=== PATIENT | female | born 1960 | race Two or more races ===

== ENCOUNTER 2019-12-30 13:03 | Outpatient (REF) | payer OTHER, SELFPAY | END 2019-12-30 13:04 | disposition home or self-care (01) | LOC: HO.LAB 13:03 | PROVIDERS: PCP Internal Medicine; Visit Provider Internal Medicine | DX: Z20.828 Contact with and (suspected) exposure to other viral communicable diseases (principal) | CPT/HCPCS: C9803; U0003 ==

== ENCOUNTER 2020-02-09 07:59 | Outpatient (REF) | payer OTHER, SELFPAY ==
[2020-02-09 08:24] LABS: Basophils Percent Auto 0.7 % (0-2); Eosinophils Absolute Auto 0.2 X10*3/uL (0.0-0.4); Eosinophils Percent Auto 2.6 % (0-4); Hematocrit 40.4 % (37-47); Hemoglobin 12.8 g/dl (12.0-16.0); Imm Gran Abs Auto 0.02 X10*3/uL (0.00-0.03); Imm Gran Pct Auto 0.3 % (0.0-0.4); Lymphocytes Absolute Auto 3.1 X10*3/uL (1.2-4.9); Lymphocytes Percent Auto 51.1 % (20-40); Mean Corpuscular HGB Conc 31.7 g/dl (31.0-35.0); Mean Corpuscular Volume 91.4 fL (80-98); Monocytes Absolute Auto 0.6 X10*3/uL (0.1-1.2); Monocytes Percent Auto 10.2 % (2-11); Neutrophils Absolute Auto 2.1 X10*3/uL (2.0-8.3); Neutrophils Percent Auto 35.1 % (45-73); Platelet Count 229 X10*3/uL (160-400); Red Blood Count 4.42 X10*6/uL (4.20-5.50); Red Cell Distribution Width 12.5 % (11.0-16.0); White Blood Count 6.1 X10*3/uL (4.8-10.8)
[2020-02-09 08:25] LABS: MANUAL DIFF FLAG NO
[2020-02-09 08:54] LABS: Alanine Aminotransferase 25 U/L (0-31); Albumin Level 4.1 g/dL (3.5-5.0); Alkaline Phosphatase 74 U/L (39-117); Anion Gap 10 (12-20); Aspartate Amino Transferase 25 U/L (5-31); Bilirubin Total 0.3 mg/dL (0.0-1.0); Blood Urea Nitrogen 12 mg/dL (9-16); Calcium 8.8 mg/dL (8.4-10.2); Carbon Dioxide 28 mmol/L (22-29); Chloride 107 mmol/L (96-108); Cholesterol 172 mg/dL; Estimated Glomerular Filt Rate > 60; Glucose Fasting 80 mg/dL (60-99); HDL Cholesterol 47 mg/dL; Iron 146 mcg/dL (30-160); LDL Cholesterol Calculated 85 mg/dl; Percent Iron Saturation 49 % (15-50); Potassium 4.6 mmol/l (3.3-5.1); Sodium 140 mmol/L (135-145); Total Iron Binding Capacity 301 mcg/dL (228-428); Total Protein 6.7 g/dL (6.5-8.0); Triglycerides 204 mg/dL; Unsaturated Iron Binding 155 ug/dL
[2020-02-09 09:17] LABS: Ferritin 70 ng/mL (10-250); TSH reflex Free T4 0.67 mIU/mL (0.32-4.0); Vitamin D 25-OH Total 25.6 ng/mL (>30)
[2020-02-09 10:09] LABS: Folate > 20.0 ng/mL (> or = 4.0); Vitamin B12 628 pg/mL (200-900)
[2020-02-10 13:47] LABS: Thyroglobulin Antibodies 13 IU/mL (< or = 1); Thyroid Peroxidase Antibodies 2 IU/mL (<9)
== END 2020-02-09 08:00 | disposition home or self-care (01) ==
LOC: HO.LAB 07:59
PROVIDERS: Visit Provider Internal Medicine
DX: E78.00 Pure hypercholesterolemia, unspecified (principal); D50.9 Iron deficiency anemia, unspecified; E03.9 Hypothyroidism, unspecified
CPT/HCPCS: 36415; 80053; 80061; 82306; 82607; 82728; 82746; 83540; 84443; 85025; 86376; 86800

== ENCOUNTER 2020-03-31 07:45 | Outpatient (REF) | payer OTHER, SELFPAY ==
--- NOTE | ~2020-03-31 | US_ITS ---
EXAMINATION: US LOWER EXTREMITY DUPLEX ARTERIAL EXAMINATION RIGHT LOWER EXTREMITY CLINICAL INFORMATION: Right leg pain. COMPARISON: None. TECHNIQUE: Real-time ultrasound and Doppler techniques (integrating B-mode 2D vascular images, Doppler spectral analysis and color flow Doppler imaging) were utilized to interrogate the right lower extremity arterial system. FINDINGS: There are some scattered calcified plaque seen within the right lower extremity arterial system. Within the right common femoral artery, there is a triphasic waveform with peak systolic velocity 123 cm/s. Within the profunda femoral artery, there is a triphasic waveform with peak systolic velocity of 119 cm/s. Within the proximal superficial femoral artery, there is a triphasic waveform with peak systolic velocity of 128 cm/s. Within the mid superficial femoral artery, there is a triphasic waveform with peak systolic velocity of 96 cm/s. Within the distal superficial femoral artery, there is a triphasic waveform with peak systolic velocity of 95 cm/s. Within the popliteal artery, there is a biphasic waveform with peak systolic velocity of 99 cm/s. Within the distal posterior tibial artery, there is a biphasic waveform with peak systolic velocity of 99 cm/s. Within the proximal peroneal artery, there is a triphasic waveform with peak systolic velocity of 46 cm/s. US/US arterial duplex LE RT IMPRESSION: No evidence of hemodynamically significant stenosis in the right lower extremity.
--- NOTE | 2020-03-31 08:33 | EMG_ITS ---
HISTORY OF PRESENT ILLNESS: This is a 59-year-old woman with bilateral upper extremity pain, numbness, and tingling. PHYSICAL EXAMINATION: On examination, she is alert and oriented with normal intellectual functions. Cranial nerves II through XII are normal. She has a well-healed scar of her previous right carpal tunnel release. Her left hand is currently worse than the right. Reflexes symmetrical. No Tinel or Phalen sign. IMPRESSION: Left carpal tunnel syndrome. Nerve conduction EMG studies: Mild carpal tunnel syndrome on the left. Normal EMG of the left C5 through T1 innervated muscles. MD NIKKI Funez/ELIEL / [id number]
== END 2020-03-31 07:46 | disposition home or self-care (01) ==
LOC: HO.US 07:45
PROVIDERS: PCP Internal Medicine; Visit Provider Internal Medicine
DX: M79.604 Pain in right leg (principal); R20.0 Anesthesia of skin
CPT/HCPCS: 93926; 95885; 95913

== ENCOUNTER 2020-05-21 10:00 | Outpatient (REF) | payer OTHER, SELFPAY ==
--- NOTE | ~2020-05-21 | MM_ITS ---
EXAMINATION: MM SCREENING DIGITAL BREAST TOMOSYNTHESIS, BILATERAL CLINICAL INFORMATION: Screening. Asymptomatic. Prior outside biopsy left breast (fibroadenoma, [facility]). The lifetime risk of breast cancer based on the Tyrer-Cuzick Model is 6%. COMPARISON: Mammography: 10/13/2019, 03/21/2018, 03/12/2017, 10/11/2016 TECHNIQUE: Digital breast tomosynthesis is performed in both the craniocaudal and mediolateral oblique views along with computer-aided detection (CAD). Synthesized 2D images are generated from the tomosynthesis. FINDINGS: The breasts are heterogeneously dense, which may obscure small masses (ACR BI-RADS breast composition Category c). Parenchymal pattern is similar to prior exams. There is no interval mass or architectural abnormality or developing density. Again, there is biopsy clip marker overlying known fibroadenoma mid upper outer left breast. There is a chronic circumscribed mass likely degenerating fibroadenoma posterior 3:00 position left breast with associated coarse calcifications. The axillary and skin contours are unremarkable. MM/MM tomosynthesis screening BI IMPRESSION: 1. No mammographic evidence of malignancy. 2. Chronic benign nodularity left breast similar to prior studies. ASSESSMENT: BI-RADS 2: Benign RECOMMENDATION: Routine annual mammography screening. This patient's information was entered into a reminder system with a target due date for their next mammogram.
== END 2020-05-21 10:01 | disposition home or self-care (01) ==
LOC: HO.MAMMO 10:00
PROVIDERS: Visit Provider Internal Medicine
DX: Z12.31 Encounter for screening mammogram for malignant neoplasm of breast (principal)
CPT/HCPCS: 77063; 77067

== ENCOUNTER 2020-06-23 16:20 | Outpatient (REF) | payer OTHER, SELFPAY ==
--- NOTE | ~2020-06-23 | MR_ITS ---
EXAMINATION: MR BREAST WITHOUT AND WITH CONTRAST, BILATERAL CLINICAL INFORMATION: Right breast pain. History of benign right breast biopsy. COMPARISON: No previous breast MRI. Mammogram 05/21/2020 TECHNIQUE: Imaging was performed with a dedicated breast coil. Prior to the administration of contrast, bilateral axial T1 and bilateral axial T2 weighted sequences were obtained. After the uneventful administration of?7 mL of Gadavist, dynamic contrast-enhanced VIBRANT series through the breasts in the axial plane were performed. Subtracted images were performed and reviewed. A delayed sagittal sequence through both breasts was acquired. Additionally, CAD post-processing, including maximum intensity projections, 3-D reconstructions and kinetic analysis, were performed an independent workstation and reviewed by the interpreting radiologist is a portion of this exam. FINDINGS: The patient's heterogeneously dense fibroglandular tissue demonstrates mild background enhancement. LEFT BREAST: Stable minimally enhancing mass in the 2:00 position of the left breast, middle depth. Additional nonenhancing fibroadenoma in the 4:00 position, posterior depth, measuring 1.1 cm. No suspicious masslike or non-masslike enhancement. No abnormal skin thickening or nipple retraction. No abnormal architectural distortion. Review of the T2 weighted images demonstrates no fibrocystic changes or dilated ducts. Review of kinetic images reveals no additional findings. RIGHT BREAST: No suspicious masslike or non-masslike enhancement. No abnormal skin thickening or nipple retraction. No abnormal architectural distortion. Review of the T2 weighted images demonstrates no fibrocystic changes or dilated ducts. Review of kinetic images reveals no additional findings. There is no suspicious internal mammary chain or axillary adenopathy. Limited views of the chest and abdomen are unremarkable. MR/MR breast BI wo/w con IMPRESSION: No MR specific evidence of malignancy. No MR findings to explain right breast pain. ASSESSMENT: LEFT BREAST: BI-RADS 1-Negative RIGHT BREAST: BI-RADS 1-Negative RECOMMENDATIONS: Clinical follow-up. Continued annual mammographic surveillance. Further breast MRI as risk factors dictate.
== END 2020-06-23 16:21 | disposition home or self-care (01) ==
LOC: HO.MRI 16:20
PROVIDERS: Visit Provider Internal Medicine
DX: R92.8 Other abnormal and inconclusive findings on diagnostic imaging of breast (principal)
CPT/HCPCS: 77049; A9585

== ENCOUNTER 2020-10-05 08:00 | Outpatient (RCR) | payer OTHER, SELFPAY | END 2020-11-11 09:00 | disposition home or self-care (01) | LOC: HO.OT 08:00 | PROVIDERS: PCP Internal Medicine; Visit Provider Nurse Practitioner Family | DX: R29.898 Other symptoms and signs involving the musculoskeletal system (principal) | CPT/HCPCS: 29125; 97035; 97110; 97166; 97760 ==

== ENCOUNTER 2021-02-08 12:33 | Outpatient (REF) | payer OTHER, SELFPAY ==
[2021-02-08 14:19] LABS: COVID-19 Test Positive (Negative)
== END 2021-02-08 12:34 | disposition home or self-care (01) ==
LOC: HO.LAB 12:33
PROVIDERS: Visit Provider Internal Medicine
DX: Z20.822 Contact with and (suspected) exposure to COVID-19 (principal)
CPT/HCPCS: 36415; 87635; C9803

== ENCOUNTER 2021-04-17 18:17 | Emergency (ER) | payer OTHER, SELFPAY ==
--- NOTE | ~2021-04-17 | XR_ITS ---
EXAMINATION: XR TIBIA AND FIBULA, RIGHT CLINICAL INFORMATION: Pain COMPARISON: None TECHNIQUE: AP and lateral views of the right tibia and fibula were obtained. FINDINGS: Bone alignment is normal. No fracture or dislocation is seen. There are small osteophytes at the patellofemoral and medial femoral tibial joints. The ankle joint is normal. There are small osteophytes at the quadriceps tendon and patellar tendon insertions. Soft tissues are otherwise unremarkable. XR/XR tibia fibula RT 2V IMPRESSION: Mild degenerative changes
--- NOTE | ~2021-04-17 | XR_ITS ---
EXAMINATION: XR FOOT, RIGHT CLINICAL INFORMATION: Pain COMPARISON: Previous x-ray April 2016 TECHNIQUE: AP, lateral, and oblique views of the right foot. FINDINGS: Bone alignment is normal. No fracture or dislocation is seen. Joint spaces are normal. There are large calcaneal spurs. Soft tissues are otherwise normal. XR/XR foot RT 2V IMPRESSION: Large calcaneal spurs.
[2021-04-17 18:42] VITALS: BP 148/82; PULSE 73; RESP 20; TEMP 36.7; O2SAT 97; BMI 27.8
[2021-04-17 19:08] LABS: MANUAL DIFF FLAG NO
[2021-04-17 19:12] LABS: Basophils Absolute Auto 0.1 X10*3/uL (0.0-0.2); Basophils Percent Auto 0.6 % (0-2); Eosinophils Absolute Auto 0.2 X10*3/uL (0.0-0.4); Eosinophils Percent Auto 2.1 % (0-4); Hematocrit 39.1 % (37.0-47.0); Hemoglobin 12.8 g/dl (12.0-16.0); Imm Gran Abs Auto 0.03 X10*3/uL (0.00-0.03); Imm Gran Pct Auto 0.4 % (0.0-0.4); Lymphocytes Absolute Auto 2.5 X10*3/uL (1.2-4.9); Lymphocytes Percent Auto 30.4 % (20-40); Mean Corpuscular HGB Conc 32.7 g/dl (31.0-35.0); Mean Corpuscular Hemoglobin 28.8 pg (27.0-33.0); Mean Corpuscular Volume 87.9 fL (80.0-98.0); Mean Platelet Volume 10.1 fL (9.4-12.3); Monocytes Absolute Auto 0.8 X10*3/uL (0.1-1.2); Monocytes Percent Auto 9.7 % (2-11); Neutrophils Absolute Auto 4.7 x10*3/uL (2.0-8.3); Neutrophils Percent Auto 56.8 % (45-73); Platelet Count 267 X10*3/uL (160-400); Red Blood Count 4.45 X10*6/uL (4.20-5.50); Red Cell Distribution Width 12.9 % (11.0-16.0); White Blood Count 8.3 X10*3/uL (4.8-10.8)
[2021-04-17 19:39] LABS: Anion Gap 11 (12-20); Blood Urea Nitrogen 12 mg/dL (9-16); Calcium 9.9 mg/dL (8.4-10.2); Carbon Dioxide 25 mmol/L (22-29); Chloride 109 mmol/L (96-108); Creatinine Clr Calc Pharmacy 67.2; Estimated Glomerular Filt Rate > 60; Glucose Random 81 mg/dL (60-115); Potassium 4.5 mmol/L (3.3-5.1); Sodium 140 mmol/L (135-145)
[2021-04-17] MEDS: Ibuprofen 600 MG TABLET PO (20:44)
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
[2021-04-17] MEDS: Diphth,Pertus(ACell),Tet Adult 0.5 ML SYRINGE IM (21:45)
[2021-04-17 21:52] VITALS: BP 119/66; PULSE 58; RESP 16; TEMP 36.1; O2SAT 97
[2021-04-17 21:59] LABS: D Dimer High Sensitivity 169 NG/ML
== END 2021-04-17 22:41 | disposition home or self-care (01) ==
PROVIDERS: Physician Assistant; Emergency Provider Internal Medicine; PCP Internal Medicine
DX: L03.115 Cellulitis of right lower limb (principal); M79.671 Pain in right foot; Z79.899 Other long term (current) drug therapy
CPT/HCPCS: 36415; 73590; 73620; 80048; 85025; 85379; 90471; 90715; 96372; 99284

== ENCOUNTER 2021-05-02 07:59 | Outpatient (RCR) | payer OTHER, SELFPAY | END 2021-06-03 16:03 | disposition home or self-care (01) | LOC: HO.WCC 07:59 | PROVIDERS: PCP Internal Medicine; Visit Provider Physician Assistant | DX: T25.221A Burn of second degree of right foot, initial encounter (principal); T31.0 Burns involving less than 10% of body surface; Z87.891 Personal history of nicotine dependence | CPT/HCPCS: 16020; 99212 ==

== ENCOUNTER 2021-05-17 07:54 | Outpatient (REF) | payer OTHER, SELFPAY ==
--- NOTE | ~2021-05-17 | XR_ITS ---
EXAMINATION: XR HAND, RIGHT XR HAND, LEFT CLINICAL INFORMATION: Bilateral hand pain. COMPARISON: None TECHNIQUE: 3 views of each hand and wrist. FINDINGS: Bone alignment is normal. No fracture or dislocation is seen. There are mild degenerative changes at the first LONG TERM joint, right greater than left. The joint spaces are otherwise normal. Soft tissues are normal. 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
--- NOTE | ~2021-05-17 | XR_ITS ---
EXAMINATION: XR HAND, RIGHT XR HAND, LEFT CLINICAL INFORMATION: Bilateral hand pain. COMPARISON: None TECHNIQUE: 3 views of each hand and wrist. FINDINGS: Bone alignment is normal. No fracture or dislocation is seen. There are mild degenerative changes at the first FDC joint, right greater than left. The joint spaces are otherwise normal. Soft tissues are normal. XR/XR hand LT 2V IMPRESSION: Mild osteoarthritis at the first FDC joints, right greater than left.
[2021-05-17 08:22] LABS: MANUAL DIFF FLAG NO
[2021-05-17 08:44] LABS: Basophils Absolute Auto 0.1 X10*3/uL (0.0-0.2); Eosinophils Absolute Auto 0.2 X10*3/uL (0.0-0.4); Eosinophils Percent Auto 4.5 % (0-4); Imm Gran Abs Auto 0.01 X10*3/uL (0.00-0.03); Imm Gran Pct Auto 0.2 % (0.0-0.4); Lymphocytes Absolute Auto 2.2 X10*3/uL (1.2-4.9); Lymphocytes Percent Auto 44.3 % (20-40); Mean Corpuscular HGB Conc 31.8 g/dl (31.0-35.0); Mean Corpuscular Hemoglobin 28.7 pg (27.0-33.0); Mean Corpuscular Volume 90.2 fL (80.0-98.0); Mean Platelet Volume 11.8 fL (9.4-12.3); Monocytes Absolute Auto 0.5 X10*3/uL (0.1-1.2); Monocytes Percent Auto 9.9 % (2-11); Neutrophils Percent Auto 40.1 % (45-73); Platelet Count 158 X10*3/uL (160-400); Red Blood Count 4.88 X10*6/uL (4.20-5.50); Red Cell Distribution Width 12.4 % (11.0-16.0); White Blood Count 5.1 X10*3/uL (4.8-10.8)
[2021-05-17 09:12] LABS: Alanine Aminotransferase 26 U/L (0-31); Albumin Level 4.4 g/dL (3.5-5.0); Alkaline Phosphatase 74 U/L (39-117); Anion Gap 13 (12-20); Aspartate Amino Transferase 22 U/L (5-31); Bilirubin Total 0.8 mg/dL (0.0-1.0); Blood Urea Nitrogen 11 mg/dL (9-16); Calcium 10.3 mg/dL (8.4-10.2); Carbon Dioxide 27 mmol/L (22-29); Chloride 107 mmol/L (96-108); Cholesterol 194 mg/dL; Estimated Glomerular Filt Rate > 60; Glucose Fasting 93 mg/dL (60-99); HDL Cholesterol 48 mg/dL; Iron 117 mcg/dL (30-160); LDL Cholesterol Calculated 119 mg/dl; Percent Iron Saturation 40 % (15-50); Potassium 4.1 mmol/L (3.3-5.1); Sodium 143 mmol/L (135-145); Total Iron Binding Capacity 293 mcg/dL (228-428); Total Protein 7.6 g/dL (6.5-8.0); Triglycerides 138 mg/dL; Unsaturated Iron Binding 176 ug/dL
[2021-05-17 09:42] LABS: Folate 19.8 ng/mL (> or = 4.0); Vitamin B12 544 pg/mL (200-900)
[2021-05-18 13:51] LABS: Calcium (PTHI) 9.7 mg/dL (8.6-10.4); PTHI 79 pg/mL (16-77)
[2021-05-19 11:46] LABS: Calcium, Ionized 5.1 mg/dL (4.8-5.6)
[2021-05-25 13:47] LABS: Vitamin D 25-OH, D2 <4 ng/mL; Vitamin D 25-OH, D3 36 ng/mL; Vitamin D 25-OH, Total 36 ng/mL (30-100)
== END 2021-05-17 07:55 | disposition home or self-care (01) ==
LOC: HO.XRAY 07:54
PROVIDERS: PCP Internal Medicine; Visit Provider Internal Medicine
DX: E78.5 Hyperlipidemia, unspecified (principal); E21.3 Hyperparathyroidism, unspecified; D64.9 Anemia, unspecified; E06.3 Autoimmune thyroiditis; R20.0 Anesthesia of skin; E55.9 Vitamin D deficiency, unspecified; R29.898 Other symptoms and signs involving the musculoskeletal system
CPT/HCPCS: 36415; 73120; 80053; 80061; 82306; 82330; 82607; 82746; 83540; 83970; 84443; 85025

== ENCOUNTER 2021-08-04 08:35 | Outpatient (REF) | payer OTHER, SELFPAY ==
[2021-08-04 08:52] LABS: MANUAL DIFF FLAG NO
[2021-08-04 09:42] LABS: Basophils Percent Auto 0.6 % (0-2); Eosinophils Absolute Auto 0.1 X10*3/uL (0.0-0.4); Eosinophils Percent Auto 2.1 % (0-4); Hematocrit 38.5 % (37.0-47.0); Hemoglobin 12.2 g/dl (12.0-16.0); Imm Gran Abs Auto 0.01 X10*3/uL (0.00-0.03); Imm Gran Pct Auto 0.2 % (0.0-0.4); Lymphocytes Absolute Auto 2.2 X10*3/uL (1.2-4.9); Lymphocytes Percent Auto 41.8 % (20-40); Mean Corpuscular HGB Conc 31.7 g/dl (31.0-35.0); Mean Corpuscular Hemoglobin 28.2 pg (27.0-33.0); Mean Corpuscular Volume 88.9 fL (80.0-98.0); Mean Platelet Volume 10.7 fL (9.4-12.3); Monocytes Absolute Auto 0.6 X10*3/uL (0.1-1.2); Monocytes Percent Auto 10.6 % (2-11); Neutrophils Absolute Auto 2.3 x10*3/uL (2.0-8.3); Neutrophils Percent Auto 44.7 % (45-73); Platelet Count 213 X10*3/uL (160-400); Red Blood Count 4.33 X10*6/uL (4.20-5.50); Red Cell Distribution Width 12.6 % (11.0-16.0); White Blood Count 5.2 X10*3/uL (4.8-10.8)
[2021-08-04 10:17] LABS: Alanine Aminotransferase 26 U/L (0-31); Albumin Level 4.1 g/dL (3.5-5.0); Alkaline Phosphatase 67 U/L (39-117); Anion Gap 11 (12-20); Aspartate Amino Transferase 26 U/L (5-31); Bilirubin Total 0.5 mg/dL (0.0-1.0); Blood Urea Nitrogen 16 mg/dL (9-16); Carbon Dioxide 25 mmol/L (22-29); Chloride 109 mmol/L (96-108); Cholesterol 144 mg/dL; Estimated Glomerular Filt Rate > 60; Glucose Fasting 90 mg/dL (60-99); HDL Cholesterol 44 mg/dL; Iron 94 mcg/dL (30-160); LDL Cholesterol Calculated 79 mg/dl; Percent Iron Saturation 36 % (15-50); Potassium 4.1 mmol/L (3.3-5.1); Sodium 141 mmol/L (135-145); Total Iron Binding Capacity 258 mcg/dL (228-428); Total Protein 6.8 g/dL (6.5-8.0); Triglycerides 109 mg/dL; Unsaturated Iron Binding 164 ug/dL
[2021-08-04 10:42] LABS: Thyroid Stimulating Hormone 1.16 uIU/mL (0.32-4.0); Vitamin D 25-OH Total 25.5 ng/mL (>30)
[2021-08-05 12:06] LABS: PTHI 97 pg/mL (16-77)
[2021-08-06 18:12] LABS: Calcium, Random Urine 6.1 mg/dL
[2021-08-10 12:16] LABS: Vitamin D 25-OH, D2 <4 ng/mL; Vitamin D 25-OH, D3 26 ng/mL; Vitamin D 25-OH, Total 26 ng/mL (30-100)
[2021-08-11 07:07] LABS: Calcium, Ionized 5.1 mg/dL (4.8-5.6)
== END 2021-08-04 08:36 | disposition home or self-care (01) ==
LOC: HO.LAB 08:35
PROVIDERS: PCP Internal Medicine; Visit Provider Internal Medicine
DX: E55.9 Vitamin D deficiency, unspecified (principal); D64.9 Anemia, unspecified; E06.3 Autoimmune thyroiditis; E78.5 Hyperlipidemia, unspecified; E21.3 Hyperparathyroidism, unspecified
CPT/HCPCS: 36415; 80053; 80061; 82306; 82310; 82330; 83540; 83970; 84443; 85025

== ENCOUNTER → 2021-11-01 11:00 | Outpatient (BNVA) | payer OTHER, SELFPAY | PROVIDERS: PCP Internal Medicine; Visit Provider Internal Medicine Endocrinology, Diabetes & Metabolism | DX: E55.9 Vitamin D deficiency, unspecified (principal) | CPT/HCPCS: 99202 ==

== ENCOUNTER 2021-11-24 11:55 | Outpatient (REF) | payer OTHER, SELFPAY ==
[2021-11-24 12:36] LABS: COVID-19 Test Negative (Negative)
== END 2021-11-24 11:56 | disposition home or self-care (01) ==
LOC: HO.LAB 11:55
PROVIDERS: Visit Provider Internal Medicine
DX: Z20.822 Contact with and (suspected) exposure to COVID-19 (principal)
CPT/HCPCS: 87635; C9803

== ENCOUNTER 2022-01-26 14:39 | Outpatient (REF) | payer OTHER, SELFPAY ==
[2022-01-26 15:12] LABS: COVID-19 Test Positive (Negative); IDNOW Serial# 16C4AD1C
== END 2022-01-26 14:40 | disposition home or self-care (01) ==
LOC: HO.LAB 14:39
PROVIDERS: Visit Provider Internal Medicine
DX: Z20.822 Contact with and (suspected) exposure to COVID-19 (principal)
CPT/HCPCS: 87635; C9803

== ENCOUNTER 2022-02-01 10:35 | Outpatient (REF) | payer OTHER, SELFPAY ==
[2022-02-01 11:01] LABS: COVID-19 Test Positive (Negative); IDNOW Serial# BCCEAD1C
== END 2022-02-01 10:36 | disposition home or self-care (01) ==
LOC: HO.LAB 10:35
PROVIDERS: Visit Provider Internal Medicine
DX: Z20.822 Contact with and (suspected) exposure to COVID-19 (principal)
CPT/HCPCS: 87635; C9803

== ENCOUNTER 2022-02-07 11:49 | Outpatient (REF) | payer OTHER, SELFPAY ==
[2022-02-07 12:22] LABS: COVID-19 Test Negative (Negative); IDNOW Serial# 16C4AD1C
== END 2022-02-07 11:50 | disposition home or self-care (01) ==
LOC: HO.LAB 11:49
PROVIDERS: Visit Provider Internal Medicine
DX: Z20.822 Contact with and (suspected) exposure to COVID-19 (principal)
CPT/HCPCS: 87635; C9803

== ENCOUNTER 2022-03-06 08:08 | Outpatient (REF) | payer OTHER, SELFPAY ==
[2022-03-06 09:28] LABS: Alanine Aminotransferase 35 U/L (0-31); Alkaline Phosphatase 79 U/L (39-117); Anion Gap 12 (12-20); Aspartate Amino Transferase 30 U/L (5-31); Bilirubin Total 0.7 mg/dL (0.0-1.0); Blood Urea Nitrogen 12 mg/dL (9-16); Calcium 9.4 mg/dL (8.4-10.2); Carbon Dioxide 28 mmol/L (22-29); Chloride 108 mmol/L (96-108); Cholesterol 245 mg/dL; Estimated Glomerular Filt Rate > 60; Glucose Fasting 93 mg/dL (60-99); HDL Cholesterol 41 mg/dL; LDL Cholesterol Calculated 166 mg/dl; Potassium 4.6 mmol/L (3.3-5.1); Sodium 143 mmol/L (135-145); Total Protein 6.9 g/dL (6.5-8.0); Triglycerides 193 mg/dL
[2022-03-06 09:43] LABS: Thyroid Stimulating Hormone 3.53 uIU/mL (0.32-4.0)
== END 2022-03-06 08:09 | disposition home or self-care (01) ==
LOC: HO.LAB 08:08
PROVIDERS: Absent Provider Internal Medicine Endocrinology, Diabetes & Metabolism; PCP Internal Medicine; Visit Provider Internal Medicine
DX: E06.3 Autoimmune thyroiditis (principal); E78.5 Hyperlipidemia, unspecified
CPT/HCPCS: 36415; 80053; 80061; 84443

== ENCOUNTER 2022-03-07 10:23 | Outpatient (REF) | payer OTHER, SELFPAY ==
[2022-03-07 13:22] LABS: Vitamin D 25-OH Total 20.9 ng/mL (>30)
[2022-03-08 11:38] LABS: Calcium (PTHI) 9.3 mg/dL (8.6-10.4); PTHI 88 pg/mL (16-77)
== END 2022-03-07 10:24 | disposition home or self-care (01) ==
LOC: HO.LAB 10:23
PROVIDERS: PCP Internal Medicine; Visit Provider Internal Medicine Endocrinology, Diabetes & Metabolism
DX: E55.9 Vitamin D deficiency, unspecified (principal)
CPT/HCPCS: 36415; 82040; 82306; 83970; 99212

== ENCOUNTER 2022-03-21 13:51 | Outpatient (REF) | payer OTHER, SELFPAY ==
--- NOTE | ~2022-03-21 | MM_ITS ---
EXAMINATION: MM DIAGNOSTIC DIGITAL BREAST TOMOSYNTHESIS, BILATERAL CLINICAL INFORMATION: Right breast upper outer quadrant pain for one month. Yearly screening left breast study. COMPARISON: Mammography: MR of 06/23/2020 and studies dating back to 11/09/2015. TECHNIQUE: Digital breast tomosynthesis is performed in both the craniocaudal and mediolateral oblique views along with computer-aided detection (CAD). Synthesized 2D images are generated from the tomosynthesis. Additional spot compression views anterior right breast performed in craniocaudal and mediolateral oblique projections. FINDINGS: The breasts are heterogeneously dense, which may obscure small masses (ACR BI-RADS breast composition Category c). There is a stable parenchymal pattern of the left breast with fibroadenomas and biopsy clip from previous biopsy. About the retroareolar aspect of the right breast there is a question of a faint density for which spot compression views were performed which effaced the density as it represented superimposition of fibroglandular tissue. Targeted ultrasound evaluation of the right breast in region of patient's pain and retroareolar area was then performed. No suspicious cystic or solid mass was identified. No region of abnormal distal sound shadowing was appreciated. Results are discussed with the patient at time of visit. MM/MM tomosynthesis diagnostic BI IMPRESSION: Stable appearance of the breast with no specific mammographic or ultrasound findings to suggest malignancy. ASSESSMENT: BI-RADS 2: Benign. RECOMMENDATION: Routine annual screening mammography. Clinical follow-up for patient's pain. This patient's information was entered into a reminder system with a target due date for their next mammogram.
== END 2022-03-21 13:52 | disposition home or self-care (01) ==
LOC: HO.MAMMO 13:51
PROVIDERS: PCP Internal Medicine; Visit Provider Internal Medicine
DX: N64.4 Mastodynia (principal)
CPT/HCPCS: 76642; 77062; 77066

== ENCOUNTER → 2022-03-29 07:35 | Outpatient (BNVA) | payer OTHER, SELFPAY | PROVIDERS: PCP Internal Medicine; Visit Provider Orthopaedic Surgery | DX: G56.02 Carpal tunnel syndrome, left upper limb (principal); R20.0 Anesthesia of skin; Z98.890 Other specified postprocedural states | CPT/HCPCS: 99202 ==

== ENCOUNTER 2022-04-27 08:01 | Day surgery (SDC) | payer OTHER, SELFPAY ==
[2022-04-27 08:23] VITALS: BP 135/76; PULSE 72; RESP 16; TEMP 36.2; O2SAT 96; BMI 27.4
--- NOTE | 2022-04-27 09:33 | MHC.SHP ---
Pre-Procedural Eval Section A Date of Service: 04/27/22 The patient is an INPATIENT: No Changes since office visit: No Cold of Flu in the past 2 weeks, No New Medical Problems, No Changes in Medication and No Patient answered all questions The History & Physical has been completed within 30 days and I have reviewed it.: Yes Section B Chief Complaint: Carpal tunnel syndrome, left upper limb Allergies: Allergies Allergy/AdvReac Type Severity Reaction Status Date / Time bee pollen [BEE STINGS] Allergy Severe SWELLING Verified 04/27/22 08:21 Penicillins [PENICILLINS] Allergy Severe HIVES, Verified 04/27/22 08:21 THROAT CLOSES amitriptyline [AMITRIPTYLINE] Allergy Intermediate Agitation Verified 04/27/22 08:21 oxycodone [From PERCOCET] AdvReac Intermediate DIZZINESS Verified 04/27/22 08:21 Plan I have reviewed the history and physical and performed a pertinent physical examination on my patient. No changes have occurred unless specified. Time Spent With Patient Time: Total time managing care of this patient today ____ minutes.
--- NOTE | 2022-04-27 09:33 | W.PM.OPN ---
Operative Note Operative Note Date of Service: 04/27/22 Narrative: Preop diagnosis: 1. Left Carpal tunnel syndrome Postop diagnosis: same Procedure: 1. left Carpal tunnel release Surgeon: Analisa Diego MD Anesthesia: local block using 1% lidocaine with epinephrine Findings: Thickened transverse carpal ligament. EBL: Less than 5 mL Specimens: None Complications: None Disposition: Brought to recovery room in stable condition Plan: Follow-up for 10-14 days for wound check and suture removal Indications: The patient is 61 years old, with left carpal tunnel syndrome that has been unresponsive to nonoperative management. The risks and benefits of operative treatment including but not limited to risk of damage to blood vessels, nerves, tendons, infection, persistent pain, persistent symptoms, or possible need for additional surgery were discussed with the patient and the patient wishes to proceed with surgery. Procedure: Once consent was obtained a local block was performed using a combination of 1% lidocaine with epinephrine. The patient was then brought back to the operating suite and placed on the operative table in supine position. The left upper extremity was prepped and draped in a standard surgical fashion. Once assured that we had a good block, a 2.0 cm longitudinal incision was made centered over the carpal tunnel. The incision was made through the skin to the subcutaneous tissues using a #15 blade. Dissection was made down to the level of the transverse carpal ligament with care being taken to protect the palmar cutaneous nerve. Once the transverse carpal ligament was clearly visualized, a longitudinal incision was made in the transverse carpal ligament 1st using a #15 blade, then using tenotomy scissors under direct visualization. Care was taken to look for and protect the motor branch of the median nerve when seen in this area. Once satisfied with our carpal tunnel release the wound was copiously irrigated with normal saline and hemostasis was obtained with a brief period of local pressure. The skin edges were reapproximated with some 5.0 nylon suture material and a sterile dressing was applied. The patient appears to have tolerated the procedure well and with no complications. All digits were well vascularized at the conclusion of the case.
== END 2022-04-27 09:58 | disposition home or self-care (01) ==
PROVIDERS: PCP Internal Medicine; Visit Provider Orthopaedic Surgery
PROC: (CPT 64721; principal; 2022-04-27 14:50)
DX: G56.02 Carpal tunnel syndrome, left upper limb (principal); R20.0 Anesthesia of skin; R20.2 Paresthesia of skin; R53.1 Weakness; E06.3 Autoimmune thyroiditis; E78.5 Hyperlipidemia, unspecified; D50.9 Iron deficiency anemia, unspecified; J45.909 Unspecified asthma, uncomplicated; H53.8 Other visual disturbances; R41.3 Other amnesia; Z88.0 Allergy status to penicillin; Z88.8 Allergy status to other drugs, medicaments and biological substances; Z98.84 Bariatric surgery status; Z98.890 Other specified postprocedural states
CPT/HCPCS: 64721; J0171

== ENCOUNTER → 2022-05-10 15:01 | Outpatient (BNVA) | payer OTHER, SELFPAY | PROVIDERS: PCP Internal Medicine; Visit Provider Orthopaedic Surgery | DX: G56.02 Carpal tunnel syndrome, left upper limb (principal); R20.0 Anesthesia of skin; Z98.890 Other specified postprocedural states | CPT/HCPCS: 99212 ==

== ENCOUNTER 2022-05-18 11:48 | Outpatient (REF) | payer OTHER, SELFPAY ==
--- NOTE | 2022-05-18 10:30 | EMG_ITS ---
Right median and ulnar motor and sensory studies were performed. Right radial sensory study was performed and paraspinal muscles were tested with a needle. IMPRESSION: Mild right median neuropathy across carpal tunnel affecting the sensory component. Her previous study, if done, was not available for comparison. MD SHANA Jasso/ELIEL / [id number]
== END 2022-05-18 11:49 | disposition home or self-care (01) ==
LOC: HO.NEURO 11:48
PROVIDERS: PCP Internal Medicine; Visit Provider Orthopaedic Surgery
DX: R20.0 Anesthesia of skin (principal); Z98.890 Other specified postprocedural states
CPT/HCPCS: 95886; 95909

== ENCOUNTER → 2022-05-30 09:09 | Outpatient (BNVA) | payer OTHER, SELFPAY | PROVIDERS: PCP Internal Medicine; Visit Provider Orthopaedic Surgery | DX: G56.02 Carpal tunnel syndrome, left upper limb (principal); G56.21 Lesion of ulnar nerve, right upper limb; R20.0 Anesthesia of skin; Z98.890 Other specified postprocedural states | CPT/HCPCS: 99212 ==

== ENCOUNTER 2022-06-13 08:53 | Outpatient (REF) | payer OTHER, SELFPAY ==
[2022-06-13 09:04] LABS: MANUAL DIFF FLAG NO
[2022-06-13 09:37] LABS: Basophils Absolute Auto 0.1 X10*3/uL (0.0-0.2); Basophils Percent Auto 0.9 % (0-2); Eosinophils Absolute Auto 0.1 X10*3/uL (0.0-0.4); Eosinophils Percent Auto 1.6 % (0-4); Hematocrit 38.2 % (37.0-47.0); Hemoglobin 12.4 g/dl (12.0-16.0); Imm Gran Abs Auto 0.01 X10*3/uL (0.00-0.03); Imm Gran Pct Auto 0.1 % (0.0-0.4); Lymphocytes Absolute Auto 2.8 X10*3/uL (1.2-4.9); Lymphocytes Percent Auto 39.7 % (20-40); Mean Corpuscular HGB Conc 32.5 g/dl (31.0-35.0); Mean Corpuscular Hemoglobin 28.8 pg (27.0-33.0); Mean Corpuscular Volume 88.8 fL (80.0-98.0); Mean Platelet Volume 10.4 fL (9.4-12.3); Monocytes Absolute Auto 0.9 X10*3/uL (0.1-1.2); Monocytes Percent Auto 12.1 % (2-11); Neutrophils Absolute Auto 3.2 x10*3/uL (2.0-8.3); Neutrophils Percent Auto 45.6 % (45-73); Platelet Count 262 X10*3/uL (160-400); Red Cell Distribution Width 12.5 % (11.0-16.0)
[2022-06-13 10:07] LABS: Alanine Aminotransferase 18 U/L (0-31); Albumin Level 3.9 g/dL (3.5-5.0); Alkaline Phosphatase 74 U/L (39-117); Anion Gap 14 (12-20); Aspartate Amino Transferase 19 U/L (5-31); Bilirubin Total 0.6 mg/dL (0.0-1.0); Blood Urea Nitrogen 9 mg/dL (9-16); Calcium 9.2 mg/dL (8.4-10.2); Carbon Dioxide 23 mmol/L (22-29); Chloride 110 mmol/L (96-108); Cholesterol 182 mg/dL; Estimated Glomerular Filt Rate > 60; Glucose Fasting 70 mg/dL (60-99); HDL Cholesterol 41 mg/dL; Iron 56 mcg/dL (30-160); LDL Cholesterol Calculated 115 mg/dl; Percent Iron Saturation 26 % (15-50); Potassium 4.1 mmol/L (3.3-5.1); Sodium 143 mmol/L (135-145); Total Iron Binding Capacity 215 mcg/dL (228-428); Total Protein 6.7 g/dL (6.5-8.0); Triglycerides 131 mg/dL; Unsaturated Iron Binding 159 ug/dL
[2022-06-13 10:24] LABS: Thyroid Stimulating Hormone 2.37 uIU/mL (0.32-4.0); Vitamin D 25-OH Total 25.8 ng/mL (>30)
[2022-06-14 16:13] LABS: Calcium (PTHI) 9.4 mg/dL (8.6-10.4); PTHI 86 pg/mL (16-77)
== END 2022-06-13 08:54 | disposition home or self-care (01) ==
LOC: HO.LAB 08:53
PROVIDERS: Internal Medicine Endocrinology, Diabetes & Metabolism; PCP Internal Medicine; Visit Provider Internal Medicine
DX: Z00.00 Encounter for general adult medical examination without abnormal findings (principal); E55.9 Vitamin D deficiency, unspecified; E06.3 Autoimmune thyroiditis; D64.9 Anemia, unspecified; E78.5 Hyperlipidemia, unspecified
CPT/HCPCS: 36415; 80053; 80061; 82306; 83540; 83970; 84443; 85025

== ENCOUNTER 2022-06-22 06:01 | Day surgery (SDC) | payer OTHER, SELFPAY ==
[2022-06-19 15:08] VITALS: BMI 27.4
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
[2022-06-22 06:15] VITALS: BP 114/71; PULSE 68; RESP 16; TEMP 36.3; O2SAT 100
--- NOTE | 2022-06-22 07:54 | MHC.SHP ---
Pre-Procedural Eval Section A Date of Service: 06/22/22 The patient is an INPATIENT: No Changes since office visit: No Cold of Flu in the past 2 weeks, No New Medical Problems, No Changes in Medication and No Patient answered all questions The History & Physical has been completed within 30 days and I have reviewed it.: Yes Section B Chief Complaint: Lesion of ulnar nerve, right upper limb Allergies: Allergies Allergy/AdvReac Type Severity Reaction Status Date / Time bee pollen [BEE STINGS] Allergy Severe SWELLING Verified 05/30/22 09:21 Penicillins [PENICILLINS] Allergy Severe HIVES, Verified 05/30/22 09:21 THROAT CLOSES amitriptyline [AMITRIPTYLINE] Allergy Intermediate Agitation Verified 05/30/22 09:21 oxycodone [From PERCOCET] AdvReac Intermediate DIZZINESS Verified 05/30/22 09:21 Plan I have reviewed the history and physical and performed a pertinent physical examination on my patient. No changes have occurred unless specified. Time Spent With Patient Time: Total time managing care of this patient today ____ minutes.
--- NOTE | 2022-06-22 07:54 | W.PM.OPN ---
Operative Note Operative Note Date of Service: 06/22/22 Narrative: Operative Note Narrative: Preop diagnosis: 1. Right Cubital tunnel syndrome Postop diagnosis: Same Procedure: 1. Right Cubital Tunnel Release Surgeon: Analisa Diego MD Anesthesia: General Anesthesia Findings: Thickening and fibrosis about the ulnar nerve at the cubital tunnel Implants: none Tourniquet time: 12 minutes EBL: 5.0 ml Specimen: none Drains: None Complications: None Disposition: Brought to the recovery room in stable condition Plan: Follow-up in 10-14 days for wound check, and suture removal Indications: The patient is 61 years old with right cubital tunnel . The risks and benefits of operative treatment, including but not limited to risk of damage to blood vessels, nerves, tendons, infection, recurrence, persistent pain or numbness, incomplete resolution of preoperative symptoms, or need for further surgery were discussed with the patient and they wished to proceed with surgery. Procedure: Once consent was obtained patient was brought back to the operating suite and placed in the operating table in a supine position. Perioperative antibiotics and anesthesia was administered by the anesthesia team. The limb was prepped and draped in a standard surgical fashion, and a sterile tourniquet applied to the proximal aspect of the right upper extremity. The limb was elevated exsanguinated with Esmarch bandage and the tourniquet inflated to 250 mm of mercury for a total tourniquet time of 12 minutes. A 6 cm gently curved but longitudinally oriented incision was made centered over the cubital tunnel of the right upper extremity. Incision was made through the skin to the subcutaneous tissues using a # 15 Blade. I then dissected down to the level of the medial epicondyle and the cubital tunnel using tenotomy scissors. Care was taken to protect the lateral antebrachial cutaneous nerve. The ulnar nerve was identified just posterior to the medial intermuscular septum. The ulnar nerve was released in a proximal to distal direction using tenotomy in iris scissors while directly visualizing and protecting the ulnar nerve. Thickening and fibrosis was appreciated about the ulnar nerve as it passed through the cubital tunnel. The ulnar nerve was assessed as I passed the elbow through full flexion and extension and was found to remain stable within its groove. At this point the tourniquet was deflated and hemostasis obtained with a brief period of local pressure and bipolar electrocautery. The wound was copiously irrigated with normal saline. The subcutaneous layer was closed with 4-0 Vicryl suture, and the skin edges were reapproximated with 5-0 nylon suture. The wound was infiltrated with some 0.25% plain Marcaine for postop pain control and sterile dressings were applied. The patient appears to have tolerated the procedure well and with no complications. All digits were well vascularized conclusion of the case.
[2022-06-22 08:53] VITALS: BP 118/65; PULSE 61; RESP 16; TEMP 36.4; O2SAT 95
[2022-06-22 08:58] VITALS: BP 112/62; PULSE 57; RESP 16; O2SAT 98
[2022-06-22 09:03] VITALS: BP 117/70; PULSE 59; RESP 16; O2SAT 97
[2022-06-22 09:08] VITALS: BP 109/79; PULSE 57; RESP 16; TEMP 36.9; O2SAT 98
[2022-06-22 09:26] VITALS: BP 114/76; PULSE 60; RESP 18; TEMP 36.6; O2SAT 97
== END 2022-06-22 10:00 | disposition home or self-care (01) ==
PROVIDERS: PCP Internal Medicine; Visit Provider Orthopaedic Surgery
PROC: (CPT 64718; principal; 2022-06-22 07:30)
DX: G56.21 Lesion of ulnar nerve, right upper limb (principal); Z88.0 Allergy status to penicillin; Z88.8 Allergy status to other drugs, medicaments and biological substances; R20.0 Anesthesia of skin; D50.9 Iron deficiency anemia, unspecified; J45.909 Unspecified asthma, uncomplicated; Z98.84 Bariatric surgery status; Z98.890 Other specified postprocedural states; Z79.1 Long term (current) use of non-steroidal anti-inflammatories (NSAID); Z79.51 Long term (current) use of inhaled steroids; Z79.899 Other long term (current) drug therapy
CPT/HCPCS: 64718; J0131; J1100; J1885; J2370; J2405; J2795

== ENCOUNTER → 2022-07-05 09:19 | Outpatient (BNVA) | payer OTHER, SELFPAY | PROVIDERS: PCP Internal Medicine; Visit Provider Physician Assistant | DX: Z48.811 Encounter for surgical aftercare following surgery on the nervous system (principal) | CPT/HCPCS: 99212 ==

== ENCOUNTER 2022-08-01 07:15 | Outpatient (REF) | payer OTHER, SELFPAY ==
[2022-08-01 08:26] LABS: Alanine Aminotransferase 26 U/L (0-31); Alkaline Phosphatase 67 U/L (39-117); Anion Gap 11 (12-20); Aspartate Amino Transferase 26 U/L (5-31); Bilirubin Total 0.9 mg/dL (0.0-1.0); Blood Urea Nitrogen 12 mg/dL (9-16); Calcium 9.9 mg/dL (8.4-10.2); Carbon Dioxide 26 mmol/L (22-29); Chloride 108 mmol/L (96-108); Cholesterol 186 mg/dL; Estimated Glomerular Filt Rate > 60; Glucose Fasting 96 mg/dL (60-99); HDL Cholesterol 49 mg/dL; LDL Cholesterol Calculated 103 mg/dl; Potassium 3.9 mmol/L (3.3-5.1); Sodium 141 mmol/L (135-145); Total Protein 7.2 g/dL (6.5-8.0); Triglycerides 170 mg/dL
[2022-08-01 08:43] LABS: Thyroid Stimulating Hormone 4.26 uIU/mL (0.32-4.0)
== END 2022-08-01 07:16 | disposition home or self-care (01) ==
LOC: HO.LAB 07:15
PROVIDERS: PCP Internal Medicine; Visit Provider Internal Medicine
DX: E78.5 Hyperlipidemia, unspecified (principal); M54.31 Sciatica, right side; E06.3 Autoimmune thyroiditis
CPT/HCPCS: 36415; 80053; 80061; 84443

== ENCOUNTER 2022-08-03 17:05 | Outpatient (REF) | payer OTHER, SELFPAY ==
--- NOTE | ~2022-08-03 | XR_ITS ---
EXAMINATION: XR LUMBOSACRAL SPINE CLINICAL INFORMATION: Low back pain COMPARISON: None available. TECHNIQUE: Three views of the lumbosacral spine. FINDINGS: Scattered surgical clips in the upper abdomen and pelvis. Facet arthritis in the lower lumbar spine. Mild multilevel lumbar spondylosis. Lumbar vertebral body heights are preserved. XR/XR lumbar spine 2-3V IMPRESSION: Facet arthritis in the lower lumbar spine. Mild multilevel lumbar spondylosis.
== END 2022-08-03 17:06 | disposition home or self-care (01) ==
LOC: HO.XRAY 17:05
PROVIDERS: PCP Internal Medicine; Visit Provider Internal Medicine
DX: M54.50 Low back pain, unspecified (principal)
CPT/HCPCS: 72100

== ENCOUNTER 2022-08-16 07:55 | Outpatient (REF) | payer OTHER, SELFPAY | END 2022-08-16 07:56 | disposition home or self-care (01) | LOC: HO.LAB 07:55 | PROVIDERS: Absent Provider Internal Medicine Endocrinology, Diabetes & Metabolism; PCP Internal Medicine; Visit Provider Orthopaedic Surgery | DX: G56.02 Carpal tunnel syndrome, left upper limb (principal); R20.0 Anesthesia of skin; G56.21 Lesion of ulnar nerve, right upper limb; Z98.890 Other specified postprocedural states; E55.9 Vitamin D deficiency, unspecified; E78.5 Hyperlipidemia, unspecified; E06.3 Autoimmune thyroiditis | CPT/HCPCS: 36415; 80061; 84443 ==

== ENCOUNTER 2022-08-21 08:00 | Outpatient (RCR) | payer OTHER, SELFPAY ==
--- NOTE | 2022-08-02 14:48 | MHC.OT.EP ---
[address] [phone] Occupational Therapy Plan of Care Patient Name: Isis Moreno Date of Evaluation: 08/01/22 Diagnosis: Right cubital tunnel and CTR Left CTR Pain Location: 4-9 bilateral carpal wrists . Achy , stabbing Pain Score: 6 Pain Scale Used: Numeric (0 - 10) Aggravating Factors: Daily activities and at rest Alleviating Factors: Assessment: Pt is a 61 yo female 5 wks s/p right cubital tunnel release and CTR . She had left CTR this past April. Today she presents with moderate to high left wrist pain , hypersensitivity , dec ROM and low strength . Right hand complaint of wrist pain and hand numbness affecting her ability to resume homemaking tasks and hand crafts. Pt will benefit from OT to address impairments in wrist pain, ROM, strength as well as education in protection techniques and compensation techniques for sensory and strength impairments. Frequency and Duration: The patient will be seen 2x wk x 6 wks Short Term Goals: Demo indep with HEP Demo indep with scar desensitization Demo awareness of skin protection tech for right hand protective sensation impairment Left wrist ext to 60 deg Left wrist flexion to 55 deg Left benefits clerk to > 10 lb Demo RUE gentle ROM and benefits clerk strengthening Mold Blower Goals: RUE AROM to WNL R benefits clerk to >25 lb Indep with right hand protection tech as needed Left wrist pain <5 at worst Left wrist ext to > 60 deg Left wrist flex to > 55 deg'' Treatment Plan: Therapeutic Exercise Therapeutic Activity Home Exercise Program Patient Education Desensitization/Sensory Re-ed ADL Training Ultrasound Electronically Signed By: Mami Guajardo OT CHT CLT Please Sign and return to therapist. Thank you once again for your referral.
== END 2022-11-15 10:58 | disposition home or self-care (01) ==
LOC: HO.OT 08:00
PROVIDERS: PCP Internal Medicine; Visit Provider Physician Assistant
DX: G56.02 Carpal tunnel syndrome, left upper limb (principal); G56.21 Lesion of ulnar nerve, right upper limb
CPT/HCPCS: 97110; 97166

== ENCOUNTER 2022-08-22 08:10 | Outpatient (REF) | payer OTHER, SELFPAY ==
[2022-08-22 11:23] LABS: Vitamin D 25-OH Total 36.8 ng/mL (>30)
[2022-08-24 04:38] LABS: Calcium (PTHI) 9.7 mg/dL (8.6-10.4); PTHI 93 pg/mL (16-77)
== END 2022-08-22 08:11 | disposition home or self-care (01) ==
LOC: HO.LAB 08:10
PROVIDERS: PCP Internal Medicine; Visit Provider Internal Medicine Endocrinology, Diabetes & Metabolism
DX: E55.9 Vitamin D deficiency, unspecified (principal)
CPT/HCPCS: 36415; 82306; 83970; 99212

== ENCOUNTER 2022-08-22 08:10 | Outpatient (AMB) | payer OTHER, SELFPAY ==
[2022-08-22 08:40] VITALS: BP 108/60; PULSE 56; O2SAT 98; BMI 26.8
--- NOTE | 2022-08-22 08:40 | MHC.OFFVIS ---
Intake Vital Signs 08/22/22 08:40 Height 5 ft 2 in Weight 146 lb 6.191 oz BMI 26.8 BP 108/60 Blood Pressure Location Lt brachial Position Sitting Pulse 56 Pulse Source Pulse Oximeter Pulse Oximetry (%) 98 Oxygen Delivery Method Room Air Intake Visit Reasons: F/up secondary hyperparathyroidism Intake Note: Pt presents to the office today for a follow-up secondary hyperparathyroidism. Audio Production Engineer Required: Yes Audio Production Engineer Language: Tellers Supervisor Name: Manolo [id number] Information Interpreted: non-clinical & clinical Accompanied by: Self / Same As Patient Allergies bee pollen [BEE STINGS] Allergy (Severe, Verified 08/22/22 08:42) SWELLING Penicillins [PENICILLINS] Allergy (Severe, Verified 08/22/22 08:42) HIVES, THROAT CLOSES amitriptyline [AMITRIPTYLINE] Allergy (Intermediate, Verified 08/22/22 08:42) Agitation oxycodone [From PERCOCET] Adverse Reaction (Intermediate, Verified 08/22/22 08:42) DIZZINESS Medication List - Last Reconciled 08/22/22 by Alan Quinones MD [adult diapers As directed] blood sugar diagnostic (FreeStyle Lite Strips) 1 strip miscellaneous TID 90 days cholecalciferol (vitamin D3) 125 mcg PO DAILY cyclobenzaprine 10 mg PO TID PRN 30 days epinephrine 0.3 mg (0.3 mL) IM DIRECTED PRN 1 day ergocalciferol (vitamin D2) 1,250 mcg PO 2XW fluticasone propionate 44 mcg/actuation (Flovent HFA) 1 puff inhalation BID 30 days gabapentin 300 mg PO Q8H 90 days ibuprofen 800 mg PO TID PRN lancets Use 1 lancet TID levothyroxine 88 mcg PO DAILY 90 days rosuvastatin 40 mg PO DAILY 90 days silver sulfadiazine 1% (Silvadene) 1 appl topical BID tramadol 50 mg PO BID PRN 7 days trazodone 50 mg PO BEDTIME 90 days Ventolin HFA 90 mcg/actuation (albuterol sulfate) 2 puffs inhalation Q6H PRN 30 days NS walker WITH SEAT AND WHEELS HPI HPI Comments History of Present Illness Details 61 YO F with PMHx bariatric surgery who is seen in consultation at the request of PCP for hyperparathyroidism for. Hx of bariatric surgery 4 yrs ago First noted to have high calcium of 10.3 on 05/17/2021 but subsequent calcium is normal . Currently using ? Calcium supplement ?mg . [place] 5000 [place] [address] IU of ergocalciferol twice a week Currently not using HCTZ. Kidney stones: No Osteoporosis: No History of Weiser use: No Biotin use: Takes Biotin according to pt Family history of high calcium or kidney stones: Renal imaging: [] DXA: Labs: Taking 5000-Iunits of vitamin-D 3 PFSH Medical History Abnormal mammogram Autoimmune thyroiditis Blurry vision Dyslipidemia Hand numbness Hyperparathyroidism Hypovitaminosis D Insomnia Iron deficiency anemia Memory loss Mild asthma Physical exam Right leg pain Right sided sciatica Weakness of both hands Surgical History H/O gastric bypass History of breast biopsy History of carpal tunnel release History of section History of cholecystectomy History of hysteroscopy History of mammogram Status post dilation and curettage Family History Father CAD (coronary artery disease) Hypertension Diabetes Cerebral aneurysm Mother CAD (coronary artery disease) Thyroid cancer Sister Primary cancer of uterus Ovarian cancer Maternal Uncle Bone cancer Family/Other FH: mental illness Social History Household Members: Spouse Housing: House Alcohol intake: never Patient Tobacco Use Status: Never used Tobacco e-Cigarette/Vaping Use: Never Used Second Hand Smoke Exposure: No service: No Current occupational status: disabled 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 She is currently being treated with 5000 IU of vitamin D3. Ergocalciferol was also increased to 50,000-units twice a week The plan is to recheck 25 hydroxy vitamin-D, PTH, calcium and adjust the vitamin-D supplementation accordingly Orders: Orders PTHI Today E55.9 - Vitamin D deficiency, unspecified Vitamin D 25-OH Total Today E55.9 - Vitamin D deficiency, unspecified Coding Level of Care Code Est Pt Level 3 (67678) Diagnoses Hypovitaminosis D E55.9
== END 2022-08-22 10:12 | disposition home or self-care (01) ==
LOC: HO.ENCR 08:10
PROVIDERS: PCP Internal Medicine; Visit Provider Internal Medicine Endocrinology, Diabetes & Metabolism
DX: E55.9 Vitamin D deficiency, unspecified (principal)
CPT/HCPCS: 99213

== ENCOUNTER 2022-08-24 08:30 | Emergency (ER) | payer OTHER, SELFPAY ==
--- NOTE | ~2022-08-24 | XR_ITS ---
EXAMINATION: THORACIC AND LUMBAR SPINE CLINICAL INFORMATION: Fall with back pain COMPARISON: August 03, 2022 lumbar spine study. TECHNIQUE: 3 views of the thoracic spine and 3 views of the lumbar spine. FINDINGS: Thoracic spine: No acute thoracic spine fracture is appreciated. Disc spaces are maintained. There is bony bridging seen in greater than 4 thoracic spine levels T7-T12 consistent with dish. Pedicles appear intact. No paraspinal line bulge is seen. Patient status post epigastric surgery. Lumbar spine: There are 5 nonrib-bearing lumbar vertebra. There is mild disc space narrowing L5-S1. Mild sclerosis is seen involving the L5-S1 facet joints bilaterally consistent with some degree of facet arthropathy. There is some sclerosis about the sacroiliac joints bilaterally. Pedicles intact. Status post previous abdominal surgery. XR/XR thoracic spine 3V IMPRESSION: Disc disease with facet arthropathy L5-S1. No acute fracture, spondylolisthesis, or spondylolysis appreciated.
--- NOTE | ~2022-08-24 | XR_ITS ---
EXAMINATION: THORACIC AND LUMBAR SPINE CLINICAL INFORMATION: Fall with back pain COMPARISON: August 03, 2022 lumbar spine study. TECHNIQUE: 3 views of the thoracic spine and 3 views of the lumbar spine. FINDINGS: Thoracic spine: No acute thoracic spine fracture is appreciated. Disc spaces are maintained. There is bony bridging seen in greater than 4 thoracic spine levels T7-T12 consistent with dish. Pedicles appear intact. No paraspinal line bulge is seen. Patient status post epigastric surgery. Lumbar spine: There are 5 nonrib-bearing lumbar vertebra. There is mild disc space narrowing L5-S1. Mild sclerosis is seen involving the L5-S1 facet joints bilaterally consistent with some degree of facet arthropathy. There is some sclerosis about the sacroiliac joints bilaterally. Pedicles intact. Status post previous abdominal surgery. XR/XR lumbar spine 2-3V IMPRESSION: Disc disease with facet arthropathy L5-S1. No acute fracture, spondylolisthesis, or spondylolysis appreciated.
[2022-08-24 09:04] VITALS: BP 138/84; PULSE 59; RESP 20; TEMP 36.4; O2SAT 100; BMI 26.6
--- NOTE | 2022-08-24 09:16 | ED.BACK ---
HPI - Back Pain/Injury General Chief Complaint: Back Pain/Injury Stated Complaint: back pain Time Seen by Provider: 08/24/22 09:16 Source: patient, RN notes reviewed and old records reviewed Mode of arrival: wheelchair History of Present Illness HPI Narrative: 61-year-old female with a past medical history of autoimmune thyroiditis, HLD, hyperparathyroid, anemia, asthma, sciatica, presenting to the ED complaining of left-sided low back pain radiating down bilateral LE x 2 days s/p mechanical trip and fall. States slipped and fell landing on buttock and then boxes fell on back 2 days ago, denies head trauma or LOC. Denies symptoms prior to fall. Has been taking Motrin without relief. Denies numbness, tingling, weakness, urinary incontinence/retention, fever, abdominal pain MD elicited complaint: back pain Related Data Previous Rx's Medication Instructions Recorded walker #1 ea 08/04/21 blood sugar diagnostic (FreeStyle 1 strip miscellaneous TID 90 days 03/11/22 Lite Strips) #300 strips lancets 28 gauge #100 ea 03/11/22 silver sulfadiazine 1 % topical 1 appl topical BID #50 grams 03/11/22 cream (Silvadene) cholecalciferol (vitamin D3) 125 125 mcg PO DAILY #30 caps 03/17/22 mcg (5,000 unit) capsule Ventolin HFA 90 mcg/actuation 2 puff inhalation Q6H PRN 07/13/22 aerosol inhaler (albuterol sulfate) shortness of breath or wheezing 30 days #8 grams cyclobenzaprine 10 mg tablet 10 mg PO TID PRN muscle spasm 30 07/13/22 days #90 tabs epinephrine 0.3 mg/0.3 mL 0.3 mg (0.3 mL) IM DIRECTED PRN 07/13/22 injection, auto-injector anaphylaxis 1 day #0.3 ea fluticasone propionate 44 1 puff inhalation BID 30 days 07/13/22 mcg/actuation HFA aerosol inhaler #10.6 grams (Flovent HFA) ibuprofen 800 mg tablet 800 mg PO TID PRN for pain #90 tabs 07/13/22 rosuvastatin 40 mg tablet 40 mg PO DAILY 90 days #90 tabs 07/13/22 trazodone 50 mg tablet 50 mg PO BEDTIME 90 days #90 tabs 07/13/22 levothyroxine 88 mcg tablet 88 mcg PO DAILY 90 days #90 tabs 08/01/22 adult diapers #120 ea 08/03/22 gabapentin 300 mg capsule 300 mg PO Q8H 90 days #270 caps 08/03/22 tramadol 50 mg tablet 50 mg PO BID PRN pain 7 days #14 08/03/22 tabs acetaminophen 500 mg tablet 500 mg PO Q6H PRN fever or pain 08/24/22 (Tylenol Extra Strength) #14 tabs cyclobenzaprine 5 mg tablet 5 mg PO Q8H PRN pain (scale score 08/24/22 7-10) 5 days #14 tabs ergocalciferol (vitamin D2) 1,250 1,250 mcg PO 3XW #30 caps 08/24/22 mcg (50,000 unit) capsule lidocaine 5 % topical patch 1 patch topical DAILY PRN pain #30 08/24/22 (Lidoderm) ea naproxen 500 mg tablet 500 mg PO BID PRN pain 10 days #20 08/24/22 tabs Allergies Allergy/AdvReac Type Severity Reaction Status Date / Time bee pollen [BEE STINGS] Allergy Severe SWELLING Verified 08/22/22 08:42 Penicillins [PENICILLINS] Allergy Severe HIVES, Verified 08/22/22 08:42 THROAT CLOSES amitriptyline [AMITRIPTYLINE] Allergy Intermediate Agitation Verified 08/22/22 08:42 oxycodone [From PERCOCET] AdvReac Intermediate DIZZINESS Verified 08/22/22 08:42 Review of Systems Review of Systems: Constitutional: No Fever, No Chills ENT/Mouth: No Ear Pain, No Nasal Congestion, No sore throat, No Rhinorrhea, No Swallowing Difficulty Cardiovascular: No Chest Pain, No SOB Respiratory: No Cough Gastrointestinal: No Nausea, No Vomiting, No Abdominal pain Genitourinary: No Dysuria, No Urinary Frequency, No Hematuria, No Urinary Incontinence/retention,No Flank Pain Musculoskeletal: + joint pain, No Myalgias, No Joint Swelling Skin: No Skin Lesions, No rash Neuro: No Weakness, No Numbness, No Paresthesias Yes all other systems are reviewed and are negative Constitutional: Constitutional: Reports as per HPI Neurologic: Denies Sensory deficit (Neuro) [facility] Past Medical History Attestation statement: The following information was validated with the patient. Source: old records reviewed Medical History Abnormal mammogram Autoimmune thyroiditis Blurry vision Dyslipidemia Hand numbness Hyperparathyroidism Hypovitaminosis D Insomnia Iron deficiency anemia Memory loss Mild asthma Physical exam Right leg pain Right sided sciatica Weakness of both hands Surgical History H/O gastric bypass History of breast biopsy History of carpal tunnel release History of section History of cholecystectomy History of hysteroscopy History of mammogram Status post dilation and curettage Family History Family History Father CAD (coronary artery disease) Hypertension Diabetes Cerebral aneurysm Mother CAD (coronary artery disease) Thyroid cancer Sister Primary cancer of uterus Ovarian cancer Maternal Uncle Bone cancer Family/Other FH: mental illness Social History Social History Household Members: Spouse Housing: House Alcohol intake: never Patient Tobacco Use Status: Never used Tobacco e-Cigarette/Vaping Use: Never Used Second Hand Smoke Exposure: No Advance Directives: No service: No Current occupational status: disabled 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 Cognitive needs: No Hearing needs: No Vision needs: Yes (glasses) Physical Exam Vital Signs: Vital Signs: Last Vital Signs Temp 97.5 F 08/24/22 09:04 Pulse 59 08/24/22 09:04 Resp 20 08/24/22 09:04 BP 138/84 08/24/22 09:04 Pulse Ox 100 08/24/22 09:04 O2 Del Method Room Air 08/24/22 09:04 BMI result Body Mass Index 26.6 Const: Other: Tearful General: cooperative, healthy appearing and no acute distress Orientation/consciousness: patient oriented x3 Limitations: no limitations HEENT: Head: Yes normal to inspection and Yes atraumatic Ears: hearing grossly normal bilaterally General nose exam: Normal external nose present Face and sinus: Yes normal facial exam Eyes: General: appearance normal, both eyes and all related structures EOM: EOMs intact bilaterally Neck: Neck: Yes normal visual inspection and Yes no meningeal signs Resp: Effort & Inspection: normal respiratory effort and no respiratory distress Cardio: Rate: regular rate Heart sounds: S1 normal heart sound present and S2 normal heart sound present Peripheral pulses: Peripheral pulses 2+ throughout GI: Inspection: Yes normal to inspection Palpation (GI): Soft to palpation, nontender, no guarding and not rigid : General: Yes no CVA tenderness Back/Spine/Pelvis: Other: No midline cervical/thoracic/lumbar spinous tenderness/step-off or deformity. + left-sided lower thoracic/upper lumbar paraspinal tenderness to palpation reproducing subjective complaint. No erythema/ecchymosis or rash Back: no CVA tenderness Skin: Rashes: no rashes Wounds: no wounds Neuro: Other: Strength intact throughout. No saddle anesthesia. Sensation intact to light touch. Neurovascular intact distally. Ambulating with assistance/guarded gait General: patient oriented x3, tone normal and no meningeal signs Motor exam (neuro): 5/5 motor strength present throughout Sensory Exam: No Sensory deficit (Neuro) Extrem: General: Yes normal to inspection Course Course Course Narrative: -1104--on re-evaluation patient is sleeping comfortably, reports symptomatic improvement, ambulated to bathroom with daughter -1114--XR lumbar spine 2-3V/XR thoracic spine 3V IMPRESSION: Disc disease with facet arthropathy L5-S1. No acute fracture, spondylolisthesis, or spondylolysis appreciated Results discussed with patient including worrisome signs and symptoms and strict return precautions, and when to return to the emergency department. They verbalized understanding and feel safe for discharge at this time. Medications Administered Discontinued Medications Generic Name Dose Route Start Last Admin Trade Name Freq PRN Reason Stop Dose Admin Cyclobenzaprine HCl 10 mg 08/24/22 09:27 08/24/22 09:54 Cyclobenzaprine Hcl 10 Mg Tablet PO 08/24/22 09:28 10 mg ONCE ONE Administration Ketorolac Tromethamine 30 mg 08/24/22 09:27 08/24/22 09:56 Ketorolac Tromethamine 30 Mg/Ml Vial IM 08/24/22 09:28 30 mg ONCE ONE Administration Medical Decision Making Medical Decision Making MDM Narrative: 61-year-old female with a past medical history of autoimmune thyroiditis, HLD, hyperparathyroid, anemia, asthma, sciatica, presenting to the ED complaining of left-sided low back pain radiating down bilateral LE x 2 days s/p mechanical trip and fall. On exam vital signs stable, NAD, nontoxic appearing, physical exam as noted above, patient tearful, no midline spinous tenderness or or red flag symptoms. Ambulating with antalgic gait/assistants, no saddle anesthesia. Concern for MSK pain/strain vs contusion vs possible fracture. Low suspicion for cauda equina/cord compression, epidural abscess, or dissection or renal stone/pyelo plan: X-rays, pain control, re-evaluate Please refer to course for remaining clinical decision making, interpretation of labs/imaging results, and discussions with consultants and/or family members. Differential Diagnosis Differential Diagnoses: The differential diagnosis associated with the presentation includes As above Independent Interpretation I performed an independent interpretation of an: Plain X-Ray Radiology Impression Discussion of test interpretation with radiology: I have reviewed the radiologist's reading. External Record Review External record reviewed: Inpatient record, Office record, Outpatient record, Prior outpatient labs, Prior outpatient radiology, Primary care record and Outside ED record Tests considered The following testing was considered but not selected: As above Prescription Management I considered prescription management with: Pain Medication Discharge Plan Discharge Clinical Impression: Back pain Patient Disposition: Home, Self-Care Instructions: Back Pain (ED) Additional Instructions: Your x-ray shows some degenerative changes, no fractures Your pain is likely musculoskeletal Flexeril is a muscle relaxer, take at night as it makes you drowsy, do not drive, drink alcohol, or operate machinery while taking it Naproxen as an anti-inflammatory / pain medication, take with food Lidoderm patches are numbing patches, apply to painful area In addition take Tylenol at home If symptoms persist or worsen, pain becomes unbearable, you developed urinary retention or incontinence, or weakness return to the ED Matute radiograf?a muestra algunos cambios degenerativos, sin fracturas. Es probable que matute dolor sea musculoesquel?zulma Flexeril es un relajante muscular, t?long por la noche ya que te adormece, no conduzcas, bebas alcohol ni operes maquinaria mientras lo lisa. Naproxeno eddie medicamento antiinflamatorio/analg?sico, t?castellon con alimentos Los parches de Lidoderm son parches anest?sicos, se aplican en el ?marleny dolorida Adem?s concepcion Tylenol en casa Si los s?ntomas persisten o empeoran, el dolor se vuelve insoportable, desarroll? retenci?n urinaria o incontinencia, o debilidad, regrese al servicio de urgencias. Prescriptions: New acetaminophen [Tylenol Extra Strength] 500 mg tablet 500 mg PO Q6H PRN (Reason: fever or pain) Qty: 14 0RF lidocaine [Lidoderm] 5 % adhesive patch,medicated 1 patch topical DAILY MDD remove after 12 hours PRN (Reason: pain) Qty: 30 0RF Rx Instructions: leave on most painful area for up to 12 hrs naproxen 500 mg tablet 500 mg PO BID PRN (Reason: pain) 10 Days Qty: 20 0RF cyclobenzaprine 5 mg tablet 5 mg PO Q8H PRN (Reason: pain (scale score 7-10)) 5 Days Qty: 14 0RF No Action FreeStyle Lite Strips Strip 1 strip miscellaneous TID 90 Days Qty: 300 3RF (DME) lancets 28 gauge misc See Rx Instructions topical TID Qty: 100 10RF Rx Instructions: Use 1 lancet TID silver sulfadiazine [Silvadene] 1 % cream 1 appl topical BID Qty: 50 0RF Rx Instructions: apply a 1.5 mm thickness cholecalciferol (vitamin D3) 125 mcg (5,000 unit) capsule 125 mcg PO DAILY Qty: 30 6RF levothyroxine 88 mcg tablet 88 mcg PO DAILY 90 Days Qty: 90 0RF ergocalciferol (vitamin D2) 1,250 mcg (50,000 unit) capsule 1,250 mcg PO 3XW Qty: 30 5RF (DME) walker Misc See Rx Instructions .Route Qty: 1 0RF Rx Instructions: WITH SEAT AND WHEELS cyclobenzaprine 10 mg tablet 10 mg PO TID PRN (Reason: muscle spasm) 30 Days Qty: 90 3RF epinephrine 0.3 mg/0.3 mL auto-injector 0.3 mg IM DIRECTED PRN (Reason: anaphylaxis) 1 Days Qty: 0.3 1RF Flovent HFA 44 mcg/actuation HFA aerosol inhaler 1 puff inhalation BID 30 Days Qty: 10.6 6RF Rx Instructions: administer with spacer ibuprofen 800 mg tablet 800 mg PO TID PRN (Reason: for pain) Qty: 90 2RF rosuvastatin 40 mg tablet 40 mg PO DAILY 90 Days Qty: 90 0RF trazodone 50 mg tablet 50 mg PO BEDTIME 90 Days Qty: 90 3RF albuterol sulfate [Ventolin HFA] 90 mcg/actuation HFA aerosol inhaler 2 puff inhalation Q6H PRN (Reason: shortness of breath or wheezing) 30 Days Qty: 8 2RF gabapentin 300 mg capsule 300 mg PO Q8H 90 Days Qty: 270 0RF tramadol 50 mg tablet 50 mg PO BID PRN (Reason: pain) 7 Days Qty: 14 0RF (DME) adult diapers small See Rx Instructions .Route .MEDSUPPLY Qty: 120 6RF Rx Instructions: As directed Referrals: Deborah Sanabria MD [Primary Care Provider] - 3 days Interventions: ED Discharge Assessment Last Done: 08/24/22 11:32 Discharge Date/Time: 08/24/22 11:33 Print Language: Anguill[place]
[2022-08-24] MEDS: Cyclobenzaprine HCl 10 MG TABLET PO (09:54)
[2022-08-24] MEDS: Ketorolac Tromethamine 30 MG/ML VIAL IM (09:56)
== END 2022-08-24 11:33 | disposition home or self-care (01) ==
PROVIDERS: Emergency Provider Emergency Medicine Emergency Medical Services; PCP Internal Medicine
DX: M54.50 Low back pain, unspecified (principal); M54.6 Pain in thoracic spine; Z79.899 Other long term (current) drug therapy
CPT/HCPCS: 72072; 72100; 96372; 99284; J1885

== ENCOUNTER 2022-11-09 12:35 | Outpatient (AMB) | payer OTHER, SELFPAY ==
[2022-11-09 12:43] VITALS: BP 116/70; BMI 25.8
--- NOTE | 2022-11-09 12:43 | A.OFFPC_ITS ---
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 Required: No Accompanied by: Self / Same As Patient Allergies bee pollen [BEE STINGS] Allergy (Severe, Verified 11/09/22 12:44) SWELLING Penicillins [PENICILLINS] Allergy (Severe, Verified 11/09/22 12:44) HIVES, THROAT CLOSES amitriptyline [AMITRIPTYLINE] Allergy (Intermediate, Verified 11/09/22 12:44) Agitation oxycodone [From PERCOCET] Adverse Reaction (Intermediate, Verified 11/09/22 12:44) DIZZINESS Medication List - Last Reconciled 11/09/22 by Deborah Hernandez MD acetaminophen (Tylenol Extra Strength) 500 mg PO Q6H PRN [adult diapers pull-ups As directed] back brace As directed blood sugar diagnostic (FreeStyle Lite Strips) 1 strip miscellaneous TID 90 days cholecalciferol (vitamin D3) 125 mcg PO DAILY cyclobenzaprine 5 mg PO Q8H PRN 5 days cyclobenzaprine 10 mg PO TID PRN 30 days epinephrine 0.3 mg (0.3 mL) IM DIRECTED PRN 1 day ergocalciferol (vitamin D2) 1,250 mcg PO 3XW fluticasone propionate 44 mcg/actuation (Flovent HFA) 1 puff inhalation BID 30 days gabapentin 300 mg PO Q8H 90 days ibuprofen 800 mg PO TID PRN lancets Use 1 lancet TID levothyroxine 88 mcg PO DAILY 90 days lidocaine 5% (Lidoderm) 1 patch topical DAILY PRN MDD remove after 12 hours naproxen 500 mg PO BID PRN 10 days rosuvastatin 40 mg PO DAILY 90 days silver sulfadiazine 1% (Silvadene) 1 appl topical BID tramadol 50 mg PO BID PRN 7 days trazodone 50 mg PO BEDTIME 90 days Ventolin HFA 90 mcg/actuation (albuterol sulfate) 2 puffs inhalation Q6H PRN 30 days NS walker WITH SEAT AND WHEELS Tobacco use date assessed: 03/07/22 Dental Screening Dental Screen Date: 11/09/22 Did you have a dental visit in the last 12 months?: Yes Did you have a dental problem in the last 6 months where you did not have access to dental care?: No Was dental information given to patient?: Patient has dentist HPI HPI Comments History of Present Illness Details This is a 61-year-old female with autoimmune thyroiditis and dyslipidemia that complains of thoracic spine pain that started August 2022 after some boxes fell on her back. X-ray was done. I will refer her to physical therapy and pain management. Will give her 7 days of tramadol as needed for pain. She will benefit from having a back brace. She also has urge urinary incontinence and will benefit from having pull-up diapers as needed. Last TSH was normal. Cholesterol stable with statins. [facility] Medical History (Updated 11/09/22 @ 12:54 by Deborah Hernandez MD) Blurry vision Memory loss Physical exam Weakness of both hands Abnormal mammogram Right sided sciatica Right leg pain Hand numbness Hyperparathyroidism Iron deficiency anemia Mild asthma Insomnia Dyslipidemia Autoimmune thyroiditis Hypovitaminosis D Surgical History History of mammogram History of breast biopsy History of carpal tunnel release History of hysteroscopy H/O gastric bypass Status post dilation and curettage History of section History of cholecystectomy Family History Father CAD (coronary artery disease) Hypertension Diabetes Cerebral aneurysm Mother CAD (coronary artery disease) Thyroid cancer Sister Primary cancer of uterus Ovarian cancer Maternal Uncle Bone cancer Family/Other FH: mental illness Social History Household Members: Spouse Housing: House Alcohol intake: never Patient Tobacco Use Status: Never used Tobacco e-Cigarette/Vaping Use: Never Used Second Hand Smoke Exposure: No service: No Current occupational status: disabled 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 Alan Head, Evelin Saeed, Arias Small and colleagues, with an educational mahogany from [employer]. Review of Systems Const All systems reviewed & are unremarkable except as noted in HPI and below Eyes Reports no additional complaints, Denies change in vision and Denies other visual disturbances Card Denies chest pain at rest, Denies chest pain with activity, Denies edema, Denies irregular heart rhythm, Denies claudication, Denies dyspnea, Denies dyspnea on exertion, Denies orthopnea, Denies paroxysmal nocturnal dyspnea and Denies slow heart rate Resp Denies cough, Denies dyspnea and Denies dyspnea on exertion GI Denies abdominal pain, Denies change in bowel habits, Denies excessive flatus, Denies nausea and Denies vomiting Denies urinary incontinence, Denies urinary hesitancy and Denies urinary urgency Musc Denies abnormal gait, Reports back pain, Denies atrophy, Denies deformity and Denies limited range of motion Skin/Breast Denies bleeding lesions, Denies changing lesions and Denies rash Neuro Denies abnormal gait and Denies lack of coordination Physical exam (Primary Care) Vital Signs: Last Vital Signs BP 116/70 11/09/22 12:43 BMI result Body Mass Index 25.8 Tobacco/Smoking Status: Tobacco use Status Tobacco use date assessed 03/07/22 11/09/22 12:46 Patient Tobacco Use Status Never used Tobacco 11/09/22 12:46 e-Cigarette/Vaping Use Never Used 11/09/22 12:46 Thrive Assessment: Date of Thrive Assessment Date Thrive assessed 03/07/22 11/09/22 12:46 Eyes General: appearance normal, both eyes and all related structures Eyelids: Yes eyelids normal Conjunctivae: conjunctivae normal Neck Neck: Yes normal visual inspection and Yes supple Resp Effort & Inspection: normal respiratory effort Auscultation: clear to auscultation bilaterally Cardio Jugular venous distension: no JVD Rate: regular rate Rhythm: regular rhythm Heart sounds: S1 normal heart sound present and S2 normal heart sound present Back/Spine/Pelvis Thoracic/Lumbar Spine: thoracic spinal tenderness Extrem General: Yes full ROM Assessment and Plan Assessment & Plan (1) Thoracic spine pain: Code(s): M54.6 - Pain in thoracic spine Plan: Try tramadol for 7 days as needed. Start physical therapy. Referred to pain management. (2) Urge urinary incontinence: Code(s): N39.41 - Urge incontinence Plan: Use pull-up diapers as needed. Practice time bathroom visits. (3) Autoimmune thyroiditis: Code(s): E06.3 - Autoimmune thyroiditis Plan: Continue levothyroxine. (4) Dyslipidemia: Code(s): E78.5 - Hyperlipidemia, unspecified Plan: Continue statins. Orders: Orders PT Evaluation and Treatment Today M54.6 - Pain in thoracic spine Referrals Pain Management Referral M54.6 - Pain in thoracic spine Medications: Refilled [adult diapers pull-ups] As directed 120 ea 6RF N39.41 - Urge incontinence back brace As directed 1 ea 0RF M54.50 - Low back pain, unspecified, M54.6 - Pain in thoracic spine tramadol 50 mg PO BID 7 days PRN 14 tabs 0RF pain Coding Level of Care Code Est Pt Level 4 (25527) Diagnoses Thoracic spine pain M54.6 Urge urinary incontinence N39.41 Autoimmune thyroiditis E06.3 Dyslipidemia E78.5 Time Spent (min) 22
== END 2022-11-09 12:59 | disposition home or self-care (01) ==
PROVIDERS: PCP Internal Medicine; Visit Provider Internal Medicine
DX: M54.6 Pain in thoracic spine (principal); N39.41 Urge incontinence; E06.3 Autoimmune thyroiditis; E78.5 Hyperlipidemia, unspecified
CPT/HCPCS: 99214

== ENCOUNTER 2022-11-16 08:03 | Outpatient (AMB) | payer OTHER, SELFPAY ==
--- NOTE | 2022-11-16 08:13 | A.OFFVIS_ITS ---
Intake Vital Signs 11/16/22 08:30 Height 5 ft 4 in Weight 141 lb 6 oz BMI 24.3 BP 112/60 Blood Pressure Location Lt brachial Position Sitting Respiration 16 Pulse 62 Pulse Source Pulse Oximeter Pulse Oximetry (%) 97 Oxygen Delivery Method Room Air Intake Visit Reasons: thoracic pain/ Confirmed. Allergies bee pollen [BEE STINGS] Allergy (Severe, Verified 11/16/22 08:21) SWELLING Penicillins [PENICILLINS] Allergy (Severe, Verified 11/16/22 08:21) HIVES, THROAT CLOSES amitriptyline [AMITRIPTYLINE] Allergy (Intermediate, Verified 11/16/22 08:21) Agitation oxycodone [From PERCOCET] Adverse Reaction (Intermediate, Verified 11/16/22 08:21) DIZZINESS HPI HPI Comments History of Present Illness Details Visit today completed utilizing wire stockkeeper Faustina [id number]. Isis is a very pleasant 61 year old female who presents to the office today for evaluation and management of her middle and lower back pain. Patient reports she injured her back in August when some boxes fell on her. She reports pain across her back from thoracic area to her lumbar area. Pain is constant, rated today as 8/10, worse with movement, bending, standing, sitting and lying down. She reports the area is tender to palpation. She has pain into her thighs, but denies radiation down her legs to the feet. She was given lidocaine patches and muscle relaxers after the injury that helped a little but she ran out of those. She has been taking motrin three times daily with very little relief. She has also taken tylenol without relief. Patient was evaluated by pcp recently, order for PT and back brace placed but neither have been initiated as of this appointment. She was told the back brace has not arrived and PT has not called to schedule yet. Patient denies red flag symptoms including new loss of bowel, bladder or saddle anesthesia. In terms of muscle damage condition is described as aching, spasming, stabbing, sharp, shooting, throbbing and tingling. Patient reports the pain is negatively impacting her general activity, normal work, sleep and walking. [facility] Medical History Blurry vision Memory loss Physical exam Weakness of both hands Abnormal mammogram Right sided sciatica Right leg pain Hand numbness Hyperparathyroidism Iron deficiency anemia Mild asthma Insomnia Dyslipidemia Autoimmune thyroiditis Hypovitaminosis D Surgical History History of mammogram History of breast biopsy History of carpal tunnel release History of hysteroscopy H/O gastric bypass Status post dilation and curettage History of section History of cholecystectomy Family History Father CAD (coronary artery disease) Hypertension Diabetes Cerebral aneurysm Mother CAD (coronary artery disease) Thyroid cancer Sister Primary cancer of uterus Ovarian cancer Maternal Uncle Bone cancer Family/Other FH: mental illness Social History Household Members: Spouse Housing: House Alcohol intake: never Patient Tobacco Use Status: Never used Tobacco e-Cigarette/Vaping Use: Never Used Second Hand Smoke Exposure: No service: No Current occupational status: disabled 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 Answers questions appropriately. Fully engaged in examination. Skin: warm, dry, intact HEENT: Normocephalic. Hearing intact. Cardiac: External chest normal in appearance. Respiratory: No cough, audible wheezing or stridor. Abdomen: without gross distension. MS: No obvious swelling or deformities. Able to transition from sit to stand unassisted. Ambulates with bilaterally normal heel strike and toe off Tenderness to palpation over thoracic and lumbar paraspinal muscles ROM limited secondary to pain Neurological: Oriented to person, place, time and situation. Thought process intact. No gait abnormalities appreciated. Psychiatric: Appropriate mood and affect. Good judgment and insight. Results Reviewed Results Reviewed: 08/24/22 FINDINGS: Thoracic spine: No acute thoracic spine fracture is appreciated. Disc spaces are maintained. There is bony bridging seen in greater than 4 thoracic spine levels T7-T12 consistent with dish. Pedicles appear intact. No paraspinal line bulge is seen. Patient status post epigastric surgery. Lumbar spine: There are 5 nonrib-bearing lumbar vertebra. There is mild disc space narrowing L5-S1. Mild sclerosis is seen involving the L5-S1 facet joints bilaterally consistent with some degree of facet arthropathy. There is some sclerosis about the sacroiliac joints bilaterally. Pedicles intact. Status post previous abdominal surgery. XR/XR lumbar spine 2-3V IMPRESSION: Disc disease with facet arthropathy L5-S1. No acute fracture, spondylolisthesis, or spondylolysis appreciated. Assessment & Plan Assessment & Plan (1) Strain of lumbar paraspinal muscle: Code(s): S39.012A - Strain of muscle, fascia and tendon of lower back, initial encounter (2) Sprain thoracic region: Code(s): S23.9XXA - Sprain of unspecified parts of thorax, initial encounter (3) Lumbar facet arthropathy: Code(s): M47.816 - Spondylosis without myelopathy or radiculopathy, lumbar region Plan Isis is a very pleasant 61 year old female who presented to the office today for evaluation and management of her thoracic and lumbar back pain. Order for urgent PT eval and treat placed as patient has yet to be contacted to schedule. C/W ibuprofen as needed for pain Tizanidine 2mg po BID as needed. patient advised on potential side effects, take at bedtime. May cause drowsiness. Lidocaine 5% patches refilled today. On for 12 hours, off for 12 hours. Patient advised to call pharmacy and check on the status of the back brace. She will call the office if current supply store is not able to get one very soon and we can send to a different location. Discussed options for treatment including diagnostic interventional testing, epidural steroid injections, peripheral nerve stimulation with Sprint, RFA and more permanent neuromodulation. Patient will follow up after 6-8 sessions of PT, if no improvement we can further discuss interventional treatment. All questions and concerns have been answered and patient agrees with the plan. Follow up after PT, sooner if needed. Orders: Orders PT Evaluation and Treatment Today S23.9XXA - Sprain of unspecified parts of thorax, initial encounter, S39.012A - Strain of muscle, fascia and tendon of lower back, initial encounter Medications: New tizanidine Make cause drowsiness, do not take with alcohol or other INVESTIGATION DIVISION [employer] depressants. 2 mg PO BID PRN 20 tabs 0RF muscle spasticity Refilled lidocaine 5% (Lidoderm) leave on most painful area for up to 12 hrs 1 patch topical DAILY PRN 30 ea 3RF pain MDD remove after 12 hours Discontinued cyclobenzaprine Discontinued Reason: Patient Completed Course 5 mg PO Q8H 5 days PRN 14 tabs 0RF pain (scale score 7-10) cyclobenzaprine Discontinued Reason: Patient Completed Course 10 mg PO TID 30 days PRN 90 tabs 3RF muscle spasm Coding Level of Care Code New Pt Level 4 (96524) Diagnoses Strain of lumbar paraspinal muscle S39.012A Sprain thoracic region S23.9XXA Lumbar facet arthropathy M47.816
[2022-11-16 08:30] VITALS: BP 112/60; PULSE 62; RESP 16; O2SAT 97; BMI 24.3
== END 2022-11-16 08:49 | disposition home or self-care (01) ==
PROVIDERS: PCP Internal Medicine; Visit Provider Registered Nurse Emergency
DX: S39.012A Strain of muscle, fascia and tendon of lower back, initial encounter (principal); S23.9XXA Sprain of unspecified parts of thorax, initial encounter; M47.816 Spondylosis without myelopathy or radiculopathy, lumbar region
CPT/HCPCS: 99204

== ENCOUNTER → 2022-11-16 08:03 | Outpatient (BNVA) | payer OTHER, SELFPAY | PROVIDERS: PCP Internal Medicine; Visit Provider Registered Nurse Emergency ==

== ENCOUNTER 2023-03-12 08:54 | Outpatient (REF) | payer OTHER, SELFPAY ==
[2023-03-12 10:35] LABS: Free T4 (Free Thyroxine) 0.94 ng/dL (0.71-1.85); Thyroid Stimulating Hormone 0.46 uIU/mL (0.32-4.0)
== END 2023-03-12 08:55 | disposition home or self-care (01) ==
LOC: HO.LAB 08:54
PROVIDERS: PCP Internal Medicine; Visit Provider Internal Medicine Endocrinology, Diabetes & Metabolism
DX: E21.3 Hyperparathyroidism, unspecified (principal); E06.3 Autoimmune thyroiditis
CPT/HCPCS: 36415; 82306; 84439; 84443

== ENCOUNTER 2023-03-14 07:50 | Outpatient (AMB) | payer OTHER, SELFPAY ==
--- NOTE | 2023-03-14 08:02 | A.OFFPC_ITS ---
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 Accompanied by: Self / Same As Patient Allergies bee pollen [BEE STINGS] Allergy (Severe, Verified 03/14/23 08:38) SWELLING Penicillins [PENICILLINS] Allergy (Severe, Verified 03/14/23 08:38) HIVES, THROAT CLOSES amitriptyline [AMITRIPTYLINE] Allergy (Intermediate, Verified 03/14/23 08:38) Agitation oxycodone [From PERCOCET] Adverse Reaction (Intermediate, Verified 03/14/23 08:38) DIZZINESS Medication List - Last Reconciled 03/14/23 by Deborah Hernandez MD acetaminophen (Tylenol Extra Strength) 500 mg PO Q6H PRN [adult diapers pull-ups As directed] back brace As directed blood sugar diagnostic (FreeStyle Lite Strips) 1 strip miscellaneous TID 90 days cholecalciferol (vitamin D3) 125 mcg PO DAILY epinephrine 0.3 mg (0.3 mL) IM DIRECTED PRN 1 day ergocalciferol (vitamin D2) 1,250 mcg PO 3XW fluticasone propionate 44 mcg/actuation (Flovent HFA) 1 puff inhalation BID 30 days gabapentin 300 mg PO Q8H 90 days ibuprofen 800 mg PO TID PRN lancets Use 1 lancet TID levothyroxine 88 mcg PO DAILY 90 days lidocaine 5% (Lidoderm) 1 patch topical DAILY PRN MDD remove after 12 hours naproxen 500 mg PO BID PRN 10 days rosuvastatin 40 mg PO DAILY 90 days silver sulfadiazine 1% (Silvadene) 1 appl topical BID tizanidine 2 mg PO BID PRN tramadol 50 mg PO BID PRN 7 days trazodone 50 mg PO BEDTIME 90 days Ventolin HFA 90 mcg/actuation (albuterol sulfate) 2 puffs inhalation Q6H PRN 30 days NS walker WITH SEAT AND WHEELS Tobacco use date assessed: 03/14/23 Dental Screening Dental Screen Date: 03/14/23 Did you have a dental visit in the last 12 months?: Yes Did you have a dental problem in the last 6 months where you did not have access to dental care?: No Was dental information given to patient?: Patient has dentist HPI HPI Comments History of Present Illness Details This is a 62-year-old female that comes for her physical exam. Last mammogram was March 2022 and was normal. Last colonoscopy was 2016 and was normal. Last Pap smear was 2017 and she will call for an appointment with OBGYN. No chest pain or shortness of breath. REPLACED BY [facility] Medical History Blurry vision Memory loss Physical exam Weakness of both hands Abnormal mammogram Right sided sciatica Right leg pain Hand numbness Hyperparathyroidism Iron deficiency anemia Mild asthma Insomnia Dyslipidemia Autoimmune thyroiditis Hypovitaminosis D Surgical History History of mammogram History of breast biopsy History of carpal tunnel release History of hysteroscopy H/O gastric bypass Status post dilation and curettage History of section History of cholecystectomy Family History Father CAD (coronary artery disease) Hypertension Diabetes Cerebral aneurysm Mother CAD (coronary artery disease) Thyroid cancer Sister Primary cancer of uterus Ovarian cancer Maternal Uncle Bone cancer Family/Other FH: mental illness Social History Household Members: Spouse Housing: House Alcohol intake: never Patient Tobacco Use Status: Never used Tobacco e-Cigarette/Vaping Use: Never Used Second Hand Smoke Exposure: No service: No Current occupational status: disabled 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 1. Little interest or pleasure in doing things: not at all 2. Feeling down, depressed, or hopeless: not at all 3. Trouble falling or staying asleep, or sleeping too much: not at all 4. Feeling tired or having little energy: not at all 5. Poor appetite or overeating: not at all 6. Feeling bad about yourself - or that you are a failure or have let yourself or your family down: not at all 7. Trouble concentrating on things, such as reading the newspaper or watching television: not at all 8. Moving or speaking so slowly that other people could have noticed. Or the opposite - being so fidgety or restless that you have been moving around a lot more than usual: not at all 9. Thoughts that you would be better off or of hurting yourself in some way: not at all Total score: 0 Depression Screening Interpretation: Negative Depression Screening Done: Yes 42976 - PHQ-9 Billing: Yes Source: Developed by Drs. Alan Head, Evelin Saeed, Arias Small and colleagues, with an educational mahogany from [employer]. Thrive Questionnaire Date Thrive assessed: 03/14/23 I am a: Patient What is your living situation today?: I have a steady place to live Within the past 12 months, did the food you bought not last and you didn't have the money to get more?: Never true Within the past 12 months, did you worry whether your food would run out before you got money to buy more?: Never true Do you have trouble paying for medicines?: No Do you have trouble getting transportation to medical appointments?: No Do you have trouble paying your heating and electricity bill?: No Do you have trouble taking care of your child, family member or friend?: No Do you have trouble with day-to-day activities such as bathing, preparing meals, shopping, managing finances, etc.?: No Are you currently unemployed and looking for a job?: No Are you interested in more education?: No Please select the resources that you would like help with: None Currently or been in a relationship where the following occur: no concerns reported THRIVE Score: 0 AUDIT C Alcohol Use Questionnaire (AUDIT-C) 1. How often do you have a drink containing alcohol?: Never Total Score: 0 NATA-7 AMB Questionnaire NATA-7 Date NATA - 7 assessed: 03/14/23 Feeling nervous, anxious, or on edge: 0 = Not at all Not being able to stop or control worryin = Not at all Worrying too much about different things: 0 = Not at all Trouble relaxin = Not at all Being so restless that it is hard to sit still: 0 = Not at all Becoming easily annoyed or irritable: 0 = Not at all Feeling afraid as if something awful might happen: 0 = Not at all Total NATA-7 score (0-4 normal; 5-9 mild; 10-14 moderate; 15-21 severe): 0 Source: Developed by Drs. Alan Head, Evelin Saeed, Arias Small and colleagues, with an educational mahogany from [employer]. NATA-7 Assessment Billing NATA-7 Assessment Tool: NATA-7 Assessment 75134 Review of Systems Const All systems reviewed & are unremarkable except as noted in HPI and below Eyes Reports no additional complaints, Denies change in vision and Denies other visual disturbances Card Denies chest pain at rest, Denies chest pain with activity, Denies edema, Denies irregular heart rhythm, Denies claudication, Denies dyspnea, Denies dyspnea on exertion, Denies orthopnea, Denies paroxysmal nocturnal dyspnea and Denies slow heart rate Resp Denies cough, Denies dyspnea and Denies dyspnea on exertion GI Denies abdominal pain, Denies change in bowel habits, Denies excessive flatus, Denies nausea and Denies vomiting Denies urinary incontinence, Denies urinary hesitancy and Denies urinary urgency Musc Denies abnormal gait, Denies atrophy, Denies deformity and Denies limited range of motion Skin/Breast Denies bleeding lesions, Denies changing lesions and Denies rash Neuro Denies abnormal gait, Denies behavioral changes, Denies confusion and Denies lack of coordination Psych Denies behavioral changes and Denies confusion Physical exam (Primary Care) Vital Signs: Last Vital Signs BP 110/80 03/14/23 08:04 BMI result Body Mass Index 25.4 Tobacco/Smoking Status: Tobacco use Status Tobacco use date assessed 03/14/23 03/14/23 08:08 Patient Tobacco Use Status Never used Tobacco 03/14/23 08:08 e-Cigarette/Vaping Use Never Used 03/14/23 08:08 PHQ-9: PHQ-9 Score PHQ-9: Total score 0 03/14/23 08:57 Depression Screening Interpretation: Negative Thrive Assessment: Date of Thrive Assessment Date Thrive assessed 03/14/23 03/14/23 08:08 Currently or been in a relationship where the following occur: no concerns reported Const General: No confusion Orientation/consciousness: patient oriented x3 and No confusion HENMT Head: Yes normal to inspection, Yes normocephalic and Yes atraumatic Ears: external ears normal Eyes General: appearance normal, both eyes and all related structures Eyelids: Yes eyelids normal Conjunctivae: conjunctivae normal Neck Neck: Yes normal visual inspection and Yes supple Resp Effort & Inspection: normal respiratory effort Auscultation: clear to auscultation bilaterally Cardio Jugular venous distension: no JVD Rate: regular rate Rhythm: regular rhythm Heart sounds: S1 normal heart sound present and S2 normal heart sound present GI Inspection: Yes normal to inspection Palpation (GI): Soft to palpation and nontender Auscultation: normal bowel sounds Skin General skin exam: no rashes or lesions noted Neuro General: patient oriented x3, no focal motor deficits and No confusion Extrem General: Yes full ROM Psych Appearance: grossly normal Office Procedures Flu Questionnaire Does the patient have a severe egg allergy?: No Does the patient have severe life threatening allergies?: No Does the patient have a fever or illness today?: No Has the patient ever had Guillain-Rogers Syndrome?: No Has the patient ever had any past reaction to a flu shot?: No Immunizations flu vacc [id number] 6mos up(PF) 60 mcg(15 mcgx4)/0.5 mL IM syringe Performing Provider: Deborah Hernandez MD Performing Location: [facility] Administered by: JAY Morales on 03/14/23 08:57 Dose Route Admin Location Dispensed Lot Number Expiration Date NDC D[employer]ified Cro[employer] Supervisor 0.5 mL IM Left Deltoid 0.5 mL [id number] 08/12/23 17267-072-13 [employer] [facility] [facility] VIS Given Date VIS Provided VIS Publication Date 03/14/23 Single Vaccine 20 Eligibility Eligibility Date Funding Source Not [facility] Eligible 03/14/23 Private Assessment and Plan Assessment & Plan (1) Physical exam: Code(s): Z00.00 - Encounter for general adult medical examination without abnormal findings Plan: Repeat in a year. Orders: Orders Influenza [id number] Immunization Today Z23 - Encounter for immunization XR DEXA axial skeleton Today N95.9 - Unspecified menopausal and perimenopausal disorder Comprehensive [place]. Panel Fast Today Z00.00 - Encounter for general adult medical examination without abnormal findings Parathyroid Hormone Intact Today E21.3 - Hyperparathyroidism, unspecified Lipid Panel Today E78.5 - Hyperlipidemia, unspecified Coding Level of Care Code Est Pt Prev Care 40-64y(12375) Diagnoses Physical exam Z00.00 Additional Codes NATA-7 Assessment Billing - NATA-7 Assessment Tool: NATA-7 Assessment 48918 ([id number]) Time Spent (min) 33
[2023-03-14 08:04] VITALS: BP 110/80; BMI 25.4
== END 2023-03-14 08:52 | disposition home or self-care (01) ==
PROVIDERS: Visit Provider Internal Medicine
DX: Z00.00 Encounter for general adult medical examination without abnormal findings (principal); Z23 Encounter for immunization
CPT/HCPCS: 90471; 90686; 99396

== ENCOUNTER 2023-03-21 08:41 | Outpatient (AMB) | payer OTHER, SELFPAY ==
--- NOTE | 2023-03-21 08:46 | MHC.OFFVIS ---
Intake Vital Signs 03/21/23 08:47 Height 5 ft 2 in Weight 139 lb 15.896 oz BMI 25.6 BP 128/76 Blood Pressure Location Lt brachial Position Sitting Pulse 89 Pulse Source Pulse Oximeter Intake Visit Reasons: vitamin D defiency/secondary hyperparathyroidism Intake Note: Patient present today for Vitamin D deficiency and secondary Hyperparathyroidism follow up visit. 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 Required: Yes 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 Language: Workflow Developer Name: [facility] staff Information Interpreted: non-clinical & clinical Accompanied by: Self / Same As Patient Allergies bee pollen [BEE STINGS] Allergy (Severe, Verified 03/21/23 08:54) SWELLING Penicillins [PENICILLINS] Allergy (Severe, Verified 03/21/23 08:54) HIVES, THROAT CLOSES amitriptyline [AMITRIPTYLINE] Allergy (Intermediate, Verified 03/21/23 08:54) Agitation oxycodone [From PERCOCET] Adverse Reaction (Intermediate, Verified 03/21/23 08:54) DIZZINESS Medication List - Last Reconciled 03/21/23 by Alan Quinones MD acetaminophen (Tylenol Extra Strength) 500 mg PO Q6H PRN [adult diapers pull-ups As directed] back brace As directed blood sugar diagnostic (FreeStyle Lite Strips) 1 strip miscellaneous TID 90 days cholecalciferol (vitamin D3) 125 mcg PO DAILY epinephrine 0.3 mg (0.3 mL) IM DIRECTED PRN 1 day ergocalciferol (vitamin D2) 1,250 mcg PO 3XW fluticasone propionate 44 mcg/actuation (Flovent HFA) 1 puff inhalation BID 30 days gabapentin 300 mg PO Q8H 90 days ibuprofen 800 mg PO TID PRN lancets Use 1 lancet TID levothyroxine 88 mcg PO DAILY 90 days lidocaine 5% (Lidoderm) 1 patch topical DAILY PRN MDD remove after 12 hours naproxen 500 mg PO BID PRN 10 days rosuvastatin 40 mg PO DAILY 90 days silver sulfadiazine 1% (Silvadene) 1 appl topical BID tizanidine 2 mg PO BID PRN tramadol 50 mg PO BID PRN 7 days Ventolin HFA 90 mcg/actuation (albuterol sulfate) 2 puffs inhalation Q6H PRN 30 days NS walker WITH SEAT AND WHEELS HPI HPI Comments History of Present Illness Details 62 YO F with PMHx bariatric surgery who is seen in consultation at the request of PCP for hyperparathyroidism for. Hx of bariatric surgery 4 yrs ago First noted to have high calcium of 10.3 on 05/17/2021 but subsequent calcium is normal . Currently using ? Calcium supplement ?mg . [place]akes 5000 [place] [address] IU of ergocalciferol twice a week Currently not using HCTZ. Kidney stones: No Osteoporosis: No History of Plum use: No Biotin use: Takes Biotin according to pt Family history of high calcium or kidney stones: Renal imaging: [] DXA: Labs: Taking 5000-Iunits of vitamin-D 3 [facility] Medical History Blurry vision Memory loss Physical exam Weakness of both hands Abnormal mammogram Right sided sciatica Right leg pain Hand numbness Hyperparathyroidism Iron deficiency anemia Mild asthma Insomnia Dyslipidemia Autoimmune thyroiditis Hypovitaminosis D Surgical History History of mammogram History of breast biopsy History of carpal tunnel release History of hysteroscopy H/O gastric bypass Status post dilation and curettage History of section History of cholecystectomy Family History Father CAD (coronary artery disease) Hypertension Diabetes Cerebral aneurysm Mother CAD (coronary artery disease) Thyroid cancer Sister Primary cancer of uterus Ovarian cancer Maternal Uncle Bone cancer Family/Other FH: mental illness Social History Household Members: Spouse Housing: House Alcohol intake: never Patient Tobacco Use Status: Never used Tobacco e-Cigarette/Vaping Use: Never Used Second Hand Smoke Exposure: No service: No Current occupational status: disabled 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 She is currently being treated with 5000 IU of vitamin D3. Ergocalciferol was also increased to 50,000-units twice a week. She is now vitamin-D replete The plan is to recheck , PTH, calcium when that is available. If repeat PTH and calcium returned normal, patient can follow up with primary care provider follow-up with endocrinology as needed Coding Level of Care Code Est Pt Level 3 (55480) Diagnoses Hypovitaminosis D E55.9
[2023-03-21 08:47] VITALS: BP 128/76; PULSE 89; BMI 25.6
== END 2023-03-21 09:04 | disposition home or self-care (01) ==
PROVIDERS: PCP Internal Medicine; Visit Provider Internal Medicine Endocrinology, Diabetes & Metabolism
DX: E55.9 Vitamin D deficiency, unspecified (principal)
CPT/HCPCS: 99213

== ENCOUNTER 2023-03-21 08:41 | Outpatient (REF) | payer OTHER, SELFPAY ==
[2023-03-21 10:26] LABS: Parathyroid Hormone Intact 115.5 pg/mL (8.7-77.1)
[2023-03-21 10:45] LABS: Vitamin D 25-OH Total 43.4 ng/mL (>30)
== END 2023-03-21 08:42 | disposition home or self-care (01) ==
LOC: HO.LAB 08:41
PROVIDERS: PCP Internal Medicine; Visit Provider Internal Medicine Endocrinology, Diabetes & Metabolism
DX: E55.9 Vitamin D deficiency, unspecified (principal); E78.5 Hyperlipidemia, unspecified; E21.3 Hyperparathyroidism, unspecified
CPT/HCPCS: 36415; 82306; 83970; 99212

== ENCOUNTER 2023-04-07 09:05 | Outpatient (REF) | payer OTHER, SELFPAY ==
--- NOTE | ~2023-04-07 | MM_ITS ---
EXAMINATION: MM SCREENING DIGITAL BREAST TOMOSYNTHESIS, BILATERAL CLINICAL INFORMATION: Screening. Asymptomatic. COMPARISON: Mammography: This study is compared with prior exams dating back to 2018. TECHNIQUE: Digital breast tomosynthesis is performed in both the craniocaudal and mediolateral oblique views along with computer-aided detection (CAD). Synthesized 2D images are generated from the tomosynthesis. FINDINGS: There are scattered areas of fibroglandular density (ACR BI-RADS breast composition Category b). In the lateral aspect of the right breast, at a middle depth, there is an asymmetry which warrants additional mammographic and targeted sonographic evaluation. In the left breast, there are no suspicious masses, suspicious calcifications, or areas of architectural distortion. There is a tissue marker in a left upper outer quadrant mass. The mass occurs at a middle depth. This indicates site of prior benign percutaneous biopsy. 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 This is a benign entity. MM/MM tomosynthesis screening BI IMPRESSION: Asymmetry of the right breast warrants additional mammographic and targeted sonographic imaging. Rolled CC views should be added to the diagnostic imaging protocol in this case. Benign findings left breast. ASSESSMENT: BI-RADS BI-RADS 0 - Incomplete: Needs additional Imaging. RECOMMENDATION: 1. Additional views of the right breast 2. Targeted ultrasound if warranted after review of the additional views. 3. Radiology department staff will contact the patient for additional imaging. Additional Imaging required This examination should not preclude the clinical evaluation of a suspicious palpable abnormality. This patient's information was entered into a reminder system with a target due date for their next mammogram.
== END 2023-04-07 09:06 | disposition home or self-care (01) ==
LOC: HO.MAMMO 09:05
PROVIDERS: PCP Internal Medicine; Visit Provider Internal Medicine
DX: Z12.31 Encounter for screening mammogram for malignant neoplasm of breast (principal)
CPT/HCPCS: 77063; 77067

== ENCOUNTER → 2023-04-07 10:15 | Outpatient (BNV) | payer OTHER, SELFPAY | PROVIDERS: PCP Internal Medicine; Visit Provider Radiology Diagnostic Radiology | DX: Z12.31 Encounter for screening mammogram for malignant neoplasm of breast (principal) | CPT/HCPCS: 77063; 77067 ==

== ENCOUNTER 2023-05-04 13:04 | Outpatient (REF) | payer OTHER, SELFPAY ==
--- NOTE | ~2023-05-04 | MM_ITS ---
EXAMINATION: MM DIAGNOSTIC DIGITAL BREAST TOMOSYNTHESIS, RIGHT CLINICAL INFORMATION: Diagnostic follow-up for possible focus of architectural distortion lateral right breast mid depth seen on CC projection. No correlate on MLO. No history of surgery to the right breast. Patient has history of biopsy left breast. (Fibroadenoma, [facility]) COMPARISON: Mammography: 04/07/2023, 03/21/2022, 05/21/2020, 10/13/2019, 03/21/2018. MR breast bilateral 06/23/2020. TECHNIQUE: Digital breast tomosynthesis is performed. 2D images are generated from the tomosynthesis. The following views are obtained: Full-field right rolled medial 3-D cc view, full-field right CC rolled lateral view, full-field right mediolateral view, and 3-D spot compression right CC view. FINDINGS: The breasts are heterogeneously dense, which may obscure small masses (ACR BI-RADS breast composition Category c). With additional views the one view focus of architectural distortion in the lateral mid breast on the CC projection completely effaces on spot compression view, rolled views, and has no correlate on the ML view. This finding is consistent with superimposition artifact of overlapping normal tissues. There are no suspicious masses, suspicious grouped calcifications, or areas of architectural distortion in the right breast. The parenchymal pattern is stable from prior exams. MM/MM tomosynthesis added views R IMPRESSION: No persistent findings suspicious for malignancy. Recommend patient return to routine annual screening. ASSESSMENT: BI-RADS BI-RADS 1 - Negative RECOMMENDATION: 1 year F/U Results were provided to the patient at time of visit by the technologist. This patient's information was entered into a reminder system with a target due date for their next mammogram.
== END 2023-05-04 13:05 | disposition home or self-care (01) ==
LOC: HO.MAMMO 13:04
PROVIDERS: PCP Internal Medicine; Visit Provider Internal Medicine
DX: N64.89 Other specified disorders of breast (principal)
CPT/HCPCS: 77061; 77065

== ENCOUNTER → 2023-05-04 14:00 | Outpatient (BNV) | payer OTHER, SELFPAY | PROVIDERS: PCP Internal Medicine; Visit Provider Radiology Diagnostic Radiology | DX: R92.8 Other abnormal and inconclusive findings on diagnostic imaging of breast (principal) | CPT/HCPCS: 77061; 77065 ==

== ENCOUNTER 2023-06-19 14:37 | Outpatient (AMB) | payer OTHER, SELFPAY ==
--- NOTE | 2023-06-19 15:12 | MHC.PC.OV ---
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 Required: No Accompanied by: Self / Same As Patient Allergies bee pollen [BEE STINGS] Allergy (Severe, Verified 06/19/23 15:37) SWELLING Penicillins [PENICILLINS] Allergy (Severe, Verified 06/19/23 15:37) HIVES, THROAT CLOSES amitriptyline [AMITRIPTYLINE] Allergy (Intermediate, Verified 06/19/23 15:37) Agitation oxycodone [From PERCOCET] Adverse Reaction (Intermediate, Verified 06/19/23 15:37) DIZZINESS Medication List - Last Reconciled 06/19/23 by Deborah Hernandez MD acetaminophen (Tylenol Extra Strength) 500 mg PO Q6H PRN [adult diapers pull-ups As directed] back brace As directed blood sugar diagnostic (FreeStyle Lite Strips) 1 strip miscellaneous TID 90 days cholecalciferol (vitamin D3) 125 mcg PO DAILY epinephrine 0.3 mg (0.3 mL) IM DIRECTED PRN 1 day ergocalciferol (vitamin D2) 1,250 mcg PO 3XW fluticasone furoate 50 mcg/actuation (Arnuity Ellipta) 1 inh inhalation DAILY 30 days fluticasone propionate 44 mcg/actuation (Flovent HFA) 1 puff inhalation BID 30 days gabapentin 300 mg PO Q8H 90 days ibuprofen 800 mg PO TID PRN lancets Use 1 lancet TID levothyroxine 88 mcg PO DAILY 90 days lidocaine 5% (Lidoderm) 1 patch topical DAILY PRN MDD remove after 12 hours rosuvastatin 40 mg PO DAILY 90 days silver sulfadiazine 1% (Silvadene) 1 appl topical BID tramadol 50 mg PO BID PRN 7 days Ventolin HFA 90 mcg/actuation (albuterol sulfate) 2 puffs inhalation Q6H PRN 30 days NS walker WITH SEAT AND WHEELS Tobacco use date assessed: 03/14/23 Dental Screening Dental Screen Date: 03/14/23 HPI HPI Comments History of Present Illness Details This is a 62-year-old female with hypothyroidism, dyslipidemia, hyperparathyroidism and insomnia that complains of low back pain radiating to both legs aggravated by standing and lying down. She follows with pain management and as per patient has not received any local injections. TSH, lipid panel and parathyroid levels as well as vitamin-D levels will be reordered. She was taking trazodone for insomnia with no significant relief and I will change it to amitriptyline. No fever, bowel or bladder incontinence. [facility] Medical History (Updated 06/19/23 @ 15:46 by Deborah Hernandez MD) Blurry vision Memory loss Physical exam Weakness of both hands Abnormal mammogram Right sided sciatica Right leg pain Hand numbness Hyperparathyroidism Iron deficiency anemia Mild asthma Insomnia Dyslipidemia Autoimmune thyroiditis Hypovitaminosis D Surgical History History of mammogram History of breast biopsy History of carpal tunnel release History of hysteroscopy H/O gastric bypass Status post dilation and curettage History of section History of cholecystectomy Family History Father CAD (coronary artery disease) Hypertension Diabetes Cerebral aneurysm Mother CAD (coronary artery disease) Thyroid cancer Sister Primary cancer of uterus Ovarian cancer Maternal Uncle Bone cancer Family/Other FH: mental illness Social History Household Members: Spouse Housing: House Alcohol intake: never Patient Tobacco Use Status: Never used Tobacco e-Cigarette/Vaping Use: Never Used Second Hand Smoke Exposure: No service: No Current occupational status: disabled 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 Alan Head, Evelin Saeed, Arias Small and colleagues, with an educational mahogany from [employer]. Review of Systems Const All systems reviewed & are unremarkable except as noted in HPI and below Eyes Reports no additional complaints, Denies change in vision and Denies other visual disturbances Card Denies chest pain at rest, Denies chest pain with activity, Denies edema, Denies irregular heart rhythm, Denies claudication, Denies dyspnea, Denies dyspnea on exertion, Denies orthopnea, Denies paroxysmal nocturnal dyspnea and Denies slow heart rate Resp Denies cough, Denies dyspnea and Denies dyspnea on exertion GI Denies abdominal pain, Denies change in bowel habits, Denies excessive flatus, Denies nausea and Denies vomiting Denies urinary incontinence, Denies urinary hesitancy and Denies urinary urgency Musc Reports back pain Physical exam (Primary Care) Vital Signs: Last Vital Signs BP 122/78 06/19/23 15:13 BMI result Body Mass Index 24.1 Tobacco/Smoking Status: Tobacco use Status Tobacco use date assessed 03/14/23 06/19/23 15:21 Patient Tobacco Use Status Never used Tobacco 06/19/23 15:21 e-Cigarette/Vaping Use Never Used 06/19/23 15:21 Thrive Assessment: Date of Thrive Assessment Date Thrive assessed 03/14/23 06/19/23 15:21 Resp Effort & Inspection: normal respiratory effort Auscultation: clear to auscultation bilaterally Cardio Jugular venous distension: no JVD Rate: regular rate Rhythm: regular rhythm Heart sounds: S1 normal heart sound present and S2 normal heart sound present Back/Spine/Pelvis Thoracic/Lumbar Spine: lumbar spinal tenderness and straight leg raise positive bilateral at 30 degrees Extrem General: Yes full ROM Assessment and Plan Assessment & Plan (1) Lumbar facet arthropathy: Code(s): M47.816 - Spondylosis without myelopathy or radiculopathy, lumbar region Plan: Referred to [facility]. Continue gabapentin. Use tramadol for severe pain. (2) Hyperparathyroidism: Code(s): E21.3 - Hyperparathyroidism, unspecified Plan: Repeat parathyroid. (3) Autoimmune thyroiditis: Code(s): E06.3 - Autoimmune thyroiditis Plan: Continue levothyroxine. Repeat TSH. (4) Dyslipidemia: Code(s): E78.5 - Hyperlipidemia, unspecified Plan: Continue statins. Repeat lipid panel. (5) Insomnia: Code(s): G47.00 - Insomnia, unspecified Plan: Discontinue trazodone. Start amitriptyline. Orders: Orders Vitamin D 25-OH Total Today E55.9 - Vitamin D deficiency, unspecified Vitamin B12 and Folate Today E53.8 - Deficiency of other specified B group vitamins IRON PROFILE Today D64.9 - Anemia, unspecified Parathyroid Hormone Intact Today E21.3 - Hyperparathyroidism, unspecified Calcium, Ionized Today E21.3 - Hyperparathyroidism, unspecified Lipid Panel Today E78.5 - Hyperlipidemia, unspecified Complete Blood Count Auto Diff Today D64.9 - Anemia, unspecified Comprehensive [place]. Panel Fast Today M79.604 - Pain in right leg Thyroid Stimulating Hormone Today E06.3 - Autoimmune thyroiditis Calcium, 24 Hr Ur Today E21.3 - Hyperparathyroidism, unspecified Referrals Pain Management Referral M47.816 - Spondylosis without myelopathy or radiculopathy, lumbar region Rheumatology Referral M25.50 - Pain in unspecified joint Medications: New amitriptyline 25 mg PO BEDTIME 90 days 90 tabs 0RF Refilled levothyroxine 88 mcg PO DAILY 90 days 90 tabs 0RF cholecalciferol (vitamin D3) 125 mcg PO DAILY 30 caps 6RF lidocaine 5% (Lidoderm) leave on most painful area for up to 12 hrs 1 patch topical DAILY PRN 30 ea 3RF pain MDD remove after 12 hours tramadol 50 mg PO BID 7 days PRN 14 tabs 0RF pain acetaminophen (Tylenol Extra Strength) 500 mg PO Q6H PRN 14 tabs 0RF fever or pain gabapentin 300 mg PO Q8H 90 days 270 caps 0RF ibuprofen 800 mg PO TID PRN 90 tabs 2RF for pain M54.31 - Sciatica, right side rosuvastatin 40 mg PO DAILY 90 days 90 tabs 0RF Ventolin HFA 90 mcg/actuation (albuterol sulfate) 2 puffs inhalation Q6H 30 days PRN 8 grams 2RF shortness of breath or wheezing NS Discontinued fluticasone propionate 44 mcg/actuation (Flovent HFA) administer with spacer Discontinued Reason: Order 1 puff inhalation BID 30 days 10.6 grams 6RF ergocalciferol (vitamin D2) Discontinued Reason: Patient Completed Course 1,250 mcg PO 3XW 30 caps 5RF Coding Level of Care Code Est Pt Level 4 (58309) Diagnoses Lumbar facet arthropathy M47.816 Hyperparathyroidism E21.3 Autoimmune thyroiditis E06.3 Dyslipidemia E78.5 Insomnia G47.00 Time Spent (min) 23
[2023-06-19 15:13] VITALS: BP 122/78; BMI 24.1
== END 2023-06-19 15:54 | disposition home or self-care (01) ==
PROVIDERS: PCP Internal Medicine; Visit Provider Internal Medicine
DX: M47.816 Spondylosis without myelopathy or radiculopathy, lumbar region (principal); E21.3 Hyperparathyroidism, unspecified; E06.3 Autoimmune thyroiditis; E78.5 Hyperlipidemia, unspecified; G47.00 Insomnia, unspecified
CPT/HCPCS: 99214

== ENCOUNTER 2023-07-04 07:43 | Outpatient (REF) | payer OTHER, SELFPAY ==
[2023-07-04 07:58] LABS: MANUAL DIFF FLAG NO
[2023-07-04 08:17] LABS: Basophils Absolute Auto 0.1 X10*3/uL (0.0-0.2); Eosinophils Absolute Auto 0.1 X10*3/uL (0.0-0.4); Eosinophils Percent Auto 2.7 % (0-4); Hematocrit 38.3 % (37.0-47.0); Hemoglobin 12.5 g/dl (12.0-16.0); Imm Gran Abs Auto 0.01 X10*3/uL (0.00-0.03); Imm Gran Pct Auto 0.2 % (0.0-0.4); Lymphocytes Absolute Auto 2.5 X10*3/uL (1.2-4.9); Lymphocytes Percent Auto 48.6 % (20-40); Mean Corpuscular HGB Conc 32.6 g/dl (31.0-35.0); Mean Corpuscular Hemoglobin 28.9 pg (27.0-33.0); Mean Corpuscular Volume 88.7 fL (80.0-98.0); Mean Platelet Volume 10.2 fL (9.4-12.3); Monocytes Absolute Auto 0.5 X10*3/uL (0.1-1.2); Monocytes Percent Auto 10.2 % (2-11); Neutrophils Absolute Auto 1.9 x10*3/uL (2.0-8.3); Neutrophils Percent Auto 37.3 % (45-73); Platelet Count 236 X10*3/uL (160-400); Red Blood Count 4.32 X10*6/uL (4.20-5.50); Red Cell Distribution Width 12.3 % (11.0-16.0); White Blood Count 5.1 X10*3/uL (4.8-10.8)
[2023-07-04 08:57] LABS: Alanine Aminotransferase 21 U/L (0-31); Albumin Level 3.9 g/dL (3.5-5.0); Alkaline Phosphatase 64 U/L (39-117); Anion Gap 12 (12-20); Aspartate Amino Transferase 26 U/L (5-31); Bilirubin Total 0.5 mg/dL (0.0-1.0); Blood Urea Nitrogen 15 mg/dL (9-16); Calcium 9.4 mg/dL (8.4-10.2); Carbon Dioxide 26 mmol/L (22-29); Chloride 108 mmol/L (96-108); Cholesterol 206 mg/dL (<200); Estimated Glomerular Filt Rate > 60; Glucose Fasting 92 mg/dL (60-99); HDL Cholesterol 48 mg/dL (>40); Iron 62 mcg/dL (30-160); LDL Cholesterol Calculated 138 mg/dL (<100); Percent Iron Saturation 29 % (15-50); Potassium 4.1 mmol/L (3.3-5.1); Sodium 142 mmol/L (135-145); Total Iron Binding Capacity 217 mcg/dL (228-428); Total Protein 6.7 g/dL (6.5-8.0); Triglycerides 101 mg/dL (<150); Unsaturated Iron Binding 155 ug/dL
[2023-07-04 08:58] LABS: Parathyroid Hormone Intact 87.8 pg/mL (8.7-77.1)
[2023-07-04 09:12] LABS: Thyroid Stimulating Hormone 2.41 uIU/mL (0.32-4.0); Vitamin D 25-OH Total 39.7 ng/mL (>30)
[2023-07-04 09:27] LABS: Folate 10.2 ng/mL (> or = 4.0); Vitamin B12 352 pg/mL (200-900)
[2023-07-06 11:58] LABS: Calcium, Ionized 5.1 mg/dL (4.7-5.5)
== END 2023-07-04 07:44 | disposition home or self-care (01) ==
LOC: HO.LAB 07:43
PROVIDERS: PCP Internal Medicine; Visit Provider Internal Medicine
DX: Z00.00 Encounter for general adult medical examination without abnormal findings (principal); E55.9 Vitamin D deficiency, unspecified; E53.8 Deficiency of other specified B group vitamins; D64.9 Anemia, unspecified; E21.3 Hyperparathyroidism, unspecified; E06.3 Autoimmune thyroiditis; E78.5 Hyperlipidemia, unspecified
CPT/HCPCS: 36415; 80053; 80061; 82306; 82330; 82607; 82746; 83540; 83970; 84443; 85025

== ENCOUNTER 2023-07-10 09:35 | Outpatient (REF) | payer OTHER, SELFPAY ==
[2023-07-11 19:43] LABS: Calcium, 24 Hr Urine 73 mg/24 h; Calcium/Creatinine Ratio 69 mg/g creat (30-275); Creatinine 24Hr Urine 1.05 g/24 h (0.50-2.15)
== END 2023-07-10 09:36 | disposition home or self-care (01) ==
LOC: HO.LNP 09:35
PROVIDERS: Visit Provider Internal Medicine
DX: E21.3 Hyperparathyroidism, unspecified (principal)
CPT/HCPCS: 82340

== ENCOUNTER 2023-07-17 07:44 | Outpatient (AMB) | payer OTHER, SELFPAY ==
[2023-07-17 08:11] VITALS: BP 104/68; PULSE 72; O2SAT 98; BMI 24.0
--- NOTE | 2023-07-17 08:11 | A.OFFPC_ITS ---
Vital Signs 07/17/23 08:11 Height 5 ft 2 in Weight 131 lb BMI 24.0 BP 104/68 Blood Pressure Location Lt brachial Position Sitting Pulse 72 Pulse Source Pulse Oximeter Pulse Oximetry (%) 98 Oxygen Delivery Method Room Air Intake Visit Reasons: 4m f/ u Nerve Specialist Required: No Accompanied by: Self / Same As Patient Allergies bee pollen [BEE STINGS] Allergy (Severe, Verified 07/17/23 08:26) SWELLING Penicillins [PENICILLINS] Allergy (Severe, Verified 07/17/23 08:26) HIVES, THROAT CLOSES amitriptyline [AMITRIPTYLINE] Allergy (Intermediate, Verified 07/17/23 08:26) Agitation oxycodone [From PERCOCET] Adverse Reaction (Intermediate, Verified 07/17/23 08:26) DIZZINESS Medication List - Last Reconciled 07/17/23 by Deborah Hernandez MD acetaminophen (Tylenol Extra Strength) 500 mg PO Q6H PRN [adult diapers pull-ups As directed] amitriptyline 25 mg PO BEDTIME 90 days back brace As directed blood sugar diagnostic (FreeStyle Lite Strips) 1 strip miscellaneous TID 90 days cholecalciferol (vitamin D3) 125 mcg PO DAILY epinephrine 0.3 mg (0.3 mL) IM DIRECTED PRN 1 day fluticasone furoate 50 mcg/actuation (Arnuity Ellipta) 1 inh inhalation DAILY 30 days gabapentin 300 mg PO Q8H 90 days ibuprofen 800 mg PO TID PRN lancets Use 1 lancet TID levothyroxine 88 mcg PO DAILY 90 days lidocaine 5% (Lidoderm) 1 patch topical DAILY PRN MDD remove after 12 hours rosuvastatin 40 mg PO DAILY 90 days silver sulfadiazine 1% (Silvadene) 1 appl topical BID tramadol 50 mg PO BID PRN 7 days Ventolin HFA 90 mcg/actuation (albuterol sulfate) 2 puffs inhalation Q6H PRN 30 days NS walker WITH SEAT AND WHEELS Tobacco use date assessed: 03/14/23 Dental Screening Dental Screen Date: 03/14/23 HPI HPI Comments History of Present Illness Details This is a 62-year-old female with hyperparathyroidism, insomnia, autoimmune thyroiditis, dyslipidemia and low vitamin-D that comes today for follow-up on conditions. Still has constant low back pain and has to walk with a walker. No fever, bowel or bladder incontinence. Sees Endocrinology for her hyperparathyroidism. Last vitamin-D levels has been normal and parathyroid is still mildly elevated but has improved. Will order DEXA scan. Insomnia is relieved by trazodone. She did use amitriptyline and did not resolve the insomnia. On levothyroxine for her thyroiditis and TSH will be monitor. On statins for elevated cholesterol and reports no side effects. No chest pain or shortness on breath. [facility] Medical History (Updated 07/17/23 @ 08:48 by Deborah Hernandez MD) Blurry vision Memory loss Physical exam Weakness of both hands Abnormal mammogram Right sided sciatica Right leg pain Hand numbness Hyperparathyroidism Iron deficiency anemia Mild asthma Insomnia Dyslipidemia Autoimmune thyroiditis Hypovitaminosis D Surgical History History of mammogram History of breast biopsy History of carpal tunnel release History of hysteroscopy H/O gastric bypass Status post dilation and curettage History of section History of cholecystectomy Family History Father CAD (coronary artery disease) Hypertension Diabetes Cerebral aneurysm Mother CAD (coronary artery disease) Thyroid cancer Sister Primary cancer of uterus Ovarian cancer Maternal Uncle Bone cancer Family/Other FH: mental illness Social History Household Members: Spouse Housing: House Alcohol intake: never Patient Tobacco Use Status: Never used Tobacco Tobacco use type: Cigarette e-Cigarette/Vaping Use: Never Used Second Hand Smoke Exposure: No service: No Current occupational status: disabled 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 1. Little interest or pleasure in doing things: not at all 2. Feeling down, depressed, or hopeless: not at all 3. Trouble falling or staying asleep, or sleeping too much: not at all 4. Feeling tired or having little energy: not at all 5. Poor appetite or overeating: not at all 6. Feeling bad about yourself - or that you are a failure or have let yourself or your family down: not at all 7. Trouble concentrating on things, such as reading the newspaper or watching television: not at all 8. Moving or speaking so slowly that other people could have noticed. Or the opposite - being so fidgety or restless that you have been moving around a lot more than usual: not at all 9. Thoughts that you would be better off or of hurting yourself in some way: not at all Total score: 0 Depression Screening Interpretation: Negative Depression Screening Done: Yes 41491 - PHQ-9 Billing: Yes Source: Developed by Drs. Alan Head, Evelin Saeed, Arias Small and colleagues, with an educational mahogany from [employer]. Thrive Questionnaire Date Thrive assessed: 03/14/23 AUDIT C Alcohol Use Questionnaire (AUDIT-C) 1. How often do you have a drink containing alcohol?: Never Total Score: 0 Score Reviewed/Action Taken: No NATA-7 AMB Questionnaire NATA-7 Date NATA - 7 assessed: 03/14/23 Source: Developed by Drs. Alan Head, Evelin Saeed, Arias Small and colleagues, with an educational mahogany from [employer]. Review of Systems Const All systems reviewed & are unremarkable except as noted in HPI and below Card Denies chest pain at rest, Denies chest pain with activity, Denies edema, Denies irregular heart rhythm, Denies claudication, Denies dyspnea, Denies dyspnea on exertion, Denies orthopnea, Denies paroxysmal nocturnal dyspnea and Denies slow heart rate Resp Denies cough, Denies dyspnea and Denies dyspnea on exertion Musc Reports back pain Physical exam (Primary Care) Vital Signs: Last Vital Signs Pulse 72 07/17/23 08:11 BP 104/68 07/17/23 08:11 Pulse Ox 98 07/17/23 08:11 Oxygen Delivery Method Room Air 07/17/23 08:11 BMI result Body Mass Index 24.0 Tobacco/Smoking Status: Tobacco use Status Tobacco use date assessed 03/14/23 07/17/23 08:16 Patient Tobacco Use Status Never used Tobacco 07/17/23 08:16 Tobacco use type Cigarette 07/17/23 08:16 e-Cigarette/Vaping Use Never Used 07/17/23 08:16 PHQ-9: PHQ-9 Score PHQ-9: Total score 0 07/17/23 08:29 Depression Screening Interpretation: Negative Thrive Assessment: Date of Thrive Assessment Date Thrive assessed 03/14/23 07/17/23 08:16 Const Limitations: ambulation with walker Resp Effort & Inspection: normal respiratory effort Auscultation: clear to auscultation bilaterally Cardio Jugular venous distension: no JVD Rate: regular rate Rhythm: regular rhythm Heart sounds: S1 normal heart sound present and S2 normal heart sound present Extrem General: Yes full ROM Assessment and Plan Assessment & Plan (1) Hyperparathyroidism: Code(s): E21.3 - Hyperparathyroidism, unspecified Plan: Follow-up with endocrinology. (2) Dyslipidemia: Code(s): E78.5 - Hyperlipidemia, unspecified Plan: Continue statins. Advised for low-cholesterol diet. (3) Autoimmune thyroiditis: Code(s): E06.3 - Autoimmune thyroiditis Plan: Continue levothyroxine. Monitor TSH. (4) Hypovitaminosis D: Code(s): E55.9 - Vitamin D deficiency, unspecified Plan: Continue vitamin-D supplements. (5) Insomnia: Code(s): G47.00 - Insomnia, unspecified Qualifiers: Insomnia type: primary Qualified Code(s): F51.01 - Primary insomnia Plan: Continue trazodone as needed. Medications: New trazodone 100 mg PO BEDTIME PRN 90 tabs 1RF sleep 90 days gabapentin 400 mg PO TID 90 caps 1RF 30 days Discontinued amitriptyline Discontinued Reason: Patient Completed Course 25 mg PO BEDTIME 90 days 90 tabs 0RF Coding Level of Care Code Est Pt Level 4 (88848) Complex EM visit Add On G2211 Diagnoses Hyperparathyroidism E21.3 Dyslipidemia E78.5 Autoimmune thyroiditis E06.3 Hypovitaminosis D E55.9 Primary insomnia F51.01 Insomnia type: primary Time Spent (min) 23
== END 2023-07-17 08:33 | disposition home or self-care (01) ==
PROVIDERS: PCP Internal Medicine; Visit Provider Internal Medicine
DX: E21.3 Hyperparathyroidism, unspecified (principal); E78.5 Hyperlipidemia, unspecified; E06.3 Autoimmune thyroiditis; E55.9 Vitamin D deficiency, unspecified; F51.01 Primary insomnia
CPT/HCPCS: 99214; G2211

== ENCOUNTER 2023-08-02 18:22 | Outpatient (REF) | payer OTHER, SELFPAY ==
--- NOTE | ~2023-08-02 | MR_ITS ---
EXAMINATION: MR LUMBAR SPINE WITHOUT CONTRAST CLINICAL INFORMATION: 62-year-old with worsening chronic low back pain and lower extremity paresthesias. COMPARISON: None available. TECHNIQUE: MRI of the lumbar spine was obtained using routine sequences without contrast. FINDINGS: CORONAL ALIGNMENT: Normal. SAGITTAL ALIGNMENT: Normal lumbosacral alignment. LUMBOSACRAL JUNCTION: Normal. There are 5 [id number] lumbar-type vertebral bodies. VERTEBRAL BODIES: Lumbar vertebral body heights are well-maintained. Note is made of a [id number], nonhealed superior endplate compression fracture deformity of T11 with slight anteropulsion of the superior endplate without significant retropulsion. Superimposed probable post traumatic Schmorl's node centrally. DISC SPACES AND ENDPLATES: The intervertebral disc space heights are relatively well-maintained. There are mild degrees of anterior marginal spondylosis at L3-L4 and L4-L5. There is loss of intradiscal T2-weighted signal at the L5-S1 level consistent with disc degenerative change without significant disc space height loss. Minor spondylosis at this level. SPINAL CANAL: No abnormal developmental findings. BONE MARROW: There is mild bone marrow edema along the compressed superior endplate of T11 consistent with an incompletely healed fracture. No other bone marrow edema is identified. No focally suspicious marrow replacing process is seen. There is somewhat heterogeneous signal intensity throughout the osseous structures in the background which is nonspecific and could be physiologic. A 1.6 cm benign vertebral hemangioma on the right side of the L2 vertebral body noted. CONUS MEDULLARIS: Terminates at L1-L2. Morphology and signal is normal. INTRADURAL NERVE ROOTS: Within normal limits. L5-S1: Shallow broad-based disc bulging with minimal indentation of the ventral thecal sac. Moderate right and mild left-sided facet joint arthropathy noted without significant canal stenosis. There is [id number] neural foraminal stenosis bilaterally without neural impingement. L4-L5: Minor annular bulging and a small right-sided foraminal disc protrusion without neural impingement. There is moderate facet joint arthropathy bilaterally with mild ligamentum flavum thickening without significant canal stenosis. Mild foraminal narrowing is noted bilaterally, right more than left. L3-L4: Bilateral foraminal/extraforaminal disc herniations are seen with moderate bilateral facet joint arthropathy and ligamentum flavum thickening without significant canal stenosis. Minor foraminal narrowing noted bilaterally without neural impingement. L2-L3: Normal annular contour. Moderate left-sided and mild right-sided facet joint arthropathy. No significant canal or foraminal stenosis. L1-L2: Normal annular contour. Mild facet joint arthropathy bilaterally. No canal or neural foraminal stenosis. PARAVERTEBRAL AND INCLUDED EXTRASPINAL SOFT TISSUES: The visualized paravertebral soft tissues and included retroperitoneal structures are unremarkable within the limitations of the exam. MR/MR lumbar spine wo con IMPRESSION: 1. [id number] nonhealed superior endplate compression fracture deformity of T11, as described above, with approximately 30-40% loss of height. No significant retropulsion and no cord impingement. 2. Mild disc bulging at L5-S1 with bilateral facet joint arthropathy and [id number] bilateral neural foraminal stenosis without neural impingement. 3. Minor annular bulging and small right-sided foraminal disc protrusion at L4-L5 with bilateral facet joint arthropathy and mild foraminal narrowing, right more than left without neural impingement. 4. Bilateral foraminal/extraforaminal disc herniations at L3-L4 with bilateral facet joint arthropathy and mild foraminal narrowing bilaterally without neural impingement. 5. Multilevel bilateral facet joint arthropathy as described above. No significant spinal canal stenosis.
== END 2023-08-02 18:23 | disposition home or self-care (01) ==
LOC: HO.MRI 18:22
PROVIDERS: PCP Internal Medicine; Visit Provider Nurse Practitioner Family
DX: M47.896 Other spondylosis, lumbar region (principal)
CPT/HCPCS: 72148

== ENCOUNTER 2023-08-07 08:52 | Outpatient (REF) | payer OTHER, SELFPAY ==
[2023-08-07 09:35] LABS: Total Volume 24 Hour Urine 1100 mL
[2023-08-07 09:51] LABS: Creatinine, 24Hr Urine 0.9 G/Day (1.0-2.0); Creatinine, mg/dL 85.05
[2023-08-09 20:43] LABS: Calcium, 24 Hr Urine 107 mg/24 h; Calcium/Creatinine Ratio 110 mg/g creat (30-275); Creatinine 24Hr Urine 0.97 g/24 h (0.50-2.15)
== END 2023-08-07 08:53 | disposition home or self-care (01) ==
LOC: HO.LNP 08:52
PROVIDERS: Visit Provider Internal Medicine Endocrinology, Diabetes & Metabolism
DX: E21.3 Hyperparathyroidism, unspecified (principal)
CPT/HCPCS: 82340; 82570

== ENCOUNTER 2023-08-09 08:38 | Outpatient (AMB) | payer OTHER, SELFPAY ==
[2023-08-09 08:41] VITALS: BP 110/72; PULSE 53; BMI 24.5
--- NOTE | 2023-08-09 08:41 | A.OFFVIS_ITS ---
Vital Signs 08/09/23 08:41 Height 5 ft 2 in Weight 133 lb 13.129 oz BMI 24.5 BP 110/72 Blood Pressure Location Lt brachial Position Sitting Pulse 53 Pulse Source Pulse Oximeter Intake Visit Reasons: Hyperthyroidism-confirmed Intake Note: Patient present today for Hyperthyroidism follow up visit. Contract Recruiter Required: Yes Contract Recruiter Language: Moroccan Information Interpreted: non-clinical & clinical Accompanied by: Self / Same As Patient Allergies bee pollen [BEE STINGS] Allergy (Severe, Verified 08/09/23 08:45) SWELLING Penicillins [PENICILLINS] Allergy (Severe, Verified 08/09/23 08:45) HIVES, THROAT CLOSES amitriptyline [AMITRIPTYLINE] Allergy (Intermediate, Verified 08/09/23 08:45) Agitation oxycodone [From PERCOCET] Adverse Reaction (Intermediate, Verified 08/09/23 08:45) DIZZINESS Medication List - Last Reconciled 08/09/23 by Alan Quinones MD acetaminophen (Tylenol Extra Strength) 500 mg PO Q6H PRN [adult diapers pull-ups As directed] back brace As directed blood sugar diagnostic (FreeStyle Lite Strips) 1 strip miscellaneous TID 90 days cholecalciferol (vitamin D3) 125 mcg PO DAILY epinephrine 0.3 mg (0.3 mL) IM DIRECTED PRN 1 day fluticasone furoate 50 mcg/actuation (Arnuity Ellipta) 1 inh inhalation DAILY 30 days gabapentin 400 mg PO TID 30 days ibuprofen 800 mg PO TID PRN lancets Use 1 lancet TID levothyroxine 88 mcg PO DAILY 90 days lidocaine 5% (Lidoderm) 1 patch topical DAILY PRN MDD remove after 12 hours rosuvastatin 40 mg PO DAILY 90 days silver sulfadiazine 1% (Silvadene) 1 appl topical BID tramadol 50 mg PO BID PRN 7 days trazodone 100 mg PO BEDTIME PRN 90 days Ventolin HFA 90 mcg/actuation (albuterol sulfate) 2 puffs inhalation Q6H PRN 30 days NS walker WITH SEAT AND WHEELS HPI Comments Details: 62 YO F with PMHx bariatric surgery who is seen in consultation at the request of PCP for hyperparathyroidism for. Hx of bariatric surgery 4 yrs ago First noted to have high calcium of 10.3 on 05/17/2021 but subsequent calcium is normal . Currently using ? Calcium supplement ?mg . [place] 5000 [place] [address] IU of ergocalciferol twice a week Currently not using HCTZ. Kidney stones: No Osteoporosis: No History of [place] use: No Biotin use: Takes Biotin according to pt Family history of high calcium or kidney stones: Renal imaging: [] DXA: Labs: Taking 5000-Iunits of vitamin-D 3 and ergo 01419 IU/2 wk PFS Medical History Blurry vision Memory loss Physical exam Weakness of both hands Abnormal mammogram Right sided sciatica Right leg pain Hand numbness Hyperparathyroidism Iron deficiency anemia Mild asthma Insomnia Dyslipidemia Autoimmune thyroiditis Hypovitaminosis D Surgical History History of mammogram History of breast biopsy History of carpal tunnel release History of hysteroscopy H/O gastric bypass Status post dilation and curettage History of section History of cholecystectomy Family History Father CAD (coronary artery disease) Hypertension Diabetes Cerebral aneurysm Mother CAD (coronary artery disease) Thyroid cancer Sister Primary cancer of uterus Ovarian cancer Maternal Uncle Bone cancer Family/Other FH: mental illness Social History Household Members: Spouse Housing: House Alcohol intake: never Patient Tobacco Use Status: Never used Tobacco Tobacco use type: Cigarette e-Cigarette/Vaping Use: Never Used Second Hand Smoke Exposure: No service: No Current occupational status: disabled 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 She is currently being treated with 5000 IU of vitamin D3. Ergocalciferol was also increased to 50,000-units twice a week. She is now vitamin-D replete but PTH remains elevated.. Other possibility in the differential is that the patient has developed normocalcemic primary hyperparathyroidism The plan is to check 24 hour urine for calcium and creatinine when available and adjust calcium intake accordingly. For now, we will start calcium citrate 500 mg b.i.d. Could order repeat labs at [facility] ([facility]) to assess accuracy of PTH. Will also order 3 site DEXA of hip, spine and distal forearm Orders: Orders XR DEXA appendicular skeleton Today E55.9 - Vitamin D deficiency, unspecified XR DEXA axial skeleton Today E55.9 - Vitamin D deficiency, unspecified, M81.0 - Age-related osteoporosis without current pathological fracture Medications: New ergocalciferol (vitamin D2) 1,250 mcg PO 2XW 10 caps 4RF calcium citrate 500 mg (2 x 250 mg calcium) PO BID 120 tabs 5RF Refilled 2 cholecalciferol (vitamin D3) 125 mcg PO DAILY 30 caps 6RF Coding Level of Care Code Est Pt Level 3 (92031) Diagnoses Hypovitaminosis D E55.9
== END 2023-08-09 09:03 | disposition home or self-care (01) ==
LOC: HO.ENCR 08:38
PROVIDERS: PCP Internal Medicine; Visit Provider Internal Medicine Endocrinology, Diabetes & Metabolism
DX: E55.9 Vitamin D deficiency, unspecified (principal)
CPT/HCPCS: 99213

== ENCOUNTER → 2023-08-09 08:38 | Outpatient (BNVA) | payer OTHER, SELFPAY | PROVIDERS: PCP Internal Medicine; Visit Provider Internal Medicine Endocrinology, Diabetes & Metabolism | DX: E55.9 Vitamin D deficiency, unspecified (principal) | CPT/HCPCS: 99212 ==

== ENCOUNTER 2023-08-23 08:00 | Outpatient (REF) | payer OTHER, SELFPAY ==
--- NOTE | ~2023-08-23 | MM_ITS ---
EXAMINATION: BONE DENSITOMETRY CLINICAL INDICATION: Vitamin D deficiency, unspecified. COMPARISON: This is the patient's baseline examination. TECHNIQUE: Using a [employer] DXA System (software version: 13.1) manufactured by [employer], dual-energy x-ray absorptiometry was performed of the lumbar spine and left hip. The images are of good technical quality. Summary results are attached. FINDINGS: LEFT FEMUR, NECK: BMD 0.651 g/cm2, Z-score -1.4, T-score -2.8, osteoporosis. LEFT FEMUR, TOTAL: BMD 0.747 g/cm2, Z-score -1.0, T-score -2.1, osteopenia. AP SPINE L1-L4: BMD 0.895 g/cm2, Z-score -0.9, T-score -2.4, osteopenia. IDENTIFIED RISK FACTORS: Early menopause, secondary osteoporosis, low calcium intake, recurrent falls, rheumatoid arthritis. HISTORY OF FRACTURE: None listed. MEDICATIONS: Calcium supplements or multivitamin, vitamin D. MM/XR DEXA axial skeleton IMPRESSION: 1. DIAGNOSIS: Osteoporosis based on the lowest T-score value of -2.8 in the femoral neck applying World Health Organization criteria. 2. 10-YEAR FRACTURE RISK PREDICTION, FRAX: According to the guidelines, FRAX calculation should only be performed on patients in the osteopenia bone density category. Therefore, FRAX was not performed on this patient. 3. Treatment Recommendations: NOF guidelines recommend consideration for treatment in postmenopausal women and men age 50 and older presenting with the following: -A hip or vertebral (clinical or morphometric) fracture. -T-score less than or equal to -2.5 at the femoral neck or spine after appropriate evaluation to exclude secondary causes. -Low bone mass at the hip or spine and a 10-year fracture probability by FRAX of greater than or equal to 3% for hip fracture or greater than or equal to 20% for major osteoporotic fracture based on the [place] adapted WHO algorithm. 4. Other Recommendations: All treatment decisions require clinical judgment and consideration of individual patient factors, including patient preferences, comorbidities, previous drug use, risk factors not captured in the FRAX model (e.g. frailty, falls, vitamin D deficiency, increased bone turnover, interval significant decline in bone density) and possible under or overestimation of fracture risk by FRAX. Additional medical evaluation for secondary cause of low bone mineral density may be appropriate. FUTURE SCAN RECOMMENDATION: People with diagnosed cases of osteoporosis or at high risk for fracture should have regular bone mineral density tests. For patients eligible for Medicare, routine testing is allowed once every 2 years. The testing frequency can be increased to one year for patients who have rapidly progressing disease, those who are receiving or discontinuing medical therapy to restore bone mass, or have additional risk factors.
== END 2023-08-23 08:01 | disposition home or self-care (01) ==
LOC: HO.MAMMO 08:00
PROVIDERS: Visit Provider Internal Medicine Endocrinology, Diabetes & Metabolism
DX: Z13.820 Encounter for screening for osteoporosis (principal); M81.0 Age-related osteoporosis without current pathological fracture; E55.9 Vitamin D deficiency, unspecified
CPT/HCPCS: 77080

== ENCOUNTER 2023-09-04 07:54 | Outpatient (AMB) | payer OTHER, SELFPAY ==
[2023-09-04 08:11] VITALS: BP 114/62; PULSE 58; O2SAT 97; BMI 23.3
--- NOTE | 2023-09-04 08:11 | A.OFFPC_ITS ---
Vital Signs 09/04/23 08:11 Height 5 ft 2 in Weight 127 lb 10.362 oz BMI 23.3 BP 114/62 Blood Pressure Location Rt brachial Position Sitting Pulse 58 Pulse Source Pulse Oximeter Pulse Oximetry (%) 97 Oxygen Delivery Method Room Air Intake Visit Reasons: Joint Pain/cm Intake Note: New patient internally referred by PCP for Joint pain. Pain is all over her body, legs are numb Patient states it's been about a year. Patient states she has been taking Ibuprofen for this. 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 Patient states that she has significant pain in her entire back. Has been going on for about a year. She also has bilateral feet numbness. She has known hyperparathyroidism and osteoporosis. [facility] Medical History Blurry vision Memory loss Physical exam Weakness of both hands Abnormal mammogram Right sided sciatica Right leg pain Hand numbness Hyperparathyroidism Iron deficiency anemia Mild asthma Insomnia Dyslipidemia Autoimmune thyroiditis Hypovitaminosis D Surgical History History of mammogram History of breast biopsy History of carpal tunnel release History of hysteroscopy H/O gastric bypass Status post dilation and curettage History of section History of cholecystectomy Family History Father CAD (coronary artery disease) Hypertension Diabetes Cerebral aneurysm Mother CAD (coronary artery disease) Thyroid cancer Sister Primary cancer of uterus Ovarian cancer Maternal Uncle Bone cancer Family/Other FH: mental illness Social History Household Members: Spouse Housing: House Alcohol intake: never Patient Tobacco Use Status: Never used Tobacco Tobacco use type: Cigarette e-Cigarette/Vaping Use: Never Used Second Hand Smoke Exposure: No service: No Current occupational status: disabled 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 Alan Head, Evelin Saeed, Arias Small and colleagues, with an educational mahogany from [employer]. Review of Systems Const Reports fatigue and Reports weakness Musc Reports back pain, Reports arthralgias and Reports numbness Neuro Reports numbness and Reports weakness Endo Reports fatigue Physical exam (Primary Care) Vital Signs: Last Vital Signs Pulse 58 09/04/23 08:11 BP 114/62 09/04/23 08:11 Pulse Ox 97 09/04/23 08:11 Oxygen Delivery Method Room Air 09/04/23 08:11 BMI result Body Mass Index 23.3 Tobacco/Smoking Status: Tobacco use Status Tobacco use date assessed 03/14/23 09/04/23 08:13 Patient Tobacco Use Status Never used Tobacco 09/04/23 08:13 Tobacco use type Cigarette 09/04/23 08:13 e-Cigarette/Vaping Use Never Used 09/04/23 08:13 Thrive Assessment: Date of Thrive Assessment Date Thrive assessed 03/14/23 09/04/23 08:13 Const General: cooperative and healthy appearing Orientation/consciousness: patient oriented x3 Limitations: no limitations HENMT Head: Yes normocephalic and Yes atraumatic Resp Effort & Inspection: normal respiratory effort and able to speak in complete sentences Cardio Rate: regular rate Rhythm: regular rhythm Back/Spine/Pelvis Other: Diffuse back tenderness. Tenderness to palpation along the vertebrae as well as the paraspinal muscles diffusely Positive straight leg raise test bilaterally Skin General skin exam: no rashes or lesions noted Neuro General: patient oriented x3 Extrem Other: No active peripheral synovitis Normal nailfold capillaroscopy Results Reviewed Results Reviewed: CLINICAL INFORMATION: 62-year-old with worsening chronic low back pain and lower extremity paresthesias. COMPARISON: None available. TECHNIQUE: MRI of the lumbar spine was obtained using routine sequences without contrast. FINDINGS: CORONAL ALIGNMENT: Normal. SAGITTAL ALIGNMENT: Normal lumbosacral alignment. LUMBOSACRAL JUNCTION: Normal. There are 5 [id number] lumbar-type vertebral bodies. VERTEBRAL BODIES: Lumbar vertebral body heights are well-maintained. Note is made of a tmrr-jx-jqjcrsei, nonhealed superior endplate compression fracture deformity of T11 with slight anteropulsion of the superior endplate without significant retropulsion. Superimposed probable post traumatic Schmorl's node centrally. DISC SPACES AND ENDPLATES: The intervertebral disc space heights are relatively well-maintained. There are mild degrees of anterior marginal spondylosis at L3-L4 and L4-L5. There is loss of intradiscal T2-weighted signal at the L5-S1 level consistent with disc degenerative change without significant disc space height loss. Minor spondylosis at this level. SPINAL CANAL: No abnormal developmental findings. BONE MARROW: There is mild bone marrow edema along the compressed superior endplate of T11 consistent with an incompletely healed fracture. No other bone marrow edema is identified. No focally suspicious marrow replacing process is seen. There is somewhat heterogeneous signal intensity throughout the osseous structures in the background which is nonspecific and could be physiologic. A 1.6 cm benign vertebral hemangioma on the right side of the L2 vertebral body noted. CONUS MEDULLARIS: Terminates at L1-L2. Morphology and signal is normal. INTRADURAL NERVE ROOTS: Within normal limits. L5-S1: Shallow broad-based disc bulging with minimal indentation of the ventral thecal sac. Moderate right and mild left-sided facet joint arthropathy noted without significant canal stenosis. There is [id number]-ebnkptfk neural foraminal stenosis bilaterally without neural impingement. L4-L5: Minor annular bulging and a small right-sided foraminal disc protrusion without neural impingement. There is moderate facet joint arthropathy bilaterally with mild ligamentum flavum thickening without significant canal stenosis. Mild foraminal narrowing is noted bilaterally, right more than left. L3-L4: Bilateral foraminal/extraforaminal disc herniations are seen with moderate bilateral facet joint arthropathy and ligamentum flavum thickening without significant canal stenosis. Minor foraminal narrowing noted bilaterally without neural impingement. L2-L3: Normal annular contour. Moderate left-sided and mild right-sided facet joint arthropathy. No significant canal or foraminal stenosis. L1-L2: Normal annular contour. Mild facet joint arthropathy bilaterally. No canal or neural foraminal stenosis. PARAVERTEBRAL AND INCLUDED EXTRASPINAL SOFT TISSUES: The visualized paravertebral soft tissues and included retroperitoneal structures are unremarkable within the limitations of the exam. MR/MR lumbar spine wo con IMPRESSION: 1. Jlrn-pn-[id number] nonhealed superior endplate compression fracture deformity of T11, as described above, with approximately 30-40% loss of height. No significant retropulsion and no cord impingement. 2. Mild disc bulging at L5-S1 with bilateral facet joint arthropathy and [id number] bilateral neural foraminal stenosis without neural impingement. 3. Minor annular bulging and small right-sided foraminal disc protrusion at L4-L5 with bilateral facet joint arthropathy and mild foraminal narrowing, right more than left without neural impingement. 4. Bilateral foraminal/extraforaminal disc herniations at L3-L4 with bilateral facet joint arthropathy and mild foraminal narrowing bilaterally without neural impingement. 5. Multilevel bilateral facet joint arthropathy as described above. No significant spinal canal stenosis. Assessment and Plan Assessment & Plan (1) Polyarthralgia: Code(s): M25.50 - Pain in unspecified joint Plan: This is a 62-year-old female who presents for evaluation of diffuse back pain. Her L-spine MRI shows degenerative disc disease with facet arthropathy, she also has an osteoporotic fracture. I do not see any evidence of an autoimmune rheumatic disease. I will refer patient to pain management Plan I spent 20 minutes reviewing patient's chart, evaluating patient,, counseling patient and documenting in the chart Orders: Referrals Pain Management Referral M47.816 - Spondylosis without myelopathy or radiculopathy, lumbar region, M80.00XA - Age-related osteoporosis with current pathological fracture, unspecified site, initial encounter for fracture Coding Level of Care Code New Pt Level 3 (03971) Diagnoses Polyarthralgia M25.50
== END 2023-09-04 08:40 | disposition home or self-care (01) ==
PROVIDERS: PCP Internal Medicine; Visit Provider Student in an Organized Health Care Education/Training Program
DX: M25.50 Pain in unspecified joint (principal)
CPT/HCPCS: 99203

== ENCOUNTER → 2023-09-04 07:54 | Outpatient (BNVA) | payer OTHER, SELFPAY | PROVIDERS: PCP Internal Medicine; Visit Provider Student in an Organized Health Care Education/Training Program | DX: M25.50 Pain in unspecified joint (principal); M54.9 Dorsalgia, unspecified; M51.36 Other intervertebral disc degeneration, lumbar region; M47.816 Spondylosis without myelopathy or radiculopathy, lumbar region; M80.08XA Age-related osteoporosis with current pathological fracture, vertebra(e), initial encounter for fracture | CPT/HCPCS: 99202 ==

== ENCOUNTER 2023-09-10 13:02 | Outpatient (AMB) | payer OTHER, SELFPAY ==
[2023-09-10 13:13] VITALS: BP 117/60; PULSE 56; O2SAT 100; BMI 24.5
--- NOTE | 2023-09-10 13:13 | MHC.OFFVIS ---
Vital Signs 09/10/23 13:13 Height 5 ft 2 in Weight 134 lb BMI 24.5 BP 117/60 Blood Pressure Location Rt brachial Position Sitting Pulse 56 Pulse Source Pulse Oximeter Pulse Oximetry (%) 100 Oxygen Delivery Method Room Air Intake Visit Reasons: Spondylosis lumbar region Allergies bee pollen [BEE STINGS] Allergy (Severe, Verified 09/10/23 13:21) SWELLING Penicillins [PENICILLINS] Allergy (Severe, Verified 09/10/23 13:21) HIVES, THROAT CLOSES amitriptyline [AMITRIPTYLINE] Allergy (Intermediate, Verified 09/10/23 13:21) Agitation oxycodone [From PERCOCET] Adverse Reaction (Intermediate, Verified 09/10/23 13:21) DIZZINESS HPI Comments Details: Isis is very pleasant Romanian-speaking 62 years old female who came to my office in obvious distress. She is unable to seat straight for the time of the today's interview. She was complaining on pain in the lower thoracic upper lumbar spine. She reported that this pain started 10 months ago when working in were house very heavy boxes fell on her from the above. There is tenderness on palpation in projection of approximately T11 vertebra. There is also tenderness on percussion in the same very area. She admits minimal to moderate pain in lower back. However she reports the most of the pain is in projection of the lower thoracic vertebra. She is in my office crying from pain. She was evaluated once in this office 10 months ago. She was sent for the physical therapy and completed full course of physical therapy. This did not help her pain. One month ago she went for MRI of the lumbar spine which demonstrated compression fracture with current edema in the projection of the T11 vertebra. Since edema is still present this is nonhealing nonunion VCF. I spoke in person with her radiologist Dr. Merida and we decided considering the specifics of the imaging including possible Schmorl's node in the body of T11 which also could demonstrate potentially a tumor in the projection of T11 to send this patient for stat MRI image with and without contrast of the thoracic spine. She is currently taking exuberant doses of the Tylenol and ibuprofen OTC she is taking doses dangerous for normal kidney function. I decided to prescribe tramadol for this patient to improve her pain at least temporarily until we will make a decision on what to do with this delayed healing VCF. [facility] Medical History Blurry vision Memory loss Physical exam Weakness of both hands Abnormal mammogram Right sided sciatica Right leg pain Hand numbness Hyperparathyroidism Iron deficiency anemia Mild asthma Insomnia Dyslipidemia Autoimmune thyroiditis Hypovitaminosis D Surgical History History of mammogram History of breast biopsy History of carpal tunnel release History of hysteroscopy H/O gastric bypass Status post dilation and curettage History of section History of cholecystectomy Family History Father CAD (coronary artery disease) Hypertension Diabetes Cerebral aneurysm Mother CAD (coronary artery disease) Thyroid cancer Sister Primary cancer of uterus Ovarian cancer Maternal Uncle Bone cancer Family/Other FH: mental illness Social History Household Members: Spouse Housing: House Alcohol intake: never Patient Tobacco Use Status: Never used Tobacco Tobacco use type: Cigarette e-Cigarette/Vaping Use: Never Used Second Hand Smoke Exposure: No service: No Current occupational status: disabled 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 Cognitive needs: No Hearing needs: No Vision needs: Yes (glasses) Review of Systems Const All systems reviewed & are unremarkable except as noted in HPI and below ENT Reports Normal hearing present Neuro Reports Normal hearing present, Denies Abnormal speech present, Denies confusion and Denies Sensory deficit (Neuro) Psych Denies confusion Physical Exam Vital Signs: Last Vital Signs Pulse 56 09/10/23 13:13 BP 117/60 09/10/23 13:13 Pulse Ox 100 09/10/23 13:13 Oxygen Delivery Method Room Air 09/10/23 13:13 BMI result Body Mass Index 24.5 Const General: no acute distress; No confusion Nutritional Appearance: obese morbidly obese Orientation/consciousness: patient oriented x3 and No confusion Eyes General: appearance normal, both eyes and all related structures Pupils: Equal, round and reactive pupils present EOM: EOMs intact bilaterally Neck Neck: Yes full ROM Chest Chest palpation & inspection: normal inspection of the chest Resp Effort & Inspection: normal respiratory effort, able to speak in complete sentences, normal respiratory pattern, no audible wheezes and no cough Cardio Jugular venous distension: no JVD GI Inspection: Yes normal to inspection Back/Spine/Pelvis Other: Severe tenderness on palpation in projection of approximately T11 spinous process. Severe tenderness on percussion on the projection of approximately T11 spinous process. Valsalva maneuver aggravates the pain in the projection of T11. There is minor tenderness on palpation in projection of the lower lumbar spine however at this time her focus pain is mostly in the projection of the thoracic spine. Neuro General: patient oriented x3, gait normal and No confusion Cranial nerves: Yes CN's II-XII intact bilaterally, Yes Equal, round and reactive pupils present, Yes Normal hearing present and Yes Ability to bilaterally elevate shoulders present Speech: No Abnormal speech present Gait exam (Neuro): Normal gait present Motor exam (neuro): 5/5 motor strength present throughout Sensory Exam: No Sensory deficit (Neuro) Extrem General: No pedal edema Psych Speech and movement: Normal speech and movement present Affect: normal affect Attitude: cooperative Thought process: Normal thought process present Thought content: Normal thought content present Insight: Good insight present (Psych) Judgement: Good judgement present (Psych) Results Reviewed Results Reviewed: MR LUMBAR SPINE WITHOUT CONTRAST CLINICAL INFORMATION: 62-year-old with worsening chronic low back pain and lower extremity paresthesias. COMPARISON: None available. TECHNIQUE: MRI of the lumbar spine was obtained using routine sequences without contrast. FINDINGS: CORONAL ALIGNMENT: Normal. SAGITTAL ALIGNMENT: Normal lumbosacral alignment. LUMBOSACRAL JUNCTION: Normal. There are 5 lpe-skr-kssnorl lumbar-type vertebral bodies. VERTEBRAL BODIES: Lumbar vertebral body heights are well-maintained. Note is made of a [id number], nonhealed superior endplate compression fracture deformity of T11 with slight anteropulsion of the superior endplate without significant retropulsion. Superimposed probable post traumatic Schmorl's node centrally. DISC SPACES AND ENDPLATES: The intervertebral disc space heights are relatively well-maintained. There are mild degrees of anterior marginal spondylosis at L3-L4 and L4-L5. There is loss of intradiscal T2-weighted signal at the L5-S1 level consistent with disc degenerative change without significant disc space height loss. Minor spondylosis at this level. SPINAL CANAL: No abnormal developmental findings. BONE MARROW: There is mild bone marrow edema along the compressed superior endplate of T11 consistent with an incompletely healed fracture. No other bone marrow edema is identified. No focally suspicious marrow replacing process is seen. There is somewhat heterogeneous signal intensity throughout the osseous structures in the background which is nonspecific and could be physiologic. A 1.6 cm benign vertebral hemangioma on the right side of the L2 vertebral body noted. CONUS MEDULLARIS: Terminates at L1-L2. Morphology and signal is normal. INTRADURAL NERVE ROOTS: Within normal limits. L5-S1: Shallow broad-based disc bulging with minimal indentation of the ventral thecal sac. Moderate right and mild left-sided facet joint arthropathy noted without significant canal stenosis. There is uleg-cr-hwamwchd neural foraminal stenosis bilaterally without neural impingement. L4-L5: Minor annular bulging and a small right-sided foraminal disc protrusion without neural impingement. There is moderate facet joint arthropathy bilaterally with mild ligamentum flavum thickening without significant canal stenosis. Mild foraminal narrowing is noted bilaterally, right more than left. L3-L4: Bilateral foraminal/extraforaminal disc herniations are seen with moderate bilateral facet joint arthropathy and ligamentum flavum thickening without significant canal stenosis. Minor foraminal narrowing noted bilaterally without neural impingement. L2-L3: Normal annular contour. Moderate left-sided and mild right-sided facet joint arthropathy. No significant canal or foraminal stenosis. L1-L2: Normal annular contour. Mild facet joint arthropathy bilaterally. No canal or neural foraminal stenosis. PARAVERTEBRAL AND INCLUDED EXTRASPINAL SOFT TISSUES: The visualized paravertebral soft tissues and included retroperitoneal structures are unremarkable within the limitations of the exam. IMPRESSION: 1. Tqgq-ce-xyqnhezg nonhealed superior endplate compression fracture deformity of T11, as described above, with approximately 30-40% loss of height. No significant retropulsion and no cord impingement. 2. Mild disc bulging at L5-S1 with bilateral facet joint arthropathy and xfbm-hv-fxfsdpea bilateral neural foraminal stenosis without neural impingement. 3. Minor annular bulging and small right-sided foraminal disc protrusion at L4-L5 with bilateral facet joint arthropathy and mild foraminal narrowing, right more than left without neural impingement. 4. Bilateral foraminal/extraforaminal disc herniations at L3-L4 with bilateral facet joint arthropathy and mild foraminal narrowing bilaterally without neural impingement. 5. Multilevel bilateral facet joint arthropathy as described above. No significant spinal canal stenosis. XR DEXA axial skeleton EXAMINATION: BONE DENSITOMETRY CLINICAL INDICATION: Vitamin D deficiency, unspecified. COMPARISON: This is the patient's baseline examination. TECHNIQUE: Using a wywy DXA System (software version: 13.1) manufactured by [employer], dual-energy x-ray absorptiometry was performed of the lumbar spine and left hip. The images are of good technical quality. Summary results are attached. FINDINGS: LEFT FEMUR, NECK: BMD 0.651 g/cm2, Z-score -1.4, T-score -2.8, osteoporosis. LEFT FEMUR, TOTAL: BMD 0.747 g/cm2, Z-score -1.0, T-score -2.1, osteopenia. AP SPINE L1-L4: BMD 0.895 g/cm2, Z-score -0.9, T-score -2.4, osteopenia. IDENTIFIED RISK FACTORS: Early menopause, secondary osteoporosis, low calcium intake, recurrent falls, rheumatoid arthritis. HISTORY OF FRACTURE: None listed. MEDICATIONS: Calcium supplements or multivitamin, vitamin D. MM/XR DEXA axial skeleton IMPRESSION: 1. DIAGNOSIS: Osteoporosis based on the lowest T-score value of -2.8 in the femoral neck applying World Health Organization criteria. 2. 10-YEAR FRACTURE RISK PREDICTION, FRAX: According to the guidelines, FRAX calculation should only be performed on patients in the osteopenia bone density category. Therefore, FRAX was not performed on this patient. 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 She is also seen here for compression fracture of the T11 thoracic spine. She will be scheduled start for the MRI of the thoracic spine. It has been 10 months since original trauma and although the bone is restructured in the thoracic spine there is in the edema in the projection of the upper portion of the endplate of the T11 vertebra. I believe treatment with kyphoplasty maybe effective. The pain of this patient. I discussed this case with radiologist Dr. Merida and we decided that repeat stat MRI with and without contrast will be a good 1st step to prepare this patient for the following treatment steps. Considering her today being in very severe pain I took the liberty to prescribe her tramadol 50 mg 4 times a day for the next 21 days. Orders: Orders MR thoracic spine wo/w con Today M48.54XG - Collapsed vertebra, not elsewhere classified, thoracic region, subsequent encounter for fracture with delayed healing Basic Metabolic Panel Today M48.54XG - Collapsed vertebra, not elsewhere classified, thoracic region, subsequent encounter for fracture with delayed healing Medications: New tramadol 50 mg PO Q6H 21 days PRN 84 tabs 0RF severe pain due to VCD M48.54XG - Collapsed vertebra, not elsewhere classified, thoracic region, subsequent encounter for fracture with delayed healing Patient Instructions: I here by testify that I spent 45 minutes in conversation with this patient as well as in conversation with radiologist as well as evaluating prior diagnostic studies as well as planning her care and organizing this note. Coding Level of Care Code Est Pt Level 5 (06158) Diagnoses Pathologic compression fracture of thoracic vertebra with delayed healing M48.54XG Chronic pain syndrome G89.4 Thoracic spine pain M54.6
== END 2023-09-10 13:59 | disposition home or self-care (01) ==
PROVIDERS: PCP Internal Medicine; Visit Provider Anesthesiology
DX: G89.4 Chronic pain syndrome (principal); M54.6 Pain in thoracic spine; M48.54XG Collapsed vertebra, not elsewhere classified, thoracic region, subsequent encounter for fracture with delayed healing
CPT/HCPCS: 99215

== ENCOUNTER → 2023-09-10 13:02 | Outpatient (BNVA) | payer OTHER, SELFPAY | PROVIDERS: PCP Internal Medicine; Visit Provider Anesthesiology | DX: M48.54XG Collapsed vertebra, not elsewhere classified, thoracic region, subsequent encounter for fracture with delayed healing (principal); G89.4 Chronic pain syndrome; M54.6 Pain in thoracic spine; X58.XXXD Exposure to other specified factors, subsequent encounter | CPT/HCPCS: 99212 ==

== ENCOUNTER 2023-09-20 13:00 | Outpatient (REF) | payer OTHER, SELFPAY ==
--- NOTE | ~2023-09-20 | MR_ITS ---
EXAMINATION: MR THORACIC SPINE WITHOUT AND WITH CONTRAST CLINICAL INFORMATION: Collapsed vertebra. COMPARISON: Lumbar spine MRI August 02, 2023. TECHNIQUE: MRI of the thoracic spine was obtained using routine sequences with and without contrast. Intravenous contrast: Gadavist 6 mL. FINDINGS: Redemonstration of a mild upper endplate compression fracture at T11. I suspect the majority of this fracture is chronic. There is an upper endplate Schmorl's node with surrounding T2 signal change and enhancement at T11 that is more acute in appearance. There is no retropulsion. No significant bone marrow edema at the remaining thoracic levels. No additional fractures. There is no pathologic intrathecal enhancement when accounting for artifact. There is a lipid rich intraosseous hemangioma within the L2 vertebral body. Thoracic cord morphology is normal. Conus terminates at the L1 level. Disc volumes are maintained. No significant thoracic disc herniations. No severe central canal stenosis and no severe foraminal stenosis within the thoracic spine. No definite thoracic cord signal changes when accounting for artifact. There is diffuse idiopathic skeletal hyperostosis within the mid to lower thoracic spine. MR/MR thoracic spine wo/w con IMPRESSION: * Imaging findings are most suggestive of a mild chronic upper endplate compression fracture at T11 with associated fatty marrow metaplasia with a superimposed acute upper endplate Schmorl's node at T11 surrounded by mild enhancement and marrow edema. * No significant thoracic disc herniations. No central canal stenosis and no foraminal stenosis within the thoracic spine. * There is diffuse idiopathic skeletal hyperostosis within the mid to lower thoracic spine.
== END 2023-09-20 13:01 | disposition home or self-care (01) ==
LOC: HO.MRI 13:00
PROVIDERS: PCP Internal Medicine; Visit Provider Anesthesiology
DX: M48.54XG Collapsed vertebra, not elsewhere classified, thoracic region, subsequent encounter for fracture with delayed healing (principal)
CPT/HCPCS: 72157

== ENCOUNTER 2023-10-16 09:56 | Outpatient (AMB) | payer OTHER, SELFPAY ==
[2023-10-16 10:08] VITALS: BP 123/76; PULSE 60; O2SAT 99; BMI 24.2
--- NOTE | 2023-10-16 10:08 | A.OFFVIS_ITS ---
Vital Signs 10/16/23 10:08 Height 5 ft 2 in Weight 132 lb 4.438 oz BMI 24.2 BP 123/76 Blood Pressure Location Rt brachial Position Sitting Pulse 60 Pulse Source Pulse Oximeter Pulse Oximetry (%) 99 Oxygen Delivery Method Room Air Intake Visit Reasons: discuss treatment with neuromodulation. Allergies bee pollen [BEE STINGS] Allergy (Severe, Verified 10/16/23 10:10) SWELLING Penicillins [PENICILLINS] Allergy (Severe, Verified 10/16/23 10:10) HIVES, THROAT CLOSES amitriptyline [AMITRIPTYLINE] Allergy (Intermediate, Verified 10/16/23 10:10) Agitation oxycodone [From PERCOCET] Adverse Reaction (Intermediate, Verified 10/16/23 10:10) DIZZINESS Medication List - Last Reconciled 10/16/23 by Ashely Isaacs acetaminophen (Tylenol Extra Strength) 500 mg PO Q6H PRN [adult diapers pull-ups As directed] back brace As directed blood sugar diagnostic (FreeStyle Lite Strips) 1 strip miscellaneous TID 90 days calcium citrate 500 mg (2 x 250 mg calcium) PO BID cholecalciferol (vitamin D3) 125 mcg PO DAILY epinephrine 0.3 mg (0.3 mL) IM DIRECTED PRN 1 day ergocalciferol (vitamin D2) 1,250 mcg PO 2XW fluticasone furoate 50 mcg/actuation (Arnuity Ellipta) 1 inh inhalation DAILY 30 days gabapentin 400 mg PO TID 30 days ibuprofen 800 mg PO TID PRN lancets Use 1 lancet TID levothyroxine 88 mcg PO DAILY 90 days lidocaine 5% (Lidoderm) 1 patch topical DAILY PRN MDD remove after 12 hours rosuvastatin 40 mg PO DAILY 90 days silver sulfadiazine 1% (Silvadene) 1 appl topical BID tramadol 50 mg PO BID PRN 7 days tramadol 50 mg PO Q6H PRN 21 days trazodone 100 mg PO BEDTIME PRN 90 days Ventolin HFA 90 mcg/actuation (albuterol sulfate) 2 puffs inhalation Q6H PRN 30 days NS walker WITH SEAT AND WHEELS HPI Comments Details: Patient presents back to the office today for follow-up chronic back pain. Recent MRI reviewed, results as per below Patient continues with 8/10 middle back pain. Area is tender to palpation, worse with movement. She has exhausted conservative therapy including PT, home exercise program, nonsteroidal anti-inflammatory medications, prescription medications all without improvement of her symptoms Arrives in the office today to discuss options for treatment including neuromodulation Denies red flag symptoms including new loss of bowel, bladder or saddle anesthesia. Prior: Isis is very pleasant Ghanaian-speaking 62 years old female who came to my office in obvious distress. She is unable to seat straight for the time of the today's interview. She was complaining on pain in the lower thoracic upper lumbar spine. She reported that this pain started 10 months ago when working in were house very heavy boxes fell on her from the above. There is tenderness on palpation in projection of approximately T11 vertebra. There is also tenderness on percussion in the same very area. She admits minimal to moderate pain in lower back. However she reports the most of the pain is in projection of the lower thoracic vertebra. She is in my office crying from pain. She was evaluated once in this office 10 months ago. She was sent for the physical therapy and completed full course of physical therapy. This did not help her pain. One month ago she went for MRI of the lumbar spine which demonstrated compression fracture with current edema in the projection of the T11 vertebra. Since edema is still present this is nonhealing nonunion VCF. I spoke in person with her radiologist Dr. Merida and we decided considering the specifics of the imaging including possible Schmorl's node in the body of T11 which also could demonstrate potentially a tumor in the projection of T11 to send this patient for stat MRI image with and without contrast of the thoracic spine. She is currently taking exuberant doses of the Tylenol and ibuprofen OTC she is taking doses dangerous for normal kidney function. I decided to prescribe tramadol for this patient to improve her pain at least temporarily until we will make a decision on what to do with this delayed healing VCF. [facility] Medical History Blurry vision Memory loss Physical exam Weakness of both hands Abnormal mammogram Right sided sciatica Right leg pain Hand numbness Hyperparathyroidism Iron deficiency anemia Mild asthma Insomnia Dyslipidemia Autoimmune thyroiditis Hypovitaminosis D Surgical History History of mammogram History of breast biopsy History of carpal tunnel release History of hysteroscopy H/O gastric bypass Status post dilation and curettage History of section History of cholecystectomy Family History Father CAD (coronary artery disease) Hypertension Diabetes Cerebral aneurysm Mother CAD (coronary artery disease) Thyroid cancer Sister Primary cancer of uterus Ovarian cancer Maternal Uncle Bone cancer Family/Other FH: mental illness Social History Household Members: Spouse Housing: House Alcohol intake: never Patient Tobacco Use Status: Never used Tobacco Tobacco use type: Cigarette e-Cigarette/Vaping Use: Never Used Second Hand Smoke Exposure: No service: No Current occupational status: disabled 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 Answers questions appropriately. Fully engaged in examination. Skin: warm, dry, intact HEENT: Normocephalic. Hearing intact. Cardiac: External chest normal in appearance. Respiratory: No cough, audible wheezing or stridor. Abdomen: without gross distension. MS: No obvious swelling or deformities. Able to stand on bilateral tiptoes and bilateral heels.? Able to transition from sit to stand unassisted. Ambulates with bilaterally normal heel strike and toe off Tender to palpation midline thoracic vertebrae Valsalva positive SLR negative bilaterally Neurological: Oriented to person, place, time and situation. Thought process intact. No gait abnormalities appreciated. Psychiatric: Appropriate mood and affect. Good judgment and insight. Results Reviewed Results Reviewed: 09/20/2023 MR/MR thoracic spine wo/w con EXAMINATION: MR THORACIC SPINE WITHOUT AND WITH CONTRAST CLINICAL INFORMATION: Collapsed vertebra. COMPARISON: Lumbar spine MRI August 02, 2023. TECHNIQUE: MRI of the thoracic spine was obtained using routine sequences with and without contrast. Intravenous contrast: Gadavist 6 mL. FINDINGS: Redemonstration of a mild upper endplate compression fracture at T11. I suspect the majority of this fracture is chronic. There is an upper endplate Schmorl's node with surrounding T2 signal change and enhancement at T11 that is more acute in appearance. There is no retropulsion. No significant bone marrow edema at the remaining thoracic levels. No additional fractures. There is no pathologic intrathecal enhancement when accounting for artifact. There is a lipid rich intraosseous hemangioma within the L2 vertebral body. Thoracic cord morphology is normal. Conus terminates at the L1 level. Disc volumes are maintained. No significant thoracic disc herniations. No severe central canal stenosis and no severe foraminal stenosis within the thoracic spine. No definite thoracic cord signal changes when accounting for artifact. There is diffuse idiopathic skeletal hyperostosis within the mid to lower thoracic spine. IMPRESSION: * Imaging findings are most suggestive of a mild chronic upper endplate compression fracture at T11 with associated fatty marrow metaplasia with a superimposed acute upper endplate Schmorl's node at T11 surrounded by mild enhancement and marrow edema. * No significant thoracic disc herniations. No central canal stenosis and no foraminal stenosis within the thoracic spine. * There is diffuse idiopathic skeletal hyperostosis within the mid to lower thoracic spine. MR LUMBAR SPINE WITHOUT CONTRAST FINDINGS: CORONAL ALIGNMENT: Normal. SAGITTAL ALIGNMENT: Normal lumbosacral alignment. LUMBOSACRAL JUNCTION: Normal. There are 5 hur-vcd-kxuhyyt lumbar-type vertebral bodies. VERTEBRAL BODIES: Lumbar vertebral body heights are well-maintained. Note is made of a [id number], nonhealed superior endplate compression fracture deformity of T11 with slight anteropulsion of the superior endplate without significant retropulsion. Superimposed probable post traumatic Schmorl's node centrally. DISC SPACES AND ENDPLATES: The intervertebral disc space heights are relatively well-maintained. There are mild degrees of anterior marginal spondylosis at L3-L4 and L4-L5. There is loss of intradiscal T2-weighted signal at the L5-S1 level consistent with disc degenerative change without significant disc space height loss. Minor spondylosis at this level. SPINAL CANAL: No abnormal developmental findings. BONE MARROW: There is mild bone marrow edema along the compressed superior endplate of T11 consistent with an incompletely healed fracture. No other bone marrow edema is identified. No focally suspicious marrow replacing process is seen. There is somewhat heterogeneous signal intensity throughout the osseous structures in the background which is nonspecific and could be physiologic. A 1.6 cm benign vertebral hemangioma on the right side of the L2 vertebral body noted. CONUS MEDULLARIS: Terminates at L1-L2. Morphology and signal is normal. INTRADURAL NERVE ROOTS: Within normal limits. L5-S1: Shallow broad-based disc bulging with minimal indentation of the ventral thecal sac. Moderate right and mild left-sided facet joint arthropathy noted without significant canal stenosis. There is ccwp-bb-[id number] neural foraminal stenosis bilaterally without neural impingement. L4-L5: Minor annular bulging and a small right-sided foraminal disc protrusion without neural impingement. There is moderate facet joint arthropathy bilaterally with mild ligamentum flavum thickening without significant canal stenosis. Mild foraminal narrowing is noted bilaterally, right more than left. L3-L4: Bilateral foraminal/extraforaminal disc herniations are seen with moderate bilateral facet joint arthropathy and ligamentum flavum thickening without significant canal stenosis. Minor foraminal narrowing noted bilaterally without neural impingement. L2-L3: Normal annular contour. Moderate left-sided and mild right-sided facet joint arthropathy. No significant canal or foraminal stenosis. L1-L2: Normal annular contour. Mild facet joint arthropathy bilaterally. No canal or neural foraminal stenosis. PARAVERTEBRAL AND INCLUDED EXTRASPINAL SOFT TISSUES: The visualized paravertebral soft tissues and included retroperitoneal structures are unremarkable within the limitations of the exam. IMPRESSION: 1. Vsyu-eg-sgpllbjv nonhealed superior endplate compression fracture deformity of T11, as described above, with approximately 30-40% loss of height. No significant retropulsion and no cord impingement. 2. Mild disc bulging at L5-S1 with bilateral facet joint arthropathy and sjeg-qb-lzplahvm bilateral neural foraminal stenosis without neural impingement. 3. Minor annular bulging and small right-sided foraminal disc protrusion at L4-L5 with bilateral facet joint arthropathy and mild foraminal narrowing, right more than left without neural impingement. 4. Bilateral foraminal/extraforaminal disc herniations at L3-L4 with bilateral facet joint arthropathy and mild foraminal narrowing bilaterally without neural impingement. 5. Multilevel bilateral facet joint arthropathy as described above. No significant spinal canal stenosis. XR DEXA axial skeleton EXAMINATION: BONE DENSITOMETRY CLINICAL INDICATION: Vitamin D deficiency, unspecified. COMPARISON: This is the patient's baseline examination. TECHNIQUE: Using a [employer] IT DXA System (software version: 13.1) manufactured by [employer]: Power, dual-energy x-ray absorptiometry was performed of the lumbar spine and left hip. The images are of good technical quality. Summary results are attached. FINDINGS: LEFT FEMUR, NECK: BMD 0.651 g/cm2, Z-score -1.4, T-score -2.8, osteoporosis. LEFT FEMUR, TOTAL: BMD 0.747 g/cm2, Z-score -1.0, T-score -2.1, osteopenia. AP SPINE L1-L4: BMD 0.895 g/cm2, Z-score -0.9, T-score -2.4, osteopenia. IDENTIFIED RISK FACTORS: Early menopause, secondary osteoporosis, low calcium intake, recurrent falls, rheumatoid arthritis. HISTORY OF FRACTURE: None listed. MEDICATIONS: Calcium supplements or multivitamin, vitamin D. MM/XR DEXA axial skeleton IMPRESSION: 1. DIAGNOSIS: Osteoporosis based on the lowest T-score value of -2.8 in the femoral neck applying World Health Organization criteria. 2. 10-YEAR FRACTURE RISK PREDICTION, FRAX: According to the guidelines, FRAX calculation should only be performed on patients in the osteopenia bone density category. Therefore, FRAX was not performed on this patient. 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 She is suffering with chronic pain syndrome Has exhausted conservative therapy including physical therapy, home exercise program, nonsteroidal anti-inflammatory medications, dqeh-zju-lnqidej medications and prescription medications. Celebrex 50 mg p.o. b.i.d., patient advised on cautions for use. Take with food, do not take with any other nonsteroidal anti-inflammatory medications Discussed options for treatment including diagnostic interventional testing, epidural steroid injections, peripheral nerve stimulation with Sprint, RFA and more permanent neuromodulation. Informational pamphlets provided. Will schedule for fluoroscopy guided SCS trial with Sandra, patient was given informational pamphlet. She is aware that this would require mental health evaluation, she will be added to the [employer] point list. All questions and concerns have been answered and patient agrees with the plan. Follow up after procedure, sooner if needed. Medications: New celecoxib Discontinue use of ibuprofen or other nonsteroidal anti-inflammatory medications. 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
== END 2023-10-16 10:37 | disposition home or self-care (01) ==
PROVIDERS: PCP Internal Medicine; Visit Provider Registered Nurse Emergency
DX: M48.54XG Collapsed vertebra, not elsewhere classified, thoracic region, subsequent encounter for fracture with delayed healing (principal); G89.4 Chronic pain syndrome; M54.6 Pain in thoracic spine
CPT/HCPCS: 99213; G2211

== ENCOUNTER → 2023-10-16 09:56 | Outpatient (BNVA) | payer OTHER, SELFPAY | PROVIDERS: PCP Internal Medicine; Visit Provider Registered Nurse Emergency | DX: M48.54XG Collapsed vertebra, not elsewhere classified, thoracic region, subsequent encounter for fracture with delayed healing (principal); G89.4 Chronic pain syndrome | CPT/HCPCS: 99212 ==

== ENCOUNTER 2023-11-26 07:55 | Outpatient (REF) | payer OTHER, SELFPAY ==
[2023-11-26 09:26] LABS: Calcium 9.4 mg/dL (8.4-10.2)
[2023-11-26 09:48] LABS: Vitamin D 25-OH Total 45.1 ng/mL (>30)
[2023-11-26 10:12] LABS: Parathyroid Hormone Intact 93.8 pg/mL (8.7-77.1)
== END 2023-11-26 07:56 | disposition home or self-care (01) ==
LOC: HO.LAB 07:55
PROVIDERS: PCP Internal Medicine; Visit Provider Internal Medicine Endocrinology, Diabetes & Metabolism
DX: E21.3 Hyperparathyroidism, unspecified (principal)
CPT/HCPCS: 36415; 82040; 82306; 82310; 83970

== ENCOUNTER 2023-12-10 07:37 | Outpatient (AMB) | payer OTHER, SELFPAY ==
[2023-12-10 08:01] VITALS: BP 124/68; PULSE 76; BMI 23.3
--- NOTE | 2023-12-10 08:01 | MHC.OFFVIS ---
Vital Signs 12/10/23 08:01 Height 5 ft 2 in Weight 127 lb 3.307 oz BMI 23.3 BP 124/68 Blood Pressure Location Lt brachial Position Sitting Pulse 76 Pulse Source Pulse Oximeter Intake Visit Reasons: Hyperthyroidism-conf Intake Note: Patient present today for Hyperthyroidism follow up visit. Ambulance Assistant Required: Yes Ambulance Assistant Language: Early Breastfeeding Care Specialist Services: Ambulance Assistant Present Information Interpreted: non-clinical & clinical Accompanied by: Self / Same As Patient Allergies bee pollen [BEE STINGS] Allergy (Severe, Verified 12/10/23 08:05) SWELLING Penicillins [PENICILLINS] Allergy (Severe, Verified 12/10/23 08:05) HIVES, THROAT CLOSES amitriptyline [AMITRIPTYLINE] Allergy (Intermediate, Verified 12/10/23 08:05) Agitation oxycodone [From PERCOCET] Adverse Reaction (Intermediate, Verified 12/10/23 08:05) DIZZINESS Medication List - Last Reconciled 12/10/23 by Alan Quinones MD acetaminophen (Tylenol Extra Strength) 500 mg PO Q6H PRN [adult diapers pull-ups As directed] back brace As directed blood sugar diagnostic (FreeStyle Lite Strips) 1 strip miscellaneous TID 90 days calcium citrate 500 mg (2 x 250 mg calcium) PO BID celecoxib 50 mg PO BID cholecalciferol (vitamin D3) 125 mcg PO DAILY epinephrine 0.3 mg (0.3 mL) IM DIRECTED PRN 1 day ergocalciferol (vitamin D2) 1,250 mcg PO 2XW fluticasone furoate 50 mcg/actuation (Arnuity Ellipta) 1 inh inhalation DAILY 30 days gabapentin 400 mg PO TID 30 days lancets Use 1 lancet TID levothyroxine 88 mcg PO DAILY 90 days lidocaine 5% (Lidoderm) 1 patch topical DAILY PRN MDD remove after 12 hours rosuvastatin 40 mg PO DAILY 90 days silver sulfadiazine 1% (Silvadene) 1 appl topical BID tramadol 50 mg PO BID PRN 7 days tramadol 50 mg PO Q6H PRN 21 days trazodone 100 mg PO BEDTIME PRN 90 days Ventolin HFA 90 mcg/actuation (albuterol sulfate) 2 puffs inhalation Q6H PRN 30 days NS walker WITH SEAT AND WHEELS HPI Comments Details: 62 YO F with PMHx bariatric surgery who is seen in consultation at the request of PCP for hyperparathyroidism for. Hx of bariatric surgery 4 yrs ago First noted to have high calcium of 10.3 on 05/17/2021 but subsequent calcium is normal . Currently using Calcium supplement 1000mg BID . [place]akes 5000 [place] [address] IU of ergocalciferol twice a week. Vitamin-D levels have been normal but PTH remains elevated Currently not using HCTZ. Kidney stones: No Osteoporosis: No History of Forsan use: No Biotin use: Takes Biotin according to pt Family history of high calcium or kidney stones: Renal imaging: [] DXA: Labs: Taking 5000-Iunits of vitamin-D 3 and ergo 58402 IU/2 wk [facility] Medical History Blurry vision Memory loss Physical exam Weakness of both hands Abnormal mammogram Right sided sciatica Right leg pain Hand numbness Hyperparathyroidism Iron deficiency anemia Mild asthma Insomnia Dyslipidemia Autoimmune thyroiditis Hypovitaminosis D Surgical History History of mammogram History of breast biopsy History of carpal tunnel release History of hysteroscopy H/O gastric bypass Status post dilation and curettage History of section History of cholecystectomy Family History Father CAD (coronary artery disease) Hypertension Diabetes Cerebral aneurysm Mother CAD (coronary artery disease) Thyroid cancer Sister Primary cancer of uterus Ovarian cancer Maternal Uncle Bone cancer Family/Other FH: mental illness Social History Household Members: Spouse Housing: House Alcohol intake: never Patient Tobacco Use Status: Never used Tobacco Tobacco use type: Cigarette e-Cigarette/Vaping Use: Never Used Second Hand Smoke Exposure: No service: No Current occupational status: disabled 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 She is currently being treated with 5000 IU of vitamin D3. Ergocalciferol was also increased to 50,000-units twice a week. She is now vitamin-D replete but PTH remains elevated.. Other possibility in the differential is that the patient has developed normocalcemic primary hyperparathyroidism less likely. Is also possible that PTH remains persistently elevated because spurious elevation so PTH is which had been seen at laboratory. Does have osteoporosis on DEXA The plan is to check calcium, albumin, PTH, 25 hydroxy vitamin-D in about 3 months' time at [facility] ([facility]) . If PTH remains persistently elevated or is trending upward, consideration could be given for surgical consultation for possible parathyroid exploration if it is consistent with normocalcemic primary hyperparathyroidism in light of the osteoporosis on bone density. (2) Hyperparathyroidism: Code(s): E21.3 - Hyperparathyroidism, unspecified Category: Medical Plan: See above plan for vitamin-D deficiency Orders: Orders Calcium 3 Months E21.3 - Hyperparathyroidism, unspecified Albumin Level 3 Months E21.3 - Hyperparathyroidism, unspecified Coding Level of Care Code Est Pt Level 3 (47626) Diagnoses Hypovitaminosis D E55.9 Hyperparathyroidism E21.3
== END 2023-12-10 08:39 | disposition home or self-care (01) ==
PROVIDERS: PCP Internal Medicine; Visit Provider Internal Medicine Endocrinology, Diabetes & Metabolism
DX: E55.9 Vitamin D deficiency, unspecified (principal); E21.3 Hyperparathyroidism, unspecified
CPT/HCPCS: 99213

== ENCOUNTER → 2023-12-10 07:37 | Outpatient (BNVA) | payer OTHER, SELFPAY | PROVIDERS: PCP Internal Medicine; Visit Provider Internal Medicine Endocrinology, Diabetes & Metabolism | DX: E55.9 Vitamin D deficiency, unspecified (principal); E21.3 Hyperparathyroidism, unspecified | CPT/HCPCS: 99212 ==

== ENCOUNTER 2024-01-09 09:08 | Outpatient (AMB) | payer OTHER, SELFPAY ==
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
[2024-01-09 09:38] VITALS: BP 132/79; PULSE 51; RESP 18; BMI 23.2
== END 2024-01-09 10:02 | disposition home or self-care (01) ==
PROVIDERS: PCP Internal Medicine; Visit Provider Registered Nurse Emergency
DX: M48.54XG Collapsed vertebra, not elsewhere classified, thoracic region, subsequent encounter for fracture with delayed healing (principal); G89.4 Chronic pain syndrome; M54.6 Pain in thoracic spine
CPT/HCPCS: 99213; G2211

== ENCOUNTER → 2024-01-09 09:08 | Outpatient (BNVA) | payer OTHER, SELFPAY | PROVIDERS: PCP Internal Medicine; Visit Provider Registered Nurse Emergency | DX: M48.54XG Collapsed vertebra, not elsewhere classified, thoracic region, subsequent encounter for fracture with delayed healing (principal); M54.6 Pain in thoracic spine; G89.4 Chronic pain syndrome | CPT/HCPCS: 99212 ==

== ENCOUNTER 2024-03-18 13:04 | Outpatient (REF) | payer OTHER, SELFPAY ==
--- NOTE | ~2024-03-18 | XR_ITS ---
CLINICAL HISTORY: R10.12 - Left upper quadrant pain Abdomen X-ray, 2 Views COMPARISON: None FINDINGS: Nonobstructive bowel gas pattern. Moderate gas and stool in the colon. No visible free air. No acute fracture. Degenerative changes in the spine. IMPRESSION: No acute findings. This document has been electronically signed by: Emmanuel Vaughn MD on 03/20/2024 04:55:03
--- OUTSIDE RECORDS SUMMARY | 2024-03-18 14:12 | XMS_ITS | Continuity of Care Document ---
Author Organization [facility] Address [address] [place] [address] Phone Care Team Providers Care Drawing Tracer Name Role Phone Unavailable Unavailable Unavailable Allergies, [...] Diagnoses Date Provider Providers Copied on Encounter [facility], [address] [place] [address], tel:[phone] [facility] Adult Medicine No Information 2 No Information [facility], [address] [place] [address], tel:[phone] Conversion BODY MASS INDEX 34.0-34.9, ADULTEXERCISE COUNSELING 2 No Information [facility], [address] [place] [address], tel:[phone] Conversion Patient Education - DietaryOBESITY 2 No Information [facility], [address] [place] [address], tel:[phone] Conversion HYPERLIPIDEMIAD EPRESSIONVITAMI N D DEFICIENCY 1 No Information [facility], [address] [place] [address], tel:[phone] Conversion PE W/ PAPSTD SCREEN No Information [facility], [address] [place], [address], [place] tel:[phone] [facility] No Information No Information Family History Family [...]
== END 2024-03-18 13:05 | disposition home or self-care (01) ==
LOC: HO.XRAY 13:04
PROVIDERS: PCP Internal Medicine; Visit Provider Internal Medicine
DX: Z00.01 Encounter for general adult medical examination with abnormal findings (principal); R10.12 Left upper quadrant pain; R20.2 Paresthesia of skin; E21.3 Hyperparathyroidism, unspecified
CPT/HCPCS: 74021; 96127; 99212; 99396

== ENCOUNTER 2024-03-18 13:04 | Outpatient (AMB) | payer OTHER, SELFPAY ==
--- NOTE | 2024-03-18 13:09 | MHC.PC.OV ---
Vital Signs 03/18/24 13:12 Height 5 ft 2 in Weight 116 lb BMI 21.2 BP 112/68 Blood Pressure Location Lt brachial Position Sitting Intake Visit Reasons: Annual Exam Intake Note: Patient here for an annual physical exam Remelt Sugar Boiler Required: Yes Remelt Sugar Boiler Language: Web Page Designer Name: Deborah Hernandez MD Information Interpreted: non-clinical & clinical Accompanied by: Self / Same As Patient Allergies bee pollen [BEE STINGS] Allergy (Severe, Verified 03/18/24 13:34) SWELLING Penicillins [PENICILLINS] Allergy (Severe, Verified 03/18/24 13:34) HIVES, THROAT CLOSES amitriptyline [AMITRIPTYLINE] Allergy (Intermediate, Verified 03/18/24 13:34) Agitation oxycodone [From PERCOCET] Adverse Reaction (Intermediate, Verified 03/18/24 13:34) DIZZINESS Medication List - Last Reconciled 03/18/24 by Deborah Hernandez MD acetaminophen (Tylenol Extra Strength) 500 mg PO Q6H PRN [adult diapers pull-ups As directed] back brace As directed blood sugar diagnostic (FreeStyle Lite Strips) 1 strip miscellaneous TID 90 days calcium citrate 500 mg (2 x 250 mg calcium) PO BID celecoxib 50 mg PO BID cholecalciferol (vitamin D3) 125 mcg PO DAILY epinephrine 0.3 mg (0.3 mL) IM DIRECTED PRN 1 day ergocalciferol (vitamin D2) 1,250 mcg PO 2XW fluticasone furoate 50 mcg/actuation (Arnuity Ellipta) 1 inh inhalation DAILY 30 days gabapentin 400 mg PO TID 30 days lancets Use 1 lancet TID levothyroxine 88 mcg PO DAILY 90 days rosuvastatin 40 mg PO DAILY 90 days silver sulfadiazine 1% (Silvadene) 1 appl topical BID tizanidine 2 mg PO BID PRN trazodone 100 mg PO BEDTIME PRN 90 days Ventolin HFA 90 mcg/actuation (albuterol sulfate) 2 puffs inhalation Q6H PRN 30 days NS walker WITH SEAT AND WHEELS Tobacco use date assessed: 03/18/24 Dental Screening Dental Screen Date: 03/18/24 Did you have a dental visit in the last 12 months?: No Did you have a dental problem in the last 6 months where you did not have access to dental care?: No Was dental information given to patient?: Patient has dentist HPI HPI Comments History of Present Illness Details The patient is a 63-year-old female presenting for her physical exam with symptoms of neuropathy, upper body weakness, and sleep disturbances. She reports a sensation of numbness and lack of feeling in the fingers and feet, especially on the front, and previous difficulty managing such symptoms. Additionally, the patient experiences pain under the rib which inhibits her ability to sleep on that side. She attributes potential nerve impingement as a cause but there is no current neurological evaluation to confirm this. Contributing factors might include her extensive surgical history including gastric bypass in 2017, breast biopsy, carpal tunnel, hysteroscopy, sections, and dilation and curettage. These factors potentially complicate her condition. There is a significant family history of thyroid cancer, ovarian cancer, and cerebral aneurysms. The patient has noted a history of hypothyroidism managed with medication and she sees an refrigeration service inspector regularly. She uses an assistive walker for ambulation but expresses recent increased difficulty. The patient does not smoke or consume alcohol and denies seeing a neurologist for her current concerns. Discussion reveals ongoing predisposition to joint and muscular disturbances potentially exacerbated by previous medical interventions. - Mammogram last performed on 2023 - Colon cancer screening pending. - Follow-up visit scheduled with double cut sawyer for Pap smear. - Current medication regimen includes Tylenol, calcium, Celebrex, vitamin D, Annuity, gabapentin, levothyroxine 88 mcg, and rosuvastatin 40 mg. There is a precaution discussed to avoid concurrent use of Celebrex and Tylenol within a 4-6 hour period. [facility] Medical History Blurry vision Memory loss Physical exam Weakness of both hands Abnormal mammogram Right sided sciatica Right leg pain Hand numbness Hyperparathyroidism Iron deficiency anemia Mild asthma Insomnia Dyslipidemia Autoimmune thyroiditis Hypovitaminosis D Surgical History History of mammogram History of breast biopsy History of carpal tunnel release History of hysteroscopy H/O gastric bypass Status post dilation and curettage History of section History of cholecystectomy Family History Father CAD (coronary artery disease) Hypertension Diabetes Cerebral aneurysm Mother CAD (coronary artery disease) Thyroid cancer Sister Primary cancer of uterus Ovarian cancer Maternal Uncle Bone cancer Family/Other FH: mental illness Social History Household Members: Spouse Housing: House Alcohol intake: never Patient Tobacco Use Status: Never used Tobacco Tobacco use type: Cigarette e-Cigarette/Vaping Use: Never Used Second Hand Smoke Exposure: No service: No Current occupational status: disabled 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 1. Little interest or pleasure in doing things: not at all 2. Feeling down, depressed, or hopeless: not at all 3. Trouble falling or staying asleep, or sleeping too much: not at all 4. Feeling tired or having little energy: not at all 5. Poor appetite or overeating: not at all 6. Feeling bad about yourself - or that you are a failure or have let yourself or your family down: not at all 7. Trouble concentrating on things, such as reading the newspaper or watching television: not at all 8. Moving or speaking so slowly that other people could have noticed. Or the opposite - being so fidgety or restless that you have been moving around a lot more than usual: not at all 9. Thoughts that you would be better off or of hurting yourself in some way: not at all Total score: 0 Depression Screening Interpretation: Negative Depression Screening Done: Yes 61964 - PHQ-9 Billing: Yes Source: Developed by Drs. Alan Head, Evelin Saeed, Arias Small and colleagues, with an educational mahogany from [employer]. Thrive Questionnaire Date Thrive assessed: 03/18/24 I am a: Patient What is your living situation today?: I have a steady place to live Within the past 12 months, did the food you bought not last and you didn't have the money to get more?: Never true Within the past 12 months, did you worry whether your food would run out before you got money to buy more?: Never true Do you have trouble paying for medicines?: No Do you have trouble getting transportation to medical appointments?: No Do you have trouble paying your heating and electricity bill?: No Do you have trouble taking care of your child, family member or friend?: No Do you have trouble with day-to-day activities such as bathing, preparing meals, shopping, managing finances, etc.?: No Are you currently unemployed and looking for a job?: No Are you interested in more education?: No Please select the resources that you would like help with: None Currently or been in a relationship where the following occur: No concerns reported THRIVE Score: 0 AUDIT C Alcohol Use Questionnaire (AUDIT-C) 1. How often do you have a drink containing alcohol?: Never Total Score: 0 Score Reviewed/Action Taken: No NATA-7 AMB Questionnaire NATA-7 Date NATA - 7 assessed: 03/18/24 Feeling nervous, anxious, or on edge: 0 = Not at all Not being able to stop or control worryin = Not at all Worrying too much about different things: 0 = Not at all Trouble relaxin = Not at all Being so restless that it is hard to sit still: 0 = Not at all Becoming easily annoyed or irritable: 0 = Not at all Feeling afraid as if something awful might happen: 0 = Not at all Total NATA-7 score (0-4 normal; 5-9 mild; 10-14 moderate; 15-21 severe): 0 Source: Developed by Drs. Alan Head, Evelin Saeed, Arias Small and colleagues, with an educational mahogany from [employer]. NATA-7 Assessment Billing NATA-7 Assessment Tool: NATA-7 Assessment 26840 Review of Systems Const All systems reviewed & are unremarkable except as noted in HPI and below Card Denies chest pain at rest, Denies chest pain with activity, Denies edema, Denies irregular heart rhythm, Denies claudication, Denies dyspnea, Denies dyspnea on exertion, Denies orthopnea, Denies paroxysmal nocturnal dyspnea and Denies slow heart rate Resp Denies cough, Denies dyspnea and Denies dyspnea on exertion GI Denies abdominal pain, Denies change in bowel habits, Denies excessive flatus, Denies nausea and Denies vomiting Neuro Denies behavioral changes and Denies lack of coordination Psych Denies behavioral changes Physical exam (Primary Care) Vital Signs: Last Vital Signs BP 112/68 03/18/24 13:12 BMI result Body Mass Index 21.2 Tobacco/Smoking Status: Tobacco use Status Tobacco use date assessed 03/18/24 03/18/24 13:16 Patient Tobacco Use Status Never used Tobacco 03/18/24 13:16 Tobacco use type Cigarette 03/18/24 13:16 e-Cigarette/Vaping Use Never Used 03/18/24 13:16 PHQ-9: PHQ-9 Score PHQ-9: Total score 0 03/18/24 14:24 Depression Screening Interpretation: Negative Thrive Assessment: Date of Thrive Assessment Date Thrive assessed 03/18/24 03/18/24 13:16 Currently or been in a relationship where the following occur: No concerns reported HENMT Head: Yes normal to inspection, Yes normocephalic and Yes atraumatic Ears: external ears normal Eyes General: appearance normal, both eyes and all related structures Eyelids: Yes eyelids normal Conjunctivae: conjunctivae normal Neck Neck: Yes normal visual inspection and Yes supple Resp Effort & Inspection: normal respiratory effort Auscultation: clear to auscultation bilaterally Cardio Jugular venous distension: no JVD Rate: regular rate Rhythm: regular rhythm Heart sounds: S1 normal heart sound present and S2 normal heart sound present GI Inspection: Yes normal to inspection Palpation (GI): Soft to palpation and nontender Auscultation: normal bowel sounds Skin General skin exam: no rashes or lesions noted Neuro General: no focal motor deficits Extrem General: Yes full ROM Psych Appearance: grossly normal Coding Level of Care Code Est Pt Level 3 (54006) Est Pt Prev Care 40-64y(70395) Diagnoses Physical exam Z00.00 Hyperparathyroidism E21.3 Paresthesia R20.2 Left upper quadrant abdominal pain R10.12 Additional Codes NATA-7 Assessment Billing - NATA-7 Assessment Tool: NAAT-7 Assessment 57800 ([id number]) PHQ-9 - 94290 - PHQ-9 Billing: Yes ([id number]) Time Spent (min) 33 Assessment & Plan Assessment & Plan (1) Physical exam: Code(s): Z00.00 - Encounter for general adult medical examination without abnormal findings Category: Medical (2) Hyperparathyroidism: Code(s): E21.3 - Hyperparathyroidism, unspecified Category: Medical (3) Paresthesia: Code(s): R20.2 - Paresthesia of skin Category: Medical (4) Left upper quadrant abdominal pain: Code(s): R10.12 - Left upper quadrant pain Category: Medical Plan - Refer patient to neurology for evaluation of neuropathy and upper body weakness. - Order colonoscopy for colorectal cancer screening. - Follow up on ongoing endocrine management of hypothyroidism. - Prescribe differential timing for Celebrex and Tylenol to prevent interaction. - Recommend continued follow-up with double cut sawyer for routine Pap smear. Patient was informed and verbally consented to the use of an ambient scribe for clinic note documentation during this visit. Orders: Orders XR abdomen 3V Today R10.12 - Left upper quadrant pain Referrals Neurology Referral R20.2 - Paresthesia of skin Open Access Screening Colonoscopy Referral Z12.12 - Encounter for screening for malignant neoplasm of rectum
[2024-03-18 13:12] VITALS: BP 112/68; BMI 21.2
--- OUTSIDE RECORDS SUMMARY | 2024-03-18 13:24 | XMS_ITS | Continuity of Care Document ---
Author Organization [facility] Address [address] [place] [address] Phone Care Team Providers Care Heating Plant Superintendent Name Role Phone Unavailable Unavailable Unavailable Allergies, [...] Diagnoses Date Provider Providers Copied on Encounter [facility], [address] [place] [address], tel:[phone] [facility] Adult Medicine No Information 2 No Information [facility], [address] [place] [address], tel:[phone] Conversion BODY MASS INDEX 34.0-34.9, ADULTEXERCISE COUNSELING 2 No Information [facility], [address] [place] [address], tel:[phone] Conversion Patient Education - DietaryOBESITY 2 No Information [facility], [address] [place] [address], tel:[phone] Conversion HYPERLIPIDEMIAD EPRESSIONVITAMI N D DEFICIENCY 1 No Information [facility], [address] [place] [address], tel:[phone] Conversion PE W/ PAPSTD SCREEN No Information [facility], [address] [place], [address], [place] tel:[phone] [facility] No Information No Information Family [...]
== END 2024-03-18 13:49 | disposition home or self-care (01) ==
PROVIDERS: PCP Internal Medicine; Visit Provider Internal Medicine
DX: Z00.00 Encounter for general adult medical examination without abnormal findings (principal); E21.3 Hyperparathyroidism, unspecified; R20.2 Paresthesia of skin; R10.12 Left upper quadrant pain

== ENCOUNTER → 2024-03-18 14:06 | Outpatient (BNV) | payer OTHER, SELFPAY | PROVIDERS: PCP Internal Medicine; Visit Provider Radiology Diagnostic Radiology | DX: R10.12 Left upper quadrant pain (principal) | CPT/HCPCS: 74021 ==

== ENCOUNTER 2024-03-26 09:32 | Outpatient (REF) | payer OTHER, SELFPAY | END 2024-03-26 09:33 | disposition home or self-care (01) | LOC: HO.HOSX 09:32 | PROVIDERS: Visit Provider Orthopaedic Surgery | DX: Z13.89 Encounter for screening for other disorder (principal) ==

== ENCOUNTER 2024-04-18 09:52 | Outpatient (REF) | payer OTHER, SELFPAY ==
--- OUTSIDE RECORDS SUMMARY | 2024-04-18 10:55 | XMS_ITS | Continuity of Care Document ---
Author Organization [facility] Address [address] [place] [address] Phone Care Team Providers Care Youth Corrections Officer Name Role Phone Unavailable Unavailable Unavailable Allergies, [...] Diagnoses Date Provider Providers Copied on Encounter [facility], [address] [place] [address], tel:[phone] [facility] Adult Medicine No Information 2 No Information [facility], [address] [place] [address], tel:[phone] Conversion BODY MASS INDEX 34.0-34.9, ADULTEXERCISE COUNSELING 2 No Information [facility], [address] [place] [address], tel:[phone] Conversion Patient Education - DietaryOBESITY 2 No Information [facility], [address] [place] [address], tel:[phone] Conversion HYPERLIPIDEMIAD EPRESSIONVITAMI N D DEFICIENCY 1 No Information [facility], [address] [place] [address], tel:[phone] Conversion PE W/ PAPSTD SCREEN No Information [facility], [address] [place], [address], [place] tel:[phone] [facility] No Information No Information Family History [...]
[2024-04-18 11:15] LABS: Albumin Level 3.5 g/dL (3.5-5.0)
== END 2024-04-18 09:53 | disposition home or self-care (01) ==
LOC: HO.LAB 09:52
PROVIDERS: PCP Internal Medicine; Visit Provider Internal Medicine Endocrinology, Diabetes & Metabolism
DX: E21.3 Hyperparathyroidism, unspecified (principal)
CPT/HCPCS: 36415; 82040; 82310

== ENCOUNTER 2024-04-22 07:59 | Outpatient (AMB) | payer OTHER, SELFPAY ==
--- NOTE | 2024-04-22 08:12 | MHC.OFFVIS ---
Vital Signs 04/22/24 08:14 Height 5 ft 2 in Weight 115 lb 4.828 oz BMI 21.1 BP 102/58 L Blood Pressure Location Lt brachial Position Sitting Pulse 68 Pulse Source Pulse Oximeter Pulse Oximetry (%) 98 Oxygen Delivery Method Room Air Intake Visit Reasons: Hyperparathyroidism Intake Note: Patient present today for Hyperparathyroidism follow up. Gallery Manager Required: Yes Gallery Manager Language: Manager Enterprise Content Management Services: Gallery Manager Present Gallery Manager Name: Mariia [phone] Information Interpreted: non-clinical & clinical Accompanied by: Self / Same As Patient Allergies bee pollen [BEE STINGS] Allergy (Severe, Verified 04/22/24 08:15) SWELLING Penicillins [PENICILLINS] Allergy (Severe, Verified 04/22/24 08:15) HIVES, THROAT CLOSES amitriptyline [AMITRIPTYLINE] Allergy (Intermediate, Verified 04/22/24 08:15) Agitation oxycodone [From PERCOCET] Adverse Reaction (Intermediate, Verified 04/22/24 08:15) DIZZINESS HPI Comments Details: 63 YO F with PMHx bariatric surgery who is seen in consultation at the request of PCP for hyperparathyroidism for. Hx of bariatric surgery 4 yrs ago First noted to have high calcium of 10.3 on 05/17/2021 but subsequent calcium is normal . Currently using Calcium supplement 1000mg BID . [place] 5000 [place] [address] IU of ergocalciferol twice a week. Vitamin-D levels have been normal but PTH remains elevated Currently not using HCTZ. Kidney stones: No Osteoporosis: No History of [place] use: No Biotin use: Takes Biotin according to pt Family history of high calcium or kidney stones: Renal imaging: [] DXA: Labs: Taking 5000-Iunits of vitamin-D 3 and ergo 08426 IU/2 wk , Claims compliance [facility] Medical History Blurry vision Memory loss Physical exam Weakness of both hands Abnormal mammogram Right sided sciatica Right leg pain Hand numbness Hyperparathyroidism Iron deficiency anemia Mild asthma Insomnia Dyslipidemia Autoimmune thyroiditis Hypovitaminosis D Surgical History History of mammogram History of breast biopsy History of carpal tunnel release History of hysteroscopy H/O gastric bypass Status post dilation and curettage History of section History of cholecystectomy Family History Father CAD (coronary artery disease) Hypertension Diabetes Cerebral aneurysm Mother CAD (coronary artery disease) Thyroid cancer Sister Primary cancer of uterus Ovarian cancer Maternal Uncle Bone cancer Family/Other FH: mental illness Social History Household Members: Spouse Housing: House Alcohol intake: never Patient Tobacco Use Status: Never used Tobacco Tobacco use type: Cigarette e-Cigarette/Vaping Use: Never Used Second Hand Smoke Exposure: No service: No Current occupational status: disabled 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 She is currently being treated with 5000 IU of vitamin D3. Ergocalciferol was also increased to 50,000-units twice a week. She is now vitamin-D replete but PTH remains elevated.. Other possibility in the differential is that the patient has developed normocalcemic primary hyperparathyroidism less likely. Is also possible that PTH remains persistently elevated because spurious elevation so PTH is which had been seen at laboratory. Does have osteoporosis on DEXA The plan is to continue calcium and vitamin-D supplementation and check calcium, albumin, PTH, 25 hydroxy vitamin-D and 24 hour urine for calcium and creatinine in about 3 months' time at [facility] ([facility]) . If PTH remains persistently elevated or is trending upward, consideration could be given for surgical consultation for possible parathyroid exploration if it is consistent with normocalcemic primary hyperparathyroidism in light of the osteoporosis on bone density. (2) Hyperparathyroidism: Code(s): E21.3 - Hyperparathyroidism, unspecified Category: Medical Plan: See above plan for vitamin-D deficiency Orders: Orders Calcium, 24 Hr Ur Today E21.3 - Hyperparathyroidism, unspecified, E55.9 - Vitamin D deficiency, unspecified Creatinine, 24 Hr Group Today E21.3 - Hyperparathyroidism, unspecified, E55.9 - Vitamin D deficiency, unspecified Coding Level of Care Code Est Pt Level 3 (99379) Diagnoses Hypovitaminosis D E55.9 Hyperparathyroidism E21.3
[2024-04-22 08:14] VITALS: BP 102/58; PULSE 68; O2SAT 98; BMI 21.1
--- OUTSIDE RECORDS SUMMARY | 2024-04-22 08:23 | XMS_ITS | Continuity of Care Document ---
Author Organization [facility] Address [address] [place] [address] Phone Care Team Providers Care Lead Network Engineer Name Role Phone Unavailable Unavailable Unavailable Allergies, [...] Diagnoses Date Provider Providers Copied on Encounter [facility], [address] [place] [address], tel:[phone] [facility] Adult Medicine No Information 2 No Information [facility], [address] [place] [address], tel:[phone] Conversion BODY MASS INDEX 34.0-34.9, ADULTEXERCISE COUNSELING 2 No Information [facility], [address] [place] [address], tel:[phone] Conversion Patient Education - DietaryOBESITY 2 No Information [facility], [address] [place] [address], tel:[phone] Conversion HYPERLIPIDEMIAD EPRESSIONVITAMI N D DEFICIENCY 1 No Information [facility], [address] [place] [address], tel:[phone] Conversion PE W/ PAPSTD SCREEN No Information [facility], [address] [place], [address], [place] tel:[phone] [facility] No Information No Information Family History [...]
== END 2024-04-22 08:29 | disposition home or self-care (01) ==
LOC: HO.ENCR 08:00
PROVIDERS: PCP Internal Medicine; Visit Provider Internal Medicine Endocrinology, Diabetes & Metabolism
DX: E55.9 Vitamin D deficiency, unspecified (principal); E21.3 Hyperparathyroidism, unspecified
CPT/HCPCS: 99213

== ENCOUNTER → 2024-04-22 07:59 | Outpatient (BNVA) | payer OTHER, SELFPAY | PROVIDERS: PCP Internal Medicine; Visit Provider Internal Medicine Endocrinology, Diabetes & Metabolism | DX: E55.9 Vitamin D deficiency, unspecified (principal); E21.3 Hyperparathyroidism, unspecified | CPT/HCPCS: 99212 ==

== ENCOUNTER 2024-05-13 09:52 | Outpatient (REF) | payer OTHER, SELFPAY ==
--- NOTE | ~2024-05-13 | XR_ITS ---
EXAMINATION: XR WRIST 3 OR MORE VIEWS RIGHT HISTORY: M25.531 - Pain in right wrist COMPARISON: Comparison is made with the prior examination of the right hand dated 05/17/2021. FINDINGS: Four views of the right wrist are submitted. Osseous mineralization is normal. There is no fracture or dislocation. The joint spaces are preserved. The soft tissues are unremarkable. XR/XR wrist RT min 3V IMPRESSION: Unremarkable examination of the right wrist. Electronically signed by: Alan Alvarado MD 05/14/2024 10:36 AM EDT
--- OUTSIDE RECORDS SUMMARY | 2024-05-13 11:33 | XMS_ITS | Continuity of Care Document ---
Author Organization [facility] Address [address] [place] [address] Phone Care Team Providers Care Construction Ironworker Helper Name Role Phone Unavailable Unavailable Unavailable Allergies, [...] Diagnoses Date Provider Providers Copied on Encounter [facility], [address] [place] [address], tel:[phone] [facility] Adult Medicine No Information 2 No Information [facility], [address] [place] [address], tel:[phone] Conversion BODY MASS INDEX 34.0-34.9, ADULTEXERCISE COUNSELING 2 No Information [facility], [address] [place] [address], tel:[phone] Conversion Patient Education - DietaryOBESITY 2 No Information [facility], [address] [place] [address], tel:[phone] Conversion HYPERLIPIDEMIAD EPRESSIONVITAMI N D DEFICIENCY 1 No Information [facility], [address] [place] [address], tel:[phone] Conversion PE W/ PAPSTD SCREEN No Information [facility], [address] [place], [address], [place] tel:[phone] [facility] No Information No Information Family History [...]
== END 2024-05-13 09:53 | disposition home or self-care (01) ==
LOC: HO.HOSX 09:52
PROVIDERS: Visit Provider Orthopaedic Surgery
DX: M25.531 Pain in right wrist (principal); M65.311 Trigger thumb, right thumb; R20.0 Anesthesia of skin; G89.4 Chronic pain syndrome; Z86.69 Personal history of other diseases of the nervous system and sense organs; Z98.890 Other specified postprocedural states
CPT/HCPCS: 20550; 73110; 99212; J1100; J2003

== ENCOUNTER 2024-05-13 13:30 | Outpatient (AMB) | payer OTHER, SELFPAY ==
--- NOTE | 2024-05-13 13:36 | A.OFFVIS_ITS ---
Vital Signs 05/13/24 13:47 Height 5 ft 2 in Weight 115 lb BMI 21.0 Intake Visit Reasons: OV-right wrist pain, pain when moving wrist Intake Note: Isis 63 yr old female presents today fot a follow up visit for her right hand and wrist pain. She is S/P cubital & CTR on 06/22/[address] Diego. Currently states she is having in her landon aspect of hand by her thumb and her small finger for the last 3-4 months and has worsen. States she has weakness and is dropping items. She continues to have numbness and tingling in her right hand. [employer] Superintendent Name: Kiana SAAVEDRA LM Allergies bee pollen [BEE STINGS] Allergy (Severe, Verified 05/13/24 13:47) SWELLING Penicillins [PENICILLINS] Allergy (Severe, Verified 05/13/24 13:47) HIVES, THROAT CLOSES amitriptyline [AMITRIPTYLINE] Allergy (Intermediate, Verified 05/13/24 13:47) Agitation oxycodone [From PERCOCET] Adverse Reaction (Intermediate, Verified 05/13/24 13:47) DIZZINESS HPI HPI OV-right wrist pain, pain when moving wrist: Details: Isis is a 63 year old right hand dominant Iranian speaking woman who presents with complaints of right hand & wrist pain. She complains of pain in multiple areas of her hand. Her primary complaint is of painful locking of her right thumb. She also complains of pain over the volar hypothenar aspect of her right hand She complains of weakness in her right hand and says she continues to drop things She has a Hx of a right cubital tunnel release, DOS: 06/22/22, and a left carpal tunnel release, DOS: 04/27/22, with improved sensation in her left hand. She reports having two right carpal tunnel releases. She had her 1st right carpal tunnel release on 02/28/[address] Gustafson. It sounds like her symptoms initially got better but then she developed dense numbness again. She had a 2nd right carpal tunnel release on 10/17/[address] Gustafson. She reported to us that her numbness never improved following that 2nd right carpal tunnel surgery. She continues to have dense numbness in her right hand following her surgeries She has CPS, polyarthralgia, and walks using a walker. She is a Diabetic. [facility] Medical History Blurry vision Memory loss Physical exam Weakness of both hands Abnormal mammogram Right sided sciatica Right leg pain Hand numbness Hyperparathyroidism Iron deficiency anemia Mild asthma Insomnia Dyslipidemia Autoimmune thyroiditis Hypovitaminosis D Surgical History History of mammogram History of breast biopsy History of carpal tunnel release History of hysteroscopy H/O gastric bypass Status post dilation and curettage History of section History of cholecystectomy Family History Father CAD (coronary artery disease) Hypertension Diabetes Cerebral aneurysm Mother CAD (coronary artery disease) Thyroid cancer Sister Primary cancer of uterus Ovarian cancer Maternal Uncle Bone cancer Family/Other FH: mental illness Social History Household Members: Spouse Housing: House Alcohol intake: never Patient Tobacco Use Status: Never used Tobacco Tobacco use type: Cigarette e-Cigarette/Vaping Use: Never Used Second Hand Smoke Exposure: No service: No Current occupational status: disabled 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 Cognitive needs: No Hearing needs: No Vision needs: Yes (glasses) Review of Systems Const All systems reviewed & are unremarkable except as noted in HPI and below Physical Exam Vital Signs: BMI result Body Mass Index 21.0 Const General: no acute distress and alert Orientation/consciousness: patient oriented x3 Neuro General: patient oriented x3 Extrem Other: Evaluation of Right Upper Extremity: The patient is alert, oriented, and in no acute distress Neuro: Dense numbness in the thumb, middle, and ring fingers today, and normal sensation to the index & small fingers today in clinic No thenar or intrinsic wasting Good APB muscle belly firing and good finger cross Vascular: Cap refill brisk ROM: She can make a fist and extend all her digits She could oppose her thumb to the tips of all digits No locking or catching seen today Tender over hypothenar mass Mild tenderness to the base of the thumb Most tender over the thumb a1 wanda Radiographs: 3 views of the right wrist were taken and viewed by me today in clinic. They show no fractures or dislocations. Only very early arthritic changes in the basal joint. Psych Appearance: grossly normal Affect: normal affect Attitude: cooperative Office Procedures AMB Fracture Care Details: No fracture injection 38470 Fracture Billing Code: Fracture Billing Code Assessment & Plan Assessment & Plan (1) Numbness of right hand: Code(s): R20.0 - Anesthesia of skin Category: Medical (2) Chronic pain syndrome: Code(s): G89.4 - Chronic pain syndrome Category: Medical (3) Trigger thumb, right thumb: Code(s): M65.311 - Trigger thumb, right thumb Category: Medical Plan Assessment & Plan: 1. Right thumb pre-trigger tenosynovitis I educated her about this condition I discussed operative and non-operative treatment options The patient would like to proceed with an injection Injection #1: The risks and benefits of a steroid injection including but not limited to risk of damage to blood vessels, nerves, tendons, infection, skin bleaching, failure to improve symptoms, increased pain, and possible need for further injections or other intervention were discussed with the patient and the patient wishes to proceed with the steroid injection. Once consent was obtained, I sterilely prepped the area over the A1 wanda of the flexor tendon sheath of the Right thumb. I then injected the flexor tendon sheath with a combination of 1 mL of dexamethasone (4mg/ml), and 1% lidocaine. The patient tolerated the procedure well with no complications. However, we did NOT see any locking or catching following the injection. If the patient continues to have locking and catching 4-6 weeks following this injection, they may call to schedule appointment to discuss alternative treatment options Follow-up prn 2. Right Carpal tunnel syndrome, S/P carpal tunnel releases X2 DOS: 2012 [address] Gustafson Chronic dense numbness Normal sensation today She has said in the past she had dense numbness in the right median nerve distribution, but today when asked said that her sensation is normal in the median nerve distribution. It is unclear if this is normal for her, or if her sensation has improved in the last few weeks First carpal tunnel release 02/28/[address] Gustafson initially with improvement after surgery followed by dense numbness, Second carpal tunnel release on 10/17/[address] Gustafson. Preoperatively with dense numbness that did not improve following surgery. Currently with chronic dense numbness, which patient says feels the same from prior to her second surgery I explained to her that the numbness in the right hand median nerve distribution is likely secondary to some permanent nerve damage, and will not likely improve with another surgery No thenar wasting No operative indications at this time 3. Right Cubital tunnel syndrome, S/P release DOS: 06/22/22 Pre-operatively with dense numbness for ~3 years Post-operatively with dense numbness NCS did not show evidence of cubital tunnel syndrome. 4. Left Carpal tunnel syndrome, S/P release DOS: 04/27/22 Pre-operatively with dense numbness Now with normal sensation Normal sensation also in the small finger. With good resolution of her symptoms She has been working with OT on wrist ROM. Scribed for Analisa Diego MD by Nabil Glover, medical records library professor, on 08/16/22 at 9:15 AM, EST. Orders: Orders XR wrist RT min 3V Today M25.531 - Pain in right wrist Coding Level of Care Code Est Pt Level 3 (51111) Diagnoses Numbness of right hand R20.0 Chronic pain syndrome G89.4 Trigger thumb, right thumb M65.311 CPT Codes Fracture Care - Fracture Billing Code: Fracture Billing Code ([id number])
[2024-05-13 13:47] VITALS: BMI 21.0
--- OUTSIDE RECORDS SUMMARY | 2024-05-13 15:56 | XMS_ITS | Continuity of Care Document ---
Author Organization [facility] vices Address [address] [place] [address] Phone Care Team Providers Care Quality Assurance Tester Name Role Phone Unavailable Unavailable Unavailable Allergies, [...] Diagnoses Date Provider Providers Copied on Encounter [facility], [address] [place] [address], tel:[phone] [facility] Adult Medicine No Information 2 No Information [facility], [address] [place] [address], tel:[phone] Conversion BODY MASS INDEX 34.0-34.9, ADULTEXERCISE COUNSELING 2 No Information [facility], [address] [place] [address], tel:[phone] Conversion Patient Education - DietaryOBESITY 2 No Information [facility], [address] [place] [address], tel:[phone] Conversion HYPERLIPIDEMIAD EPRESSIONVITAMI N D DEFICIENCY 1 No Information [facility], [address] [place] [address], tel:[phone] Conversion PE W/ PAPSTD SCREEN No Information [facility], [address] [place], [address], [place] tel:[phone] [facility] No Information No Information Family History [...]
== END 2024-05-13 14:29 | disposition home or self-care (01) ==
PROVIDERS: PCP Internal Medicine; Visit Provider Orthopaedic Surgery
DX: M65.311 Trigger thumb, right thumb (principal); R20.0 Anesthesia of skin; G89.4 Chronic pain syndrome
CPT/HCPCS: 20550; 99213

== ENCOUNTER → 2024-05-13 13:31 | Outpatient (BNV) | payer OTHER, SELFPAY | PROVIDERS: Visit Provider Radiology Diagnostic Radiology | DX: M25.531 Pain in right wrist (principal) | CPT/HCPCS: 73110 ==

== ENCOUNTER 2024-05-22 14:47 | Outpatient (REF) | payer OTHER, SELFPAY ==
--- OUTSIDE RECORDS SUMMARY | 2024-05-22 17:23 | XMS_ITS | Continuity of Care Document ---
Author Organization [facility] vices Address [address] [place] [address] Phone Care Team Providers Care Mental Measurements Teacher Name Role Phone Unavailable Unavailable Unavailable Allergies, [...] Date Provider Providers Copied on Encounter [facility], [address] [place] [address], tel:[phone] [facility] Adult Medicine No Information 2 No Information [facility], [address] [place] [address], tel:[phone] Conversion BODY MASS INDEX 34.0-34.9, ADULTEXERCISE COUNSELING 2 No Information [facility], [address] [place] [address], tel:[phone] Conversion Patient Education - DietaryOBESITY 2 No Information [facility], [address] [place] [address], tel:[phone] Conversion HYPERLIPIDEMIAD EPRESSIONVITAMI N D DEFICIENCY 1 No Information [facility], [address] [place] [address], tel:[phone] Conversion PE W/ PAPSTD SCREEN No Information [facility], [address] [place], [address], [place] tel:[phone] [facility] No Information No Information Family History [...]
== END 2024-05-22 14:48 | disposition home or self-care (01) ==
LOC: HO.MAMMO 14:47
PROVIDERS: PCP Internal Medicine; Visit Provider Internal Medicine
DX: Z12.31 Encounter for screening mammogram for malignant neoplasm of breast (principal)
CPT/HCPCS: 77063; 77067

== ENCOUNTER → 2024-05-22 15:00 | Outpatient (BNV) | payer OTHER, SELFPAY | PROVIDERS: PCP Internal Medicine; Visit Provider Internal Medicine | DX: Z12.31 Encounter for screening mammogram for malignant neoplasm of breast (principal) | CPT/HCPCS: 77063; 77067 ==

== ENCOUNTER 2024-05-25 15:47 | Emergency (ER) | payer OTHER, SELFPAY ==
[2024-05-25] VITALS (15 sets, daily range): BP systolic 68–152; BP diastolic 32–68; PULSE 48–72; RESP 10–22; TEMP 36.2–36.8; O2SAT 95–100; BMI 18.3
--- NOTE | ~2024-05-25 | CT_ITS ---
CLINICAL HISTORY: Neck pain after head injury CT cervical spine without contrast Comparison: None Findings: Straightening of the cervical spine is likely positional. Mild multilevel degenerative changes. No acute fractures or dislocations. Visualized intracranial contents are unremarkable. Atrophic thyroid gland. Lung apices are clear. IMPRESSION: 1. No acute osseous injury. This document has been electronically signed by: Yuli Burgess MD on 05/25/2024 18:35:44
--- NOTE | ~2024-05-25 | XR_ITS ---
CLINICAL HISTORY: Unexplained hypotension 1 view chest x-ray Comparison: CT/SR - CT ABDOMEN PELVIS WO IV CON - 05/25/24 18:28 EDT CR - XR ABDOMEN 3V - 03/18/24 14:21 EST Findings: No consolidation or effusion. Heart size is normal. No acute fracture. IMPRESSION: 1. No acute findings. This document has been electronically signed by: Yuli Burgess MD on 05/25/2024 20:05:46
--- NOTE | ~2024-05-25 | CT_ITS ---
CLINICAL HISTORY: abdomial pain acute renal failure CT abdomen and pelvis without contrast Comparison: CR - XR ABDOMEN 3V - 03/18/24 14:21 EST Findings: The lung bases are clear. Pneumobilia. Cholecystectomy. Liver, spleen, pancreas, and adrenal glands are within normal limits. No hydronephrosis or urolithiasis. Postsurgical changes in the stomach. No bowel obstruction, pneumatosis or pneumoperitoneum. Body wall edema. Aortic atherosclerosis. No aneurysm. [place] catheter in the bladder. Uterus is within normal limits. Diffuse idiopathic skeletal hyperostosis in the lower thoracic spine. Chronic compression fracture of T11. IMPRESSION: Pneumobilia, correlate for history of sphincterotomy. Otherwise no acute intraabdominal or pelvic pathology. This document has been electronically signed by: Yuli Burgess MD on 05/25/2024 19:51:31
--- NOTE | ~2024-05-25 | CT_ITS ---
CLINICAL HISTORY: Trauma, POs LOC CT head without contrast Comparison: None Findings: No intra-axial mass, midline shift, hydrocephalus, or acute hemorrhage. No significant atrophy-like change or white matter disease. The visualized paranasal sinuses and mastoid air cells are normal. The orbits are unremarkable. No skull fracture. IMPRESSION: 1. No acute intracranial findings. This document has been electronically signed by: Yuli Burgess MD on 05/25/2024 18:42:15
--- NOTE | 2024-05-25 15:50 | ED.GENADULT ---
HPI - General Adult General Chief complaint: Fall Stated complaint: fall, + head strike, hr 149, o2 was 80% Time Seen by Provider: 05/25/24 15:49 History of Present Illness ED Provider: Maryann QUINTANILLA narrative: The patient is a 63-year-old female who has a history of bariatric surgery in 2020. She also has a history of hypothyroidism. The patient says that for the last 5 days she has had abdominal discomfort whenever she eats or drinks fluid. Therefore she has had very little to eat or drink over the last 5 days. Today she started to feel dizzy when she stood up and she had 3 episodes of fainting. An ambulance was called today after the 3rd episode of fainting when she fell backwards and struck her head. It is not clear if she had loss of consciousness. She is not on anticoagulation. She presented complaining of 10/10 pain at the back of her head and also complained of neck pain. She was hypotensive with the paramedics. She says that she feels dizzy even when she is lying down. She is able to move her extremities she says and has no lateralizing symptoms. No chest pain. She has vomited twice in the last couple of days. She has had abdominal pain when she takes oral intake but no abdominal pain at the moment. No fever, sweats, chills. No cough or sputum Related Data Previous Rx's ?Medication ?Instructions ?Recorded walker #1 ea 08/04/21 lancets 28 gauge #100 ea 03/11/22 epinephrine 0.3 mg/0.3 mL 0.3 mg (0.3 mL) IM DIRECTED PRN 07/13/22 injection, auto-injector anaphylaxis 1 day #0.3 ea adult diapers pull-ups #120 ea 11/09/22 back brace #1 ea 11/09/22 blood sugar diagnostic (FreeStyle 1 strip miscellaneous TID 90 days 12/07/22 Lite Strips) #300 strips silver sulfadiazine 1 % topical 1 appl topical BID #50 grams 12/07/22 cream (Silvadene) cholecalciferol (vitamin D3) 125 125 mcg PO DAILY #30 caps 08/09/23 mcg (5,000 unit) capsule ergocalciferol (vitamin D2) 1,250 1,250 mcg PO 2XW #10 caps 08/09/23 mcg (50,000 unit) capsule calcium citrate 500 mg (2 x 250 mg calcium) PO BID 02/07/24 #360 tabs tizanidine 2 mg tablet 2 mg PO BID PRN muscle spasticity 02/12/24 #60 tabs celecoxib 50 mg capsule 50 mg PO BID #60 caps 04/03/24 levothyroxine 88 mcg tablet 88 mcg PO DAILY 90 days #90 tabs 05/02/24 Ventolin HFA 90 mcg/actuation 2 puff inhalation Q6H PRN 05/23/24 aerosol inhaler (albuterol sulfate) shortness of breath or wheezing 30 days #8 grams acetaminophen 500 mg tablet 500 mg PO Q6H PRN fever or pain 05/23/24 (Tylenol Extra Strength) #14 tabs fluticasone furoate 50 1 inh inhalation DAILY 30 days #30 05/23/24 mcg/actuation blister powder for ea inhalation (Arnuity Ellipta) gabapentin 400 mg capsule 400 mg PO TID 30 days #90 caps 05/23/24 rosuvastatin 40 mg tablet 40 mg PO DAILY 90 days #90 tabs 05/23/24 trazodone 100 mg tablet 100 mg PO BEDTIME PRN sleep 90 05/23/24 days #90 tabs Allergies Allergy/AdvReac Type Severity Reaction Status Date / Time bee pollen [BEE STINGS] Allergy Severe SWELLING Verified 05/25/24 16:01 Penicillins [PENICILLINS] Allergy Severe HIVES, Verified 05/25/24 16:01 THROAT CLOSES amitriptyline [AMITRIPTYLINE] Allergy Intermediate Agitation Verified 05/25/24 16:01 oxycodone [From PERCOCET] AdvReac Intermediate DIZZINESS Verified 05/25/24 16:01 Review of Systems Review of Systems: Yes all other systems are reviewed and are negative [facility] Past Medical History Medical History Blurry vision Memory loss Physical exam Weakness of both hands Abnormal mammogram Right sided sciatica Right leg pain Hand numbness Hyperparathyroidism Iron deficiency anemia Mild asthma Insomnia Dyslipidemia Autoimmune thyroiditis Hypovitaminosis D Surgical History (Reviewed 05/13/24 @ 13:47 by Kiana Jennings [facility] History of mammogram History of breast biopsy History of carpal tunnel release History of hysteroscopy H/O gastric bypass Status post dilation and curettage History of section History of cholecystectomy Family History Family History Father CAD (coronary artery disease) Hypertension Diabetes Cerebral aneurysm Mother CAD (coronary artery disease) Thyroid cancer Sister Primary cancer of uterus Ovarian cancer Maternal Uncle Bone cancer Family/Other FH: mental illness Social History Social History Household Members: Spouse Housing: House Alcohol intake: never Patient Tobacco Use Status: Never used Tobacco Tobacco use type: Cigarette Smoked in Last 30 Days: No e-Cigarette/Vaping Use: Never Used Second Hand Smoke Exposure: No Use of substances other than those prescribed or required for medical reasons: No Advance Directives: No Advance Directives Information Provided: No Patient : No service: No Current occupational status: disabled 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 Cognitive needs: No Hearing needs: No Vision needs: Yes (glasses) Physical Exam ED Vital Signs: Vital Signs - 24 hr 05/25/24 15:59 05/25/24 16:04 05/25/24 16:09 Temperature 98.3 F Pulse Rate 63 62 62 Respiratory Rate 12 10 L 10 L Blood Pressure 73/40 L 71/36 L 68/32 L Pulse Oximetry 97 97 98 Oxygen Delivery Method Room Air Room Air Room Air Oxygen Flow Rate 05/25/24 16:18 05/25/24 16:38 05/25/24 17:07 Temperature 97.2 F Pulse Rate 63 72 69 Respiratory Rate 10 L 22 H 12 Blood Pressure 80/41 L 88/45 L 77/41 L Pulse Oximetry 97 97 98 Oxygen Delivery Method Room Air Room Air Oxygen Flow Rate 05/25/24 18:00 05/25/24 19:41 05/25/24 19:47 Temperature 98.2 F 98.2 F Pulse Rate 62 65 65 Respiratory Rate 16 16 Blood Pressure 82/40 L 76/43 L 79/39 L Pulse Oximetry 100 Oxygen Delivery Method Room Air Oxygen Flow Rate 05/25/24 20:08 Temperature Pulse Rate 57 Respiratory Rate 16 Blood Pressure 96/46 L Pulse Oximetry 99 Oxygen Delivery Method Nasal Cannula Oxygen Flow Rate 2 BMI result Body Mass Index 18.3 Const Other: The patient was awake and alert but seemed fatigued and weak. She was in a cervical collar. She did not seem to exhibit any shortness of breath and she did not seem in significant pain. HENMT Other: Face is symmetrical. Mucous membranes are moist. There was tenderness to the occipital scalp. Eyes General: appearance normal, both eyes and all related structures Alignment and Position: alignment normal Eyelids: Yes eyelids normal Conjunctivae: conjunctivae normal Sclerae: sclerae normal Pupils: Equal, round and reactive pupils present EOM: EOMs intact bilaterally Neck Other: The patient reported tenderness with palpation of the posterior C-spine. She was kept in a C-collar. No JVD. No neck swelling. Resp Effort & Inspection: normal respiratory effort Auscultation: clear to auscultation bilaterally Cardio Rate: regular rate Rhythm: regular rhythm Heart sounds: S1 normal heart sound present and S2 normal heart sound present GI Other: The abdomen is flat and soft. She does not have any distention. She does not report any significant tenderness in any quadrant. Skin Other: The skin is dry and unremarkable Neuro Other: The patient is awake and alert. GCS is 15. Cranial nerves 2-12 are grossly intact. She moves her extremities symmetrically but weakly. Cranial nerves: Yes Equal, round and reactive pupils present Extrem Other: No deformities or signs of trauma to the extremities. Good perfusion in the extremities. Medications Administered Generic Name Dose Route Start Last Admin Trade Name Freq PRN Reason Stop Dose Admin Norepinephrine Bitartrate 8 mg in 250 mls @ 0 mls/hr 05/25/24 18:45 05/25/24 19:41 Levophed IVCONT 0.05 mcg/kg/min .Q0M AMIRA 4.54 mls/hr Administration Protocol Per Protocol Metronidazole 500 mg in 100 mls @ 100 mls/hr 05/25/24 20:29 05/25/24 20:39 Flagyl IV 05/25/24 21:28 100 mls/hr ONCE ONE Administration Discontinued Medications Generic Name Dose Route Start Last Admin Trade Name Freq PRN Reason Stop Dose Admin Ceftriaxone Sodium 2 gm 05/25/24 20:28 05/25/24 20:39 Ceftriaxone Sodium 2 Gm Vial IVPUSH 05/25/24 20:29 2 gm ONCE ONE Administration Hydrocortisone Sodium Succinate 100 mg 05/25/24 18:09 05/25/24 18:23 Hydrocortisone Sod Succ/Pf 100 Mg Vial IVPUSH 05/25/24 18:10 100 mg ONCE ONE Administration Sodium Chloride 1,000 mls @ 999 mls/hr 05/25/24 16:00 05/25/24 16:30 Ns IV 05/25/24 17:00 Infused .Q1H1M AMIRA Infusion Lactated Ringer's 1,000 mls @ 999 mls/hr 05/25/24 16:30 05/25/24 17:40 Lr IV 05/25/24 17:30 Infused .Q1H1M AMIRA Infusion Sodium Chloride 1,000 mls @ 999 mls/hr 05/25/24 17:00 05/25/24 16:53 Ns IV 05/25/24 18:00 Infused .Q1H1M AMIRA Infusion Lactated Ringer's 1,000 mls @ 999 mls/hr 05/25/24 18:00 05/25/24 18:15 Lr IV 05/25/24 19:00 999 mls/hr .Q1H1M AMIRA Administration Medical Decision Making Medical Decision Making [facility] Narrative: The patient is a 63-year-old female who has a history of bariatric surgery 4 years ago. She also has a history of an open cholecystectomy 20 years ago in [place]. The patient presents after having had 3 fainting episodes today and striking her head. She arrived in his cervical collar and was found to be hypotensive but not tachycardic. The patient says that she has had abdominal pain with the oral intake over the last 5 days. This has led to very little oral intake over the last 5 days. She felt dizzy and lightheaded when standing today. The patient was hypotensive but with a heart rate in the 60s. She was complaining of pain from her fall. She was complaining of headache and neck pain but she was not complaining of pain all otherwise. Clinically I thought it was unlikely that the patient was septic given the absence of any tachycardia or fever. She was given IV fluids and was ultimately found to be in acute renal failure with a creatinine of 4.1 and a BUN of 71. She normally has normal renal function. Surprisingly the patient's urine is quite dilute. She has a low specific gravity. The patient was given 4 L of crystalloid and 100 mg of hydrocortisone IV. Her blood pressures did not improve and she was ultimately started on norepinephrine peripherally. . Additionally blood cultures have been obtained. Lactate is normal at 1.4. Broad-spectrum antibiotics have been initiated. Given the persistent hypotension and the need for pressor support the patient will need an ICU admission. Unfortunately we do not have any ICU beds available at this hospital [facility]. I therefore contacted [facility] and the patient has been accepted in transfer. The accepting doctor is Dr. Marquez. Lab Data 05/25/24 15:55 05/25/24 19:58 Labs: Lab Results 05/25/24 05/25/24 05/25/24 Range/Units 15:55 15:56 16:06 WBC 13.4 H (4.8-10.8) X10*3/uL RBC 4.55 (4.20-5.50) X10*6/uL Hgb 13.3 (12.0-16.0) g/dl Hct 40.4 (37.0-47.0) % MCV 88.8 (80.0-98.0) fL MCH 29.2 (27.0-33.0) pg MCHC 32.9 (31.0-35.0) g/dl RDW 13.7 (11.0-16.0) % Plt Count 261 (160-400) X10*3/uL MPV 9.9 (9.4-12.3) fL Immature Gran % (Auto) 0.3 (0.0-0.4) % Neut % (Auto) 63.8 (45-73) % Lymph % (Auto) 25.6 (20-40) % [place] % (Auto) 9.5 (2-11) % Eos % (Auto) 0.4 (0-4) % Baso % (Auto) 0.4 (0-2) % Lymph # (Auto) 3.4 (1.2-4.9) X10*3/uL [place] # (Auto) 1.3 H (0.1-1.2) X10*3/uL Eos # (Auto) 0.1 (0.0-0.4) X10*3/uL Baso # (Auto) 0.1 (0.0-0.2) X10*3/uL Abs Immat Gran (auto) 0.04 H (0.00-0.03) X10*3/uL Absolute Neuts (auto) 8.5 H (2.0-8.3) x10*3/uL Absolute Nucleated RBC 0.000 (0.0-0.012) X10*3/uL Nucleated RBC % (auto) 0.0 (0.0-0.2) /100WBC Hold Purple Top SEE NOTE Hold Blue Top SEE NOTE VBG pH 7.25 L (7.32-7.43) VBG pCO2 32 mmHg VBG pO2 40 mmHg VBG HCO3 14 L (22-26) mmol/L VBG O2 Saturation 62.0 % VBG Base Excess -11.2 mmol/L Sodium 134 L (135-145) mmol/L Potassium 5.3 H D (3.3-5.1) mmol/L Chloride 108 (96-108) mmol/L Carbon Dioxide 14 L (22-29) mmol/L Anion Gap 17 (12-20) BUN 71 H (9-16) mg/dL Creatinine 4.21 H* (0.5-1.4) mg/dL Estim Creat Clear Calc 10.7 Estimated GFR 11 POC Glucose 98 (60-115) mg/dL Random Glucose 104 (60-115) mg/dL Lactic Acid (0.5-2.0) mmol/L Calcium 9.4 (8.4-10.2) mg/dL Magnesium 2.6 (1.6-2.6) mg/dL Total Bilirubin 0.6 (0.0-1.0) mg/dL Direct Bilirubin 0.1 (0.0-0.5) mg/dL AST 24 (5-31) U/L ALT 17 (0-31) U/L Alkaline Phosphatase 57 (39-117) U/L Troponin I High Sens 2.9 (<3.5-17.0) ng/L C-Reactive Protein 1.72 H (< or = 0.50) mg/dL Total Protein 6.9 (6.5-8.0) g/dL Albumin 3.8 (3.5-5.0) g/dL Lipase 31 (8-78) U/L Beta-Hydroxybutyrate (0.02-0.27) mmol/L Procalcitonin 0.37 ng/mL Urine Color Urine Appearance Urine pH (5.0-9.0) Ur Specific [place] (1.005-1.025) Urine Protein (Neg-Trace) mg/dL Urine Glucose (UA) (Negative) mg/dL Urine Ketones (Negative) mg/dL Urine Blood (Negative) Urine Nitrite (Negative) Ur Leukocyte Esterase (Negative) Urine RBC (0-2) /HPF Urine WBC (0-5) /HPF Ur Squamous Epith Cells (0-2) /HPF Urine Bacteria (None Seen) Hyaline Casts (0-2) /LPF Urine Opiates Screen (Not Detect) Ur Buprenorphine Scrn (Not Detect) ng/mL Ur Oxycodone Screen (Not Detect) ng/mL Urine Methadone Screen (Not Detect) ng/mL Urine Fentanyl Screen (Not Detect) Ur Barbiturates Screen (Not Detect) Ur Phencyclidine Scrn (Not Detect) Ur Amphetamines Screen (Not Detect) U Benzodiazepines Scrn (Not Detect) Urine Cocaine Screen (Not Detect) U Marijuana (THC) Screen (Not Detect) Ethyl Alcohol < 10 mg/dL Influenza Type A (PCR) (Negative) Influenza Type B (PCR) (Negative) RSV RNA Qual (PCR) (Negative) SARS-CoV-2 RNA (RT-PCR) (Negative) 05/25/24 05/25/24 05/25/24 Range/Units 18:16 19:58 20:06 WBC (4.8-10.8) X10*3/uL RBC (4.20-5.50) X10*6/uL Hgb (12.0-16.0) g/dl Hct (37.0-47.0) % MCV (80.0-98.0) fL MCH (27.0-33.0) pg MCHC (31.0-35.0) g/dl RDW (11.0-16.0) % Plt Count (160-400) X10*3/uL MPV (9.4-12.3) fL Immature Gran % (Auto) (0.0-0.4) % Neut % (Auto) (45-73) % Lymph % (Auto) (20-40) % [place] % (Auto) (2-11) % Eos % (Auto) (0-4) % Baso % (Auto) (0-2) % Lymph # (Auto) (1.2-4.9) X10*3/uL [place] # (Auto) (0.1-1.2) X10*3/uL Eos # (Auto) (0.0-0.4) X10*3/uL Baso # (Auto) (0.0-0.2) X10*3/uL Abs Immat Gran (auto) (0.00-0.03) X10*3/uL Absolute Neuts (auto) (2.0-8.3) x10*3/uL Absolute Nucleated RBC (0.0-0.012) X10*3/uL Nucleated RBC % (auto) (0.0-0.2) /100WBC Hold Purple Top Hold Blue Top VBG pH 7.32 (7.32-7.43) VBG pCO2 27 mmHg VBG pO2 70 mmHg VBG HCO3 14 L (22-26) mmol/L VBG O2 Saturation 89.0 % VBG Base Excess -9.8 mmol/L Sodium 139 (135-145) mmol/L Potassium 5.0 (3.3-5.1) mmol/L Chloride 118 H (96-108) mmol/L Carbon Dioxide 16 L (22-29) mmol/L Anion Gap 10 L (12-20) BUN 55 H (9-16) mg/dL Creatinine 2.60 H (0.5-1.4) mg/dL Estim Creat Clear Calc 17.3 Estimated GFR 19 POC Glucose (60-115) mg/dL Random Glucose 91 (60-115) mg/dL Lactic Acid 1.4 (0.5-2.0) mmol/L Calcium 8.3 L D (8.4-10.2) mg/dL Magnesium (1.6-2.6) mg/dL Total Bilirubin (0.0-1.0) mg/dL Direct Bilirubin (0.0-0.5) mg/dL AST (5-31) U/L ALT (0-31) U/L Alkaline Phosphatase (39-117) U/L Troponin I High Sens (<3.5-17.0) ng/L C-Reactive Protein (< or = 0.50) mg/dL Total Protein (6.5-8.0) g/dL Albumin (3.5-5.0) g/dL Lipase (8-78) U/L Beta-Hydroxybutyrate 0.18 (0.02-0.27) mmol/L Procalcitonin ng/mL Urine Color Yellow Urine Appearance Clear Urine pH 5.5 (5.0-9.0) Ur Specific [place] <= 1.005 (1.005-1.025) Urine Protein Negative (Neg-Trace) mg/dL Urine Glucose (UA) Negative (Negative) mg/dL Urine Ketones Negative (Negative) mg/dL Urine Blood Trace H (Negative) Urine Nitrite Negative (Negative) Ur Leukocyte Esterase Negative (Negative) Urine RBC 0-2 (0-2) /HPF Urine WBC 0-5 (0-5) /HPF Ur Squamous Epith Cells 0-2 (0-2) /HPF Urine Bacteria None Seen (None Seen) Hyaline Casts 3-5 (0-2) /LPF Urine Opiates Screen Not Detected (Not Detect) Ur Buprenorphine Scrn Not Detected (Not Detect) ng/mL Ur Oxycodone Screen Not Detected (Not Detect) ng/mL Urine Methadone Screen Not Detected (Not Detect) ng/mL Urine Fentanyl Screen Not Detected (Not Detect) Ur Barbiturates Screen Not Detected (Not Detect) Ur Phencyclidine Scrn Not Detected (Not Detect) Ur Amphetamines Screen Not Detected (Not Detect) U Benzodiazepines Scrn POSITIVE H (Not Detect) Urine Cocaine Screen Not Detected (Not Detect) U Marijuana (THC) Screen Not Detected (Not Detect) Ethyl Alcohol mg/dL Influenza Type A (PCR) NEGATIVE (Negative) Influenza Type B (PCR) NEGATIVE (Negative) RSV RNA Qual (PCR) NEGATIVE (Negative) SARS-CoV-2 RNA (RT-PCR) NEGATIVE (Negative) Independent Interpretation I performed an independent interpretation of an: EKG Interpretation: EKG at 16 10 shows normal sinus rhythm at 60 beats per minute. It is a normal EKG. Critical Care Time Critical Care Time Critical Care Time: Yes Total Critical Care Time: 60 Attestation: The patient was critically ill with a high probability of imminent or life-threatening deterioration. ?I spent greater than 30 minutes of discontinuous time evaluating the patient, delivering critical care at the bedside, discussing evaluating data with consultants. ?Critical care time does not include time spent performing separately billable procedures or teaching. ?Time spent performing critical care with 60 minutes. Discharge Plan Discharge Clinical Impression: Acute renal failure, Syncope, Hypotension, Head injury, History of cholecystectomy, History of bariatric surgery Patient Disposition: [facility] Transfer Details: [facility], Dr. Marquez Prescriptions: No Action (DME) lancets 28 gauge misc See Rx Instructions topical TID Qty: 100 10RF Rx Instructions: Use 1 lancet TID FreeStyle Lite Strips Strip 1 strip miscellaneous TID 90 Days Qty: 300 3RF silver sulfadiazine [Silvadene] 1 % cream 1 appl topical BID Qty: 50 0RF Rx Instructions: apply a 1.5 mm thickness calcium citrate 250 mg calcium tablet 500 mg PO BID Qty: 360 1RF tizanidine 2 mg tablet 2 mg PO BID PRN (Reason: muscle spasticity) Qty: 60 0RF Rx Instructions: Make cause drowsiness, do not take with alcohol or other [employer] depressants. celecoxib 50 mg capsule 50 mg PO BID Qty: 60 1RF Rx Instructions: Discontinue use of ibuprofen or other nonsteroidal anti-inflammatory medications. Take with food levothyroxine 88 mcg tablet 88 mcg PO DAILY 90 Days Qty: 90 0RF acetaminophen [Tylenol Extra Strength] 500 mg tablet 500 mg PO Q6H PRN (Reason: fever or pain) Qty: 14 0RF Arnuity Ellipta 50 mcg/actuation blister with device 1 inh inhalation DAILY 30 Days Qty: 30 2RF gabapentin 400 mg capsule 400 mg PO TID 30 Days Qty: 90 1RF rosuvastatin 40 mg tablet 40 mg PO DAILY 90 Days Qty: 90 0RF trazodone 100 mg tablet 100 mg PO BEDTIME PRN (Reason: sleep) 90 Days Qty: 90 1RF albuterol sulfate [Ventolin HFA] 90 mcg/actuation HFA aerosol inhaler 2 puff inhalation Q6H PRN (Reason: shortness of breath or wheezing) 30 Days Qty: 8 2RF (DME) walker Misc See Rx Instructions .Route Qty: 1 0RF Rx Instructions: WITH SEAT AND WHEELS epinephrine 0.3 mg/0.3 mL auto-injector 0.3 mg IM DIRECTED PRN (Reason: anaphylaxis) 1 Days Qty: 0.3 1RF (DME) adult diapers pull-ups small See Rx Instructions .Route .MEDSUPPLY Qty: 120 6RF Rx Instructions: As directed (DME) back brace Misc See Rx Instructions .Route Qty: 1 0RF Rx Instructions: As directed cholecalciferol (vitamin D3) 125 mcg (5,000 unit) capsule 125 mcg PO DAILY Qty: 30 6RF ergocalciferol (vitamin D2) 1,250 mcg (50,000 unit) capsule 1,250 mcg PO 2XW Qty: 10 4RF Print Language: Khmer
--- NOTE | 2024-05-25 15:54 | ECG_ITS ---
Test Reason : dizziness Blood Pressure : */* mmHG Vent. Rate : 60 BPM Atrial Rate : 60 BPM P-R Int : 158 ms QRS Dur : 84 ms QT Int : 430 ms P-R-T Axes : 28 66 44 degrees QTcB Int : 430 ms Normal sinus rhythm Normal ECG No previous ECGs available Referred By: Zach Wolf Electronically Signed By: YINA CARNEY MD
[2024-05-25 16:01] LABS: Glucose, Whole Blood 98 mg/dL (60-115)
[2024-05-25 16:06] LABS: MANUAL DIFF FLAG NO
[2024-05-25] MEDS: 0.9 % Sodium Chloride 1,000 ML 999 ML IV ×2 (16:06→16:14)
[2024-05-25 16:07] LABS: Basophils Absolute Auto 0.1 X10*3/uL (0.0-0.2); Basophils Percent Auto 0.4 % (0-2); Eosinophils Absolute Auto 0.1 X10*3/uL (0.0-0.4); Eosinophils Percent Auto 0.4 % (0-4); Hematocrit 40.4 % (37.0-47.0); Hemoglobin 13.3 g/dl (12.0-16.0); Imm Gran Abs Auto 0.04 X10*3/uL (0.00-0.03); Imm Gran Pct Auto 0.3 % (0.0-0.4); Lymphocytes Absolute Auto 3.4 X10*3/uL (1.2-4.9); Lymphocytes Percent Auto 25.6 % (20-40); Mean Corpuscular HGB Conc 32.9 g/dl (31.0-35.0); Mean Corpuscular Hemoglobin 29.2 pg (27.0-33.0); Mean Corpuscular Volume 88.8 fL (80.0-98.0); Mean Platelet Volume 9.9 fL (9.4-12.3); Monocytes Absolute Auto 1.3 X10*3/uL (0.1-1.2); Monocytes Percent Auto 9.5 % (2-11); Neutrophils Absolute Auto 8.5 x10*3/uL (2.0-8.3); Neutrophils Percent Auto 63.8 % (45-73); Platelet Count 261 X10*3/uL (160-400); Red Blood Count 4.55 X10*6/uL (4.20-5.50); Red Cell Distribution Width 13.7 % (11.0-16.0); White Blood Count 13.4 X10*3/uL (4.8-10.8)
[2024-05-25 16:11] LABS: VBG Base Excess -11.2 mmol/L; VBG HCO3 14 mmol/L (22-26); VBG pCO2 32 mmHg; VBG pH 7.25 (7.32-7.43); VBG pO2 40 mmHg
[2024-05-25 16:18] LABS: Venous Blood Gas Refer to POC result
[2024-05-25 16:42] LABS: Troponin-I High Sensitivity 2.9 ng/L (<3.5-17.0)
[2024-05-25 17:02] LABS: Alanine Aminotransferase 17 U/L (0-31); Albumin Level 3.8 g/dL (3.5-5.0); Alkaline Phosphatase 57 U/L (39-117); Anion Gap 17 (12-20); Aspartate Amino Transferase 24 U/L (5-31); Bilirubin Direct 0.1 mg/dL (0.0-0.5); Bilirubin Total 0.6 mg/dL (0.0-1.0); Blood Urea Nitrogen 71 mg/dL (9-16); C Reactive Protein 1.72 mg/dL (< or = 0.50); Calcium 9.4 mg/dL (8.4-10.2); Carbon Dioxide 14 mmol/L (22-29); Chloride 108 mmol/L (96-108); Creatinine Clr Calc Pharmacy 10.7; Estimated Glomerular Filt Rate 11; Ethanol < 10 mg/dL; Glucose Random 104 mg/dL (60-115); Lipase 31 U/L (8-78); Magnesium 2.6 mg/dL (1.6-2.6); Potassium 5.3 mmol/L (3.3-5.1); Sodium 134 mmol/L (135-145); Total Protein 6.9 g/dL (6.5-8.0)
[2024-05-25] MEDS: Lactated Ringers 1,000 ML 999 ML IV ×2 (17:05→18:15)
[2024-05-25 18:22] LABS: Appearance Urine Clear; Color Urine Yellow; Glucose Urine UA Negative (Negative); Leukocyte Esterase Urine Negative (Negative); Nitrite Urine Negative (Negative); PH 5.5 (5.0-9.0); Specific Gravity - Urine <= 1.005 (1.005-1.025); UMIC TRIGGER UACC YES; Urine Blood Trace (Negative); Urine Ketones Negative (Negative); Urine Protein Negative (Neg-Trace)
[2024-05-25] MEDS: Hydrocortisone Sod Succ/PF 100 MG VIAL IVPUSH (18:23)
[2024-05-25 18:27] LABS: Bacteria Urine None Seen (None Seen); RBC Urine 0-2 /HPF (0-2); Squamous Epithelial Cell Urine 0-2 /HPF (0-2); WBC Urine 0-5 /HPF (0-5)
[2024-05-25] MEDS: Norepinephrine Bitartrate/D5W 8 MG/250 ML PLAST..BAG 4.54 MG IVCONT (19:41)
[2024-05-25 19:46] LABS: Procalcitonin 0.37 ng/mL
--- NOTE | 2024-05-25 19:51 | PC.NURSE ---
levophed titrated to protocal. pb 79/39 drip increased to 0.07
--- NOTE | 2024-05-25 19:55 | PC.NURSE ---
Lab called and urine for drug abuse is added on.
--- NOTE | 2024-05-25 20:08 | PC.NURSE ---
levophed in creased for by 88/43 at this time provider at bedside with administrative services specialist.
[2024-05-25 20:09] LABS: Amphetamine Screen Urine Not Detected (Not Detect); Barbiturates, Urine Not Detected (Not Detect); Benzodiazepines Screen Urine POSITIVE (Not Detect); Buprenorphine Scr Not Detected (Not Detect); Cannabinoid Screen Urine Not Detected (Not Detect); Cocaine Screen Urine Not Detected (Not Detect); Fentanyl, urine Not Detected (Not Detect); Methadone Screen, Urine Not Detected (Not Detect); Opiate Screen Urine Not Detected (Not Detect); Oxycodone Screen Urine Not Detected (Not Detect); Phencyclidine Screen Urine Not Detected (Not Detect)
[2024-05-25 20:11] LABS: VBG Base Excess -9.8 mmol/L; VBG HCO3 14 mmol/L (22-26); VBG pCO2 27 mmHg; VBG pH 7.32 (7.32-7.43); VBG pO2 70 mmHg
[2024-05-25 20:13] LABS: Venous Blood Gas Refer to POC result
[2024-05-25 20:25] LABS: Lactic Acid 1.4 mmol/L (0.5-2.0)
[2024-05-25 20:37] LABS: Anion Gap 10 (12-20); Beta-Hydroxybutyrate 0.18 mmol/L (0.02-0.27); Blood Urea Nitrogen 55 mg/dL (9-16); Calcium 8.3 mg/dL (8.4-10.2); Carbon Dioxide 16 mmol/L (22-29); Chloride 118 mmol/L (96-108); Creatinine Clr Calc Pharmacy 17.3; Estimated Glomerular Filt Rate 19; Glucose Random 91 mg/dL (60-115); Sodium 139 mmol/L (135-145)
[2024-05-25] MEDS: metroNIDAZOLE/NS 500 MG/100 ML PIGGYBACK 100 MG IV (20:39)
[2024-05-25] MEDS: cefTRIAXone sodium 2 GM VIAL IVPUSH (20:39)
[2024-05-25 20:48] LABS: Influenza A PCR NEGATIVE (Negative); Influenza B PCR NEGATIVE (Negative); Resp Syncy Virus RNA Qual PCR NEGATIVE (Negative); SARS COV2 PCR INHOUSE NEGATIVE (Negative)
--- NOTE | 2024-05-25 20:48 | PC.NURSE ---
provider only wanted 1 gram to be given of ceftriaxone. pt only received one gram.
--- NOTE | 2024-05-25 21:19 | PC.NURSE ---
Levophed titrated to 0.13 for bp 84/39
--- NOTE | 2024-05-25 21:31 | PC.NURSE ---
attempting to call [facility] [phone] no answer at this time.
[2024-05-25 21:32] LABS: Thyroid Stimulating Hormone 0.42 uIU/mL (0.32-4.0)
[2024-05-25] MEDS: cefEPime HCl/D5W 2 GM/50 ML PIGGYBACK IV (21:38)
[2024-05-25] MEDS: vancomycin HCL 1,250 MG in 0.9 % Sodium Chloride 250 ML 166.67 MG IV (21:45)
--- NOTE | 2024-05-25 21:50 | PC.NURSE ---
Levophed increased from 13mcg to 15 mcg for bp 90/39 map 55
--- NOTE | 2024-05-25 22:17 | PC.NURSE ---
levophed increased to a max 1mcg with good effect 113/57/75
--- NOTE | 2024-05-25 22:20 | PC.NURSE ---
rodriguez output 1000cc. emptied before transport.
--- NOTE | 2024-05-25 22:25 | PC.NURSE ---
levophed titrated back to 17mcg due to pb elevated at 1 mcg. 152/68
--- NOTE | 2024-05-25 22:28 | PC.NURSE ---
levophed pump battery malfunction and not charging. pump kept shutting off. pump changed out.
--- NOTE | 2024-05-25 22:46 | PC.NURSE ---
pt taken to [facility] at 2230 on a monitor, levophed, vancomycin, total urine output 1000 clear yellow. pt in no resp distress, pt is alert and oriented.
== END 2024-05-25 22:46 | disposition short-term general hospital (02) ==
PROVIDERS: Emergency Provider Emergency Medicine
DX: N17.9 Acute kidney failure, unspecified (principal); S09.90XA Unspecified injury of head, initial encounter; W19.XXXA Unspecified fall, initial encounter; Y93.9 Activity, unspecified; Y92.9 Unspecified place or not applicable; Y99.9 Unspecified external cause status; R42 Dizziness and giddiness; E03.9 Hypothyroidism, unspecified; Z03.818 Encounter for observation for suspected exposure to other biological agents ruled out
CPT/HCPCS: 0241U; 36415; 70450; 71045; 72125; 74176; 80048; 80076; 80307; 81001; 82010; 82803; 82947; 83605; 83690; 83735; 84145; 84443; 84484; 85025; 86140; 87040; 93005; 96361; 96365; 96375; 99285; J0692; J0696; J1720; J1836; J3371; J7120

== ENCOUNTER → 2024-05-25 15:50 | Outpatient (BNV) | payer OTHER, SELFPAY | PROVIDERS: Emergency Provider Emergency Medicine; Visit Provider Radiology Diagnostic Radiology | DX: R10.9 Unspecified abdominal pain (principal); N17.9 Acute kidney failure, unspecified; M54.2 Cervicalgia; R55 Syncope and collapse; I95.0 Idiopathic hypotension | CPT/HCPCS: 70450; 71045; 72125; 74176 ==

== ENCOUNTER → 2024-05-25 15:54 | Outpatient (BNV) | payer OTHER, SELFPAY | PROVIDERS: Emergency Provider Emergency Medicine; Visit Provider Internal Medicine Cardiovascular Disease | DX: R42 Dizziness and giddiness (principal) | CPT/HCPCS: 93010 ==

== ENCOUNTER 2024-06-06 12:52 | Outpatient (AMB) | payer OTHER, SELFPAY ==
[2024-06-06 12:54] VITALS: BP 100/60; PULSE 58; RESP 18; TEMP 36.3; O2SAT 99; BMI 19.8
--- NOTE | 2024-06-06 12:54 | A.OFFPC_ITS ---
Vital Signs 06/06/24 12:54 Height 5 ft 4 in Weight 115 lb 4.828 oz BMI 19.8 BP 100/60 Blood Pressure Location Lt brachial Position Sitting Respiration 18 Pulse 58 Pulse Source Pulse Oximeter Temp 97.3 F Temp Source Temporal Artery Scan Pulse Oximetry (%) 99 Oxygen Delivery Method Room Air Intake Visit Reasons: [facility] 05/30 Hypovolemic shock Intake Note: Patient is here for hospital discharge follow up. Patient was discharged from [facility] in [facility] on 05/30/2024. 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 Attendant Name: Used tablet- Jennifer [id number] Accompanied by: Self / Same As Patient Allergies bee pollen [BEE STINGS] Allergy (Severe, Verified 06/06/24 13:05) SWELLING Penicillins [PENICILLINS] Allergy (Severe, Verified 06/06/24 13:05) HIVES, THROAT CLOSES amitriptyline [AMITRIPTYLINE] Allergy (Intermediate, Verified 06/06/24 13:05) Agitation oxycodone [From PERCOCET] Adverse Reaction (Intermediate, Verified 06/06/24 13:05) DIZZINESS Tobacco use date assessed: 06/06/24 Dental Screening Dental Screen Date: 06/06/24 Did you have a dental visit in the last 12 months?: Yes Did you have a dental problem in the last 6 months where you did not have access to dental care?: No Was dental information given to patient?: Patient has dentist HPI HPI Comments History of Present Illness Details 63 y/o Female patient who presents to [facility] today for HDF. Pmhx significant for Bariatric surgery 2020 and Hypothyroidism. Pt was admitted at [facility] on 05/25 - 05/31 due to Hypovolemic Shock, Acute renal failure and Hypotension. Today Pt c/o back pain due to the fall she previously had, generalized body weakness and feeling unbalanced. Pt asking for [facility] [facility] to help with meal preparations, and cleaning. [facility] Medical History (Updated 06/06/24 @ 14:14 by Abby Weber NP) Weakness generalized Postsurgical dumping syndrome Hypovolemic shock Blurry vision Memory loss Physical exam Weakness of both hands Abnormal mammogram Right sided sciatica Right leg pain Hand numbness Hyperparathyroidism Iron deficiency anemia Mild asthma Insomnia Dyslipidemia Autoimmune thyroiditis Hypovitaminosis D Surgical History History of mammogram History of breast biopsy History of carpal tunnel release History of hysteroscopy H/O gastric bypass Status post dilation and curettage History of section History of cholecystectomy Family History Father CAD (coronary artery disease) Hypertension Diabetes Cerebral aneurysm Mother CAD (coronary artery disease) Thyroid cancer Sister Primary cancer of uterus Ovarian cancer Maternal Uncle Bone cancer Family/Other FH: mental illness Social History Household Members: Spouse Housing: House Alcohol intake: never Patient Tobacco Use Status: Never used Tobacco Tobacco use type: Cigarette e-Cigarette/Vaping Use: Never Used Second Hand Smoke Exposure: No service: No Current occupational status: disabled 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 1. Little interest or pleasure in doing things: not at all 2. Feeling down, depressed, or hopeless: nearly every day 3. Trouble falling or staying asleep, or sleeping too much: nearly every day 4. Feeling tired or having little energy: nearly every day Source: Developed by Drs. Alan Head, Evelin Saeed, Arias Small and colleagues, with an educational mahogany from [employer]. Thrive Questionnaire Date Thrive assessed: 06/06/24 I am a: Patient What is your living situation today?: I have a steady place to live Within the past 12 months, did the food you bought not last and you didn't have the money to get more?: Never true Within the past 12 months, did you worry whether your food would run out before you got money to buy more?: Never true Do you have trouble paying for medicines?: No Do you have trouble getting transportation to medical appointments?: Yes Do you have trouble paying your heating and electricity bill?: Yes Do you have trouble taking care of your child, family member or friend?: No Do you have trouble with day-to-day activities such as bathing, preparing meals, shopping, managing finances, etc.?: No Are you currently unemployed and looking for a job?: No Are you interested in more education?: No Please select the resources that you would like help with: Transportation and Utilities Currently or been in a relationship where the following occur: No concerns reported THRIVE Score: 2 AUDIT C Alcohol Use Questionnaire (AUDIT-C) 1. How often do you have a drink containing alcohol?: Never Total Score: 0 Score Reviewed/Action Taken: No NATA-7 AMB Questionnaire NATA-7 Date NATA - 7 assessed: 03/18/24 Source: Developed by Drs. Alan Head, Evelin Saeed, Arias Small and colleagues, with an educational mahogany from [employer]. Review of Systems Const All systems reviewed & are unremarkable except as noted in HPI and below Physical exam (Primary Care) Vital Signs: Last Vital Signs Temp 97.3 F 06/06/24 12:54 Pulse 58 06/06/24 12:54 Resp 18 06/06/24 12:54 BP 100/60 06/06/24 12:54 Pulse Ox 99 06/06/24 12:54 Oxygen Delivery Method Room Air 06/06/24 12:54 BMI result Body Mass Index 19.8 Tobacco/Smoking Status: Tobacco use Status Tobacco use date assessed 06/06/24 06/06/24 13:14 Patient Tobacco Use Status Never used Tobacco 06/06/24 12:56 Tobacco use type Cigarette 06/06/24 12:56 e-Cigarette/Vaping Use Never Used 06/06/24 12:56 Thrive Assessment: Date of Thrive Assessment Date Thrive assessed 06/06/24 06/06/24 13:14 Currently or been in a relationship where the following occur: No concerns reported Const General: no acute distress, lethargic and tired appearing; No comfortable Nutritional Appearance: thin Orientation/consciousness: patient oriented x3 and lethargic Limitations: language barrier and ambulation with walker Resp Effort & Inspection: normal respiratory effort Auscultation: clear to auscultation bilaterally Cardio Rhythm: regular rhythm Heart sounds: S1 normal heart sound present and S2 normal heart sound present GI Palpation (GI): Soft to palpation Auscultation: normal bowel sounds Neuro General: patient oriented x3 and moves all extremities Psych Speech and movement: Normal speech and movement present Coding Level of Care Code Est Pt Level 4 (47071) Diagnoses Hypovolemic shock R57.1 Postsurgical dumping syndrome K91.1 Weakness generalized R53.1 Time Spent (min) 20 Assessment & Plan Assessment & Plan (1) Hypovolemic shock: Code(s): R57.1 - Hypovolemic shock Category: Medical Plan: Resolved. (2) Postsurgical dumping syndrome: Code(s): K91.1 - Postgastric surgery syndromes Category: Medical Plan: Resolved Stable. (3) Weakness generalized: Code(s): R53.1 - Weakness Category: Medical Plan: Walks with a Walker. Will Request PCP to place Referral for [facility] services.
--- OUTSIDE RECORDS SUMMARY | 2024-06-06 13:32 | XMS_ITS | Continuity of Care Document ---
Author Organization [facility] Address [address] [place] [address] Phone Care Team Providers Care Sales Representative Jewelry Name Role Phone Unavailable Unavailable Unavailable Allergies, [...] Date Provider Providers Copied on Encounter [facility], [address] [place] [address], tel:[phone] [facility] Adult Medicine No Information [address] [facility], [address] [place] [address], tel:[phone] Conversion BODY MASS INDEX 34.0-34.9, ADULTEXERCISE COUNSELING [address] [facility], [address] [place] [address], tel:[phone] Conversion Patient Education - DietaryOBESITY [address] [facility], [address] [place] [address], tel:[phone] Conversion HYPERLIPIDEMIAD EPRESSIONVITAMI N D DEFICIENCY [address] [facility], [address] [place] [address], tel:[phone] Conversion PE W/ PAPSTD SCREEN No Information [facility], [address] [place], [address], [place] tel:[phone] [facility] No Information No Information Family [...]
== END 2024-06-06 14:39 | disposition home or self-care (01) ==
LOC: HO.HMCH 12:52
PROVIDERS: Visit Provider Nurse Practitioner Family
DX: R57.1 Hypovolemic shock (principal); K91.1 Postgastric surgery syndromes; R53.1 Weakness

== ENCOUNTER → 2024-06-06 12:52 | Outpatient (BNVA) | payer OTHER, SELFPAY | PROVIDERS: Visit Provider Nurse Practitioner Family | DX: R57.1 Hypovolemic shock (principal); K91.1 Postgastric surgery syndromes; R53.1 Weakness | CPT/HCPCS: 99212 ==

== ENCOUNTER 2024-07-17 13:13 | Emergency (ER) | payer OTHER, SELFPAY ==
--- NOTE | 2024-07-17 | ECG_ITS ---
Test Reason : DIZZINESS Blood Pressure : */* mmHG Vent. Rate : 52 BPM Atrial Rate : 52 BPM P-R Int : 162 ms QRS Dur : 82 ms QT Int : 434 ms P-R-T Axes : 44 50 45 degrees QTcB Int : 403 ms Sinus bradycardia Otherwise normal ECG When compared with ECG of 25-May-2024 16:10, No significant change was found Referred By: Generic ED Physician Electronically Signed By: DAVID PATEL
[2024-07-17 13:20] VITALS: BP 100/60; PULSE 55; RESP 17; TEMP 37; O2SAT 96; BMI 17.7
--- NOTE | 2024-07-17 16:13 | ED_ITS ---
HPI - Dizziness General Chief Complaint: Dizziness Stated Complaint: PT STS BACK PAIN,FAM STS ABN GAIT,RECENT REHAB D/C Time Seen by Provider: 07/17/24 16:08 Source: patient Mode of arrival: EMS Limitations: no limitations History of Present Illness ED Provider: HPI Narrative: Patient with chronic back pain neuropathy difficulty in walking was in rehab released last week comes here as she is still having the difficulty in walking patient does have superior plate complaining fracture of T11 denies any urinary complaints no fever no chills no nausea no vomiting no recent fall Related Data Home Medications ?Medication ?Instructions ?Recorded ?Confirmed folic acid 1 mg tablet 1 mg PO DAILY 06/06/24 loperamide 2 mg capsule mg PO 06/06/24 pantoprazole 20 mg tablet,delayed 20 mg PO DAILY 06/06/24 release sucralfate 100 mg/mL oral ml PO 06/06/24 suspension thiamine HCl (vitamin B1) 100 mg 100 mg PO DAILY 06/06/24 capsule Previous Rx's ?Medication ?Instructions ?Recorded walker #1 ea 08/04/21 lancets 28 gauge #100 ea 03/11/22 epinephrine 0.3 mg/0.3 mL 0.3 mg (0.3 mL) IM DIRECTED PRN 07/13/22 injection, auto-injector anaphylaxis 1 day #0.3 ea adult diapers pull-ups #120 ea 11/09/22 back brace #1 ea 11/09/22 blood sugar diagnostic (FreeStyle 1 strip miscellaneous TID 90 days 12/07/22 Lite Strips) #300 strips silver sulfadiazine 1 % topical 1 appl topical BID #50 grams 12/07/22 cream (Silvadene) ergocalciferol (vitamin D2) 1,250 1,250 mcg PO 2XW #10 caps 08/09/23 mcg (50,000 unit) capsule calcium citrate 500 mg (2 x 250 mg calcium) PO BID 02/07/24 #360 tabs tizanidine 2 mg tablet 2 mg PO BID PRN muscle spasticity 02/12/24 #60 tabs levothyroxine 88 mcg tablet 88 mcg PO DAILY 90 days #90 tabs 05/02/24 Ventolin HFA 90 mcg/actuation 2 puff inhalation Q6H PRN 05/23/24 aerosol inhaler (albuterol sulfate) shortness of breath or wheezing 30 days #8 grams acetaminophen 500 mg tablet 500 mg PO Q6H PRN fever or pain 05/23/24 (Tylenol Extra Strength) #14 tabs fluticasone furoate 50 1 inh inhalation DAILY 30 days #30 05/23/24 mcg/actuation blister powder for ea inhalation (Arnuity Ellipta) gabapentin 400 mg capsule 400 mg PO TID 30 days #90 caps 05/23/24 rosuvastatin 40 mg tablet 40 mg PO DAILY 90 days #90 tabs 05/23/24 trazodone 100 mg tablet 100 mg PO BEDTIME PRN sleep 90 05/23/24 days #90 tabs celecoxib 50 mg capsule 50 mg PO BID #60 caps 06/05/24 cholecalciferol (vitamin D3) 125 125 mcg PO DAILY #90 caps 06/05/24 mcg (5,000 unit) capsule tramadol 50 mg tablet 50 mg PO Q8-10H PRN pain #20 tabs 07/17/24 Allergies Allergy/AdvReac Type Severity Reaction Status Date / Time bee pollen [BEE STINGS] Allergy Severe SWELLING Verified 07/17/24 13:28 Penicillins [PENICILLINS] Allergy Severe HIVES, Verified 07/17/24 13:28 THROAT CLOSES amitriptyline [AMITRIPTYLINE] Allergy Intermediate Agitation Verified 07/17/24 13:28 oxycodone [From PERCOCET] AdvReac Intermediate DIZZINESS Verified 07/17/24 13:28 Review of Systems 2 Review of Systems: Yes all other systems are reviewed and are negative PMFSH Past Medical History Medical History Weakness generalized Postsurgical dumping syndrome Hypovolemic shock Blurry vision Memory loss Physical exam Weakness of both hands Abnormal mammogram Right sided sciatica Right leg pain Hand numbness Hyperparathyroidism Iron deficiency anemia Mild asthma Insomnia Dyslipidemia Autoimmune thyroiditis Hypovitaminosis D Surgical History History of mammogram History of breast biopsy History of carpal tunnel release History of hysteroscopy H/O gastric bypass Status post dilation and curettage History of section History of cholecystectomy Family History Family History Father CAD (coronary artery disease) Hypertension Diabetes Cerebral aneurysm Mother CAD (coronary artery disease) Thyroid cancer Sister Primary cancer of uterus Ovarian cancer Maternal Uncle Bone cancer Family/Other FH: mental illness Social History Social History Household Members: Spouse Housing: House Alcohol intake: never Patient Tobacco Use Status: Never used Tobacco Tobacco use type: Cigarette Smoked in Last 30 Days: No e-Cigarette/Vaping Use: Never Used Second Hand Smoke Exposure: No Use of substances other than those prescribed or required for medical reasons: No Advance Directives: No Advance Directives Information Provided: No Do you have a plan to hurt others: No Plan service: No Current occupational status: disabled 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 Oriented X3. No acute distress. Eyes: No pallor or icterus ENT: Pharynx normal. Oral Mucosa moist Neck: Normal inspection. Neck supple. CVS: Normal heart rate and rhythm. Pulses normal. Respiratory: No respiratory distress. Equal air entry bilateral, no wheezing/rales/rhonchi Abdomen: Soft and nontender. Bowel sounds are present, no mass palpable, no CVA tenderness Skin: Skin warm and dry. Normal skin color. Normal skin turgor. Extremities: No lower extremity edema. No calf tenderness Back: Diffuse lumbar and paraspinal tenderness Neuro: Oriented X 3. No motor deficit. No sensory deficit.No cerebellar signs , cranial nerves II-XII intact Medications Administered Discontinued Medications Generic Name Dose Route Start Last Admin Trade Name Freq PRN Reason Stop Dose Admin Sodium Chloride 1,000 mls @ 999 mls/hr 07/17/24 17:00 07/17/24 19:35 Ns IV 07/17/24 18:00 Infused .Q1H1M ONE Infusion Ketorolac Tromethamine 30 mg 07/17/24 16:59 07/17/24 18:25 Ketorolac Tromethamine 30 Mg/Ml Vial IVPUSH 07/17/24 17:00 30 mg ONCE ONE Administration Medical Decision Making Medical Decision Making [facility] Narrative: Patient has chronic back pain comes here for similar pain workup is negative essentially after pain management patient is able to stand up and ambulate with the assistance Lab Data [facility] Lab Attestation statement: I reviewed the patient's lab results. 07/17/24 16:33 07/17/24 16:33 Labs: Lab Results 07/17/24 Range/Units 16:33 WBC 5.2 (4.8-10.8) X10*3/uL RBC 3.83 L (4.20-5.50) X10*6/uL Hgb 11.1 L (12.0-16.0) g/dl Hct 33.4 L (37.0-47.0) % MCV 87.2 (80.0-98.0) fL MCH 29.0 (27.0-33.0) pg MCHC 33.2 (31.0-35.0) g/dl RDW 12.5 (11.0-16.0) % Plt Count 215 (160-400) X10*3/uL MPV 10.0 (9.4-12.3) fL Immature Gran % (Auto) 0.2 (0.0-0.4) % Neut % (Auto) 35.3 L (45-73) % Lymph % (Auto) 48.9 H (20-40) % Cochran % (Auto) 10.3 (2-11) % Eos % (Auto) 4.0 (0-4) % Baso % (Auto) 1.3 (0-2) % Lymph # (Auto) 2.6 (1.2-4.9) X10*3/uL Cochran # (Auto) 0.5 (0.1-1.2) X10*3/uL Eos # (Auto) 0.2 (0.0-0.4) X10*3/uL Baso # (Auto) 0.1 (0.0-0.2) X10*3/uL Abs Immat Gran (auto) 0.01 (0.00-0.03) X10*3/uL Absolute Neuts (auto) 1.8 L (2.0-8.3) x10*3/uL Absolute Nucleated RBC 0.000 (0.0-0.012) X10*3/uL Nucleated RBC % (auto) 0.0 (0.0-0.2) /100WBC Sodium 142 (135-145) mmol/L Potassium 4.3 (3.3-5.1) mmol/L Chloride 112 H (96-108) mmol/L Carbon Dioxide 23 (22-29) mmol/L Anion Gap 11 L (12-20) BUN 9 (9-16) mg/dL Creatinine 0.91 (0.5-1.4) mg/dL Estim Creat Clear Calc 46.4 Estimated GFR > 60 Random Glucose 87 (60-115) mg/dL Calcium 9.1 D (8.4-10.2) mg/dL Magnesium 1.9 (1.6-2.6) mg/dL Total Bilirubin 0.3 (0.0-1.0) mg/dL AST 104 H (5-31) U/L ALT 138 H (0-31) U/L Alkaline Phosphatase 49 (39-117) U/L Troponin I High Sens < 2.7 (<3.5-17.0) ng/L Total Protein 6.0 L (6.5-8.0) g/dL Albumin 3.5 (3.5-5.0) g/dL TSH 0.18 L (0.32-4.0) uIU/mL Discharge Plan Discharge Clinical Impression: Chronic back pain Patient Disposition: Home, Self-Care Instructions: Chronic Back Pain (DC) Additional Instructions: Continue take your pain medications as prescribed by your PCP Start taking tramadol 1 tablet every 8 hours as needed for severe pain Follow up with your PCP Prescriptions: New tramadol 50 mg tablet 50 mg PO Q8-10H PRN (Reason: pain) Qty: 20 0RF No Action (DME) lancets 28 gauge misc See Rx Instructions topical TID Qty: 100 10RF Rx Instructions: Use 1 lancet TID FreeStyle Lite Strips Strip 1 strip miscellaneous TID 90 Days Qty: 300 3RF silver sulfadiazine [Silvadene] 1 % cream 1 appl topical BID Qty: 50 0RF Rx Instructions: apply a 1.5 mm thickness calcium citrate 250 mg calcium tablet 500 mg PO BID Qty: 360 1RF tizanidine 2 mg tablet 2 mg PO BID PRN (Reason: muscle spasticity) Qty: 60 0RF Rx Instructions: Make cause drowsiness, do not take with alcohol or other NURSE'S AIDES TEACHER depressants. levothyroxine 88 mcg tablet 88 mcg PO DAILY 90 Days Qty: 90 0RF acetaminophen [Tylenol Extra Strength] 500 mg tablet 500 mg PO Q6H PRN (Reason: fever or pain) Qty: 14 0RF Arnuity Ellipta 50 mcg/actuation blister with device 1 inh inhalation DAILY 30 Days Qty: 30 2RF gabapentin 400 mg capsule 400 mg PO TID 30 Days Qty: 90 1RF rosuvastatin 40 mg tablet 40 mg PO DAILY 90 Days Qty: 90 0RF trazodone 100 mg tablet 100 mg PO BEDTIME PRN (Reason: sleep) 90 Days Qty: 90 1RF albuterol sulfate [Ventolin HFA] 90 mcg/actuation HFA aerosol inhaler 2 puff inhalation Q6H PRN (Reason: shortness of breath or wheezing) 30 Days Qty: 8 2RF cholecalciferol (vitamin D3) 125 mcg (5,000 unit) capsule 125 mcg PO DAILY Qty: 90 2RF celecoxib 50 mg capsule 50 mg PO BID Qty: 60 1RF Rx Instructions: Discontinue use of ibuprofen or other nonsteroidal anti-inflammatory medications. Take with food (DME) walker Misc See Rx Instructions .Route Qty: 1 0RF Rx Instructions: WITH SEAT AND WHEELS epinephrine 0.3 mg/0.3 mL auto-injector 0.3 mg IM DIRECTED PRN (Reason: anaphylaxis) 1 Days Qty: 0.3 1RF (DME) adult diapers pull-ups small See Rx Instructions .Route .MEDSUPPLY Qty: 120 6RF Rx Instructions: As directed (DME) back brace Misc See Rx Instructions .Route Qty: 1 0RF Rx Instructions: As directed ergocalciferol (vitamin D2) 1,250 mcg (50,000 unit) capsule 1,250 mcg PO 2XW Qty: 10 4RF folic acid 1 mg tablet 1 mg PO DAILY pantoprazole 20 mg tablet,delayed release (DR/EC) 20 mg PO DAILY sucralfate 100 mg/mL suspension PO loperamide 2 mg capsule PO thiamine HCl (vitamin B1) 100 mg capsule 100 mg PO DAILY Interventions: ED Discharge Assessment Last Done: 07/17/24 21:01 Discharge Date/Time: 07/17/24 21:10 Print Language: Swedish
[2024-07-17 16:28] VITALS: BP 93/60; PULSE 52; RESP 14; TEMP 36.7; O2SAT 99
[2024-07-17 16:37] LABS: MANUAL DIFF FLAG NO
--- OUTSIDE RECORDS SUMMARY | 2024-07-17 16:38 | XMS_ITS | Continuity of Care Document ---
Author Organization [facility] Address [address] [place] [address] Phone Care Team Providers Care Dehydrator Tender Name Role Phone Unavailable Unavailable Unavailable Allergies, [...] Diagnoses Date Provider Providers Copied on Encounter [facility], [address] [place] [address], tel:[phone] [facility] Adult Medicine No Information 2 No Information [facility], [address] [place] [address], tel:[phone] Conversion BODY MASS INDEX 34.0-34.9, ADULTEXERCISE COUNSELING 2 No Information [facility], [address] [place] [address], tel:[phone] Conversion Patient Education - DietaryOBESITY 2 No Information [facility], [address] [place] [address], tel:[phone] Conversion HYPERLIPIDEMIAD EPRESSIONVITAMI N D DEFICIENCY 1 No Information [facility], [address] [place] [address], tel:[phone] Conversion PE W/ PAPSTD SCREEN No Information [facility], [address] [place], [address], [place] tel:[phone] [facility] No Information No Information Family History [...]
[2024-07-17 16:39] LABS: Basophils Absolute Auto 0.1 X10*3/uL (0.0-0.2); Basophils Percent Auto 1.3 % (0-2); Eosinophils Absolute Auto 0.2 X10*3/uL (0.0-0.4); Hematocrit 33.4 % (37.0-47.0); Hemoglobin 11.1 g/dl (12.0-16.0); Imm Gran Abs Auto 0.01 X10*3/uL (0.00-0.03); Imm Gran Pct Auto 0.2 % (0.0-0.4); Lymphocytes Absolute Auto 2.6 X10*3/uL (1.2-4.9); Lymphocytes Percent Auto 48.9 % (20-40); Mean Corpuscular HGB Conc 33.2 g/dl (31.0-35.0); Mean Corpuscular Volume 87.2 fL (80.0-98.0); Monocytes Absolute Auto 0.5 X10*3/uL (0.1-1.2); Monocytes Percent Auto 10.3 % (2-11); Neutrophils Absolute Auto 1.8 x10*3/uL (2.0-8.3); Neutrophils Percent Auto 35.3 % (45-73); Platelet Count 215 X10*3/uL (160-400); Red Blood Count 3.83 X10*6/uL (4.20-5.50); Red Cell Distribution Width 12.5 % (11.0-16.0); White Blood Count 5.2 X10*3/uL (4.8-10.8)
[2024-07-17 17:06] LABS: Alanine Aminotransferase 138 U/L (0-31); Albumin Level 3.5 g/dL (3.5-5.0); Alkaline Phosphatase 49 U/L (39-117); Anion Gap 11 (12-20); Aspartate Amino Transferase 104 U/L (5-31); Bilirubin Total 0.3 mg/dL (0.0-1.0); Blood Urea Nitrogen 9 mg/dL (9-16); Calcium 9.1 mg/dL (8.4-10.2); Carbon Dioxide 23 mmol/L (22-29); Chloride 112 mmol/L (96-108); Creatinine Clr Calc Pharmacy 46.4; Estimated Glomerular Filt Rate > 60; Glucose Random 87 mg/dL (60-115); Magnesium 1.9 mg/dL (1.6-2.6); Potassium 4.3 mmol/L (3.3-5.1); Sodium 142 mmol/L (135-145)
[2024-07-17 17:07] LABS: Troponin-I High Sensitivity < 2.7 ng/L (<3.5-17.0)
[2024-07-17 17:21] LABS: Thyroid Stimulating Hormone 0.18 uIU/mL (0.32-4.0)
[2024-07-17 18:15] VITALS: BP 106/67; PULSE 50; RESP 12; TEMP 36.6; O2SAT 98
[2024-07-17] MEDS: Ketorolac Tromethamine 30 MG/ML VIAL IVPUSH (18:25)
[2024-07-17] MEDS: 0.9 % Sodium Chloride 1,000 ML 999 ML IV (18:34)
[2024-07-17 20:27] VITALS: BP 100/63; PULSE 54; RESP 12; TEMP 36.6; O2SAT 98
--- NOTE | 2024-07-17 21:00 | PC.NURSE ---
Pt ambulated x1 assist, no increase in symptoms; pt and family comfortable being d/c'd home.
[2024-07-17 21:01] VITALS: BP 100/63; PULSE 54; RESP 12; TEMP 36.6; O2SAT 98
== END 2024-07-17 21:10 | disposition home or self-care (01) ==
PROVIDERS: Emergency Provider Internal Medicine; PCP Internal Medicine
DX: M54.50 Low back pain, unspecified (principal); R42 Dizziness and giddiness; R26.2 Difficulty in walking, not elsewhere classified; R00.1 Bradycardia, unspecified; Z79.899 Other long term (current) drug therapy
CPT/HCPCS: 36415; 80053; 83735; 84443; 84484; 85025; 93005; 96361; 96374; 99284; 99285; J1885

== ENCOUNTER → 2024-07-17 13:49 | Outpatient (BNV) | payer OTHER, SELFPAY | PROVIDERS: Emergency Provider Internal Medicine; PCP Internal Medicine; Visit Provider Internal Medicine | DX: R00.1 Bradycardia, unspecified (principal) | CPT/HCPCS: 93010 ==

== ENCOUNTER 2024-07-28 07:17 | Outpatient (AMB) | payer OTHER, SELFPAY ==
--- OUTSIDE RECORDS SUMMARY | 2024-07-28 07:19 | XMS_ITS | Continuity of Care Document ---
Author Organization [facility] Address [address] [place] [address] Phone Care Team Providers Care Pelletizer Name Role Phone Unavailable Unavailable Unavailable Allergies, [...] Diagnoses Date Provider Providers Copied on Encounter [facility], [address] [place] [address], tel:[phone] [facility] Adult Medicine No Information 2 No Information [facility], [address] [place] [address], tel:[phone] Conversion BODY MASS INDEX 34.0-34.9, ADULTEXERCISE COUNSELING 2 No Information [facility], [address] [place] [address], tel:[phone] Conversion Patient Education - DietaryOBESITY 2 No Information [facility], [address] [place] [address], tel:[phone] Conversion HYPERLIPIDEMIAD EPRESSIONVITAMI N D DEFICIENCY 1 No Information [facility], [address] [place] [address], tel:[phone] Conversion PE W/ PAPSTD SCREEN No Information [facility], [address] [place], [address], [place] tel:[phone] [facility] No Information No Information Family History Family [...]
--- NOTE | 2024-07-28 07:32 | MHC.PC.OV ---
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 Accompanied by: Spouse Allergies bee pollen [BEE STINGS] Allergy (Severe, Verified 07/28/24 07:38) SWELLING Penicillins [PENICILLINS] Allergy (Severe, Verified 07/28/24 07:38) HIVES, THROAT CLOSES amitriptyline [AMITRIPTYLINE] Allergy (Intermediate, Verified 07/28/24 07:38) Agitation oxycodone [From PERCOCET] Adverse Reaction (Intermediate, Verified 07/28/24 07:38) DIZZINESS Medication List - Last Reconciled 07/28/24 by Deborah Hernandez MD acetaminophen (Tylenol Extra Strength) 500 mg PO Q6H PRN [adult diapers pull-ups As directed] back brace As directed blood sugar diagnostic (FreeStyle Lite Strips) 1 strip miscellaneous TID 90 days calcium citrate 500 mg (2 x 250 mg calcium) PO BID celecoxib 50 mg PO BID cholecalciferol (vitamin D3) 125 mcg PO DAILY epinephrine 0.3 mg (0.3 mL) IM DIRECTED PRN 1 day ergocalciferol (vitamin D2) 1,250 mcg PO 2XW fluticasone furoate 50 mcg/actuation (Arnuity Ellipta) 1 inh inhalation DAILY 30 days folic acid 1 mg PO DAILY gabapentin 400 mg PO TID 30 days lancets Use 1 lancet TID levothyroxine 88 mcg PO DAILY 90 days loperamide mg PO pantoprazole 20 mg PO DAILY rosuvastatin 40 mg PO DAILY 90 days silver sulfadiazine 1% (Silvadene) 1 appl topical BID sucralfate mL PO thiamine HCl (vitamin B1) 100 mg PO DAILY tizanidine 2 mg PO BID PRN tramadol 50 mg PO Q8-10H PRN trazodone 100 mg PO BEDTIME PRN 90 days Ventolin HFA 90 mcg/actuation (albuterol sulfate) 2 puffs inhalation Q6H PRN 30 days NS walker WITH SEAT AND WHEELS Tobacco use date assessed: 06/06/24 Dental Screening Dental Screen Date: 06/06/24 HPI HPI Comments History of Present Illness Details The patient is a 63-year-old female presenting with a follow-up after discharge from [facility] and to address ongoing health concerns such as low back pain radiating to the legs causing bilateral leg numbness and weakness. She is currently in a wheelchair accompanied by due to multiple falls. She is not able to walk over 1 block due to leg weakness. Also has urinary incontinence. Had CT of the chest and abdomen done at [facility] while she was there showing mild chronic compression fracture of T11 which this has been present for over 6 months. Will be referred to pain management for this matter. The patient has a history of a chronic compression fracture at T11, which was identified in a previous MRI. No surgical intervention such as kyphoplasty has been performed for this fracture. She has been diagnosed with hyperparathyroidism, which is being monitored. The patient also has anemia with a hemoglobin level of 11.1 g/dL, which is being observed. Laboratory tests have shown elevated liver enzymes, though specific values were not discussed. The patient reports urinary incontinence, experiencing involuntary urine leakage. She has a history of hypothyroidism, currently managed with levothyroxine, which is being adjusted from 88 mcg to 75 mcg. Osteoporosis is also a concern, though no specific treatment was mentioned during the conversation. [facility] Medical History (Updated 07/28/24 @ 09:47 by Deborah Hernandez MD) Weakness generalized Postsurgical dumping syndrome Hypovolemic shock Blurry vision Memory loss Physical exam Weakness of both hands Abnormal mammogram Right sided sciatica Right leg pain Hand numbness Hyperparathyroidism Iron deficiency anemia Mild asthma Insomnia Dyslipidemia Autoimmune thyroiditis Hypovitaminosis D Surgical History History of mammogram History of breast biopsy History of carpal tunnel release History of hysteroscopy H/O gastric bypass Status post dilation and curettage History of section History of cholecystectomy Family History Father CAD (coronary artery disease) Hypertension Diabetes Cerebral aneurysm Mother CAD (coronary artery disease) Thyroid cancer Sister Primary cancer of uterus Ovarian cancer Maternal Uncle Bone cancer Family/Other FH: mental illness Social History Household Members: Spouse Housing: House Alcohol intake: never Patient Tobacco Use Status: Never used Tobacco e-Cigarette/Vaping Use: Never Used Second Hand Smoke Exposure: No service: No Current occupational status: disabled 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 1. Little interest or pleasure in doing things: not at all 2. Feeling down, depressed, or hopeless: not at all 3. Trouble falling or staying asleep, or sleeping too much: not at all 4. Feeling tired or having little energy: not at all 5. Poor appetite or overeating: more than half the days 6. Feeling bad about yourself - or that you are a failure or have let yourself or your family down: not at all 7. Trouble concentrating on things, such as reading the newspaper or watching television: not at all 8. Moving or speaking so slowly that other people could have noticed. Or the opposite - being so fidgety or restless that you have been moving around a lot more than usual: more than half the days 9. Thoughts that you would be better off or of hurting yourself in some way: not at all Total score: 4 Depression Screening Interpretation: Positive Depression Screening Follow-up: Existing condition and Follow-up Visit Requested Depression Screening Done: Yes 33368 - PHQ-9 Billing: Yes Source: Developed by Drs. Alan Head, Evelin Saeed, Arias Small and colleagues, with an educational mahogany from [employer]. Thrive Questionnaire Date Thrive assessed: 06/06/24 I am a: Patient What is your living situation today?: I have a steady place to live Within the past 12 months, did the food you bought not last and you didn't have the money to get more?: Never true Within the past 12 months, did you worry whether your food would run out before you got money to buy more?: Never true Do you have trouble paying for medicines?: Yes Do you have trouble getting transportation to medical appointments?: Yes Do you have trouble paying your heating and electricity bill?: Yes Do you have trouble taking care of your child, family member or friend?: Yes Do you have trouble with day-to-day activities such as bathing, preparing meals, shopping, managing finances, etc.?: Yes Are you currently unemployed and looking for a job?: Yes Are you interested in more education?: Yes Please select the resources that you would like help with: None Currently or been in a relationship where the following occur: No concerns reported THRIVE Score: 2 AUDIT C Alcohol Use Questionnaire (AUDIT-C) 1. How often do you have a drink containing alcohol?: Never Total Score: 0 Score Reviewed/Action Taken: No NATA-7 AMB Questionnaire NATA-7 Date NATA - 7 assessed: 07/28/24 Feeling nervous, anxious, or on edge: 2 = More than half the days Not being able to stop or control worryin = More than half the days Worrying too much about different things: 2 = More than half the days Trouble relaxin = More than half the days Being so restless that it is hard to sit still: 2 = More than half the days Becoming easily annoyed or irritable: 0 = Not at all Feeling afraid as if something awful might happen: 2 = More than half the days Total NATA-7 score (0-4 normal; 5-9 mild; 10-14 moderate; 15-21 severe): 12 Source: Developed by Drs. Alan Head, Evelin Saeed, Arias Small and colleagues, with an educational mahogany from [employer]. NATA-7 Assessment Billing NATA-7 Assessment Tool: NATA-7 Assessment 78085 Review of Systems Const All systems reviewed & are unremarkable except as noted in HPI and below Card Denies chest pain at rest, Denies chest pain with activity, Denies edema, Denies irregular heart rhythm, Denies claudication, Denies dyspnea, Denies dyspnea on exertion, Denies orthopnea, Denies paroxysmal nocturnal dyspnea and Denies slow heart rate Resp Denies cough, Denies dyspnea and Denies dyspnea on exertion GI Denies abdominal pain, Denies change in bowel habits, Denies excessive flatus, Denies nausea and Denies vomiting Denies urinary incontinence, Denies urinary hesitancy and Denies urinary urgency Neuro Denies lack of coordination Physical exam (Primary Care) Vital Signs: Last Vital Signs BP 110/72 07/28/24 07:36 BMI result Body Mass Index 20.4 Tobacco/Smoking Status: Tobacco use Status Tobacco use date assessed 06/06/24 07/28/24 07:33 Patient Tobacco Use Status Never used Tobacco 07/28/24 07:33 Tobacco use type 07/28/24 07:43 e-Cigarette/Vaping Use Never Used 07/28/24 07:33 PHQ-9: PHQ-9 Score PHQ-9: Total score 4 07/28/24 07:51 Depression Screening Interpretation: Positive Depression Screening Follow-up: Existing condition and Follow-up Visit Requested Thrive Assessment: Date of Thrive Assessment Date Thrive assessed 06/06/24 07/28/24 07:33 Currently or been in a relationship where the following occur: No concerns reported Resp Effort & Inspection: normal respiratory effort Auscultation: clear to auscultation bilaterally Cardio Jugular venous distension: no JVD Rate: regular rate Rhythm: regular rhythm Heart sounds: S1 normal heart sound present and S2 normal heart sound present Extrem General: Yes full ROM Coding Level of Care Code Est Pt Level 4 (54092) Complex EM visit Add On G2211 Diagnoses Compression fracture of T11 vertebra S22.080A Transaminitis R74.01 Weakness generalized R53.1 Lumbar facet arthropathy M47.816 Hyperparathyroidism E21.3 Autoimmune thyroiditis E06.3 Iron deficiency anemia D50.9 Osteoporosis M81.0 Additional Codes NATA-7 Assessment Billing - NATA-7 Assessment Tool: NATA-7 Assessment 63889 ([id number]) PHQ-9 - 18922 - PHQ-9 Billing: Yes ([id number]) Time Spent (min) 23 Assessment & Plan Assessment & Plan (1) Compression fracture of T11 vertebra: Code(s): S22.080A - Wedge compression fracture of T11-T12 vertebra, initial encounter for closed fracture Category: Medical (2) Transaminitis: Code(s): R74.01 - Elevation of levels of liver transaminase levels Category: Medical (3) Weakness generalized: Code(s): R53.1 - Weakness Category: Medical (4) Lumbar facet arthropathy: Code(s): M47.816 - Spondylosis without myelopathy or radiculopathy, lumbar region Category: Medical (5) Hyperparathyroidism: Code(s): E21.3 - Hyperparathyroidism, unspecified Category: Medical (6) Autoimmune thyroiditis: Code(s): E06.3 - Autoimmune thyroiditis Category: Medical (7) Iron deficiency anemia: Code(s): D50.9 - Iron deficiency anemia, unspecified Category: Medical (8) Osteoporosis: Code(s): M81.0 - Age-related osteoporosis without current pathological fracture Category: Medical Plan The patient will continue monitoring for hyperparathyroidism and anemia, with follow-up laboratory tests to assess current status. The levothyroxine dosage for hypothyroidism will be adjusted from 88 mcg to 75 mcg, with repeat thyroid function tests planned to evaluate the effectiveness of this change. For the chronic compression fracture at , no surgical intervention is planned at this time, but pain management and monitoring will continue. The patient is advised to manage urinary incontinence with lifestyle modifications and to follow up if symptoms persist or worsen. Osteoporosis management will be considered in future visits, with potential referrals to endocrinology or rheumatology for further evaluation. Patient was informed and verbally consented to the use of an ambient scribe for clinic note documentation during this visit. Orders: Orders Thyroid Stimulating Hormone 6 Weeks E06.3 - Autoimmune thyroiditis Liver Panel Today R74.01 - Elevation of levels of liver transaminase levels US abdomen frey w elastography Today R74.01 - Elevation of levels of liver transaminase levels Lipid Panel Today E78.5 - Hyperlipidemia, unspecified Vitamin D 25-OH Total Today E55.9 - Vitamin D deficiency, unspecified Parathyroid Hormone Intact Today E21.3 - Hyperparathyroidism, unspecified Phosphorus Today E21.3 - Hyperparathyroidism, unspecified Calcium, Ionized Today E21.3 - Hyperparathyroidism, unspecified Referrals Pain Management Referral S22.080A - Wedge compression fracture of T11-T12 vertebra, initial encounter for closed fracture Medications: New levothyroxine 75 mcg PO DAILY 90 tabs 1RF 90 days pantoprazole 40 mg PO DAILY 90 tabs 1RF 90 days Changed From thiamine HCl (vitamin B1) 100 mg PO DAILY To thiamine HCl (vitamin B1) 100 mg PO DAILY 90 caps 1RF 90 days From sucralfate PO To sucralfate 1 mL PO BID 180 mL 1RF 90 days Refilled gabapentin 400 mg PO TID 90 caps 1RF 30 days rosuvastatin 40 mg PO DAILY 90 tabs 0RF 90 days tramadol 50 mg PO Q8-10H PRN 20 tabs 0RF pain Discontinued levothyroxine Discontinued Reason: Patient Completed Course 88 mcg PO DAILY 90 days 90 tabs 0RF Patient Instructions: - Continue monitoring for hyperparathyroidism and anemia with follow-up lab tests. - Adjust levothyroxine dosage to 75 mcg and repeat thyroid function tests. - Manage urinary incontinence with lifestyle changes and follow up if symptoms persist. - Consider osteoporosis management in future visits.
[2024-07-28 07:36] VITALS: BP 110/72; BMI 20.4
== END 2024-07-28 08:04 | disposition home or self-care (01) ==
LOC: HO.HMCH 07:17
PROVIDERS: PCP Internal Medicine; Visit Provider Internal Medicine
DX: S22.080A Wedge compression fracture of T11-T12 vertebra, initial encounter for closed fracture (principal); R74.01 Elevation of levels of liver transaminase levels; R53.1 Weakness; M47.816 Spondylosis without myelopathy or radiculopathy, lumbar region; E21.3 Hyperparathyroidism, unspecified; E06.3 Autoimmune thyroiditis; D50.9 Iron deficiency anemia, unspecified; M81.0 Age-related osteoporosis without current pathological fracture

== ENCOUNTER → 2024-07-28 07:17 | Outpatient (BNVA) | payer OTHER, SELFPAY | PROVIDERS: PCP Internal Medicine; Visit Provider Internal Medicine | DX: M47.816 Spondylosis without myelopathy or radiculopathy, lumbar region (principal); R53.1 Weakness; R32 Unspecified urinary incontinence; E21.3 Hyperparathyroidism, unspecified; D64.9 Anemia, unspecified; E03.9 Hypothyroidism, unspecified; R74.01 Elevation of levels of liver transaminase levels; E06.3 Autoimmune thyroiditis; D50.9 Iron deficiency anemia, unspecified; M81.0 Age-related osteoporosis without current pathological fracture; S22.080D Wedge compression fracture of T11-T12 vertebra, subsequent encounter for fracture with routine healing; X58.XXXD Exposure to other specified factors, subsequent encounter; Z91.81 History of falling | CPT/HCPCS: 96127; 99212 ==

== ENCOUNTER 2024-08-05 08:37 | Outpatient (REF) | payer OTHER, SELFPAY ==
--- OUTSIDE RECORDS SUMMARY | 2011-05-08 20:00 | XMS_ITS | Continuity of Care Document ---
Author Organization [facility] vices Address [address] [place] [address] Phone Care Team Providers Care Side Sawyer Name Role Phone Unavailable Unavailable Unavailable Allergies, [...] Diagnoses Date Provider Providers Copied on Encounter [facility], [address] [place] [address], tel:[phone] [facility] Adult Medicine No Information 2 No Information [facility], [address] [place] [address], tel:[phone] Conversion BODY MASS INDEX 34.0-34.9, ADULTEXERCISE COUNSELING 2 No Information [facility], [address] [place] [address], tel:[phone] Conversion Patient Education - DietaryOBESITY 2 No Information [facility], [address] [place] [address], tel:[phone] Conversion HYPERLIPIDEMIAD EPRESSIONVITAMI N D DEFICIENCY 1 No Information [facility], [address] [place] [address], tel:[phone] Conversion PE W/ PAPSTD SCREEN No Information [facility], [address] [place], [address], [place] tel:[phone] [facility] No Information No Information Family History Family [...]
[2024-08-05 09:32] LABS: Creatinine, mg/dL 86.13
[2024-08-05 09:51] LABS: Creatinine, 24Hr Urine 0.9 G/Day (1.0-2.0); Total Volume 24 Hour Urine 1000 mL
[2024-08-06 17:39] LABS: Calcium, 24 Hr Urine 150 mg/24 h; Calcium/Creatinine Ratio 170 mg/g creat (30-275); Creatinine 24Hr Urine 0.88 g/24 h (0.50-2.15)
== END 2024-08-05 08:38 | disposition home or self-care (01) ==
LOC: HO.LNP 08:37
PROVIDERS: Visit Provider Internal Medicine Endocrinology, Diabetes & Metabolism
DX: E21.3 Hyperparathyroidism, unspecified (principal); E55.9 Vitamin D deficiency, unspecified
CPT/HCPCS: 82340; 82570

== ENCOUNTER 2024-08-08 08:00 | Outpatient (REF) | payer OTHER, SELFPAY ==
--- OUTSIDE RECORDS SUMMARY | 2011-05-08 20:00 | XMS_ITS | Continuity of Care Document ---
Author Organization [facility] vices Address [address] [place] [address] Phone Care Team Providers Care Control Clerk Name Role Phone Unavailable Unavailable Unavailable Allergies, [...] Diagnoses Date Provider Providers Copied on Encounter [facility], [address] [place] [address], tel:[phone] [facility] Adult Medicine No Information 2 No Information [facility], [address] [place] [address], tel:[phone] Conversion BODY MASS INDEX 34.0-34.9, ADULTEXERCISE COUNSELING 2 No Information [facility], [address] [place] [address], tel:[phone] Conversion Patient Education - DietaryOBESITY 2 No Information [facility], [address] [place] [address], tel:[phone] Conversion HYPERLIPIDEMIAD EPRESSIONVITAMI N D DEFICIENCY 1 No Information [facility], [address] [place] [address], tel:[phone] Conversion PE W/ PAPSTD SCREEN No Information [facility], [address] [place], [address], [place] tel:[phone] [facility] No Information No Information Family History [...]
[2024-08-08 08:55] LABS: Alanine Aminotransferase 172 U/L (0-31); Alkaline Phosphatase 51 U/L (39-117); Aspartate Amino Transferase 133 U/L (5-31); Bilirubin Direct 0.2 mg/dL (0.0-0.5); Bilirubin Total 0.4 mg/dL (0.0-1.0); Cholesterol 118 mg/dL (<200); HDL Cholesterol 49 mg/dL (>40); LDL Cholesterol Calculated 49 mg/dL (<100); Phosphorus 4.1 mg/dL (2.7-4.5); Total Protein 6.5 g/dL (6.5-8.0); Triglycerides 103 mg/dL (<150)
[2024-08-08 08:58] LABS: Parathyroid Hormone Intact 66.3 pg/mL (8.7-77.1)
[2024-08-08 09:13] LABS: Thyroid Stimulating Hormone 0.24 uIU/mL (0.32-4.0); Vitamin D 25-OH Total 45.2 ng/mL (>30)
[2024-08-11 18:19] LABS: Calcium, Ionized 5.2 mg/dL (4.7-5.5)
== END 2024-08-08 08:01 | disposition home or self-care (01) ==
LOC: HO.LAB 08:00
PROVIDERS: PCP Internal Medicine; Visit Provider Internal Medicine Endocrinology, Diabetes & Metabolism
DX: M54.6 Pain in thoracic spine (principal); Z87.81 Personal history of (healed) traumatic fracture; G89.4 Chronic pain syndrome; R74.01 Elevation of levels of liver transaminase levels; E55.9 Vitamin D deficiency, unspecified; E21.3 Hyperparathyroidism, unspecified; E06.3 Autoimmune thyroiditis; E78.5 Hyperlipidemia, unspecified
CPT/HCPCS: 36415; 80061; 80076; 82306; 82330; 83970; 84100; 84443; 99212

== ENCOUNTER 2024-08-08 10:33 | Outpatient (AMB) | payer OTHER, SELFPAY ==
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
[2024-08-08 10:37] VITALS: BP 99/57; PULSE 50; O2SAT 100; BMI 21.0
== END 2024-08-08 11:15 | disposition home or self-care (01) ==
LOC: HO.PMC 10:34
PROVIDERS: PCP Internal Medicine; Referring Provider Internal Medicine; Visit Provider Nurse Practitioner Family
DX: M54.6 Pain in thoracic spine (principal); Z87.81 Personal history of (healed) traumatic fracture; M48.10 Ankylosing hyperostosis [Forestier], site unspecified; M81.0 Age-related osteoporosis without current pathological fracture; G89.4 Chronic pain syndrome; M47.816 Spondylosis without myelopathy or radiculopathy, lumbar region; M54.16 Radiculopathy, lumbar region
CPT/HCPCS: 99214; G2211

== ENCOUNTER 2024-08-20 14:21 | Outpatient (AMB) | payer OTHER, SELFPAY ==
[2024-08-20 14:24] VITALS: BP 92/70; BMI 21.0
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
== END 2024-08-20 14:58 | disposition home or self-care (01) ==
LOC: HO.HSMS 14:22
PROVIDERS: PCP Internal Medicine; Visit Provider Psychiatry & Neurology Neurology
DX: R20.0 Anesthesia of skin (principal); R20.2 Paresthesia of skin
CPT/HCPCS: 99204

== ENCOUNTER → 2024-08-20 14:21 | Outpatient (BNVA) | payer OTHER, SELFPAY | PROVIDERS: PCP Internal Medicine; Visit Provider Psychiatry & Neurology Neurology | DX: R20.0 Anesthesia of skin (principal); R20.2 Paresthesia of skin | CPT/HCPCS: 99202 ==

== ENCOUNTER 2024-08-21 07:28 | Outpatient (AMB) | payer OTHER, SELFPAY ==
[2024-08-21 07:42] VITALS: BP 92/48; PULSE 50; O2SAT 95
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
== END 2024-08-21 08:04 | disposition home or self-care (01) ==
LOC: HO.ENCR 07:29
PROVIDERS: PCP Internal Medicine; Visit Provider Internal Medicine Endocrinology, Diabetes & Metabolism
DX: E21.3 Hyperparathyroidism, unspecified (principal); E55.9 Vitamin D deficiency, unspecified
CPT/HCPCS: 99213

== ENCOUNTER → 2024-08-21 07:28 | Outpatient (BNVA) | payer OTHER, SELFPAY | PROVIDERS: PCP Internal Medicine; Visit Provider Internal Medicine Endocrinology, Diabetes & Metabolism | DX: E21.3 Hyperparathyroidism, unspecified (principal); E55.9 Vitamin D deficiency, unspecified | CPT/HCPCS: 99212 ==

== ENCOUNTER 2024-09-15 07:45 | Outpatient (AMB) | payer OTHER, SELFPAY ==
--- OUTSIDE RECORDS SUMMARY | 2011-05-08 20:00 | XMS_ITS | Continuity of Care Document ---
Author Organization [facility] vices Address [address] [place] [address] Phone Care Team Providers Care Security Chief Museum Name Role Phone Unavailable Unavailable Unavailable Allergies, [...] Diagnoses Date Provider Providers Copied on Encounter [facility], [address] [place] [address], tel:[phone] [facility] Adult Medicine No Information 2 No Information [facility], [address] [place] [address], tel:[phone] Conversion BODY MASS INDEX 34.0-34.9, ADULTEXERCISE COUNSELING 2 No Information [facility], [address] [place] [address], tel:[phone] Conversion Patient Education - DietaryOBESITY 2 No Information [facility], [address] [place] [address], tel:[phone] Conversion HYPERLIPIDEMIAD EPRESSIONVITAMI N D DEFICIENCY 1 No Information [facility], [address] [place] [address], tel:[phone] Conversion PE W/ PAPSTD SCREEN No Information [facility], [address] [place], [address], [place] tel:[phone] [facility] No Information No Information Family History Family Member Type Diagnosis Age At Onset No Information Payers Payer name Insurance type Covered alliance party ID Authoriza tion(s) No Information Social [...]
--- OUTSIDE RECORDS SUMMARY | 2024-09-15 07:48 | XMS_ITS | Clinical Summary ---
Author Organization [facility] Address [address] [place] [address] Phone Care Team Providers Care Mill Laborer Name Role Phone Deborah Sanabria MD Primary Care Provid er Encounters Date Type Department Care Team Description 07/05/2024 9:52 AM EDT - 07/05/2024 11:59 PM EDT Hospital Encounter [facility] [address] [place] [address] Alia Thomas MD Discharge Disposition: Home or Self Care 07/05/2024 Transcribe Orders [facility] [address] [place] [address] Alia Thomas MD Screening for condition (Primary Dx) from Last 3 Months Social History Tobacco Use Types Packs/Day Years Used Date Smoking Tobacco: Never Assessed Education Answer Date Recorded Are you interested in more education? Not on philip e 07/05/2024 Are you concerned about learning? Not on file 07/05/2024 No 07/05/2024 No 07/05/2024 Digital Access Answer Date Recorded No 07/05/2024 No 07/05/2024 Reliable internet access at home? Not on file 07/05/2024 Device with a working camera? Not on file Comments Unknown Sex and Gender Information Value Date Recorded Sex Assigned at Not on file Legal Sex Female 9:32 AM EDT Gender Identity Not on file Sexual Orientation Not on file Plan of Treatment Not on file Medical Devices Not on file Procedures Procedure Name Priority Date/Time Associated Diagnosis Comments COMPREHENSIVE METABOLIC PANEL Routine 07/05/2024 6:48 AM EDT Screening for condition CBC Routine 07/05/2024 6:48 AM EDT Screening for condition from Last 3 Months Results * (ABNORMAL) Comprehensive metabolic panel (07/05/2024 6:48 AM EDT) SODIUM 139 133 - 146 mmol/L [facility] POTASSIUM 4.3 3.3 - 5.1 mmol/L [facility] CHLORIDE 103 96 - 108 mmol/L [facility] CO2 28 21 - 35 mmol/L [facility] BUN 21(H) 6 - 19 mg/dL [facility] CREATININE 0.70 0.5 - 1.5 mg/dL [facility] GLUCOSE 87 70 - 99 mg/dL [facility] ALBUMIN 3.7(L) 3.9 - 4.8 g/dL [facility] TOTAL PROTEIN 6.1(L) 6.5 - 8.0 g/dL [facility] CALCIUM 9.6 8.4 - 10.3 mg/dL [facility] ALKALINE PHOSPHATASE 51 39 - 117 U/L [facility] TOTAL BILIRUBIN <0.2 0.0 - 1.2 mg/dL [facility] AST 66(H) 0 - 37 U/L [facility] ALT 64(H) 0 - 40 U/L [facility] GLOBULIN 2.4 1 - 4.8 g/dL [facility] EGFR 98 >59 mL/min/1.7 3m2 [facility] Comment:Estimated glomerular filtration rate calculated using the CKD-EPI refit equation. ANION GAP 12 10 - 20 mmol/L [facility] Blood 07/05/2024 6:48 AM EDT 07/05/2024 10:00 AM EDT us Alia Thomas MD LAB BLOOD ORDERABLES Final Res ult [address] [id number] * (ABNORMAL) CBC (07/05/2024 6:48 AM EDT) WBC 5.02 4.00 - 11.00 K/uL [facility] RBC 4.14 4.00 - 5.20 M/uL [facility] HGB 11.7(L) 12.0 - 16.0 g/dL [facility] HCT 37.2 36.0 - 46.0 % [facility] PLT 220 150 - 450 K/uL [facility] MCV 89.9 80.0 - 100.0 fL [facility] MCH 28.3 27.0 - 31.0 pg [facility] MCHC 31.5(L) 32.0 - 36.0 g/dL [facility] RDW 12.6 11.5 - 14.5 % [facility] MPV 11.1 8.4 - 12.0 [facility] NRBC 0.00 0.00 /100 WBCs [facility] ABSOLUTE NRBC 0.00 0.00 K/uL [facility] Blood 07/05/2024 6:48 AM EDT 07/05/2024 10:00 AM EDT us Alia Thomas MD LAB BLOOD ORDERABLES Final Res ult [address] [address] from Last 3 Months Care Teams Mill Laborer Relationship Specialty Start Date End Date Deborah Sanabria MD [address] [place] [address] PCP - General 07/05/24 Additional Source Comments The information contained in this document represents components of the legal health record. It is not the complete legal health record.[facility]
[2024-09-15 07:56] VITALS: BP 92/64; BMI 21.3
--- NOTE | 2024-09-15 07:56 | A.OFFPC_ITS ---
Vital Signs 09/15/24 07:56 Height 5 ft 2 in Weight 116 lb 9.992 oz BMI 21.3 BP 92/64 Blood Pressure Location Lt brachial Position Sitting Intake Visit Reasons: lipids Intake Note: Patient here for a follow up Lipids Forming Machine Adjuster Required: No Accompanied by: Spouse Allergies bee pollen (BEE STINGS) Allergy (Severe, Verified 09/15/24 08:06) SWELLING Penicillins (PENICILLINS) Allergy (Severe, Verified 09/15/24 08:06) HIVES, THROAT CLOSES amitriptyline (AMITRIPTYLINE) Allergy (Intermediate, Verified 09/15/24 08:06) Agitation oxycodone (From PERCOCET) Adverse Reaction (Intermediate, Verified 09/15/24 08:06) DIZZINESS Medication List - Last Reconciled 09/15/24 by Deborah Hernandez MD acetaminophen (Tylenol Extra Strength) 500 mg PO Q6H PRN [adult diapers pull-ups As directed] back brace As directed blood sugar diagnostic (FreeStyle Lite Strips) 1 strip miscellaneous TID 90 days calcium citrate 500 mg (2 x 250 mg calcium) PO BID celecoxib 50 mg PO BID cholecalciferol (vitamin D3) 125 mcg PO DAILY duloxetine 20 mg PO BID 30 days epinephrine 0.3 mg (0.3 mL) IM DIRECTED PRN 1 day ergocalciferol (vitamin D2) 1,250 mcg PO 2XW fluticasone furoate 50 mcg/actuation (Arnuity Ellipta) 1 inh inhalation DAILY 30 days folic acid 1 mg PO DAILY gabapentin 400 mg PO TID 30 days lancets Use 1 lancet TID levothyroxine (Unithroid) 50 mcg PO DAILY 90 days loperamide mg PO pantoprazole 40 mg PO DAILY 90 days [scooter As directed] silver sulfadiazine 1% (Silvadene) 1 appl topical BID sucralfate 1 mL PO BID 90 days thiamine HCl (vitamin B1) 100 mg PO DAILY 90 days tizanidine 2 mg PO BID PRN tramadol 50 mg PO Q8-10H PRN trazodone 100 mg PO BEDTIME PRN 90 days Ventolin HFA 90 mcg/actuation (albuterol sulfate) 2 puffs inhalation Q6H PRN 30 days NS walker WITH SEAT AND WHEELS Tobacco use date assessed: 06/06/24 Dental Screening Dental Screen Date: 06/06/24 HPI HPI Comments History of Present Illness Details The patient is a 63-year-old female presenting for management of multiple chronic conditions including hypothyroidism, osteoporosis, and neuropathy. The patient has a history of hypothyroidism, currently managed with levothyroxine 50 mcg daily. Recent thyroid function tests have shown slight abnormalities, prompting a repeat test today to assess the need for dosage adjustment. She also has osteoporosis, for which she is taking calcium and vitamin D supplements as recommended by Dr. Quinones. A repeat bone density scan is planned for next year. The patient reports persistent numbness and weakness in both legs, which limits her ability to stand for prolonged periods and causes frequent falls. A nerve conduction study is scheduled for November 06, and she is awaiting a neurology consultation. Additionally, the patient has elevated liver enzymes, for which she has not yet seen a air antisubmarine officer. A referral to gastroenterology is planned to investigate the cause of these abnormalities. [facility] Medical History (Updated 09/15/24 @ 08:16 by Deborah Hernandez MD) Numbness and tingling of both legs DISH (diffuse idiopathic skeletal hyperostosis) Weakness generalized Postsurgical dumping syndrome Hypovolemic shock Blurry vision Memory loss Physical exam Weakness of both hands Abnormal mammogram Right sided sciatica Right leg pain Hand numbness Hyperparathyroidism Iron deficiency anemia Mild asthma Insomnia Dyslipidemia Autoimmune thyroiditis Hypovitaminosis D Surgical History History of mammogram History of breast biopsy History of carpal tunnel release History of hysteroscopy H/O gastric bypass Status post dilation and curettage History of section History of cholecystectomy Family History Father CAD (coronary artery disease) Hypertension Diabetes Cerebral aneurysm Mother CAD (coronary artery disease) Thyroid cancer Sister Primary cancer of uterus Ovarian cancer Maternal Uncle Bone cancer Family/Other FH: mental illness Social History Household Members: Spouse Housing: House Alcohol intake: never Patient Tobacco Use Status: Never used Tobacco e-Cigarette/Vaping Use: Never Used Second Hand Smoke Exposure: No service: No Current occupational status: disabled 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 Cognitive needs: No Hearing needs: No Vision needs: Yes (glasses) Questionnaire Thrive Questionnaire Date Thrive assessed: 07/28/24 I am a: Patient What is your living situation today?: I have a steady place to live Within the past 12 months, did the food you bought not last and you didn't have the money to get more?: Never true Within the past 12 months, did you worry whether your food would run out before you got money to buy more?: Never true Do you have trouble paying for medicines?: Yes Do you have trouble getting transportation to medical appointments?: Yes Do you have trouble paying your heating and electricity bill?: Yes Do you have trouble taking care of your child, family member or friend?: Yes Do you have trouble with day-to-day activities such as bathing, preparing meals, shopping, managing finances, etc.?: Yes Are you currently unemployed and looking for a job?: Yes Are you interested in more education?: Yes Please select the resources that you would like help with: None Currently or been in a relationship where the following occur: No concerns r eported THRIVE Score: 2 NATA-7 AMB Questionnaire NATA-7 Date NATA - 7 assessed: 07/28/24 Source: Developed by Drs. Alan Head, Evelin Saeed, Arias Small and colleagues, with an educational mahogany from [employer]. Review of Systems Const All systems reviewed & are unremarkable except as noted in HPI and below Card Denies chest pain at rest, Denies chest pain with activity, Denies edema, Denies irregular heart rhythm, Denies claudication, Denies dyspnea, Denies dyspnea on exertion, Denies orthopnea, Denies paroxysmal nocturnal dyspnea and Denies slow heart rate Resp Denies cough, Denies dyspnea and Denies dyspnea on exertion GI Denies abdominal pain, Denies change in bowel habits, Denies excessive flatus, Denies nausea and Denies vomiting Denies urinary incontinence, Denies urinary hesitancy and Denies urinary urgency Musc Denies atrophy, Denies deformity and Denies limited range of motion Physical exam (Primary Care) Vital Signs: Last Vital Signs BP 92/64 09/15/24 07:56 BMI result Body Mass Index 21.3 Tobacco/Smoking Status: Tobacco use Status Tobacco use date assessed 06/06/24 09/15/24 08:02 Patient Tobacco Use Status Never used Tobacco 09/15/24 08:02 Tobacco use type 07/29/24 10:44 e-Cigarette/Vaping Use Never Used 09/15/24 08:02 Thrive Assessment: Date of Thrive Assessment Date Thrive assessed 07/28/24 09/15/24 08:02 Currently or been in a relationship where the following occur: No concerns reported Const General: cooperative Limitations: wheelchair Resp Effort & Inspection: normal respiratory effort Auscultation: clear to auscultation bilaterally Cardio Jugular venous distension: no JVD Rate: regular rate Rhythm: regular rhythm Heart sounds: S1 normal heart sound present and S2 normal heart sound present Coding Level of Care Code Est Pt Level 4 (64760) Complex EM visit Add On G2211 Diagnoses Hyperparathyroidism E21.3 Osteoporosis M81.0 Autoimmune thyroiditis E06.3 Transaminitis R74.01 Lumbar pain M54.50 Thoracic spine pain M54.6 Compression fracture of T11 vertebra S22.080A Time Spent (min) 24 Assessment & Plan Assessment & Plan (1) Hyperparathyroidism: Code(s): E21.3 - Hyperparathyroidism, unspecified Category: Medical (2) Osteoporosis: Code(s): M81.0 - Age-related osteoporosis without current pathological fracture Category: Medical (3) Autoimmune thyroiditis: Code(s): E06.3 - Autoimmune thyroiditis Category: Medical (4) Transaminitis: Code(s): R74.01 - Elevation of levels of liver transaminase levels Category: Medical (5) Lumbar pain: Code(s): M54.50 - Low back pain, unspecified Category: Medical (6) Thoracic spine pain: Code(s): M54.6 - Pain in thoracic spine Category: Medical (7) Compression fracture of T11 vertebra: Code(s): S22.080A - Wedge compression fracture of T11-T12 vertebra, initial encounter for closed fracture Category: Medical Plan The patient will have her thyroid function re-evaluated today to determine if adjustments to her levothyroxine dosage are necessary. A referral to gastroenterology will be made to investigate the cause of her elevated liver enzymes, as no current medications are known to cause this issue. For her osteoporosis, she will continue with calcium and vitamin D supplementation, and a repeat bone density scan is planned for next year. The patient is scheduled for a nerve conduction study on November 06 to further evaluate her neuropathy, and she will follow up with a neurologist soon after. Patient was informed and verbally consented to the use of an ambient scribe for clinic note documentation during this visit. Orders: Orders Thyroid Stimulating Hormone Today E06.3 - Autoimmune thyroiditis Referrals Gastroenterology Referral R74.01 - Elevation of levels of liver transaminase levels Medications: New [electric wheelchair] As directed 1 ea 0RF M48.10 - Ankylosing hyperostosis [[place]], site unspecified, M54.16 - Radiculopathy, lumbar region, M54.31 - Sciatica, right side, M81.0 - Age-related osteoporosis without current pathological fracture, R20.2 - Paresthesia of skin, S22.080A - Wedge compression fracture of T11-T12 vertebra, initial encounter for closed fracture Refilled blood sugar diagnostic (FreeStyle Lite Strips) 1 strip miscellaneous TID 300 strips 3RF 90 days
== END 2024-09-15 08:20 | disposition home or self-care (01) ==
LOC: HO.HMCH 07:46
PROVIDERS: PCP Internal Medicine; Visit Provider Internal Medicine
DX: E21.3 Hyperparathyroidism, unspecified (principal); M81.0 Age-related osteoporosis without current pathological fracture; E06.3 Autoimmune thyroiditis; R74.01 Elevation of levels of liver transaminase levels; M54.50 Low back pain, unspecified; M54.6 Pain in thoracic spine

== ENCOUNTER 2024-09-15 07:45 | Outpatient (REF) | payer OTHER, SELFPAY ==
[2024-09-15 10:04] LABS: Alanine Aminotransferase 30 U/L (0-31); Albumin Level 3.6 g/dL (3.5-5.0); Alkaline Phosphatase 51 U/L (39-117); Aspartate Amino Transferase 29 U/L (5-31); Total Protein 6.3 g/dL (6.5-8.0)
[2024-09-15 10:08] LABS: Thyroid Stimulating Hormone 1.02 uIU/mL (0.32-4.0)
== END 2024-09-15 07:46 | disposition home or self-care (01) ==
LOC: HO.LAB 07:45
PROVIDERS: PCP Internal Medicine; Visit Provider Internal Medicine
DX: E21.3 Hyperparathyroidism, unspecified (principal); M81.0 Age-related osteoporosis without current pathological fracture; E06.3 Autoimmune thyroiditis; R74.01 Elevation of levels of liver transaminase levels; M54.50 Low back pain, unspecified; M54.6 Pain in thoracic spine; S22.080D Wedge compression fracture of T11-T12 vertebra, subsequent encounter for fracture with routine healing
CPT/HCPCS: 36415; 80076; 84443; 99212

== ENCOUNTER 2024-09-26 07:41 | Outpatient (REF) | payer OTHER, SELFPAY ==
--- OUTSIDE RECORDS SUMMARY | 2011-05-08 20:00 | XMS_ITS | Continuity of Care Document ---
Author Organization [facility] vices Address [address] [place] [address] Phone Care Team Providers Care Associate Programmer Analyst Name Role Phone Unavailable Unavailable Unavailable Allergies, [...] Diagnoses Date Provider Providers Copied on Encounter [facility], [address] [place] [address], tel:[phone] [facility] Adult Medicine No Information 2 No Information [facility], [address] [place] [address], tel:[phone] Conversion BODY MASS INDEX 34.0-34.9, ADULTEXERCISE COUNSELING 2 No Information [facility], [address] [place] [address], tel:[phone] Conversion Patient Education - DietaryOBESITY 2 No Information [facility], [address] [place] [address], tel:[phone] Conversion HYPERLIPIDEMIAD EPRESSIONVITAMI N D DEFICIENCY 1 No Information [facility], [address] [place] [address], tel:[phone] Conversion PE W/ PAPSTD SCREEN No Information [facility], [address] [place], [address], [place] tel:[phone] [facility] No Information No Information Family History [...]
--- OUTSIDE RECORDS SUMMARY | 2024-09-26 07:43 | XMS_ITS | Clinical Summary ---
Author Organization [facility] Address [address] [place] [address] Phone Care Team Providers Care Business Intelligence Consultant Name Role Phone Deborah Sanabria MD Primary Care Provid er Encounters Date Type Department Care Team Description 07/05/2024 9:52 AM EDT - 07/05/2024 11:59 PM EDT Hospital Encounter [facility] [address] [place] [address] Alia Thomas MD Discharge Disposition: Home or Self Care 07/05/2024 Transcribe Orders [facility] [address] [place] [address] Alia Thomas MD Screening for condition (Primary [...] EDT) SODIUM 139 133 - 146 mmol/L [facility] POTASSIUM 4.3 3.3 - 5.1 mmol/L [facility] CHLORIDE 103 96 - 108 mmol/L [facility] CO2 28 21 - 35 mmol/L [facility] BUN 21(H) 6 - 19 mg/dL [facility] CREATININE 0.70 0.5 - 1.5 mg/dL [facility] GLUCOSE 87 70 - 99 mg/dL [facility] ALBUMIN 3.7(L) 3.9 - 4.8 g/dL [facility] TOTAL PROTEIN 6.1(L) 6.5 - 8.0 g/dL [facility] CALCIUM 9.6 8.4 - 10.3 mg/dL [facility] ALKALINE PHOSPHATASE 51 39 - 117 U/L [facility] TOTAL BILIRUBIN <0.2 0.0 - 1.2 mg/dL [facility] AST 66(H) 0 - 37 U/L [facility] ALT 64(H) 0 - 40 U/L [facility] GLOBULIN 2.4 1 - 4.8 g/dL [facility] EGFR 98 >59 mL/min/1.7 3m2 [facility] Comment:Estimated glomerular filtration rate calculated using the CKD-EPI refit equation. ANION GAP 12 10 - 20 mmol/L [facility] Blood 07/05/2024 6:48 AM EDT 07/05/2024 10:00 AM EDT us Alia Thomas MD LAB BLOOD ORDERABLES Final Res ult [address] [id number] * (ABNORMAL) CBC (07/05/2024 6:48 AM EDT) WBC 5.02 4.00 - 11.00 K/uL [facility] RBC 4.14 4.00 - 5.20 M/uL [facility] HGB 11.7(L) 12.0 - 16.0 g/dL [facility] HCT 37.2 36.0 - 46.0 % [facility] PLT 220 150 - 450 K/uL [facility] MCV 89.9 80.0 - 100.0 fL [facility] MCH 28.3 27.0 - 31.0 pg [facility] MCHC 31.5(L) 32.0 - 36.0 g/dL [facility] RDW 12.6 11.5 - 14.5 % [facility] MPV 11.1 8.4 - 12.0 [facility] NRBC 0.00 0.00 /100 WBCs [facility] ABSOLUTE NRBC 0.00 0.00 K/uL [facility] Blood 07/05/2024 6:48 AM EDT 07/05/2024 10:00 AM EDT us Alia Thomas MD LAB BLOOD ORDERABLES Final Res ult [address] [address] from Last 3 Months Care Teams Business Intelligence Consultant Relationship Specialty Start Date End Date Deborah Sanabria MD [address] [place] [address] PCP - General 07/05/24 Additional Source Comments The information contained in this document represents components of the legal health record. It is not the complete legal health record.[facility]
== END 2024-09-26 07:42 | disposition home or self-care (01) ==
LOC: HO.US 07:41
PROVIDERS: PCP Internal Medicine; Visit Provider Internal Medicine
DX: Z13.89 Encounter for screening for other disorder (principal)

== ENCOUNTER 2024-11-06 13:34 | Outpatient (REF) | payer OTHER, SELFPAY ==
--- OUTSIDE RECORDS SUMMARY | 2011-05-08 20:00 | XMS_ITS | Continuity of Care Document ---
Author Organization [facility] vices Address [address] [place] [address] Phone Care Team Providers Care Refrigerator Glazier Name Role Phone Unavailable Unavailable Unavailable Allergies, [...] Diagnoses Date Provider Providers Copied on Encounter [facility], [address] [place] [address], tel:[phone] [facility] Adult Medicine No Information 2 No Information [facility], [address] [place] [address], tel:[phone] Conversion BODY MASS INDEX 34.0-34.9, ADULTEXERCISE COUNSELING 2 No Information [facility], [address] [place] [address], tel:[phone] Conversion Patient Education - DietaryOBESITY 2 No Information [facility], [address] [place] [address], tel:[phone] Conversion HYPERLIPIDEMIAD EPRESSIONVITAMI N D DEFICIENCY 1 No Information [facility], [address] [place] [address], tel:[phone] Conversion PE W/ PAPSTD SCREEN No Information [facility], [address] [place], [address], [place] tel:[phone] [facility] No Information No Information Family History Family Member Type Diagnosis Age At Onset No Information Payers Payer name Insurance type Covered democrat ID Authoriza tion(s) No Information Social History [...]
--- NOTE | 2024-11-06 13:42 | EMG_ITS ---
Chief complaint: Chronic back pain, with numbness in both feet Reason for referral: Evaluate for neuropathy versus radiculopathy Referred by: Dr. Simental Procedure done: Bilateral lower extremity NCS/EMG Precautions and/or limitations: None The limb temperature was monitored continuously and remained between 32-36 degrees C during the performance of the NCS. Nerve Conduction Studies Anti Sensory Summary Table ?Stim Site NR Onset (ms) Norm Onset (ms) Peak (ms) Norm Peak (ms) O-P Amp (?V) Norm O-P Amp Site1 Site2 Delta-0 (ms) Dist (cm) Gentry (m/s) Norm Gentry (m/s) Left Sural Anti Sensory (Lat Mall) Calf ? 2.2 2.8 <4.0 12.8 >5.0 Calf Lat Mall 2.2 14.0 64 Right Sural Anti Sensory (Lat Mall) Calf ? 2.9 3.6 <4.0 5.5 >5.0 Calf Lat Mall 2.9 14.0 48 Motor Summary Table ?Stim Site NR Onset (ms) Norm Onset (ms) O-P Amp (mV) Norm O-P Amp iAmp (mV) Amp (1st) (%) Site1 Site2 Delta-0 (ms) Dist (cm) Gentry (m/s) Norm Gentry (m/s) Right Peroneal Motor (Ext Dig Brev) Ankle ? 3.6 <4.0 5.5 >2.5 6.5 100.0 Ankle Ext Dig Brev 3.6 0.0 B Fib ? 9.5 5.0 6.0 90.9 B Fib Ankle 5.9 28.0 47 >40 Poplt ? 9.8 5.2 6.3 94.5 Poplt B Fib 0.3 5.5 183 >40 Left Tibial Motor (Abd Molina Brev) Ankle ? 3.4 <5 4.3 >2.5 6.0 100.0 Ankle Abd Molina Brev 3.4 0.0 Knee ? 10.8 4.2 5.9 97.7 Knee Ankle 7.4 34.0 46 >40 Right Tibial Motor (Abd Molina Brev) Ankle ? 3.7 <5 6.3 >2.5 8.7 100.0 Ankle Abd Molina Brev 3.7 0.0 Knee ? 10.3 5.7 8.0 90.5 Knee Ankle 6.6 34.0 52 >40 EMG ?Side Muscle Nerve Root Ins Act Fibs Psw Amp Dur Poly Recrt Int Pat Comment Right PostTibialis Tibial L5, S1 Nml Nml Nml Nml Nml 0 Nml Complete Right AbdHallucis MedPlantar S1-2 Nml Nml Nml Nml Nml 0 Nml Complete Right AntTibialis Dp Br Peron L4-5 Nml Nml Nml Nml Nml 0 Nml Complete Right MedGastroc Tibial S1-2 Nml Nml Nml Nml Nml 0 Nml Complete Right VastusMed Femoral L2-4 Nml Nml Nml Nml Nml 0 Nml Complete Left AbdHallucis MedPlantar S1-2 Nml Nml Nml Nml Nml 0 Nml Complete Left AntTibialis Dp Br Peron L4-5 Nml Nml Nml Nml Nml 0 Nml Complete Left PostTibialis Tibial L5, S1 Nml Nml Nml Nml Nml 0 Nml Complete Left MedGastroc Tibial S1-2 Nml Nml Nml Nml Nml 0 Nml Complete Left VastusMed Femoral L2-4 Nml Nml Nml Nml Nml 0 Nml Complete Paraspinal EMG ?Side Muscle Nerve Root Ins Act Fibs Psw Comment Right Lumbar Upper Rami Nml Nml Nml Right Lumbar Mid Rami Nml Nml Nml Right Lumbar Lower Rami Nml Nml Nml Left Lumbar Upper Rami Nml Nml Nml Left Lumbar Mid Rami Nml Nml Nml Left Lumbar Lower Rami Nml Nml Nml FINDINGS: All motor and sensory nerves tested showed normal latencies, amplitudes and conduction velocities. Concentric needle EMG was performed in selected muscles of the bilateral lower extremity and lumbar paraspinals. Study did not reveal signs of electric abnormalities as shown in the table above. IMPRESSION: 1. This is a normal study. 2. There is no electrodiagnostic evidence for peroneal neuropathy, tibial neuropathy, lumbosacral plexopathy, lumbar radiculopathy, or peripheral neuropathy. CLINICAL COMMENT: Patient was having lower back pain during test, but she tolerated procedure well. Study did not show ongoing or acute denervation. Thank you for your kind referral. Gaby Pablo MD, AMBER Board Certified, [place] Board [employer] and Rehabilitation (ABPMR) Board Certified, [place] Board of Electrodiagnostic Medicine (ABEM) CODIN [id number] x 2 MTDD
--- OUTSIDE RECORDS SUMMARY | 2024-11-06 18:08 | XMS_ITS | Clinical Summary ---
Author Organization [facility] Address [address] [place] [address] Phone Care Team Providers Care Business Office Assistant Name Role Phone Deborah Sanabria MD Primary Care Provid er Social History Tobacco Use Types Packs/Day Years [...] on file Medical Devices Not on file Care Teams Business Office Assistant Relationship Specialty Start Date End Date Deborah Sanabria MD [address] [place] [address] PCP - General 07/05/24 Additional Source Comments The information contained in this document represents components of the legal health record. It is not the complete legal health record.[facility]
== END 2024-11-06 13:35 | disposition home or self-care (01) ==
LOC: HO.NEURO 13:34
PROVIDERS: PCP Internal Medicine; Visit Provider Psychiatry & Neurology Neurology
DX: R20.0 Anesthesia of skin (principal); R20.2 Paresthesia of skin
CPT/HCPCS: 95886; 95909

== ENCOUNTER → 2024-11-06 13:42 | Outpatient (BNV) | payer OTHER, SELFPAY | PROVIDERS: PCP Internal Medicine; Visit Provider Physical Medicine & Rehabilitation | DX: R20.0 Anesthesia of skin (principal) | CPT/HCPCS: 95886; 95909 ==

== ENCOUNTER 2024-11-20 07:35 | Outpatient (REF) | payer OTHER, SELFPAY ==
--- NOTE | ~2024-11-20 | US_ITS ---
EXAMINATION: US ABDOMEN LIMITED WITH LIVER ELASTOGRAPHY HISTORY: R74.01 - Elevation of levels of liver transaminase levels TECHNIQUE: Real-time grayscale ultrasound imaging of the right upper quadrant was performed and images were reviewed. COMPARISON: Comparison is made with the prior examination dated 05/12/2016. FINDINGS: Liver: The right lobe of the liver measures 16.7 cm in size. The left lobe of the liver measures 4.7 cm in size. The liver demonstrates normal homogeneous echotexture. No focal mass or intrahepatic biliary ductal dilatation is identified. There is normal hepatopedal flow in the portal vein. Ultrasound elastography of the liver was performed with 10 separate measurements of the liver parenchyma with the patient in the supine position. Measurements were obtained approximately 2 cm below López's capsule and perpendicular to the capsule. The median shear wave velocity is 1.53 m/s (previously 1.15 m/s). The interquartile range/median (IQR/median) is 0.07. Gallbladder and biliary tree: The gallbladder surgically absent . The common bile duct is normal in caliber measuring 3 mm. Right Kidney: The right kidney measures 9.4 cm in length. The right kidney is unremarkable, without evidence of masses, hydronephrosis, or calculi. Pancreas: The pancreatic head, neck, and body are unremarkable. The pancreatic tail is obscured by bowel gas. Abdominal aorta and inferior vena cava: The visualized portions of the abdominal aorta and inferior vena cava are normal in caliber. There is no free fluid in the right upper quadrant. US/US abdomen frey w elastography IMPRESSION: Unremarkable right upper quadrant ultrasound. The median shear wave velocity in the liver is 1.53 m/s, corresponding to a median liver stiffness of 7.19 kPa. The IQR/median value is 0.07. This is indicative of a quality data set. Findings are indicative of a low elastography value which rules out advanced chronic liver disease in asymptomatic patients. REFERENCE: Society of Radiologists in Ultrasound Liver Stiffness Thresholds (2020): LIVER STIFFNESS THRESHOLDS: *Shear wave velocity less than 1.3 m/s (Liver Stiffness equal or less than 5 kPa): High probability of being normal. *Shear wave velocity less than 1.7 m/s (Liver Stiffness less than 9 kPa): In the absence of other known clinical signs, rules out compensated advanced chronic liver disease. *Shear wave velocity between 1.7-2.1 m/s (Liver Stiffness 9-13 kPa): Suggestive of compensated advanced chronic liver disease but need further test for confirmation. *Shear wave velocity between 2.1-2.4 m/s (Liver Stiffness 13-17 kPa): Rules in compensated advanced chronic liver disease. *Shear wave velocity greater than 2.4 m/s (Liver Stiffness over 17 kPa): Suggestive of clinically significant portal hypertension. QUALITY OF DATA SET: *IQR/Median value equal or less than 0.15 implies a quality data set. *IQR/Median value over 0.15 implies a poor quality data set. SIGNIFICANT CHANGE FROM PRIOR EXAM: Significant change if liver stiffness measurement is 10% or greater from prior exam. OTHER CONSIDERATIONS: The stage of liver fibrosis may be overestimated in the setting of acute hepatitis, liver inflammation, elevated liver function tests, hepatic vascular congestion, obstructive cholestasis, non-fasting state, and infiltrative diseases such as amyloidosis and lymphoma. In some patients with NAFLD, the liver stiffness thresholds for compensated advanced chronic liver disease may be lower. In causes other than viral hepatitis and NAFLD, liver stiffness thresholds are not well established. Electronically signed by: Alan Alvarado MD 11/20/2024 09:12 AM EDT
== END 2024-11-20 07:36 | disposition home or self-care (01) ==
LOC: HO.US 07:35
PROVIDERS: PCP Internal Medicine; Visit Provider Internal Medicine
DX: R74.01 Elevation of levels of liver transaminase levels (principal)
CPT/HCPCS: 76705; 76981

== ENCOUNTER → 2024-11-20 07:39 | Outpatient (BNV) | payer OTHER, SELFPAY | PROVIDERS: PCP Internal Medicine; Visit Provider Radiology Diagnostic Radiology | DX: R94.5 Abnormal results of liver function studies (principal) | CPT/HCPCS: 76705 ==

== ENCOUNTER 2024-12-19 07:27 | Outpatient (AMB) | payer OTHER, SELFPAY ==
--- OUTSIDE RECORDS SUMMARY | 2011-05-08 19:00 | XMS_ITS | Continuity of Care Document ---
Author Organization [facility] vices Address [address] [place] [address] Phone Care Team Providers Care Motor Equipment Sergeant Name Role Phone Unavailable Unavailable Unavailable Allergies, [...] Date Provider Providers Copied on Encounter [facility], [address] [place] [address], tel:[phone] [facility] Adult Medicine No Information 2 No Information [facility], [address] [place] [address], tel:[phone] Conversion BODY MASS INDEX 34.0-34.9, ADULTEXERCISE COUNSELING 2 No Information [facility], [address] [place] [address], tel:[phone] Conversion Patient Education - DietaryOBESITY 2 No Information [facility], [address] [place] [address], tel:[phone] Conversion HYPERLIPIDEMIAD EPRESSIONVITAMI N D DEFICIENCY 1 No Information [facility], [address] [place] [address], tel:[phone] Conversion PE W/ PAPSTD SCREEN No Information [facility], [address] [place], [address], [place] tel:[phone] [facility] No Information No Information Family History Family Member Type Diagnosis Age At Onset No Information Payers Payer name Insurance type Covered green party ID Authoriza tion(s) No Information Social History [...]
[2024-12-19 07:29] VITALS: BP 100/62; PULSE 52; O2SAT 96; BMI 19.7
--- NOTE | 2024-12-19 07:29 | MHC.PC.OV ---
Vital Signs 12/19/24 07:29 Height 5 ft 2 in Weight 107 lb 12.897 oz BMI 19.7 BP 100/62 Blood Pressure Location Lt brachial Position Sitting Pulse 52 Pulse Source Pulse Oximeter Pulse Oximetry (%) 96 Oxygen Delivery Method Room Air Intake Visit Reasons: [facility] 12/09 ABD pain Assembling Motor Builder Required: Yes Assembling Motor Builder Language: Pashto Allergies bee pollen (BEE STINGS) Allergy (Severe, Verified 12/19/24 07:31) SWELLING Penicillins (PENICILLINS) Allergy (Severe, Verified 12/19/24 07:31) HIVES, THROAT CLOSES amitriptyline (AMITRIPTYLINE) Allergy (Intermediate, Verified 12/19/24 07:31) Agitation oxycodone (From PERCOCET) Adverse Reaction (Intermediate, Verified 12/19/24 07:31) DIZZINESS Tobacco use date assessed: 06/06/24 Dental Screening Dental Screen Date: 06/06/24 HPI HPI Comments History of Present Illness Details 63 y/o Female patient presents to the clinic today for hospital discharge follow-up (HDF). She reports a recent hospitalization at [facility] from 12/06?12/09 for evaluation of abdominal pain associated with diarrhea. A colonoscopy was performed due to concern for ileus; final results were positive for internal hemorrhoids. She has upcoming GI follow-ups scheduled with [facility] on 02/05/2025 and [facility] on 02/19/2024. She was previously hospitalized at [facility] on 11/14 for hypovolemic shock requiring MICU admission, fluid resuscitation, and vasopressor support. Today reports feeling much better. No concerns. PENDING SALE TO [facility] Medical History (Updated 12/19/24 @ 08:02 by Abby Weber NP) Abdominal pain, vomiting, and diarrhea Numbness and tingling of both legs DISH (diffuse idiopathic skeletal hyperostosis) Weakness generalized Postsurgical dumping syndrome Hypovolemic shock Blurry vision Memory loss Physical exam Weakness of both hands Abnormal mammogram Right sided sciatica Right leg pain Hand numbness Hyperparathyroidism Iron deficiency anemia Mild asthma Insomnia Dyslipidemia Autoimmune thyroiditis Hypovitaminosis D Surgical History History of mammogram History of breast biopsy History of carpal tunnel release History of hysteroscopy H/O gastric bypass Status post dilation and curettage History of section History of cholecystectomy Family History Father CAD (coronary artery disease) Hypertension Diabetes Cerebral aneurysm Mother CAD (coronary artery disease) Thyroid cancer Sister Primary cancer of uterus Ovarian cancer Maternal Uncle Bone cancer Family/Other FH: mental illness Social History Household Members: Spouse Housing: House Alcohol intake: never Patient Tobacco Use Status: Never used Tobacco Tobacco use type: Cigarette e-Cigarette/Vaping Use: Never Used Second Hand Smoke Exposure: No service: No Current occupational status: disabled 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 Cognitive needs: No Hearing needs: No Vision needs: Yes (glasses) Questionnaire Thrive Questionnaire Date Thrive assessed: 07/28/24 I am a: Patient What is your living situation today?: I have a steady place to live Within the past 12 months, did the food you bought not last and you didn't have the money to get more?: Never true Within the past 12 months, did you worry whether your food would run out before you got money to buy more?: Never true Do you have trouble paying for medicines?: Yes Do you have trouble getting transportation to medical appointments?: Yes Do you have trouble paying your heating and electricity bill?: Yes Do you have trouble taking care of your child, family member or friend?: Yes Do you have trouble with day-to-day activities such as bathing, preparing meals, shopping, managing finances, etc.?: Yes Are you currently unemployed and looking for a job?: Yes Are you interested in more education?: Yes Please select the resources that you would like help with: None Currently or been in a relationship where the following occur: No concerns reported THRIVE Score: 2 NATA-7 AMB Questionnaire NATA-7 Date NATA - 7 assessed: 07/28/24 Source: Developed by Drs. Alan Head, Evelin Saeed, Arias Small and colleagues, with an educational mahogany from [email or web address]. Review of Systems Const All systems reviewed & are unremarkable except as noted in HPI and below Physical exam (Primary Care) Vital Signs: Last Vital Signs Pulse 52 12/19/24 07:29 BP 100/62 12/19/24 07:29 Pulse Ox 96 12/19/24 07:29 Oxygen Delivery Method Room Air 12/19/24 07:29 BMI result Body Mass Index 19.7 Tobacco/Smoking Status: Tobacco use Status Tobacco use date assessed 06/06/24 12/19/24 07:37 Patient Tobacco Use Status Never used Tobacco 12/19/24 07:37 Tobacco use type Cigarette 12/19/24 07:37 e-Cigarette/Vaping Use Never Used 12/19/24 07:37 Thrive Assessment: Date of Thrive Assessment Date Thrive assessed 07/28/24 12/19/24 07:37 Currently or been in a relationship where the following occur: No concerns reported Const General: no acute distress Nutritional Appearance: thin Orientation/consciousness: patient oriented x3 Limitations: language barrier and wheelchair Resp Effort & Inspection: normal respiratory effort Cardio Heart sounds: S1 normal heart sound present and S2 normal heart sound present GI Inspection: Yes normal to inspection Auscultation: normal bowel sounds Neuro General: patient oriented x3 Psych Speech and movement: Normal speech and movement present Coding Level of Care Code Est Pt Level 4 (53185) Diagnoses Abdominal pain, vomiting, and diarrhea R10.9; R11.10; R19.7 Time Spent (min) 20 Assessment & Plan Assessment & Plan (1) Abdominal pain, vomiting, and diarrhea: Code(s): R10.9 - Unspecified abdominal pain; R11.10 - Vomiting, unspecified; R19.7 - Diarrhea, unspecified Category: Medical Plan: Continue follow-up with GI as scheduled ([facility] 02/05/2025; [facility] 02/19/2024) Monitor stool pattern, hydration status, and weight Encourage adequate fluid and electrolyte intake Continue current medications as prescribed. Plan F/U with PCP as scheduled.
--- OUTSIDE RECORDS SUMMARY | 2024-12-19 07:30 | XMS_ITS | Clinical Summary ---
Author Organization [facility] Address [address] [place] [address] Phone Care Team Providers Care Shipping And Receiving Weigher Name Role Phone Deborah Sanabria MD Primary [...] Medical Devices Not on file Care Teams Shipping And Receiving Weigher Relationship Specialty Start Date End Date Deborah Sanabria MD [address] [place] [address] PCP - General 07/05/24 Additional Source Comments The information contained in this document represents components of the legal health record. It is not the complete legal health record.[facility]
== END 2024-12-19 07:50 | disposition home or self-care (01) ==
LOC: HO.HMCH 07:28
PROVIDERS: PCP Internal Medicine; Visit Provider Nurse Practitioner Family
DX: R10.9 Unspecified abdominal pain (principal); R11.10 Vomiting, unspecified; R19.7 Diarrhea, unspecified

== ENCOUNTER → 2024-12-19 07:27 | Outpatient (BNVA) | payer OTHER, SELFPAY | PROVIDERS: PCP Internal Medicine; Visit Provider Nurse Practitioner Family | DX: M54.31 Sciatica, right side (principal); R10.9 Unspecified abdominal pain; R11.10 Vomiting, unspecified; R19.7 Diarrhea, unspecified | CPT/HCPCS: 99212 ==

== ENCOUNTER 2024-12-22 09:06 | Outpatient (AMB) | payer OTHER, SELFPAY ==
--- OUTSIDE RECORDS SUMMARY | 2011-05-08 19:00 | XMS_ITS | Continuity of Care Document ---
Author Organization [facility] vices Address [address] [place] [address] Phone Care Team Providers Care Machine Folder Name Role Phone Unavailable Unavailable Unavailable Allergies, [...] Diagnoses Date Provider Providers Copied on Encounter [facility], [address] [place] [address], tel:[phone] [facility] Adult Medicine No Information 2 No Information [facility], [address] [place] [address], tel:[phone] Conversion BODY MASS INDEX 34.0-34.9, ADULTEXERCISE COUNSELING 2 No Information [facility], [address] [place] [address], tel:[phone] Conversion Patient Education - DietaryOBESITY 2 No Information [facility], [address] [place] [address], tel:[phone] Conversion HYPERLIPIDEMIAD EPRESSIONVITAMI N D DEFICIENCY 1 No Information [facility], [address] [place] [address], tel:[phone] Conversion PE W/ PAPSTD SCREEN No Information [facility], [address] [place], [address], [place] tel:[phone] [facility] No Information No Information Family History Family Member Type Diagnosis Age At Onset No Information Payers Payer name Insurance type Covered constitution party ID Authoriza tion(s) No Information Social [...]
--- NOTE | 2024-12-22 09:08 | A.OFFVIS_ITS ---
Vital Signs 12/22/24 09:09 Height 5 ft 2 in BP 100/62 Blood Pressure Location Rt brachial Position Sitting Pulse 61 Pulse Source Pulse Oximeter Pulse Oximetry (%) 99 Oxygen Delivery Method Room Air Intake Visit Reasons: 4mnth follow up-Conf Intake Note: Follow up Numbness and tingling of both legs Service Restorer Emergency Required: Yes Service Restorer Emergency Services: Service Restorer Emergency Present Service Restorer Emergency Name: Presley Fraser ID:[id number] Accompanied by: Spouse Allergies bee pollen (BEE STINGS) Allergy (Severe, Verified 12/22/24 09:09) SWELLING Penicillins (PENICILLINS) Allergy (Severe, Verified 12/22/24 09:09) HIVES, THROAT CLOSES amitriptyline (AMITRIPTYLINE) Allergy (Intermediate, Verified 12/22/24 09:09) Agitation oxycodone (From PERCOCET) Adverse Reaction (Intermediate, Verified 12/22/24 09:09) DIZZINESS HPI Comments Details: 63y/o female comes for f/u of numbness in doc lower extremities. 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 The numbness started 2 years ago. she had a box fall on her back and since then she has back pain and numbness. she is also weak and has falls. no shooting pain down her legs she uses depends - due to urgency and incontinence. MRI showed deg changes EMG was normal she was seen by pain specialist and was given tramadol but it makes her very sleepy. [facility]LY [facility] Medical History Abdominal pain, vomiting, and diarrhea Numbness and tingling of both legs DISH (diffuse idiopathic skeletal hyperostosis) Weakness generalized Postsurgical dumping syndrome Hypovolemic shock Blurry vision Memory loss Physical exam Weakness of both hands Abnormal mammogram Right sided sciatica Right leg pain Hand numbness Hyperparathyroidism Iron deficiency anemia Mild asthma Insomnia Dyslipidemia Autoimmune thyroiditis Hypovitaminosis D Surgical History History of mammogram History of breast biopsy History of carpal tunnel release History of hysteroscopy H/O gastric bypass Status post dilation and curettage History of section History of cholecystectomy Family History Father CAD (coronary artery disease) Hypertension Diabetes Cerebral aneurysm Mother CAD (coronary artery disease) Thyroid cancer Sister Primary cancer of uterus Ovarian cancer Maternal Uncle Bone cancer Family/Other FH: mental illness Social History Household Members: Spouse Housing: House Alcohol intake: never Patient Tobacco Use Status: Never used Tobacco Tobacco use type: Cigarette e-Cigarette/Vaping Use: Never Used Second Hand Smoke Exposure: No service: No Current occupational status: disabled 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 Cognitive needs: No Hearing needs: No Vision needs: Yes (glasses) Physical Exam Vital Signs: Last Vital Signs Pulse 61 12/22/24 09:09 BP 100/62 12/22/24 09:09 Pulse Ox 99 12/22/24 09:09 Oxygen Delivery Method Room Air 12/22/24 09:09 Const General: cooperative and comfortable Nutritional Appearance: average body habitus Orientation/consciousness: patient oriented x3 Eyes Pupils: Equal, round and reactive pupils present Neuro Other: in wheel chair - limited motor exam due to pain UE 5/5 LE 4/5 Doc leg swelling Gait was not evaluated due to pain General: patient oriented x3 and tone normal Cranial nerves: Yes Facial sensation intact/muscles of mastication intact, Yes Equal, round and reactive pupils present, Yes Bilaterally intact EOM present, Yes Nystagmus not present, Yes Normal facial strength present and Yes Midline tongue present Cognition (Neuro): normal cognition Motor exam (neuro): Normal motor muscle tone present throughout Deep tendon reflexes (DTR's): Right triceps reflex intensity grade: 2+, Left triceps reflex intensity grade: 2+, Rt Biceps (C5, C6): 2+, Left biceps reflex intensity grade: 2+, Right brachioradialis reflex intensity grade: 2+, Left brachioradialis reflex intensity grade: 2+, Right patellar reflex intensity grade: 2+ and Left patellar reflex intensity grade: 2+ Coordination: [id number] test normal Assessment & Plan Assessment & Plan (1) Numbness and tingling of both legs: Comment: T11 compression fracture , deg changes in T spine and l spine - no cord compression Code(s): R20.0 - Anesthesia of skin; R20.2 - Paresthesia of skin Category: Medical Plan Reviewed EMG/NCS doc LE - no neuropathy Reviewed MRI results F/u pain specialist. Coding Level of Care Code Est Pt Level 4 (87709) Diagnoses Numbness and tingling of both legs R20.0; R20.2
[2024-12-22 09:09] VITALS: BP 100/62; PULSE 61; O2SAT 99
--- OUTSIDE RECORDS SUMMARY | 2024-12-22 09:46 | XMS_ITS | Clinical Summary ---
Author Organization [facility] Address [address] [place] [address] Phone Care Team Providers Care Ceramics Instructor Name Role Phone Deborah Sanabria MD Primary [...] Medical Devices Not on file Care Teams Ceramics Instructor Relationship Specialty Start Date End Date Deborah Sanabria MD [address] [place] [address] PCP - General 07/05/24 Additional Source Comments The information contained in this document represents components of the legal health record. It is not the complete legal health record.[facility]
== END 2024-12-22 10:29 | disposition home or self-care (01) ==
LOC: HO.HSMS 09:06
PROVIDERS: PCP Internal Medicine; Visit Provider Psychiatry & Neurology Neurology
DX: R20.0 Anesthesia of skin (principal); R20.2 Paresthesia of skin
CPT/HCPCS: 99214

== ENCOUNTER → 2024-12-22 09:06 | Outpatient (BNVA) | payer OTHER, SELFPAY | PROVIDERS: PCP Internal Medicine; Visit Provider Psychiatry & Neurology Neurology | DX: R20.0 Anesthesia of skin (principal); R20.2 Paresthesia of skin | CPT/HCPCS: 99212 ==

== ENCOUNTER 2025-01-01 08:48 | Outpatient (REF) | payer OTHER, SELFPAY ==
--- OUTSIDE RECORDS SUMMARY | 2011-05-08 19:00 | XMS_ITS | Continuity of Care Document ---
Author Organization [facility] vices Address [address] [place] [address] Phone Care Team Providers Care Security Investigator Name Role Phone Unavailable Unavailable Unavailable Allergies, [...] Diagnoses Date Provider Providers Copied on Encounter [facility], [address] [place] [address], tel:[phone] [facility] Adult Medicine No Information [address] [facility], [address] [place] [address], tel:[phone] Conversion BODY MASS INDEX 34.0-34.9, ADULTEXERCISE COUNSELING [address] [facility], [address] [place] [address], tel:[phone] Conversion Patient Education - DietaryOBESITY [address] [facility], [address] [place] [address], tel:[phone] Conversion HYPERLIPIDEMIAD EPRESSIONVITAMI N D DEFICIENCY [address] [facility], [address] [place] [address], tel:[phone] Conversion PE W/ PAPSTD SCREEN No Information [facility], [address] [place], [address], [place] tel:[phone] [facility] No Information No Information Family History Family [...]
--- OUTSIDE RECORDS SUMMARY | 2011-05-08 19:00 | XMS_ITS | Continuity of Care Document ---
Author Organization [facility] vices Address [address] [place] [address] Phone Care Team Providers Care Payroll Specialist Name Role Phone Unavailable Unavailable Unavailable Allergies, [...] Diagnoses Date Provider Providers Copied on Encounter [facility], [address] [place] [address], tel:[phone] [facility] Adult Medicine No Information 2 No Information [facility], [address] [place] [address], tel:[phone] Conversion BODY MASS INDEX 34.0-34.9, ADULTEXERCISE COUNSELING 2 No Information [facility], [address] [place] [address], tel:[phone] Conversion Patient Education - DietaryOBESITY 2 No Information [facility], [address] [place] [address], tel:[phone] Conversion HYPERLIPIDEMIAD EPRESSIONVITAMI N D DEFICIENCY 1 No Information [facility], [address] [place] [address], tel:[phone] Conversion PE W/ PAPSTD SCREEN No Information [facility], [address] [place], [address], [place] tel:[phone] [facility] No Information No Information Family History Family Member Type Diagnosis Age At Onset No Information Payers Payer name Insurance type Covered libertarian ID Authoriza tion(s) No Information Social History [...]
--- OUTSIDE RECORDS SUMMARY | 2011-05-08 19:00 | XMS_ITS | Continuity of Care Document ---
Author Organization [facility] vices Address [address] [place] [address] Phone Care Team Providers Care Travel Ticketing Reviewer Name Role Phone Unavailable Unavailable Unavailable Allergies, [...] Diagnoses Date Provider Providers Copied on Encounter [facility], [address] [place] [address], tel:[phone] [facility] Adult Medicine No Information 2 No Information [facility], [address] [place] [address], tel:[phone] Conversion BODY MASS INDEX 34.0-34.9, ADULTEXERCISE COUNSELING 2 No Information [facility], [address] [place] [address], tel:[phone] Conversion Patient Education - DietaryOBESITY 2 No Information [facility], [address] [place] [address], tel:[phone] Conversion HYPERLIPIDEMIAD EPRESSIONVITAMI N D DEFICIENCY 1 No Information [facility], [address] [place] [address], tel:[phone] Conversion PE W/ PAPSTD SCREEN No Information [facility], [address] [place], [address], [place] tel:[phone] [facility] No Information No Information Family History Family [...]
[2025-01-01 10:08] LABS: MANUAL DIFF FLAG NO
[2025-01-01 10:31] LABS: Hematocrit 37.9 % (37.0-47.0); Hemoglobin 12.4 g/dl (12.0-16.0); Imm Gran Abs Auto 0.01 X10*3/uL (0.00-0.03); Imm Gran Pct Auto 0.2 % (0.0-0.4); Lymphocytes Absolute Auto 2.2 X10*3/uL (1.2-4.9); Mean Corpuscular HGB Conc 32.7 g/dl (31.0-35.0); Mean Corpuscular Hemoglobin 29.0 pg (27.0-33.0); Mean Corpuscular Volume 88.8 fL (80.0-98.0); NRBC Abs Auto 0.000 X10*3/uL (0.0-0.012); NRBC Pct Auto 0.0 /100WBC (0.0-0.2); Platelet Count 223 X10*3/uL (160-400); Red Blood Count 4.27 X10*6/uL (4.20-5.50); White Blood Count 5.8 X10*3/uL (4.8-10.8)
[2025-01-01 11:14] LABS: Parathyroid Hormone Intact 59.0 pg/mL (8.7-77.1)
[2025-01-01 11:22] LABS: Alanine Aminotransferase 50 U/L (0-31); Albumin Level 4.2 g/dL (3.5-5.0); Alkaline Phosphatase 47 U/L (39-117); Anion Gap 11 (12-20); Aspartate Amino Transferase 37 U/L (5-31); Blood Urea Nitrogen 12 mg/dL (9-16); Calcium 9.5 mg/dL (8.4-10.2); Carbon Dioxide 24 mmol/L (22-29); Chloride 111 mmol/L (96-108); Estimated Glomerular Filt Rate > 60; Potassium 4.2 mmol/L (3.3-5.1); Sodium 142 mmol/L (135-145); Total Protein 6.8 g/dL (6.5-8.0)
[2025-01-01 11:41] LABS: Thyroid Stimulating Hormone 1.34 uIU/mL (0.32-4.0)
[2025-01-01 11:52] LABS: Folate > 20.0 ng/mL (> or = 4.0); Vitamin B12 413 pg/mL (200-900)
== END 2025-01-01 08:49 | disposition home or self-care (01) ==
LOC: HO.LAB 08:48
PROVIDERS: Internal Medicine Endocrinology, Diabetes & Metabolism; PCP Internal Medicine; Visit Provider Internal Medicine
DX: E21.3 Hyperparathyroidism, unspecified (principal); E06.3 Autoimmune thyroiditis; E78.5 Hyperlipidemia, unspecified; E53.8 Deficiency of other specified B group vitamins; D64.9 Anemia, unspecified; E55.9 Vitamin D deficiency, unspecified; Z79.890 Hormone replacement therapy; Z79.891 Long term (current) use of opiate analgesic; Z79.899 Other long term (current) drug therapy
CPT/HCPCS: 36415; 80053; 82306; 82607; 82746; 83970; 84443; 85025; 99212

== ENCOUNTER 2025-01-01 08:48 | Outpatient (AMB) | payer OTHER, SELFPAY ==
[2025-01-01 08:59] VITALS: BP 92/62; PULSE 58; RESP 16; TEMP 36.3; O2SAT 100; BMI 20.4
--- NOTE | 2025-01-01 08:59 | MHC.PC.OV ---
Vital Signs 01/01/25 08:59 Height 5 ft 2 in Weight 111 lb 5.335 oz BMI 20.4 BP 92/62 Blood Pressure Location Lt brachial Position Sitting Respiration 16 Pulse 58 Pulse Source Pulse Oximeter Temp 97.3 F Temp Source Temporal Artery Scan Pulse Oximetry (%) 100 Oxygen Delivery Method Room Air Intake Visit Reasons: Phylicia S[facility] 12/27 low BP/low heart rate Intake Note: [place] 12/27 low BP/ low heart rate Hydrochloric Acid Operator Required: No Accompanied by: Self / Same As Patient Allergies bee pollen (BEE STINGS) Allergy (Severe, Verified 01/01/25 09:26) SWELLING Penicillins (PENICILLINS) Allergy (Severe, Verified 01/01/25 09:26) HIVES, THROAT CLOSES amitriptyline (AMITRIPTYLINE) Allergy (Intermediate, Verified 01/01/25 09:26) Agitation oxycodone (From PERCOCET) Adverse Reaction (Intermediate, Verified 01/01/25 09:26) DIZZINESS Medication List - Last Reconciled 01/01/25 by Deborah Hernandez MD acetaminophen (Tylenol Extra Strength) 500 mg PO Q6H PRN [adult diapers pull-ups As directed] back brace As directed blood sugar diagnostic (FreeStyle Lite Strips) 1 strip miscellaneous TID 90 days calcium citrate 500 mg (2 x 250 mg calcium) PO BID celecoxib 50 mg PO BID cholecalciferol (vitamin D3) 125 mcg PO DAILY duloxetine 20 mg PO BID 30 days [electric wheelchair As directed] epinephrine 0.3 mg (0.3 mL) IM DIRECTED PRN 1 day ergocalciferol (vitamin D2) 1,250 mcg PO 2XW fluticasone furoate 50 mcg/actuation (Arnuity Ellipta) 1 inh inhalation DAILY 30 days folic acid 1 mg PO DAILY gabapentin 400 mg PO TID 30 days lancets Use 1 lancet TID levothyroxine (Unithroid) 50 mcg PO DAILY 90 days loperamide mg PO pantoprazole 40 mg PO DAILY 90 days [scooter As directed] sucralfate 1 mL PO BID 90 days thiamine HCl (vitamin B1) 100 mg PO DAILY 90 days tizanidine 2 mg PO BID PRN tramadol 50 mg PO Q8-10H PRN trazodone 100 mg PO BEDTIME PRN 90 days Ventolin HFA 90 mcg/actuation (albuterol sulfate) 2 puffs inhalation Q6H PRN 30 days NS walker WITH SEAT AND WHEELS Tobacco use date assessed: 01/01/25 Dental Screening Dental Screen Date: 01/01/25 Did you have a dental visit in the last 12 months?: Yes Did you have a dental problem in the last 6 months where you did not have access to dental care?: No Was dental information given to patient?: Patient has dentist HPI HPI Comments History of Present Illness Details The patient is a 64 year old individual presenting for management of chronic pain and multiple chronic medical conditions. Regarding pain management, the patient reports that Celebrex is not effective and requests tramadol. The patient reports a side effect of dizziness with Percocet. She follows with pain management. She has been in and out of the hospital since last month due to low blood pressure associated with dizziness requiring vasopressors and abdominal pain due to dumping syndrome. Had a CT scan of the abdomen at [facility] last month and also had a colonoscopy showing only internal hemorrhoids. Abdominal pain has improved with Carafate. Blood pressure mildly improved but I will start her on midodrine because she does feel dizzy. The patient's medical history includes asthma, and hypothyroidism, managed with levothyroxine 50 mcg. The patient also takes gabapentin three times a day, folic acid, vitamin D, and calcium. Gastrointestinal history is notable for stomach pain, for which pantoprazole was recommended, and diarrhea, for which the patient uses loperamide. There is a past diagnosis of hypovolemic shock which was attributed to dehydration. She also complains of a persistent headache that started about 2 months ago that involve the left eye and it happens every other day. The patient has a history of neuropathy and lumbar degenerative disease, which has led to a recommendation for an electric wheelchair. [facility] Medical History (Updated 01/01/25 @ 10:51 by Deborah Hernandez MD) Abdominal pain, vomiting, and diarrhea Numbness and tingling of both legs DISH (diffuse idiopathic skeletal hyperostosis) Weakness generalized Postsurgical dumping syndrome Hypovolemic shock Blurry vision Memory loss Physical exam Weakness of both hands Abnormal mammogram Right sided sciatica Right leg pain Hand numbness Hyperparathyroidism Iron deficiency anemia Mild asthma Insomnia Dyslipidemia Autoimmune thyroiditis Hypovitaminosis D Surgical History History of mammogram History of breast biopsy History of carpal tunnel release History of hysteroscopy H/O gastric bypass Status post dilation and curettage History of section History of cholecystectomy Family History Father CAD (coronary artery disease) Hypertension Diabetes Cerebral aneurysm Mother CAD (coronary artery disease) Thyroid cancer Sister Primary cancer of uterus Ovarian cancer Maternal Uncle Bone cancer Family/Other FH: mental illness Social History Household Members: Spouse Housing: House Alcohol intake: never Patient Tobacco Use Status: Never used Tobacco Tobacco use type: Cigarette e-Cigarette/Vaping Use: Never Used Second Hand Smoke Exposure: No Use of substances other than those prescribed or required for medical reasons: No service: No Current occupational status: disabled 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 Cognitive needs: No Hearing needs: No Vision needs: Yes (glasses) Questionnaire Thrive Questionnaire Date Thrive assessed: 07/28/24 I am a: Patient What is your living situation today?: I have a steady place to live Within the past 12 months, did the food you bought not last and you didn't have the money to get more?: Never true Within the past 12 months, did you worry whether your food would run out before you got money to buy more?: Never true Do you have trouble paying for medicines?: Yes Do you have trouble getting transportation to medical appointments?: Yes Do you have trouble paying your heating and electricity bill?: Yes Do you have trouble taking care of your child, family member or friend?: Yes Do you have trouble with day-to-day activities such as bathing, preparing meals, shopping, managing finances, etc.?: Yes Are you currently unemployed and looking for a job?: Yes Are you interested in more education?: Yes Please select the resources that you would like help with: None Currently or been in a relationship where the following occur: No concerns reported THRIVE Score: 2 NATA-7 AMB Questionnaire NATA-7 Date NATA - 7 assessed: 07/28/24 Source: Developed by Drs. Alan Head, Evelin Saeed, Arias Small and colleagues, with an educational mahogany from [employer]. Review of Systems Const All systems reviewed & are unremarkable except as noted in HPI and below Card Denies chest pain at rest, Denies chest pain with activity, Denies edema, Denies irregular heart rhythm, Denies claudication, Denies dyspnea, Denies dyspnea on exertion, Denies orthopnea, Denies paroxysmal nocturnal dyspnea and Denies slow heart rate Resp Denies cough, Denies dyspnea and Denies dyspnea on exertion Physical exam (Primary Care) Vital Signs: Last Vital Signs Temp 97.3 F 01/01/25 08:59 Pulse 58 01/01/25 08:59 Resp 16 01/01/25 08:59 BP 92/62 01/01/25 08:59 Pulse Ox 100 01/01/25 08:59 Oxygen Delivery Method Room Air 01/01/25 08:59 BMI result Body Mass Index 20.4 Tobacco/Smoking Status: Tobacco use Status Tobacco use date assessed 01/01/25 01/01/25 09:07 Patient Tobacco Use Status Never used Tobacco 01/01/25 09:07 Tobacco use type Cigarette 01/01/25 09:07 e-Cigarette/Vaping Use Never Used 01/01/25 09:07 Thrive Assessment: Date of Thrive Assessment Date Thrive assessed 07/28/24 01/01/25 08:59 Currently or been in a relationship where the following occur: No concerns reported Const Limitations: wheelchair Resp Effort & Inspection: normal respiratory effort Auscultation: clear to auscultation bilaterally Cardio Jugular venous distension: no JVD Rate: regular rate Rhythm: regular rhythm Heart sounds: S1 normal heart sound present and S2 normal heart sound present Extrem General: Yes full ROM Coding Level of Care Code Est Pt Level 4 (29860) Complex EM visit Add On G2211 Diagnoses Idiopathic hypotension I95.0 Autoimmune thyroiditis E06.3 Postsurgical dumping syndrome K91.1 Right sided sciatica M54.31 Mild asthma J45.909 Time Spent (min) 22 Assessment & Plan Assessment & Plan (1) Idiopathic hypotension: Code(s): I95.0 - Idiopathic hypotension Category: Medical (2) Autoimmune thyroiditis: Code(s): E06.3 - Autoimmune thyroiditis Category: Medical (3) Postsurgical dumping syndrome: Code(s): K91.1 - Postgastric surgery syndromes Category: Medical (4) Right sided sciatica: Code(s): M54.31 - Sciatica, right side Category: Medical (5) Mild asthma: Code(s): J45.909 - Unspecified asthma, uncomplicated Category: Medical Plan Plan 1. Chronic Pain The patient reports that Celebrex is not working effectively for pain. A request was made for tramadol, which will be prescribed. 2. Persistent head MRI ordered. 3. Impaired Mobility Due To Neuropathy And Lumbar Degenerative Disease The patient has significant mobility limitations due to neuropathy and lumbar degenerative disease. An electric wheelchair is recommended to improve the patient's functional mobility. 4. Autoimmune thyroiditis Continue levothyroxine. Repeat TSH 5. Hypotension Start midodrine. Blood pressure goal is above 90/60. Orders: Orders MR head/brain wo con Today R51.9 - Headache, unspecified Thyroid Stimulating Hormone Today E06.3 - Autoimmune thyroiditis Vitamin B12 and Folate Today E53.8 - Deficiency of other specified B group vitamins Comprehensive Met. Panel Today E78.5 - Hyperlipidemia, unspecified Vitamin D 25-OH Total Today E55.9 - Vitamin D deficiency, unspecified Complete Blood Count Auto Diff Today D64.9 - Anemia, unspecified Medications: New [mobile scooter] As directed 1 ea 0RF M54.16 - Radiculopathy, lumbar region, M54.31 - Sciatica, right side, M81.0 - Age-related osteoporosis without current pathological fracture tramadol 50 mg PO DAILY 7 tabs 0RF 7 days midodrine do not give last dose of day after 6PM or within 4 hrs of bedtime 5 mg PO TID 90 tabs 2RF 30 days sucralfate (Carafate) 1 g PO BID 60 tabs 0RF 30 days
--- OUTSIDE RECORDS SUMMARY | 2025-01-01 10:23 | XMS_ITS | Clinical Summary ---
Author Organization [facility] Address [address] [facility] [address] [place] [id number] Phone Care Team Providers Care Auto Clutch Specialist Name Role Phone Deborah Sanabria MD Primary Care Provid er Allergies Active Allergy Reactions Criticality Noted Date Comments Penicillin 12/27/2024 Medications No known medications Encounters Date Type Department Care Team Description 12/27/2024 3:35 PM EST - 12/27/2024 8:55 PM EST Emergency [facility] [address] [place] [address] Oni Leavitt MD Discharge Disposition: Home or Self Care from Last 3 Months Social History Tobacco Use Types Packs/Day Years Used Date Smoking Tobacco: Never Assessed Education Answer Date Recorded Are you interested in more education? Not on philip e 07/05/2024 Are you concerned about learning? Not on file 07/05/2024 No 07/05/2024 No 07/05/2024 Food Answer Date Recorded Within the past 6 months we worried whether our food would run out before we got money to buy more. Unable to assess 025 Within the past 6 months the food we bought just didn't last and we didn't have enough money to get more. Unable to assess 12/27/2024 Residential Stability Answer Date Recor ded What is your housing situation today? Unable to assess 12/27/2024 How many times have you moved in the past 12 mon ths? Unable to assess 12/27/2024 Paying for Meds Answer Date Recorded Do you have trouble paying for medicines? Unable to assess 12/27/2024 Paying Utility Bills Answer Date Record ed Do you have trouble paying y our heating or electricity bill? Unable to assess 12/27/2024 Transportation Answer Date Recorded Has the lack of transportati on kept you from medical appointments or from getting medications? Unable to assess 12/27/2024 Digital Access Answer Date Recorded No 12/27/2024 No 12/27/2024 Do you have reliable internet access at home? Un able to assess 12/27/2024 Do you have a device (e.g., phone, tablet, computer) with a working camera? Unable to assess 12/27/2024 Intimate Partner Violence Answer Date R ecorded Are you denied basic needs s uch as food, clothing, or medical care? No 12/27/2024 In the past 12 months have y ou been in a relationship with a person who hurts, threatens, or tries to control you? No 12/27/2024 Are you denied basic needs s uch as food, clothing, or medical care? No 12/27/2024 In the past 12 months have y ou been in a relationship with a person who hurts, threatens, or tries to control you? No 12/27/2024 Comments Unknown Sex and Gender Information Value Date Recorded Sex Assigned at Female 12/27/2024 4:09 PM EST Legal Sex Female 9:32 AM EDT Gender Identity Female 12/27/2024 4:09 PM EST Sexual Orientation Choose not to disclose 2024 4:09 PM EST Last Filed Vital Signs Vital Sign Reading Time Taken Comments Blood Pressure 110/84 12/27/2024 8:00 PM EST Pulse 54 12/27/2024 8:00 PM EST Temperature 36.3 C (97.3 F) 12/27/2024 8:00 PM EST Respiratory Rate 18 12/27/2024 8:00 PM EST Oxygen Saturation 100% 12/27/2024 8:00 PM EST Inhaled Oxygen Concentration - - Weight 48.5 kg (107 lb) 12/27/2024 10:28 AM EST Height - - Body Mass Index - - Plan of Treatment Health Maintenance Due Date Last Done Comments Adult Td,Tdap Booster 1962 LIPID PANEL 1962 DEPRESSION SCREENING 1974 SMOKING Hx and SMOKELESS TOB ACCO SCREENING 12/26/1975 HEPATITIS C SCREENING 1980 HIV ONE-TIME SCREENING (18-6 5 YEARS) 1980 PAP SMEAR 12/26/1983 MAMMOGRAM 2002 COLOGUARD 12/26/2007 COLONOSCOPY 12/26/2007 COLORECTAL CANCER SCREENING 12/26/2007 FIT TEST 12/26/2007 FOBT 12/26/2007 SIGMOIDOSCOPY 12/26/2007 VIRTUAL COLONOSCOPY 12/26/2007 PNEUMOCOCCAL VACCINES (50+ y ears) (1 of 1 - PCV) 2012 ZOSTER VACCINES (1 of 2) 2012 INFLUENZA VACCINE (#1) 2024 COVID-19 VACCINE (1 - 2024-2 6 season) 2024 RSV VACCINE (1 - 1-dose 75+ series) 2037 HEPATITIS A VACCINES Aged Out No long er eligible based on patient's age to complete this topic HIB VACCINES Aged Out No longer eligi ble based on patient's age to complete this topic IPV VACCINES Aged Out No longer eligi ble based on patient's age to complete this topic MENINGOCOCCAL VACCINES (ACWY) Aged Out No longer eligible based on patient's age to complete this topic MENINGOCOCCAL VACCINES (B) Aged Out N o longer eligible based on patient's age to complete this topic Medical Devices Not on file Procedures Procedure Name Priority Date/Time Associated Diagnosis Comments URINE SEDIMENT STAT 12/27/2024 7:18 PM EST URINALYSIS WITH REFLEX TO URINE CULTURE STAT 12/27/2024 7:18 PM EST URINE CULTURE STAT 12/27/2024 7:18 PM EST LAB ADD-ON STAT 12/27/2024 5:14 PM EST ECG 12-LEAD STAT 12/27/2024 5:05 PM EST LAB ADD-ON STAT 12/27/2024 4:54 PM EST LIPASE STAT 12/27/2024 4:23 PM EST LFTS (HEPATIC PANEL) STAT 12/27/2024 4:23 PM EST CBC AND DIFFERENTIAL STAT 12/27/2024 4:23 PM EST CBC AND DIFFERENTIAL STAT 12/27/2024 4:23 PM EST BASIC METABOLIC PANEL (BMP) STAT 12/27/2024 4:23 PM EST ECG 12-LEAD STAT 12/27/2024 12:18 PM EST from Last 3 Months Results * (ABNORMAL) Urinalysis with Reflex to Urine Culture (12/27/2024 7:18 PM EST) Color Yellow Yellow 12/27/2024 7:32 PM EST [facility] Clarity Clear Clear 12/27/2024 7:32 PM EST [facility] Glucose Negative Negative 12/27/2024 7:32 PM [facility] Bilirubin Urine Negative Negative 7:32 PM EST [facility] Ketone Urine Negative Negative 12/27/2024 7:32 PM EST [facility] Specific Oak 1.010 1.001 - 1.035 12/27/2024 7:32 PM EST [facility] Blood Negative Negative 12/27/2024 7:32 PM [facility] pH 5.5 5.0 - 8.0 12/27/2024 7:32 PM EST [facility] Protein Negative Negative 12/27/2024 7:32 PM [facility] Nitrites Negative Negative 12/27/2024 7:32 PM [facility] Leukocyte Esterase Trace(A) Negative 12/27/2024 7:32 PM EST [facility] Urobilinogen Negative Negative 12/27/2024 7:32 PM [facility] Urine (Urine, Voided) Non-Blood Collection / Unknown 12/27/2024 7:18 PM EST 12/27/2024 7:27 PM EST us Oni Leavitt MD LAB URINE ORDERAB LES Final Result [address] [address] * Urine Culture (12/27/2024 7:18 PM EST) Urine Culture/Test Mixed sekou, culture indicates contamination 12/29/2024 8:00 AM EST [facility] Urine (Urine, Voided) Non-Blood Collection / Unknown 12/27/2024 7:18 PM EST 12/27/2024 7:47 PM EST Oni Leavitt MD LAB MICROBIOLOGY CULTURE ORDERABLES Final Result [address] [address] * (ABNORMAL) URINE SEDIMENT (12/27/2024 7:18 PM EST) WBC 10-20(A) 0 - 9 /hpf 12/27/2024 7:47 PM [facility] RBC 0-2 0 - 2 /hpf 12/27/2024 7:47 PM [facility] Squamous Epithelial Cells 1-2(A) Not Present /hpf 12/27/2024 7:47 PM [facility] Transitional Epithelial Cells 1-2(A) Not Present /hpf 12/27/2024 7:47 PM [facility] Urine (Urine, Voided) Non-Blood Collection / Unknown 12/27/2024 7:18 PM EST 12/27/2024 7:27 PM EST Oni Leavitt MD LAB URINE ORDERAB LES Final Result Performing Organization Address City/[facility]/ZIP Co de Phone Number [address] [address] * Lab Add-On (12/27/2024 5:14 PM EST) Only the most recent of2 resultswithin the time period is included. Specimen Date/Time 12/27/2024 5:46 PM [facility] Test Requested LFT, Lipase 12/27/2024 5:46 PM [facility] Specimen Description 12/27/2024 5:46 PM EST [facility] Comments 12/27/2024 5:46 PM EST [facility] Was this request processed? No 12/27/2024 5:46 PM EST [facility] Other (Other) 12/27/2024 5:1 4 PM EST 12/27/2024 5:14 PM EST Narrative [facility] - 12/27/2024 5:46 PM EST DUPLICATE ORDER us Oni Leavitt MD LAB GENERAL ORDER NABILA Final Result Performing Organization Address City/[facility]/ZIP Co de Phone Number [address] [address] * ECG 12-LEAD (12/27/2024 5:05 PM EST) Only the most recent of2 resultswithin the time period is included. Ventricular Rate EKG/MIN 52 BPM [facility] Atrial Rate 52 BPM [facility] DC Interval 140 ms [facility] QRS Duration 76 ms [facility] QT Interval 456 ms [facility] QTC Interval 424 ms [facility] P [place] 0 degrees [facility] R Wave [place] 57 degrees [facility] T Wave [place] 42 degrees [facility] 12/27/2024 5:05 PM EST 12/29/2024 2:49 PM EST Narrative [facility] - 12/29/2024 2:49 PM EST Sinus bradycardia Otherwise normal ECG When compared with ECG of 27-Dec-2024 12:18, No significant change was found Confirmed by Jovany Morris ([id number]) on 12/29/2024 2:49:06 PM us Oni Leavitt MD ECG ORDERABLES F inal Result [facility] * (ABNORMAL) CBC and Differential (12/27/2024 4:23 PM EST) WBC 5.94 4.00 - 11.00 K/uL 12/27/2024 4:36 PM EST [facility] RBC 3.87(L) 4.00 - 5.20 M/uL 12/27/2024 4:36 PM [facility] Hemoglobin 11.2(L) 12.0 - 16.0 g/dL 12/27/2024 4:36 PM [facility] Hematocrit 34.6(L) 36.0 - 46.0 % 12/27/2024 4:36 PM [facility] MCV 89.4 80.0 - 100.0 fL 12/27/2024 4:36 PM [facility] MCH 28.9 27.0 - 31.0 pg 12/27/2024 4:36 PM [facility] MCHC 32.4 32.0 - 36.0 g/dL 12/27/2024 4:36 PM [facility] MPV 9.9 8.4 - 12.0 fL 12/27/2024 4:36 PM [facility] RDW-CV 13.3 11.5 - 14.5 % 12/27/2024 4:36 PM [facility] PLT 204 150 - 450 K/uL 12/27/2024 4:36 PM [facility] Neutrophils 38.0 % 12/27/2024 4:36 PM [facility] Lymphocytes 50.0 % 12/27/2024 4:36 PM [facility] Monocytes 9.1 % 12/27/2024 4:36 PM [facility] Eosinophils 2.0 % 12/27/2024 4:36 PM [facility] Basophils 0.7 % 12/27/2024 4:36 PM [facility] Imm Grans 0.2 % 12/27/2024 4:36 PM [facility] NRBC 0.0 <=0.0 /100 WBCs 12/27/2024 4:36 PM [facility] Absolute Neutrophils 2.26 1.92 - 7.60 K/uL 12/27/2024 4:36 PM [facility] Absolute Lymphocytes 2.97 0.72 - 4.10 K/uL 12/27/2024 4:36 PM [facility] Absolute Monocytes 0.54 0.16 - 1.10 K/uL 12/27/2024 4:36 PM [facility] Absolute Eosinophils 0.12 0.00 - 0.50 K/uL 12/27/2024 4:36 PM [facility] Absolute Basophils 0.04 0.00 - 0.15 K/uL 12/27/2024 4:36 PM [facility] Absolute Imm Grans 0.01 0.00 - 0.09 K/uL 12/27/2024 4:36 PM [facility] Absolute NRBC 0.00 <=0.00 K cells/uL 12/27/2024 4:36 PM [facility] Absolute Neutrophils 2.26 1.92 - 7.60 K/uL 12/27/2024 4:36 PM [facility] Comment:Automated cell count . Manual ANC may differ if performed. Diff Type Auto 12/27/2024 4:36 PM [facility] Blood (Blood) Venipuncture / Unknown 12/27/2024 4:23 PM EST 12/27/2024 4:26 PM EST us Oni Leavitt MD LAB BLOOD BKR ORD ERABLES Final Result [facility] [address] [place] [address] * (ABNORMAL) Hepatic Panel (LFTs) (12/27/2024 4:23 PM EST) AST 32 <33 U/L 12/27/2024 5:42 PM [facility] ALT 30 <34 U/L 12/27/2024 5:42 PM [facility] Alkaline Phosphatase 42 40 - 130 U/L 12/27/2024 5:42 PM [facility] Bilirubin, Total 0.3 0.0 - 1.2 mg/dL 12/27/2024 5:42 PM [facility] Bilirubin, Direct 0.1 0.0 - 0.3 mg/dL 12/27/2024 5:42 PM [facility] Total Protein 6.3(L) 6.4 - 8.3 g/dL 12/27/2024 5:42 PM [facility] Albumin 3.8 3.5 - 5.2 g/dL 12/27/2024 5:42 PM [facility] Globulin 2.5 1.9 - 4.1 g/dL 12/27/2024 5:42 PM [facility] Blood (Blood) Venipuncture / Unknown 12/27/2024 4:23 PM EST 12/27/2024 4:26 PM EST Oni Leavitt MD LAB BLOOD BKR ORD ERABLES Final Result Performing Organization Address City/[facility]/ZIP Co de Phone Number [address] [address] * Lipase (12/27/2024 4:23 PM EST) Lipase 34 13 - 60 U/L 12/27/2024 5:42 PM [facility] Blood (Blood) Venipuncture / Unknown 12/27/2024 4:23 PM EST 12/27/2024 4:26 PM EST Oni Leavitt MD LAB BLOOD BKR ORD ERABLES Final Result Performing Organization Address City/[facility]/ZIP Co de Phone Number [address] [address] * Basic Metabolic Panel (BMP) (12/27/2024 4:23 PM EST) Sodium 138 136 - 145 mmol/L 12/27/2024 5:01 PM [facility] Potassium 4.4 3.4 - 5.1 mmol/L 12/27/2024 5:01 PM [facility] Chloride 104 98 - 107 mmol/L 12/27/2024 5:01 PM [facility] CO2 25 20 - 31 mmol/L 12/27/2024 5:01 PM [facility] Anion Gap 9 3 - 17 mmol/L 12/27/2024 5:01 PM [facility] BUN 13 6 - 23 mg/dL 12/27/2024 5:01 PM [facility] Creatinine 0.70 0.50 - 1.00 mg/dL 12/27/2024 5:01 PM [facility] eGFR 98 >59 mL/min/1.7 3m2 12/27/2024 5:01 PM [facility] Comment:Estimated glomerular filtration rate calculated using the CKD-EPI refit equation. Glucose 89 70 - 99 mg/dL 12/27/2024 5:01 PM [facility] Calcium 9.3 8.5 - 10.5 mg/dL 12/27/2024 5:01 PM [facility] Blood (Blood) Venipuncture / Unknown 12/27/2024 4:23 PM EST 12/27/2024 4:26 PM EST us Oni Leavitt MD LAB BLOOD BKR ORD ERABLES Final Result [facility] [address] [place] [address] from Last 3 Months Insurance [address] [place] [address] [address] [place] [address] [place], [place] [id number] [facility] [address] [place] [address] [address] [place] [address] [address] [place] [id number] [place] [address] ACO [facility] A[employer] Care Teams Auto Clutch Specialist Relationship Specialty Start Date End Date Deborah Sanabria MD [address] [place] [address] PCP - General Internal Medicine 12/27/24 Additional Source Comments The information contained in this document represents components of the legal health record. It is not the complete legal health record.[facility]
== END 2025-01-01 09:45 | disposition home or self-care (01) ==
LOC: HO.HMCH 08:48
PROVIDERS: PCP Internal Medicine; Visit Provider Internal Medicine
DX: I95.0 Idiopathic hypotension (principal); E06.3 Autoimmune thyroiditis; K91.1 Postgastric surgery syndromes; M54.31 Sciatica, right side; J45.909 Unspecified asthma, uncomplicated

== ENCOUNTER 2025-01-06 14:30 | Outpatient (AMB) | payer OTHER, SELFPAY ==
--- OUTSIDE RECORDS SUMMARY | 2011-05-08 19:00 | XMS_ITS | Continuity of Care Document ---
Author Organization [facility] vices Address [address] [place] [address] Phone Care Team Providers Care Log Peeler Name Role Phone Unavailable Unavailable Unavailable Allergies, Adverse Reactions, Alerts Substance Reaction Status Criticality Penicillins Active No Information Results Test Name Date and Time Measure Units Reference Range Abnormal Flag Status Comments Panel Description: MED NUTRITION, INDIV, SUBSEQ Unknown Document 0 00:00:00 See [facility] Archive Unknown [facility] Conversion NoResultDesc 0 00:00:00 Unknown Advance Directives Directive Yes / No Effective Date File Name No Information Encounters Encounter Description Practice Location Reason(s) For Visit Diagnoses Date Provider Providers Copied on Encounter [facility], [address] [place] [address], tel:[phone] [facility] Adult Medicine No Information 2 No Information [facility], [address] [place] [address], tel:[phone] Conversion BODY MASS INDEX 34.0-34.9, ADULTEXERCISE COUNSELING 2 No Information [facility], [address] [place] [address], tel:[phone] Conversion Patient Education - DietaryOBESITY 2 No Information [facility], [address] [place] [address], tel:[phone] Conversion HYPERLIPIDEMIAD EPRESSIONVITAMI N D DEFICIENCY 1 No Information [facility], [address] [place] [address], tel:[phone] Conversion PE W/ PAPSTD SCREEN No Information [facility], [address] [place], [address], [place] tel:[phone] [facility] No Information No Information Family History Family Member Type Diagnosis Age At Onset No Information Payers Payer name Insurance type Covered republican ID Authoriza tion(s) No Information Social History Type Description Quantity Date Captured Comments Sex Female Smoking Status No Information Vital Signs Date / Time: Height Weight BMI Pulse Rate Blood Pressure Temperature Respiratory Rate Body Surface Area Head Circumference Head Circ. Percentile Wt./Romero. Percentile BMI percentile Pulse Ox Inhaled Ox 60.50 in 81.000 kg (179.00 lbs) 34.4 0 kg/m eter (2) 74 /min 122/85 mm[Hg] 97.70 F 16 /min Chief Complaint And Reason For Visit No Information Reason For Referral Reason For Referral No Information History Of Present Illness Encounter Date Complaint History Of Prese nt Illness No Information Functional Status Date Functional Assessmen t No Information Instructions Date Instruction Additional Infor mation No Information Assessments Type Assessment Date No Information Patient Care Teams Name Effective Dates (start - stop) Status Members No Information
--- NOTE | 2025-01-06 14:35 | MHC.PC.OV ---
Vital Signs 01/06/25 14:44 Height 5 ft 2 in BP 122/70 Blood Pressure Location Rt brachial Position Sitting Respiration 18 Pulse 60 Pulse Source Pulse Oximeter Temp 97.6 F Temp Source Temporal Artery Scan Pulse Oximetry (%) 98 Oxygen Delivery Method Room Air Intake Visit Reasons: PAZ/from Dr. Shiva Hernandez at [address] Candy Polisher Required: Yes Accompanied by: Spouse Allergies bee pollen (BEE STINGS) Allergy (Severe, Verified 01/06/25 14:36) SWELLING Penicillins (PENICILLINS) Allergy (Severe, Verified 01/06/25 14:36) HIVES, THROAT CLOSES amitriptyline (AMITRIPTYLINE) Allergy (Intermediate, Verified 01/06/25 14:36) Agitation oxycodone (From PERCOCET) Adverse Reaction (Intermediate, Verified 01/06/25 14:36) DIZZINESS Tobacco use date assessed: 01/01/25 Dental Screening Dental Screen Date: 01/01/25 Did you have a dental visit in the last 12 months?: Yes Did you have a dental problem in the last 6 months where you did not have access to dental care?: No Was dental information given to patient?: Patient has dentist HPI HPI Comments History of Present Illness Details 64 year old female with history of osteoporosis, compression fx T11, DISH, lumbar radiculopathy, h/o gastric bypass (2017), asthma, hyperparathyroidism, autoimmune thyroiditis, vitamin D deficiency, RAMONITA, insomnia among others presenting to the office today for evaluation. She is a transfer from Dr. Shannon. Hungarian interpretor Shyann #[id number] Unintentional weight loss- in the last few months went from 140lb to 107lb. 20 of those lbs in the last month Dysphagia/globus sensation- reports food gets stuck when swallowing Decreased appetitite but is eating full meals Epigastric pain Daily watery stool ongoing x 3 month. No blood Also experiencing symptomatic hypoglycemia- poc 63, lightheaded Hx gastric bypass 2017 Dr. Braga. ?gastric dumping Hypotension/low normal BPs- bp normal in the office today, but has been low 90s sbp Chronic back pain- compression fx t11, lumbar facet athropathy/radiculopathy, DISH- has had chronic pain over the last 2 years following an injury. Has seen pain management- was on the fence about SCS but now is interested. There has been no injury since. Despite this in the last month has had rapidly progressing BLE weakness and is now wheelchair bound. Has sustained falls. Paresthesias bilateral toes. No saddle anesthesia. Some fecal incontinence, no urinary retention. PT/OT in house New left-sided headaches with left eye pain- x 1 month. Last 15 minutes. No vision loss, aura, phono/photophobia Urinary incontinence- ongoing about 1 year Resting tremor- hands and legs cxr gastro brain mri neuro referral [facility] ROS: see above EXAM: Constitutional - Awake and Alert, anxious appearing, tearful at times Eyes - PERRL Cardiovascular - S1S2, RRR, No edema Respiratory - Normal lung expansion, Normal respiratory effort, No respiratory distress, CTA bilaterally Extremities - no calf tenderness bilaterally, no swelling Skin - Warm/Dry Neurological - Alert & oriented x3, Horizontal and vertical nystagmus, otherwise CN II-XII intact. 5/5 strength BUE, 1/5 strength BUE, 1+ patellar reflexes symmetric, sensation in tact Psychological - anxious, tearful [facility] Medical History (Updated 01/10/25 @ 22:07 by ELLA Tolbert) Abdominal pain, vomiting, and diarrhea Numbness and tingling of both legs DISH (diffuse idiopathic skeletal hyperostosis) Weakness generalized Postsurgical dumping syndrome Hypovolemic shock Blurry vision Memory loss Physical exam Weakness of both hands Abnormal mammogram Right sided sciatica Right leg pain Hand numbness Hyperparathyroidism Iron deficiency anemia Mild asthma Insomnia Dyslipidemia Autoimmune thyroiditis Hypovitaminosis D Surgical History (Updated 01/05/25 @ 16:43 by Stacie Hoffman) History of colonoscopy (~12/08/24) History of mammogram History of breast biopsy History of carpal tunnel release History of hysteroscopy H/O gastric bypass Status post dilation and curettage History of section History of cholecystectomy Family History Father CAD (coronary artery disease) Hypertension Diabetes Cerebral aneurysm Mother CAD (coronary artery disease) Thyroid cancer Sister Primary cancer of uterus Ovarian cancer Maternal Uncle Bone cancer Family/Other FH: mental illness Social History Household Members: Spouse Housing: House Alcohol intake: never Patient Tobacco Use Status: Former Tobacco user Tobacco use type: Cigarette Years Smoked: 6 years e-Cigarette/Vaping Use: Never Used Second Hand Smoke Exposure: No service: No Current occupational status: disabled 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 Cognitive needs: No Hearing needs: No Vision needs: Yes (glasses) Questionnaire Thrive Questionnaire Date Thrive assessed: 07/28/24 I am a: Patient What is your living situation today?: I have a steady place to live Within the past 12 months, did the food you bought not last and you didn't have the money to get more?: Never true Within the past 12 months, did you worry whether your food would run out before you got money to buy more?: Never true Do you have trouble paying for medicines?: Yes Do you have trouble getting transportation to medical appointments?: Yes Do you have trouble paying your heating and electricity bill?: Yes Do you have trouble taking care of your child, family member or friend?: Yes Do you have trouble with day-to-day activities such as bathing, preparing meals, shopping, managing finances, etc.?: Yes Are you currently unemployed and looking for a job?: Yes Are you interested in more education?: Yes Please select the resources that you would like help with: None Currently or been in a relationship where the following occur: No concerns reported THRIVE Score: 2 NATA-7 AMB Questionnaire NATA-7 Date NATA - 7 assessed: 07/28/24 Source: Developed by Drs. Alan Head, Evelin Saeed, Arias Small and colleagues, with an educational mahogany from [employer]. Physical exam (Primary Care) Vital Signs: Last Vital Signs Temp 97.6 F 01/06/25 14:44 Pulse 60 01/06/25 14:44 Resp 18 01/06/25 14:44 BP 122/70 01/06/25 14:44 Pulse Ox 98 01/06/25 14:44 Oxygen Delivery Method Room Air 01/06/25 14:44 Tobacco/Smoking Status: Tobacco use Status Tobacco use date assessed 01/01/25 01/06/25 14:38 Patient Tobacco Use Status Former Tobacco user 01/06/25 14:46 Tobacco use type Cigarette 01/06/25 14:38 e-Cigarette/Vaping Use Never Used 01/06/25 14:38 Thrive Assessment: Date of Thrive Assessment Date Thrive assessed 07/28/24 01/06/25 14:38 Currently or been in a relationship where the following occur: No concerns reported Coding Level of Care Code Est Pt Level 5 (62578) Complex visit Add On G2211 Diagnoses Idiopathic hypotension I95.0 Hypoglycemia E16.2 Unintentional weight loss of more than 10% body weight within 6 months R63.4 Urge urinary incontinence N39.41 Weakness of lower extremity R29.898 Persistent headaches R51.9 Lumbar radiculopathy M54.16 Assessment & Plan Assessment & Plan (1) Idiopathic hypotension: Code(s): I95.0 - Idiopathic hypotension Category: Medical Plan: with associated hypoglycemia and weight loss. Evaluate cortisol to assess for possible adrenal insuffiency. Addl lab testing as indicated (2) Hypoglycemia: Code(s): E16.2 - Hypoglycemia, unspecified Category: Medical Plan: See about. Also possibly related to a dumping syndrome \ (3) Unintentional weight loss of more than 10% body weight within 6 months: Code(s): R63.4 - Abnormal weight loss Category: Medical Plan: Urgent referral to gastroenterology for further evalaluation. It is possible many of her symptoms are related to a dumping syndrome given past history of gastric bypass. However, weight loss has been rapid. Labs reviewed as performed by prior MD. Add on hepatitis panel given elevated liver enzymes- liver us is pending. Renal function and lytes WNL. No vitamin deficiency. Thryoid function normal. Parathyroid function normal. No hematologic abnormality. UA ordered. Reviewed last colonoscopy report from [facility] as well as ct abd/pelvis which was unremarkable. (4) Urge urinary incontinence: Code(s): N39.41 - Urge incontinence Category: Medical Plan: Referred to urology (5) Weakness of lower extremity: Code(s): R29.898 - Other symptoms and signs involving the musculoskeletal system Category: Medical Plan: Rapid onset over the last month now leaving her wheelchair bound. Profound weakness noted on exam. Has known issues with the lumbar and thoracic spine but has had no further injury to account for such rapid drastic change. Advised to reach out to pain management as she has considered moving forward with SCS (6) Persistent headaches: Code(s): R51.9 - Headache, unspecified Category: Medical Plan: see below (7) Lumbar radiculopathy: Code(s): M54.16 - Radiculopathy, lumbar region Category: Medical Plan: see below Plan With the associated urinary incontinence, persistent headaches, sudden onset rapidly progressive weakness in the ble, would also recommend brain mri for pathology such as late onset MS. Also recommend urgent MRI lumbar spine given the rapidly progressing BLE weakness resulting in wheelchair bound status and known lower back pathology Orders: Orders Cortisol Random 01/06/25 E16.2 - Hypoglycemia, unspecified, R63.4 - Abnormal weight loss MR head/brain wo con 01/06/25 R20.0 - Anesthesia of skin, R29.898 - Other symptoms and signs involving the musculoskeletal system, R41.3 - Other amnesia, R51.9 - Headache, unspecified, R63.4 - Abnormal weight loss Tick-borne Disease Molecular 01/07/25 M25.50 - Pain in unspecified joint, R20.2 - Paresthesia of skin, R29.898 - Other symptoms and signs involving the musculoskeletal system, R51.9 - Headache, unspecified XR chest 2V 01/06/25 R63.4 - Abnormal weight loss UA CC w/rflx Micro + Cult 01/06/25 R63.4 - Abnormal weight loss Hepatitis A,B,C Profile 01/06/25 R63.4 - Abnormal weight loss, R74.8 - Abnormal levels of other serum enzymes MR lumbar spine wo con Today M47.816 - Spondylosis without myelopathy or radiculopathy, lumbar region, N39.41 - Urge incontinence, R15.9 - Full incontinence of feces, R20.0 - Anesthesia of skin, R20.2 - Paresthesia of skin Referrals Gastroenterology Referral R09.A2 - Foreign body sensation, throat, R13.10 - Dysphagia, unspecified, R63.4 - Abnormal weight loss Urology Referral R32 - Unspecified urinary incontinence, R63.4 - Abnormal weight loss Neurology Referral R20.2 - Paresthesia of skin, R29.898 - Other symptoms and signs involving the musculoskeletal system, R41.3 - Other amnesia, R51.9 - Headache, unspecified, R63.4 - Abnormal weight loss Patient Instructions: [phone]
[2025-01-06 14:44] VITALS: BP 122/70; PULSE 60; RESP 18; TEMP 36.4; O2SAT 98
--- OUTSIDE RECORDS SUMMARY | 2025-01-06 18:24 | XMS_ITS | Clinical Summary ---
Author Organization [facility] Address [address] [facility] [address] [place] [phone] Phone Care Team Providers Care Plastics Plater Name Role Phone Deborah Sanabria MD Primary Care Provid er Allergies Active Allergy Reactions Criticality Noted Date Comments Penicillin 12/27/2024 Medications No known medications Encounters Date Type Department Care Team Description 12/27/2024 3:35 PM EST - 12/27/2024 8:55 PM EST Emergency [facility] [address] [place] [address] Oni Leavitt MD Discharge Disposition: Home or [...] Color Yellow Yellow 12/27/2024 7:32 PM EST [facility] Clarity Clear Clear 12/27/2024 7:32 PM [facility] Glucose Negative Negative 12/27/2024 7:32 PM [facility] Bilirubin Urine Negative Negative 7:32 PM [facility] Ketone Urine Negative Negative 12/27/2024 7:32 PM [facility] Specific [place] 1.010 1.001 - 1.035 12/27/2024 7:32 PM EST [facility] Blood Negative Negative 12/27/2024 7:32 PM [facility] pH 5.5 5.0 - 8.0 12/27/2024 7:32 PM [facility] Protein Negative Negative 12/27/2024 7:32 PM [facility] Nitrites Negative Negative 12/27/2024 7:32 PM [facility] Leukocyte Esterase Trace(A) Negative 12/27/2024 7:32 PM [facility] Urobilinogen Negative Negative 12/27/2024 7:32 PM [facility] Urine (Urine, Voided) Non-Blood Collection / Unknown 12/27/2024 7:18 PM EST 12/27/2024 7:27 PM EST us Oni Leavitt MD LAB URINE ORDERAB LES Final Result [facility] [address] [place] [address] * Urine Culture (12/27/2024 7:18 PM EST) Urine Culture/Test Mixed sekou, culture indicates contamination 12/29/2024 8:00 AM [facility] Urine (Urine, Voided) Non-Blood Collection / Unknown 12/27/2024 7:18 PM EST 12/27/2024 7:47 PM EST Oni Leavitt MD LAB MICROBIOLOGY CULTURE ORDERABLES Final Result [address] [address] * (ABNORMAL) URINE SEDIMENT (12/27/2024 7:18 PM EST) Pathologist [facility] WBC 10-20(A) 0 - 9 /hpf 12/27/2024 7:47 PM EST [facility] RBC 0-2 0 - 2 /hpf 12/27/2024 7:47 PM [facility] Squamous Epithelial Cells 1-2(A) Not Present /hpf 12/27/2024 7:47 PM [facility] Transitional Epithelial Cells 1-2(A) Not Present /hpf 12/27/2024 7:47 PM [facility] Urine (Urine, Voided) Non-Blood Collection / Unknown 12/27/2024 7:18 PM EST 12/27/2024 7:27 PM EST Oni Leavitt MD LAB URINE ORDERAB LES Final Result Performing Organization Address City/[facility]/ZIP Co de Phone Number [address] [address] * Lab Add-On (12/27/2024 5:14 PM EST) Only the most recent of2 resultswithin the time period is included. Pathologist [facility] Specimen Date/Time 12/27/2024 5:46 PM [facility] Test Requested LFT, Lipase 12/27/2024 5:46 PM [facility] Specimen Description 12/27/2024 5:46 PM [facility] Comments 12/27/2024 5:46 PM EST [facility] Was this request processed? No 12/27/2024 5:46 PM EST [facility] Other (Other) 12/27/2024 5:1 4 PM EST 12/27/2024 5:14 PM EST Narrative [facility] - 12/27/2024 5:46 PM EST DUPLICATE ORDER Oni Leavitt MD LAB GENERAL ORDER NABILA Final Result Performing Organization Address City/[facility]/ZIP Co de Phone Number [address] [address] * ECG 12-LEAD (12/27/2024 5:05 PM EST) Only the most recent of2 resultswithin the time period is included. Ventricular Rate EKG/MIN 52 BPM [facility] Atrial Rate 52 BPM [facility] FL Interval 140 ms [facility] QRS Duration 76 ms [facility] QT Interval 456 ms [facility] QTC Interval 424 ms [facility] P [place] 0 degrees [facility] R Wave [place] 57 degrees [facility] T Wave [place] 42 degrees [facility] 12/27/2024 5:05 PM EST 12/29/2024 2:49 PM EST Narrative [facility] - 12/29/2024 2:49 PM EST Sinus bradycardia Otherwise normal ECG When compared with ECG of 27-Dec-2024 12:18, No significant change was found Confirmed by Jovany Morris ([id number]) on 12/29/2024 2:49:06 PM us Oni Leavitt MD ECG ORDERABLES F inal Result [facility] * (ABNORMAL) CBC and Differential (12/27/2024 4:23 PM EST) Pathologist [facility] WBC 5.94 4.00 - 11.00 K/uL 12/27/2024 4:36 PM EST [facility] RBC 3.87(L) 4.00 - 5.20 M/uL 12/27/2024 4:36 PM [facility] Hemoglobin 11.2(L) 12.0 - 16.0 g/dL 12/27/2024 4:36 PM [facility] Hematocrit 34.6(L) 36.0 - 46.0 % 12/27/2024 4:36 PM [facility] MCV 89.4 80.0 - 100.0 fL 12/27/2024 4:36 PM [facility] MCH 28.9 27.0 - 31.0 pg 12/27/2024 4:36 PM [facility] MCHC 32.4 32.0 - 36.0 g/dL 12/27/2024 4:36 PM [facility] MPV 9.9 8.4 - 12.0 fL 12/27/2024 4:36 PM [facility] RDW-CV 13.3 11.5 - 14.5 % 12/27/2024 4:36 PM [facility] PLT 204 150 - 450 K/uL 12/27/2024 4:36 PM [facility] Neutrophils 38.0 % 12/27/2024 4:36 PM [facility] Lymphocytes 50.0 % 12/27/2024 4:36 PM [facility] Monocytes 9.1 % 12/27/2024 4:36 PM [facility] Eosinophils 2.0 % 12/27/2024 4:36 PM [facility] Basophils 0.7 % 12/27/2024 4:36 PM [facility] Imm Grans 0.2 % 12/27/2024 4:36 PM [facility] NRBC 0.0 <=0.0 /100 WBCs 12/27/2024 4:36 PM [facility] Absolute Neutrophils 2.26 1.92 - 7.60 K/uL 12/27/2024 4:36 PM [facility] Absolute Lymphocytes 2.97 0.72 - 4.10 K/uL 12/27/2024 4:36 PM [facility] Absolute Monocytes 0.54 0.16 - 1.10 K/uL 12/27/2024 4:36 PM [facility] Absolute Eosinophils 0.12 0.00 - 0.50 K/uL 12/27/2024 4:36 PM [facility] Absolute Basophils 0.04 0.00 - 0.15 K/uL 12/27/2024 4:36 PM [facility] Absolute Imm Grans 0.01 0.00 - 0.09 K/uL 12/27/2024 4:36 PM [facility] Absolute NRBC 0.00 <=0.00 K cells/uL 12/27/2024 4:36 PM [facility] Absolute Neutrophils 2.26 1.92 - 7.60 K/uL 12/27/2024 4:36 PM [facility] Comment:Automated cell count . Manual ANC may differ if performed. Diff Type Auto 12/27/2024 4:36 PM [facility] Blood (Blood) Venipuncture / Unknown 12/27/2024 4:23 PM EST 12/27/2024 4:26 PM EST us Oni Leavitt MD LAB BLOOD BKR ORD ERABLES Final Result [address] [address] * (ABNORMAL) Hepatic Panel (LFTs) (12/27/2024 4:23 PM EST) AST 32 <33 U/L 12/27/2024 5:42 PM [facility] ALT 30 <34 U/L 12/27/2024 5:42 PM [facility] Alkaline Phosphatase 42 40 - 130 U/L 12/27/2024 5:42 PM [facility] Bilirubin, Total 0.3 0.0 - 1.2 mg/dL 12/27/2024 5:42 PM [facility] Bilirubin, Direct 0.1 0.0 - 0.3 mg/dL 12/27/2024 5:42 PM [facility] Total Protein 6.3(L) 6.4 - 8.3 g/dL 12/27/2024 5:42 PM [facility] Albumin 3.8 3.5 - 5.2 g/dL 12/27/2024 5:42 PM [facility] Globulin 2.5 1.9 - 4.1 g/dL 12/27/2024 5:42 PM [facility] Blood (Blood) Venipuncture / Unknown 12/27/2024 4:23 PM EST 12/27/2024 4:26 PM EST Oni Leavitt MD LAB BLOOD BKR ORD ERABLES Final Result Performing Organization Address City/[facility]/ZIP Co de Phone Number [address] [address] * Lipase (12/27/2024 4:23 PM EST) Lipase 34 13 - 60 U/L 12/27/2024 5:42 PM [facility] Blood (Blood) Venipuncture / Unknown 12/27/2024 4:23 PM EST 12/27/2024 4:26 PM EST Oni Leavitt MD LAB BLOOD BKR ORD ERABLES Final Result [address] [address] * Basic Metabolic Panel (BMP) (12/27/2024 4:23 PM EST) Sodium 138 136 - 145 mmol/L 12/27/2024 5:01 PM [facility] Potassium 4.4 3.4 - 5.1 mmol/L 12/27/2024 5:01 PM [facility] Chloride 104 98 - 107 mmol/L 12/27/2024 5:01 PM [facility] CO2 25 20 - 31 mmol/L 12/27/2024 5:01 PM [facility] Anion Gap 9 3 - 17 mmol/L 12/27/2024 5:01 PM [facility] BUN 13 6 - 23 mg/dL 12/27/2024 5:01 PM [facility] Creatinine 0.70 0.50 - 1.00 mg/dL 12/27/2024 5:01 PM [facility] eGFR 98 >59 mL/min/1.7 3m2 12/27/2024 5:01 PM EST [facility] Comment:Estimated glomerular filtration rate calculated using the CKD-EPI refit equation. Glucose 89 70 - 99 mg/dL 12/27/2024 5:01 PM EST [facility] Calcium 9.3 8.5 - 10.5 mg/dL 12/27/2024 5:01 PM EST [facility] Blood (Blood) Venipuncture / Unknown 12/27/2024 4:23 PM EST 12/27/2024 4:26 PM EST us Oni Leavitt MD LAB BLOOD BKR ORD ERABLES Final Result [facility] [address] [place] [address] from Last 3 Months Insurance [address] [place], [place] [id number] [facility] [address] [place] [id number] [facility] [address] [place] [address] [employer] [address] [place] [id number] [place] [address] [address] [place] [id number] [facility] Care Teams Plastics Plater Relationship Specialty Start Date End Date Deborah Sanabria MD [address] [place] [address] PCP - General Internal Medicine 12/27/24 Additional Source Comments The information contained in this document represents components of the legal health record. It is not the complete legal health record.[facility]
== END 2025-01-06 15:35 | disposition home or self-care (01) ==
PROVIDERS: PCP Physician Assistant; Visit Provider Physician Assistant
DX: I95.0 Idiopathic hypotension (principal); E16.2 Hypoglycemia, unspecified; R63.4 Abnormal weight loss; N39.41 Urge incontinence; R29.898 Other symptoms and signs involving the musculoskeletal system; R51.9 Headache, unspecified; M54.16 Radiculopathy, lumbar region

== ENCOUNTER → 2025-01-06 14:30 | Outpatient (BNVA) | payer OTHER, SELFPAY | PROVIDERS: PCP Internal Medicine; Visit Provider Physician Assistant | DX: I95.0 Idiopathic hypotension (principal); E16.2 Hypoglycemia, unspecified; R63.4 Abnormal weight loss; N39.41 Urge incontinence; R29.898 Other symptoms and signs involving the musculoskeletal system; R51.9 Headache, unspecified; M54.16 Radiculopathy, lumbar region | CPT/HCPCS: 99212 ==

== ENCOUNTER 2025-01-13 12:23 | Outpatient (REF) | payer OTHER, SELFPAY ==
--- NOTE | ~2025-01-13 | XR_ITS ---
EXAMINATION: XR CHEST CLINICAL INFORMATION: R63.4 - Abnormal weight loss COMPARISON: 05/25/2024 TECHNIQUE: 2 views of the chest were obtained. FINDINGS: No significant abnormality is noted involving the heart, lungs, mediastinum, bony thorax or soft tissues. Numerous surgical clips are again identified in the epigastric region. XR/XR chest 2V IMPRESSION: Stable chest, no acute disease. Electronically signed by: Alexandre Bach MD 01/13/2025 12:46 PM EST
--- OUTSIDE RECORDS SUMMARY | 2025-01-13 14:22 | XMS_ITS | Clinical Summary ---
Author Organization [facility] Address [address] [facility] [address] [place] [address] Phone Care Team Providers Care Lug Breaker And Wire Puller Name Role Phone Deborah Sanabria MD Primary Care Provid er Allergies Active Allergy Reactions Criticality Noted Date Comments Penicillin 12/27/2024 Medications No known medications Encounters Date Type Department Care Team Description 12/27/2024 3:35 PM EST - 12/27/2024 8:55 PM EST Emergency [facility] [address] [place] [address] Oni Leavitt MD Discharge Disposition: Home or [...] Color Yellow Yellow 12/27/2024 7:32 PM EST [facility] Clarity Clear Clear 12/27/2024 7:32 PM [facility] Glucose Negative Negative 12/27/2024 7:32 PM [facility] Bilirubin Urine Negative Negative 7:32 PM [facility] Ketone Urine Negative Negative 12/27/2024 7:32 PM [facility] Specific [place] 1.010 1.001 - 1.035 12/27/2024 7:32 PM EST [facility] Blood Negative Negative 12/27/2024 7:32 PM [facility] pH 5.5 5.0 - 8.0 12/27/2024 7:32 PM [facility] Protein Negative Negative 12/27/2024 7:32 PM [facility] Nitrites Negative Negative 12/27/2024 7:32 PM [facility] Leukocyte Esterase Trace(A) Negative 12/27/2024 7:32 PM [facility] Urobilinogen Negative Negative 12/27/2024 7:32 PM [facility] Urine (Urine, Voided) Non-Blood Collection / Unknown 12/27/2024 7:18 PM EST 12/27/2024 7:27 PM EST us Oni Leavitt MD LAB URINE ORDERAB LES Final Result [facility] [address] [place] [address] * Urine Culture (12/27/2024 7:18 PM EST) Urine Culture/Test Mixed sekou, culture indicates contamination 12/29/2024 8:00 AM [facility] Urine (Urine, Voided) Non-Blood Collection / Unknown 12/27/2024 7:18 PM EST 12/27/2024 7:47 PM EST Oni Leavitt MD LAB MICROBIOLOGY CULTURE ORDERABLES Final Result [address] [address] * (ABNORMAL) URINE SEDIMENT (12/27/2024 7:18 PM EST) Pathologist [facility] WBC 10-20(A) 0 - 9 /hpf 12/27/2024 7:47 PM EST [facility] RBC 0-2 0 - 2 /hpf 12/27/2024 7:47 PM [facility] Squamous Epithelial Cells 1-2(A) Not Present /hpf 12/27/2024 7:47 PM [facility] Transitional Epithelial Cells 1-2(A) Not Present /hpf 12/27/2024 7:47 PM [facility] Urine (Urine, Voided) Non-Blood Collection / Unknown 12/27/2024 7:18 PM EST 12/27/2024 7:27 PM EST Oni Leavitt MD LAB URINE ORDERAB LES Final Result Performing Organization Address City/[facility]/ZIP Co de Phone Number [address] [address] * Lab Add-On (12/27/2024 5:14 PM EST) Only the most recent of2 resultswithin the time period is included. Pathologist [facility] Specimen Date/Time 12/27/2024 5:46 PM [facility] Test Requested LFT, Lipase 12/27/2024 5:46 PM [facility] Specimen Description 12/27/2024 5:46 PM [facility] Comments 12/27/2024 5:46 PM EST [facility] Was this request processed? No 12/27/2024 5:46 PM EST [facility] Other (Other) 12/27/2024 5:1 4 PM EST 12/27/2024 5:14 PM EST Narrative [facility] - 12/27/2024 5:46 PM EST DUPLICATE ORDER Oni Leavitt MD LAB GENERAL ORDER NABILA Final Result Performing Organization Address City/[facility]/ZIP Co de Phone Number [address] [address] * ECG 12-LEAD (12/27/2024 5:05 PM EST) Only the most recent of2 resultswithin the time period is included. Ventricular Rate EKG/MIN 52 BPM [facility] Atrial Rate 52 BPM [facility] SC Interval 140 ms [facility] QRS Duration 76 ms [facility] QT Interval 456 ms [facility] QTC Interval 424 ms [facility] P [place] 0 degrees [facility] R Wave [place] 57 degrees [facility] T Wave [place] 42 degrees [facility] 12/27/2024 5:05 PM EST [...] - 11.00 K/uL 12/27/2024 4:36 PM EST [facility] RBC 3.87(L) 4.00 - 5.20 M/uL 12/27/2024 4:36 PM [facility] Hemoglobin 11.2(L) 12.0 - 16.0 g/dL 12/27/2024 4:36 PM [facility] Hematocrit 34.6(L) 36.0 - 46.0 % 12/27/2024 4:36 PM [facility] MCV 89.4 80.0 - 100.0 fL 12/27/2024 4:36 PM [facility] MCH 28.9 27.0 - 31.0 pg 12/27/2024 4:36 PM [facility] MCHC 32.4 32.0 - 36.0 g/dL 12/27/2024 4:36 PM [facility] MPV 9.9 8.4 - 12.0 fL 12/27/2024 4:36 PM [facility] RDW-CV 13.3 11.5 - 14.5 % 12/27/2024 4:36 PM [facility] PLT 204 150 - 450 K/uL 12/27/2024 4:36 PM [facility] Neutrophils 38.0 % 12/27/2024 4:36 PM [facility] Lymphocytes 50.0 % 12/27/2024 4:36 PM [facility] Monocytes 9.1 % 12/27/2024 4:36 PM [facility] Eosinophils 2.0 % 12/27/2024 4:36 PM [facility] Basophils 0.7 % 12/27/2024 4:36 PM [facility] Imm Grans 0.2 % 12/27/2024 4:36 PM [facility] NRBC 0.0 <=0.0 /100 WBCs 12/27/2024 4:36 PM [facility] Absolute Neutrophils 2.26 1.92 - 7.60 K/uL 12/27/2024 4:36 PM [facility] Absolute Lymphocytes 2.97 0.72 - 4.10 K/uL 12/27/2024 4:36 PM [facility] Absolute Monocytes 0.54 0.16 - 1.10 K/uL 12/27/2024 4:36 PM [facility] Absolute Eosinophils 0.12 0.00 - 0.50 K/uL 12/27/2024 4:36 PM [facility] Absolute Basophils 0.04 0.00 - 0.15 K/uL 12/27/2024 4:36 PM [facility] Absolute Imm Grans 0.01 0.00 - 0.09 K/uL 12/27/2024 4:36 PM [facility] Absolute NRBC 0.00 <=0.00 K cells/uL 12/27/2024 4:36 PM [facility] Absolute Neutrophils 2.26 1.92 - 7.60 K/uL 12/27/2024 4:36 PM [facility] Comment:Automated cell count . Manual ANC may differ if performed. Diff Type Auto 12/27/2024 4:36 PM [facility] Blood (Blood) Venipuncture / Unknown 12/27/2024 4:23 PM EST 12/27/2024 4:26 PM EST us Oni Leavitt MD LAB BLOOD BKR ORD ERABLES Final Result [address] [address] * (ABNORMAL) Hepatic Panel (LFTs) (12/27/2024 4:23 PM EST) AST 32 <33 U/L 12/27/2024 5:42 PM [facility] ALT 30 <34 U/L 12/27/2024 5:42 PM [facility] Alkaline Phosphatase 42 40 - 130 U/L 12/27/2024 5:42 PM [facility] Bilirubin, Total 0.3 0.0 - 1.2 mg/dL 12/27/2024 5:42 PM [facility] Bilirubin, Direct 0.1 0.0 - 0.3 mg/dL 12/27/2024 5:42 PM [facility] Total Protein 6.3(L) 6.4 - 8.3 g/dL 12/27/2024 5:42 PM [facility] Albumin 3.8 3.5 - 5.2 g/dL 12/27/2024 5:42 PM [facility] Globulin 2.5 1.9 - 4.1 g/dL 12/27/2024 5:42 PM [facility] Blood (Blood) Venipuncture / Unknown 12/27/2024 4:23 PM EST 12/27/2024 4:26 PM EST Oni Leavitt MD LAB BLOOD BKR ORD ERABLES Final Result Performing Organization Address City/[facility]/ZIP Co de Phone Number [address] [address] * Lipase (12/27/2024 4:23 PM EST) Lipase 34 13 - 60 U/L 12/27/2024 5:42 PM [facility] Blood (Blood) Venipuncture / Unknown 12/27/2024 4:23 PM EST 12/27/2024 4:26 PM EST Oni Leavitt MD LAB BLOOD BKR ORD ERABLES Final Result [address] [address] * Basic Metabolic Panel (BMP) (12/27/2024 4:23 PM EST) Sodium 138 136 - 145 mmol/L 12/27/2024 5:01 PM [facility] Potassium 4.4 3.4 - 5.1 mmol/L 12/27/2024 5:01 PM [facility] Chloride 104 98 - 107 mmol/L 12/27/2024 5:01 PM [facility] CO2 25 20 - 31 mmol/L 12/27/2024 5:01 PM [facility] Anion Gap 9 3 - 17 mmol/L 12/27/2024 5:01 PM [facility] BUN 13 6 - 23 mg/dL 12/27/2024 5:01 PM [facility] Creatinine 0.70 0.50 - 1.00 mg/dL 12/27/2024 5:01 PM [facility] eGFR 98 >59 mL/min/1.7 3m2 12/27/2024 5:01 PM EST [facility] Comment:Estimated glomerular filtration rate calculated using the CKD-EPI refit equation. Glucose 89 70 - 99 mg/dL 12/27/2024 5:01 PM EST [facility] Calcium 9.3 8.5 - 10.5 mg/dL 12/27/2024 5:01 PM EST [facility] Blood (Blood) Venipuncture / Unknown 12/27/2024 4:23 PM EST 12/27/2024 4:26 PM EST us Oni Leavitt MD LAB BLOOD BKR ORD ERABLES Final Result [facility] [address] [place] [address] from Last 3 Months Insurance [address] [place], [place] [id number] [facility] [address] [place] [phone] [facility] [address] [address] [employer] [address] [place] [id number] [place] [address] [address] [place] [phone] [facility] Care Teams Lug Breaker And Wire Puller Relationship Specialty Start Date End Date Deborah Sanabria MD [address] [place] [address] PCP - General Internal Medicine 12/27/24 Additional Source Comments The information contained in this document represents components of the legal health record. It is not the complete legal health record.[facility]
== END 2025-01-13 12:24 | disposition home or self-care (01) ==
LOC: HO.XRAY 12:23
PROVIDERS: PCP Physician Assistant; Visit Provider Physician Assistant
DX: R63.4 Abnormal weight loss (principal)
CPT/HCPCS: 71046

== ENCOUNTER → 2025-01-13 12:29 | Outpatient (BNV) | payer OTHER, SELFPAY | PROVIDERS: PCP Physician Assistant; Visit Provider Radiology Diagnostic Radiology | DX: R63.4 Abnormal weight loss (principal) | CPT/HCPCS: 71046 ==

== ENCOUNTER 2025-01-16 10:15 | Outpatient (AMB) | payer OTHER, SELFPAY ==
[2025-01-16 10:17] VITALS: BP 117/59; PULSE 56; RESP 16; O2SAT 99; BMI 19.6
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
== END 2025-01-16 10:49 | disposition home or self-care (01) ==
LOC: HO.PMC 10:16
PROVIDERS: PCP Internal Medicine; Visit Provider Registered Nurse Emergency
DX: R29.898 Other symptoms and signs involving the musculoskeletal system (principal); Z87.81 Personal history of (healed) traumatic fracture; R20.0 Anesthesia of skin; R20.2 Paresthesia of skin; G89.4 Chronic pain syndrome; M54.6 Pain in thoracic spine; M48.10 Ankylosing hyperostosis [Forestier], site unspecified; M81.0 Age-related osteoporosis without current pathological fracture; M47.816 Spondylosis without myelopathy or radiculopathy, lumbar region; M54.16 Radiculopathy, lumbar region
CPT/HCPCS: 99213

== ENCOUNTER → 2025-01-16 10:15 | Outpatient (BNVA) | payer OTHER, SELFPAY | PROVIDERS: PCP Internal Medicine; Visit Provider Registered Nurse Emergency | DX: R29.898 Other symptoms and signs involving the musculoskeletal system (principal); R20.0 Anesthesia of skin; R20.2 Paresthesia of skin; G89.4 Chronic pain syndrome; M54.6 Pain in thoracic spine; M48.10 Ankylosing hyperostosis [Forestier], site unspecified; M81.0 Age-related osteoporosis without current pathological fracture; M47.816 Spondylosis without myelopathy or radiculopathy, lumbar region; M54.16 Radiculopathy, lumbar region; Z87.81 Personal history of (healed) traumatic fracture; Z91.81 History of falling | CPT/HCPCS: 99212 ==

== ENCOUNTER 2025-02-10 08:03 | Outpatient (REF) | payer OTHER, SELFPAY ==
--- OUTSIDE RECORDS SUMMARY | 2025-02-10 09:28 | XMS_ITS | Clinical Summary ---
Author Organization [facility] Address [address] [facility] [address] [place] [phone] Phone Care Team Providers Care Supervisor Extrusion Name Role Phone Deborah Sanabria MD Primary Care Provid er Allergies Active Allergy Reactions Criticality Noted Date Comments Penicillin 12/27/2024 Medications No known medications Encounters Date Type Department Care Team Description 12/27/2024 3:35 PM EST - 12/27/2024 8:55 PM EST Emergency [facility] [address] [place] [address] Oni Leavitt MD Discharge Disposition: Home or [...] Color Yellow Yellow 12/27/2024 7:32 PM EST [facility] Clarity Clear Clear 12/27/2024 7:32 PM [facility] Glucose Negative Negative 12/27/2024 7:32 PM [facility] Bilirubin Urine Negative Negative 7:32 PM [facility] Ketone Urine Negative Negative 12/27/2024 7:32 PM [facility] Specific Bath 1.010 1.001 - 1.035 12/27/2024 7:32 PM EST [facility] Blood Negative Negative 12/27/2024 7:32 PM [facility] pH 5.5 5.0 - 8.0 12/27/2024 7:32 PM [facility] Protein Negative Negative 12/27/2024 7:32 PM [facility] Nitrites Negative Negative 12/27/2024 7:32 PM [facility] Leukocyte Esterase Trace(A) Negative 12/27/2024 7:32 PM [facility] Urobilinogen Negative Negative 12/27/2024 7:32 PM [facility] Urine (Urine, Voided) Non-Blood Collection / Unknown 12/27/2024 7:18 PM EST 12/27/2024 7:27 PM EST us Oni Leavitt MD LAB URINE ORDERAB LES Final Result [facility] [address] [place] [address] * Urine Culture (12/27/2024 7:18 PM EST) Urine Culture/Test Mixed sekou, culture indicates contamination 12/29/2024 8:00 AM [facility] Urine (Urine, Voided) Non-Blood Collection / Unknown 12/27/2024 7:18 PM EST 12/27/2024 7:47 PM EST Oni Leavitt MD LAB MICROBIOLOGY CULTURE ORDERABLES Final Result [address] [address] * (ABNORMAL) URINE SEDIMENT (12/27/2024 7:18 PM EST) Pathologist [facility] WBC 10-20(A) 0 - 9 /hpf 12/27/2024 7:47 PM EST [facility] RBC 0-2 0 - 2 /hpf 12/27/2024 7:47 PM [facility] Squamous Epithelial Cells 1-2(A) Not Present /hpf 12/27/2024 7:47 PM [facility] Transitional Epithelial Cells 1-2(A) Not Present /hpf 12/27/2024 7:47 PM [facility] Urine (Urine, Voided) Non-Blood Collection / Unknown 12/27/2024 7:18 PM EST 12/27/2024 7:27 PM EST Oni Leavitt MD LAB URINE ORDERAB LES Final Result Performing Organization Address City/[facility]/ZIP Co de Phone Number [address] [address] * Lab Add-On (12/27/2024 5:14 PM EST) Only the most recent of2 resultswithin the time period is included. Pathologist [facility] Specimen Date/Time 12/27/2024 5:46 PM [facility] Test Requested LFT, Lipase 12/27/2024 5:46 PM [facility] Specimen Description 12/27/2024 5:46 PM [facility] Comments 12/27/2024 5:46 PM EST [facility] Was this request processed? No 12/27/2024 5:46 PM EST [facility] Other (Other) 12/27/2024 5:1 4 PM EST 12/27/2024 5:14 PM EST Narrative [facility] - 12/27/2024 5:46 PM EST DUPLICATE ORDER Oni Leavitt MD LAB GENERAL ORDER NABILA Final Result Performing Organization Address City/[facility]/ZIP Co de Phone Number [address] [address] * ECG 12-LEAD (12/27/2024 5:05 PM EST) Only the most recent of2 resultswithin the time period is included. Ventricular Rate EKG/MIN 52 BPM [facility] Atrial Rate 52 BPM [facility] WI Interval 140 ms [facility] QRS Duration 76 ms [facility] QT Interval 456 ms [facility] QTC Interval 424 ms [facility] P [place] 0 degrees [facility] R Wave [place] 57 degrees [facility] T Wave [place] 42 degrees [facility] 12/27/2024 5:05 PM EST [...] and Differential (12/27/2024 4:23 PM EST) Pathologist [facility] WBC 5.94 4.00 - 11.00 K/uL 12/27/2024 4:36 PM EST [facility] RBC 3.87(L) 4.00 - 5.20 M/uL 12/27/2024 4:36 PM [facility] Hemoglobin 11.2(L) 12.0 - 16.0 g/dL 12/27/2024 4:36 PM [facility] Hematocrit 34.6(L) 36.0 - 46.0 % 12/27/2024 4:36 PM [facility] MCV 89.4 80.0 - 100.0 fL 12/27/2024 4:36 PM [facility] MCH 28.9 27.0 - 31.0 pg 12/27/2024 4:36 PM [facility] MCHC 32.4 32.0 - 36.0 g/dL 12/27/2024 4:36 PM [facility] MPV 9.9 8.4 - 12.0 fL 12/27/2024 4:36 PM [facility] RDW-CV 13.3 11.5 - 14.5 % 12/27/2024 4:36 PM [facility] PLT 204 150 - 450 K/uL 12/27/2024 4:36 PM [facility] Neutrophils 38.0 % 12/27/2024 4:36 PM [facility] Lymphocytes 50.0 % 12/27/2024 4:36 PM [facility] Monocytes 9.1 % 12/27/2024 4:36 PM [facility] Eosinophils 2.0 % 12/27/2024 4:36 PM [facility] Basophils 0.7 % 12/27/2024 4:36 PM [facility] Imm Grans 0.2 % 12/27/2024 4:36 PM [facility] NRBC 0.0 <=0.0 /100 WBCs 12/27/2024 4:36 PM [facility] Absolute Neutrophils 2.26 1.92 - 7.60 K/uL 12/27/2024 4:36 PM [facility] Absolute Lymphocytes 2.97 0.72 - 4.10 K/uL 12/27/2024 4:36 PM [facility] Absolute Monocytes 0.54 0.16 - 1.10 K/uL 12/27/2024 4:36 PM [facility] Absolute Eosinophils 0.12 0.00 - 0.50 K/uL 12/27/2024 4:36 PM [facility] Absolute Basophils 0.04 0.00 - 0.15 K/uL 12/27/2024 4:36 PM [facility] Absolute Imm Grans 0.01 0.00 - 0.09 K/uL 12/27/2024 4:36 PM [facility] Absolute NRBC 0.00 <=0.00 K cells/uL 12/27/2024 4:36 PM [facility] Absolute Neutrophils 2.26 1.92 - 7.60 K/uL 12/27/2024 4:36 PM [facility] Comment:Automated cell count . Manual ANC may differ if performed. Diff Type Auto 12/27/2024 4:36 PM [facility] Blood (Blood) Venipuncture / Unknown 12/27/2024 4:23 PM EST 12/27/2024 4:26 PM EST us Oni Leavitt MD LAB BLOOD BKR ORD ERABLES Final Result [address] [address] * (ABNORMAL) Hepatic Panel (LFTs) (12/27/2024 4:23 PM EST) AST 32 <33 U/L 12/27/2024 5:42 PM [facility] ALT 30 <34 U/L 12/27/2024 5:42 PM [facility] Alkaline Phosphatase 42 40 - 130 U/L 12/27/2024 5:42 PM [facility] Bilirubin, Total 0.3 0.0 - 1.2 mg/dL 12/27/2024 5:42 PM [facility] Bilirubin, Direct 0.1 0.0 - 0.3 mg/dL 12/27/2024 5:42 PM [facility] Total Protein 6.3(L) 6.4 - 8.3 g/dL 12/27/2024 5:42 PM [facility] Albumin 3.8 3.5 - 5.2 g/dL 12/27/2024 5:42 PM [facility] Globulin 2.5 1.9 - 4.1 g/dL 12/27/2024 5:42 PM [facility] Blood (Blood) Venipuncture / Unknown 12/27/2024 4:23 PM EST 12/27/2024 4:26 PM EST Oni Leavitt MD LAB BLOOD BKR ORD ERABLES Final Result Performing Organization Address City/[facility]/ZIP Co de Phone Number [address] [address] * Lipase (12/27/2024 4:23 PM EST) Lipase 34 13 - 60 U/L 12/27/2024 5:42 PM [facility] Blood (Blood) Venipuncture / Unknown 12/27/2024 4:23 PM EST 12/27/2024 4:26 PM EST Oni Leavitt MD LAB BLOOD BKR ORD ERABLES Final Result [address] [address] * Basic Metabolic Panel (BMP) (12/27/2024 4:23 PM EST) Sodium 138 136 - 145 mmol/L 12/27/2024 5:01 PM [facility] Potassium 4.4 3.4 - 5.1 mmol/L 12/27/2024 5:01 PM [facility] Chloride 104 98 - 107 mmol/L 12/27/2024 5:01 PM [facility] CO2 25 20 - 31 mmol/L 12/27/2024 5:01 PM [facility] Anion Gap 9 3 - 17 mmol/L 12/27/2024 5:01 PM [facility] BUN 13 6 - 23 mg/dL 12/27/2024 5:01 PM [facility] Creatinine 0.70 0.50 - 1.00 mg/dL 12/27/2024 5:01 PM [facility] eGFR 98 >59 mL/min/1.7 3m2 12/27/2024 5:01 PM EST [facility] Comment:Estimated glomerular filtration rate calculated using the CKD-EPI refit equation. Glucose 89 70 - 99 mg/dL 12/27/2024 5:01 PM EST [facility] Calcium 9.3 8.5 - 10.5 mg/dL 12/27/2024 5:01 PM EST [facility] Blood (Blood) Venipuncture / Unknown 12/27/2024 4:23 PM EST 12/27/2024 4:26 PM EST us Oni Leavitt MD LAB BLOOD BKR ORD ERABLES Final Result [facility] [address] [place] [address] from Last 3 Months Insurance [address] [place], [place] [id number] [facility] [employer] [address] [place] [phone] [facility] [employer] [address] [place] [address] [address] [address] [place] [id number] [place] [address] [address] [place] [phone] [facility] [employer] Care Teams Supervisor Extrusion Relationship Specialty Start Date End Date Deborah Sanabria MD [address] [place] [address] PCP - General Internal Medicine 12/27/24 Additional Source Comments The information contained in this document represents components of the legal health record. It is not the complete legal health record.[facility]
[2025-02-10 09:38] LABS: Albumin Level 4.0 g/dL (3.5-5.0); Calcium 9.6 mg/dL (8.4-10.2)
[2025-02-10 10:09] LABS: HBS Num1 0.00 mIU/mL (0-7.99); HBc Num1 0.07 S/CO (0.00-0.79); HBsAGNum1 0.29 S/CO (0.00-0.99); Hepatitis A Antibody IgM 0.35 Index (0-0.79); Hepatitis B Surface Antigen Negative (Negative); ~HepC Num1 0.09 S/CO (0.00-0.79); ~Hepatitis A Antibody IgM Nonreactive (Nonreactive); ~Hepatitis B Surface Antibody NONREACTIVE (Nonreactive); ~Hepatitis C Antibody Nonreactive (Nonreactive)
[2025-02-11 10:36] LABS: Appearance Urine Clear; Glucose Urine UA Negative (Negative); PH 8.0 (5.0-9.0); Specific Gravity - Urine 1.015 (1.005-1.025)
[2025-02-12 13:08] LABS: A. Phagocytphilium DNA,RT-PCR NOT DETECTED (NOT DETECTED); Babesia Microti DNA, RT-PCR NOT DETECTED (NOT DETECTED); Borrelia Miyamotoi,DNA RT-PCR NOT DETECTED (NOT DETECTED); E.Chaffeensis DNA RT-PCR NOT DETECTED (NOT DETECTED); Lyme(Borrelia ssp)DNA RT-PCR NOT DETECTED (NOT DETECTED)
== END 2025-02-10 08:04 | disposition home or self-care (01) ==
LOC: HO.LAB 08:03
PROVIDERS: Internal Medicine Endocrinology, Diabetes & Metabolism; PCP Physician Assistant; Visit Provider Physician Assistant
DX: E21.3 Hyperparathyroidism, unspecified (principal); R63.4 Abnormal weight loss; E16.2 Hypoglycemia, unspecified; R74.8 Abnormal levels of other serum enzymes; M25.50 Pain in unspecified joint; R29.898 Other symptoms and signs involving the musculoskeletal system; R51.9 Headache, unspecified; R20.2 Paresthesia of skin
CPT/HCPCS: 36415; 82040; 82310; 82533; 86704; 86706; 86709; 86803; 87340; 87468; 87469; 87478; 87484; 87798